=== PATIENT | female | born 1990 | race African-American/Black ===

== ENCOUNTER 2023-09-02 05:39 | Observation (INO) | payer OTHER, SELFPAY ==
--- NOTE | ~2023-09-02 | US_ITS ---
EXAMINATION: US abdomen limited DATE: 09/02/2023 07:52 INDICATION: Right upper quadrant pain TECHNIQUE: Multiple grayscale and Doppler ultrasound images of the abdomen were obtained. COMPARISON: None available FINDINGS: Bowel gas obscures visualization of the pancreas. The visualized portions of the pancreas a re unremarkable. The liver is normal with normal echogenicity and echotexture. No surface nodularity. Normal hepatopetal flow in the main portal vein. The gallbladder is normal with no abnormal wall thi ckening, pericholecystic fluid or stones. The normal common bile duct measures 3 mm. There was no son ographic Baker sign. IMPRESSION: 1. Normal sonographic study of the gallbladder. Reviewed, dictated and finalized at location A.
[2023-09-02 06:00] VITALS: BP 120/79; PULSE 89
[2023-09-02 06:15] VITALS: BMI 32.9
[2023-09-02 06:16] VITALS: BP 103/59; PULSE 81
--- NOTE | 2023-09-02 06:17 | LDADM ---
This patient, Tisha Casey, was admitted to [facility] on 09/02/23 at 05:39. Plans for labor, pain management and were discussed with patient. Patient/family oriented to hospital policies and general routines including ID bracelet, bed and alarms, visiting hours, pain management, procedures, bathroom and other care routines, personal items, smoking policy, room service/diet and guest tray routines, infant security routines, and visiting hours. Patient/Family are encouraged to report perceived risks to care and to ask questions if they do not understand what they are told or what they should do. See OBIX for further documentation.
[2023-09-02] MEDS: fentaNYL CITRATE INJ (*CRX) 100 MCG/2 ML VIAL IV PUSH (06:30)
[2023-09-02 06:31] VITALS: BP 97/68; PULSE 79
[2023-09-02 06:47] LABS: Basophils Percent Auto 0.3 % (0.2-1.2); Eosinophils Absolute Auto 0.2 K/mm3 (0-0.3); Eosinophils Percent Auto 1.9 % (0-4.4); Hematocrit 28.7 % (37.0-47.0); Hemoglobin 9.2 g/dL (12.0-15.0); Immature Granulocyte Absolute 0.06 K/mm3 (0.00-0.031); Immature Granulocyte Percent A 0.7 % (0-0.5); Lymphocytes Absolute Auto 2.19 K/mm3 (0.9-3.2); Lymphocytes Percent Auto 24.4 % (18.3-44.2); Mean Corpuscular HGB Conc 32.1 g/dl (32-36); Mean Corpuscular Hemoglobin 27.5 pg (26-34); Mean Corpuscular Volume 85.7 fl (80-100); Mean Platelet Volume 9.7 fl (7.4-10.4); Monocytes Absolute Auto 0.6 K/mm3 (0.1-0.6); Monocytes Percent Auto 6.9 % (2.6-8.5); Neutrophils Absolute Auto 5.9 K/mm3 (1.3-6.7); Neutrophils Percent Auto 65.8 % (45.5-73.1); Platelet Count Result 217 k/mm3 (150-375); Red Blood Count 3.35 M/mm3 (4.2-5.4)
[2023-09-02 06:56] LABS: Alanine Aminotransferase 10 U/L (6-35); Albumin Level 2.9 g/dL (3.5-5.1); Alkaline Phosphatase 101 U/L (38-126); Anion Gap 2 mmol/L (4-12); Aspartate Amino Transferase 18 U/L (14-36); Bilirubin,Total 0.3 mg/dL (0.2-1.3); Blood Urea Nitrogen 4 mg/dL (7-17); Carbon Dioxide 20 mmol/L (22-30); Chloride 112 mmol/L (98-107); Estimated CRCL calculation 177 ml/min; Estimated Glomerular Filt Rate > 60; Glucose 90 mg/dL (65-110); Potassium 3.6 mmol/L (3.4-5.0); Sodium 134 mmol/L (137-145); Uric Acid 3.7 mg/dL (2.5-7.5)
[2023-09-02 06:57] LABS: Creatinine Urine 71.2 mg/dL; Total Protein Urine Random 10 mg/dL; Ur Ttl Prot Creatinine Ratio 0.14 mg/mg (0-0.20)
[2023-09-02 06:58] LABS: Appearance Urine Turbid (Clear); Bacteria Urine 2+ /hpf; Bilirubin Urine Negative (Negative); Blood Urine Negative (Negative); Color Urine Yellow (Yellow); Glucose Urine UA Negative (Negative); Ketones Urine Negative (Negative); Leukocyte Esterase Ur 3+ LEU/UL (Negative); Nitrate Urine Negative (Negative); Protein Urine Negative (Negative); RBC Urine 0-2 /hpf (0-2); Specific Grav Ur 1.014 (1.001-1.035); Squamous Epithelial Cell Urine Many /hpf (Few); WBC Urine 51-100 /hpf (0-3)
[2023-09-02 07:00] VITALS: BP 107/54; PULSE 74
[2023-09-02 07:02] LABS: Add Urine Microscopic? YES
[2023-09-02 07:19] VITALS: TEMP 36.1
--- NOTE | 2023-09-02 07:53 | PC.NURSE ---
Upon trying to do patient's admission questions, RN noticed patient writhing in bed and moaning with complaints of 10/10 bilateral upper abdominal pain. Patient's abdomen palpates soft. Patient has orders for PO Tylenol but has a gallbladder ultrasound scheduled which she needs to be NPO for. Called Dr. Dunaway and asked for orders to place an IV and give IV pain meds. Verbal orders received for 100 mcg IV Fentanyl.
--- NOTE | 2023-09-02 08:05 | PC.NURSE ---
Dr. Dunaway in OB department. Reviewed category I tracing. Discussed no uterine activity. Discussed lab results and ultrasound results. Notified MD that patient now rates her pain 0/10. Verbal orders reveived for discharge.
--- NOTE | 2023-09-22 13:40 | PM.OBTRLD ---
OB - Triage/Final Diagnosis Visit Information Comments/Additional reasons for admission: I have assessed the risk for this patient, Tisha Casey, and determined that she would benefit from observation care. Evaluation Laboratory results: Laboratory Tests 09/02/23 06:12 WBC 9.0 RBC 3.35 L Hgb 9.2 L Hct 28.7 L MCV 85.7 MCH 27.5 MCHC 32.1 RDW 13.0 Plt Count 217 MPV 9.7 Immature Gran % (Auto) 0.7 H Neut % (Auto) 65.8 Lymph % (Auto) 24.4 [place] % (Auto) 6.9 Eos % (Auto) 1.9 Baso % (Auto) 0.3 Lymph # (Auto) 2.19 [place] # (Auto) 0.6 Eos # (Auto) 0.2 Baso # (Auto) 0.0 Abs Immat Gran (auto) 0.06 H Absolute Neuts (auto) 5.9 Absolute Nucleated RBC 0.000 Nucleated RBC % 0.0 Sodium 134 L Potassium 3.6 Chloride 112 H Carbon Dioxide 20 L Anion Gap 2 L BUN 4 L Creatinine 0.40 L Estim Creat Clear Calc 177 Estimated GFR > 60 Glucose 90 Uric Acid 3.7 Calcium 8.0 L Total Bilirubin 0.3 AST 18 ALT 10 Alkaline Phosphatase 101 Total Protein 6.0 L Albumin 2.9 L Urine Color Yellow Urine Appearance Turbid H Urine pH 7.0 Ur Specific [place] 1.014 Urine Protein Negative Urine Glucose (UA) Negative Urine Ketones Negative Ur Blood (Man) Negative Urine Nitrate Negative Urine Bilirubin Negative Urine Urobilinogen 1.0 Leukocyte Esterase Rfl 3+ H Urine RBC 0-2 Urine WBC 51-100 H Ur Squamous Epith Cells Many H Urine Bacteria 2+ H Urine Casts 3-5 U Random Total Protein 10 Urine Creatinine 71.2 Protein/Creat Ratio 2 0.14 Final Diagnosis (1) Abdominal pain of right upper quadrant during , antepartum: Code(s): O26.899 - Other specified related conditions, unspecified trimester; R10.11 - Right upper quadrant pain Status: Acute
== END 2023-09-02 08:41 | disposition home or self-care (01) ==
PROVIDERS: Admitting Provider Obstetrics & Gynecology; Visit Provider Obstetrics & Gynecology
DX: O26.893 Other specified pregnancy related conditions, third trimester (principal); R10.11 Right upper quadrant pain; Z3A.32 32 weeks gestation of pregnancy
CPT/HCPCS: 36415; 76705; 80053; 81001; 82570; 84156; 84550; 85025; 87086; 87088; 96374; G0378; G0379; J3010

== ENCOUNTER 2023-09-29 19:07 | Emergency (ER) | payer OTHER, SELFPAY ==
[2023-09-29 19:13] VITALS: BP 127/73; PULSE 96; RESP 20; TEMP 37.2; O2SAT 99
--- NOTE | 2023-09-29 20:02 | PC.NURSE ---
Pt approached front end driver asking how much longer the wait is. Pt was told that there is no time frame. Pt stated You can take me off of the list. I will go to another hospital.
== END 2023-09-29 21:04 | disposition left against medical advice (07) ==
DX: K08.89 Other specified disorders of teeth and supporting structures (principal)
CPT/HCPCS: 99199

== ENCOUNTER 2024-02-29 19:08 | Emergency (ER) | payer OTHER, SELFPAY ==
[2024-02-29 19:55] VITALS: BP 115/72; PULSE 83; RESP 18; TEMP 36.3; O2SAT 100
--- NOTE | 2024-02-29 20:03 | ED.URI ---
HPI - URI/Sore Throat General Chief Complaint: Upper Respiratory Infection Stated Complaint: ken, fever, chills, sore throat Time Seen by Provider: 02/29/24 19:27 History of Present Illness HPI Narrative: Patient presents with 1 day of slight headache and body aches, chills, runny nose and congestion, slight sore throat. No nausea vomiting or cough or shortness of breath, her children have been having similar symptoms with last few days. Related Data Home Medications Medication Instructions Recorded Confirmed aspirin 81 mg capsule 81 mg PO DAILY 09/02/23 09/02/23 vit#24-iron amino acid 1 tablet PO DAILY 09/02/23 09/02/23 chelat-folic acid 30 mg-975 mcg tablet Allergies Allergy/AdvReac Type Severity Reaction Status Date / Time Penicillins Allergy Swelling Verified 02/29/24 19:57 Review of Systems Review of Systems: All systems reviewed & are unremarkable except as noted in HPI and below Exam Narrative: EXAMINATION OF ORGAN SYSTEMS/BODY AREAS: Constitutional: Vital signs per nursing GENERAL:[No acute distress, non-toxic appearing.] HEAD: Normal with no signs of head trauma. EYES: EOMI, conjunctiva normal ENT: Hearing grossly intact. No tonsillar exudates or erythema or swelling LUNGS: Nonlabored breathing. clear to auscultation bilaterally HEART: [Regular rate and rhythm] ABD: [Soft], [nontender to palpation] EXT: Normal range of motion SKIN: [No rashes or lesions.] NEURO: [Alert and oriented x 3. No gross focal sensory or strength deficits.] PSYCH: Normal affect Course Vital Signs Vital signs: Vital Signs Temperature 97.4 F L 02/29/24 19:55 Pulse Rate 83 02/29/24 19:55 Respiratory Rate 18 02/29/24 19:55 Blood Pressure 115/72 02/29/24 19:55 Pulse Oximetry 100 02/29/24 19:55 Oxygen Delivery Room Air 02/29/24 19:55 Temperature 97.4 F L 02/29/24 19:55 Pulse Rate 83 02/29/24 19:55 Respiratory Rate 18 02/29/24 19:55 Blood Pressure 115/72 02/29/24 19:55 Pulse Oximetry 100 02/29/24 19:55 Oxygen Delivery Room Air 02/29/24 19:57 MDM - URI/Sore Throat MDM Narrative Medical decision making narrative: ED COURSE AND MEDICAL DECISION MAKING: This 33 year old patient presents with symptoms most suggestive of viral upper respiratory tract infection. Lungs are clear bilaterally without any respiratory distress or accessory muscle use. declined swab here, she is very well-appearing, discharged home in stable condition with expectant management. Return precautions were provided. Discharge Plan Discharge Clinical Impression: Upper respiratory infection Patient Disposition: Home, Self-Care Condition: Stable Instructions: Antibiotic Form, Cold Symptoms (ED) Additional Instructions: Please follow up with your doctor; you can always return for any further issues. Prescriptions: New fluticasone propionate [Allergy Relief (fluticasone)] 50 mcg/actuation spray,suspension 1 spray intranasal DAILY Qty: 16 0RF Rx Instructions: administer into each nostril acetaminophen [Tylenol Extra Strength] 500 mg tablet 1,000 mg PO Q6H PRN (Reason: pain) Qty: 50 0RF ibuprofen 600 mg tablet 600 mg PO TID PRN (Reason: fever or pain) Qty: 30 0RF No Action PNV no.[id number] acid 30-975 mg-mcg Tablet 1 tablet PO DAILY aspirin 81 mg Capsule 81 mg PO DAILY Follow-up/Referrals: Oli Wallace, [Physician] - 2 Days PHYSICIAN,GEOCHEMIST [Non-Staff] -
[2024-02-29 20:59] VITALS: BP 120/76; PULSE 76; RESP 16; TEMP 36.6; O2SAT 98
== END 2024-02-29 20:59 | disposition home or self-care (01) ==
LOC: ANHED 20:11
PROVIDERS: Emergency Provider Emergency Medicine
DX: J06.9 Acute upper respiratory infection, unspecified (principal); Z79.82 Long term (current) use of aspirin
CPT/HCPCS: 99283

== ENCOUNTER 2024-07-13 11:40 | Emergency (ER) | payer OTHER, SELFPAY ==
[2024-07-13 11:54] VITALS: BP 100/85; PULSE 100; RESP 14; TEMP 36.5; O2SAT 99
--- OUTSIDE RECORDS SUMMARY | 2024-07-13 12:05 | XMS_ITS | Referral Summary ---
Author Organization [facility] Address [address] 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 This disclosure is being madepursuant to the Care Everywhere program and may not contain all information available regarding this patient. Last updated 18.[facility] [employer] Allergies Active Allergy Reactions Criticality Noted Date Comments Penicillins Swelling 11/04/2014 Medications * Be aware that medications may not be up to date on this document. Alwaysverify current medications with the patient. Medication Sig Dispensed Refills Start Date End Date Status Aspirin Low Dose 81 MG tablet 04/26/2023 Active Vit-DSS-Fe Fum-FA (Se- 19) 29-1 MG TABS 04/26/2023 Active ferrous sulfate 325 (65 FE) MG tablet Take 1 (one) tablet by mouth once daily Active acetaminophen (Tylenol) 500 MG capsule Take 2 (two) capsules by mouth every 6 hours as needed for Fever or Pain 60 capsule 10/26/2023 Active ibuprofen (Motrin) 600 MG tablet Take 1 (one) tablet by mouth every 6 hours as needed for Pain 30 tablet 10/26/2023 Active docusate sodium (Colace) 100 MG capsule Take 1 (one) capsule by mouth once daily 30 capsule 10/26/2023 Active polyethylene glycol 3350 (Miralax) 17 GM/SCOOP powder Take 17 (seventeen) g by mouth once daily 238 g 10/26/2023 Active Vit-Fe Fumarate-FA ( vitamin) 28-0.8 MG tablet Take 1 (one) tablet by mouth once daily 60 tablet 1 10/26/2023 Active lidocaine (Lidoderm) 5 % patch Apply 1 (one) patch to skin once daily Apply patch to most painful area and remove after 12 hours. May reapply a new patch 12 hours later. 10 patch 10/26/2023 Active vitamin D3 (D-Vi-Jenny) 10 MCG (400 UNITS)/ML solution Take 2.5 mL by mouth once daily 50 mL 1 11/02/2023 Active Active Problems Patient Care Coordination No te Formatting of this note migh t be different from the original. [employer] form completed. Diapers given. 08/15/2023, 10/06/2023 Now [place] [id number] [employer] form completed. Diapers given. 08/07/2020, Problem Noted Date Diagnosed Date Uterine contractions 10/24/2023 Cervical cerclage suture present, antepartum Hx of cerclage in G5 05/04/2023 Anemia 05/04/2023 Supervision of high-risk 05/04/2023 Hx of PreE w/ SF 08/07/2020 Hx of delivery at 36 weeks Resolved Problems Problem Noted Date Diagnosed Date Resolved Date Threatened labor 08/31/2020 08/31/2020 Cervical cerclage suture present 08/07/2020 05/04/2023 Blurry vision 07/16/2020 05/04/2023 Short cervix affecting 05/19/2020 05/04/2023 Tension headache 07/01/2018 05/19/2020 headache in third trimester 06/26/2018 05/04/2023 IUGR (intrauterine growth re striction) affecting care of mother 06/22/2018 05/19/2020 Short cervix 05/03/2018 02/25/2020 History of IUGR (intrauterin e growth retardation) and stillbirth, currently 03/07/2018 05/04/2023 Overview (03/06/2022): IMO 2021 Update IUGR (intrauterine growth restriction) 11/05/2014 06/22/2018 Supervision of high-risk 11/05/2014 05/18/2018 Overview (11/07/2014): Dating: L/8w A+/I/-/-, HIV NR Betamethasone 11/04/14 1322 11/04/14 Hgb 10.2, Hct 31.0, WBC 9.6, Plt 138, AST 74, ALT 40, Cr 0.5, PrCr ratio random urine 0.15 24h urine begun 1204 11/04/14 GCT 89 GBS neg 11/04 Threatened premature labor in third trimester 11/06/19 15 06/22/2018 Encounter to establish gesta tional age using ultrasound 05/19/2020 Immunizations Name Administration Dates Next Due MMR 10/25/2023(Deferred: - pt is immune),09/01/2020(Deferred: - rubella immune) TDAP (7yrs+) 10/25/2023(Deferred: Patient Ref used) Social History Tobacco Use Types Packs/Day Years Used Date Smoking Tobacco: Former Cigarettes Q uit: 03/19/2020 Smokeless Tobacco: Never Tobacco Cessation:Counseling Given: Yes Alcohol Use Standard Drinks/Week Comments No 0 (1 standard drink = 0.6 oz pur e alcohol) AUDIT-C Answer Date Recorded Q1: How often do you have a drink containing alcohol? Never 10/24/2023 Q2: How many drinks containi ng alcohol do you have on a typical day when you are drinking? Patient does not drink 4 Q3: How often do you have si x or more drinks on one occasion? Never 10/24/2023 Overall Financial Resource Strain (CARDIA) Answe r Date Recorded How hard is it for you to pa y for the very basics like food, housing, medical care, and heating? Not hard at all 10/24/2023 [facility] [place] [facility] - Occupational Stress Questionnaire Answer Date Recorded Do you feel stress - tense, restless, nervous, or anxious, or unable to sleep at night because your mind is troubled all the time - these days? Not at all 10/24/2023 Hunger Vital Sign Answer Date Recorded Within the past 12 months, y ou worried that your food would run out before you got the money to buy more. Never true 10/24/19 24 Within the past 12 months, t he food you bought just didn't last and you didn't have money to get more. Never true 10/24/2023 PRAPARE - Transportation Answer Date Re corded In the past 12 months, has l ack of transportation kept you from medical appointments or from getting medications? No 10/05 In the past 12 months, has l ack of transportation kept you from meetings, work, or from getting things needed for daily living? No 10/24/2023 Housing Stability Vital Sign Answer Andrey e Recorded In the last 12 months, was t here a time when you were not able to pay the mortgage or rent on time? No 10/24/2023 In the last 12 months, how many places have you lived? 1 10/24/2023 In the last 12 months, was t here a time when you did not have a steady place to sleep or slept in a alf (including now)? No 10/24/2023 Normal Depression Scale Answer Date Recorded Normal Depression Scale Total 0 10/26/2023 The thought of harming myself has occurred to me . Never 10/26/2023 Sex and Gender Information Value Date Recorded Sex Assigned at Not on file Gender Identity Not on file Sexual Orientation Not on file Last Filed Vital Signs Vital Sign Reading Time Taken Comments Blood Pressure 125/57 10/26/2023 10:00 AM CDT Pulse 83 10/26/2023 10:00 AM CDT Temperature 36.6 C (97.9 F) 10/26/2023 10:00 AM CDT Respiratory Rate 16 10/26/2023 10:00 AM CDT Oxygen Saturation 100% 10/26/2023 10:00 AM CDT Inhaled Oxygen Concentration - - Weight 91.2 kg (201 lb) 10/24/2023 7:27 AM CDT Height 162.6 cm (5' 4 ) 10/24/2023 7:27 AM CDT Body Mass Index 34.5 10/24/2023 7:27 AM CDT Functional Status Functional Status Response Date of Assess ment Is person deaf or have serious hearing difficult y? No 10/24/2023 Is person blind or have serious difficulty seein g? No 10/24/2023 Does person have serious dif ficulty walking/climbing stairs? No 10/24/2023 Does person have difficulty dressing/bathing? No 10/24/2023 Does person have difficulty doing errands alone? No 10/24/2023 Cognitive Status Response Date of Assessm ent Does person have difficulty concentrating/remembering/making decisions? No 10/24/2023 Plan of Treatment Not on file Procedures Procedure Name Priority Date/Time Associated Diagnosis Comments HIV-1 HIV-2 ANTIBODY + HIV P24 AG PANEL Routine 08/29/2023 11:08 AM CDT Supervision of high-risk PAP IG LB+HPV APTIMA Routine 05/04/2023 3:44 PM TRANSIT OPERATOR Cervical cerclage suture present, antepartum (HCC) HEPATITIS C ANTIBODY Routine 05/04/2023 3:43 PM TRANSIT OPERATOR Short cervix affecting (HCC) from Last 3 Months or Most Recently Relevant to Health Maintenance Results * HIV-1 HIV-2 ANTIBODY + HIV P24 AG PANEL (08/29/2023 11:08 AM CDT) HIV1/2 Ab + P24 Ag Non Reactive Non Reactive 08/29/2023 12:17 PM CDT [facility] Blood BLOOD SPECIMEN / Unknown Venipuncture / Unknown 08/29/2023 11:08 AM CDT 08/29/2023 11:28 AM CDT Narrative [facility] - 08/29/2023 12:17 PM CDT No Laboratory evidence of HIV infection. Aicha Johnson MD LAB - C HEMISTRY ORDERABLES [facility] [address] [place] [address] * PAP IG LB+HPV APTIMA (05/04/2023 3:44 PM TRANSIT OPERATOR) Diagnosis Comment 05/09/2023 3:08 PM TRANSIT OPERATOR [facility] ([facility]) Comment:NEGATIVE FOR INTRAEP ITHELIAL LESION OR MALIGNANCY. Specimen Adequacy Comment 3:08 PM TRANSIT OPERATOR [facility] ([facility]) Comment: Satisfactory for evaluation. Endocervical and/or squamous metaplastic cells (endocervical component) are present. Performed by Comment 05/09/2023 3:08 PM TRANSIT OPERATOR [facility] ([facility]) Comment:Nadir Sadler totechnologist Comment . 05/09/2023 3:08 PM TRANSIT OPERATOR [facility] ([facility]) Note Comment 05/09/2023 3:08 PM TRANSIT OPERATOR [facility] ([facility]) Comment: The Pap smear is a screening test designed to aid in the detection of premalignant and malignant conditions of the uterine cervix. It is not a diagnostic procedure and should not be used as the sole means of detecting cervical cancer. Both false-positive and false-negative reports do occur. IGLBP CPT Code Automation Comment 05/09/2023 3:08 PM TRANSIT OPERATOR [facility] ([facility]) Comment: This liquid based ThinPrep(R) pap test was screened with the use of an image guided system. Human papillomavirus Aptima Negative Negative 05/09/2023 3:08 PM TRANSIT OPERATOR [facility] ([facility]) Comment: This nucleic acid amplification test detects fourteen high-risk HPV types (16,18,31,33,35,39,45,51,52,56,58,59,66,68) without differentiation. Pathology/Cytolo gy PART OF UTERINE CERVIX / Unknown Collection / Unknown 05/04/2023 3:44 PM TRANSIT OPERATOR 05/04/2023 4:16 PM TRANSIT OPERATOR Narrative [facility] ([facility]) - 05/09/2023 3:08 PM TRANSIT OPERATOR Performed at: 01 - [facility] [id number] Desolderer: Kristyn Kramer MD, Phone: [phone] Performed at: 02 - [facility] [id number] Desolderer: Kristyn Kramer MD, Phone: [phone] Specimen Comment: No. of containers..01 ThinPrep Vial Evelin Joaquin MD LAB - PATHOLOGY/CYTO LOGY ORDERABLES [facility] ([facility]) [address] [place] [address] * HEPATITIS C ANTIBODY (05/04/2023 3:43 PM TRANSIT OPERATOR) HCV Antibody Screen Non Reactive Non Reactive 05/04/2023 5:03 PM TRANSIT OPERATOR [facility] Blood BLOOD SPECIMEN / Unknown Venipuncture / Unknown 05/04/2023 3:43 PM TRANSIT OPERATOR 05/04/2023 4:13 PM TRANSIT OPERATOR Narrative [facility] - 05/04/2023 5:03 PM TRANSIT OPERATOR Non Reactive - Antibodies to Hepatitis C virus (HCV) were not detected, result does not exclude early acute HCV infection. Evelin Joaquin MD LAB - CHEMISTRY ELEN MADERA [facility] [address] [place] [address] from Last 3 Months or Most Recently Relevant to Health Maintenance Advance Directives * Full Code (Latest Code Status on File) Date Activated Date Inactivated Comments 10/24/2023 9:13 AM 10/26/2023 2:20 PM * Full Code Date Activated Date Inactivated Comments 10/10/2023 1:28 AM 10/10/2023 3:24 PM * Full Code Date Activated Date Inactivated Comments 08/31/2020 12:48 PM 09/02/2020 12:31 PM * Full Code Date Activated Date Inactivated Comments 08/27/2020 4:54 AM 08/27/2020 7:23 AM * Full Code Date Activated Date Inactivated Comments 08/14/2020 1:29 PM 08/14/2020 6:50 PM
--- OUTSIDE RECORDS SUMMARY | 2024-07-13 12:05 | XMS_ITS | Clinical Summary ---
Author Organization [facility] [employer] Address [address] [place] [address] Care Team Providers Care Voting Machine Mechanic Name Role Phone Unavailable Primary Care Provider Unavailabl e Source Comments [facility],non-owned Affiliates and Associated Physician Practices is amultiple site organization consisting of ambulatory clinics and hospital sitesin [place], [place], [place] and [place]. This disclosure is being madepursuant to the Care Everywhere program and may not contain all information available regarding this patient. Last updated 18.[facility] [employer] Allergies Active Allergy Reactions Criticality Noted Date [...] migh t be different from the original. [employer] form completed. Diapers given. 08/15/2023, 10/06/2023 Now [place] [id number] [employer] form completed. Diapers given. 08/07/2020, [...] immune) TDAP (7yrs+) 10/25/2023(Deferred: Patient Ref used) Family History Medical History Relation Name Comments Diabetes - Type 2 Father Hypertension Father Diabetes - Type 2 Mother Hypertension Mother Relation Name Status Comments Father Alive Mother Alive Social History Tobacco Use Types Packs/Day Years [...] you are drinking? Patient does not drink Q3: How often do you have si x or more drinks on one occasion? Never 10/24/2023 Overall Financial Resource Strain (CARDIA) Answe r Date Recorded How hard is it for you to pa y for the very basics like food, housing, medical care, and heating? Not hard at all 10/24/2023 [facility] Occupat ional Health - Occupational Stress [...] place to sleep or slept in a halfway (including now)? No 10/24/2023 Clinton Depression Scale Answer Date Recorded [place] Depression Scale Total 0 10/26/2023 The thought [...] Mass Index 34.5 10/24/2023 7:27 AM CDT Plan of Treatment Health Maintenance Due Date Last Done Comments DTAP/TDAP/TD VACCINES (1 - Tdap) 09/16/2010 HEPATITIS B VACCINE (1 of 3 - 19+ 3-dose series) 09/16/2010 PNEUMOCOCCAL VACCINE (1 of 2 - PCV) 09/16/2010 COVID-19 VACCINE (1 - 2023- season) 2024 INFLUENZA VACCINE (#1) 2024 04/06/2018 DEPRESSION SCREENING 06/06/2024 10/26/2023 PAP with HPV 05/04/2028 05/04/2023 ZOSTER VACCINE (1 of 2) 09/16/2041 HEPATITIS C SCREENING Completed 05/04/2023 HIV SCREENING Completed 08/29/2023, 04/07, 06/04/2020, Additional history exists HIB VACCINE Aged Out No longer eligi ble based on patient's age to complete this topic HPV VACCINE Aged Out No longer eligi ble based on patient's age to complete this topic MENINGOCOCCAL (Group B) VACCINE Aged Out No longer eligible based on patient's age to complete this topic MENINGOCOCCAL VACCINE Aged Out No krystyna dyllan eligible based on patient's age to complete this topic Procedures Procedure Name Priority Date/Time Associated Diagnosis Comments HIV-1 HIV-2 ANTIBODY + HIV P24 AG PANEL Routine 08/29/2023 11:08 AM CDT Supervision of high-risk PAP IG LB+HPV APTIMA Routine 05/04/2023 3:44 PM ASSISTANT ELEMENTARY TEACHER Cervical cerclage suture present, antepartum (HCC) HEPATITIS C ANTIBODY Routine 05/04/2023 3:43 PM ASSISTANT ELEMENTARY TEACHER Short cervix affecting (HCC) from Last 3 Months or Most Recently Relevant to Health Maintenance Results * HIV-1 HIV-2 ANTIBODY + HIV P24 AG PANEL (08/29/2023 11:08 AM CDT) HIV1/2 Ab + P24 Ag Non Reactive Non Reactive 08/29/2023 12:17 PM CDT [facility] Blood BLOOD SPECIMEN / Unknown Venipuncture / Unknown 08/29/2023 11:08 AM CDT 08/29/2023 11:28 AM CDT Narrative [facility] - 08/29/2023 12:17 PM CDT No Laboratory evidence of HIV infection. Aicha Johnson MD LAB - C HEMISTRY ORDERABLES [facility] [address] [place] [address] * PAP IG LB+HPV APTIMA (05/04/2023 3:44 PM ASSISTANT ELEMENTARY TEACHER) Diagnosis Comment 05/09/2023 3:08 PM ASSISTANT ELEMENTARY TEACHER [facility] ([facility]) Comment:NEGATIVE FOR INTRAEP ITHELIAL LESION OR MALIGNANCY. Specimen Adequacy Comment 023 3:08 PM ASSISTANT ELEMENTARY TEACHER [facility] ([facility]) Comment: Satisfactory for evaluation. Endocervical and/or squamous metaplastic cells (endocervical component) are present. Performed by Comment 05/09/2023 3:08 PM ASSISTANT ELEMENTARY TEACHER [facility] ([facility]) Comment:Nadir Sadler totechnologist Comment . 05/09/2023 3:08 PM ASSISTANT ELEMENTARY TEACHER [facility] ([facility]) Note Comment 05/09/2023 3:08 PM ASSISTANT ELEMENTARY TEACHER [facility] ([facility]) Comment: The Pap smear is a screening test designed to aid in the detection of premalignant and malignant conditions of the uterine cervix. It is not a diagnostic procedure and should not be used as the sole means of detecting cervical cancer. Both false-positive and false-negative reports do occur. IGLBP CPT Code Automation Comment 05/09/2023 3:08 PM ASSISTANT ELEMENTARY TEACHER [facility] ([facility]) Comment: This liquid based ThinPrep(R) pap test was screened with the use of an image guided system. Human papillomavirus Aptima Negative Negative 05/09/2023 3:08 PM ASSISTANT ELEMENTARY TEACHER [facility] ([facility]) Comment: This nucleic acid amplification test detects fourteen high-risk HPV types (16,18,31,33,35,39,45,51,52,56,58,59,66,68) without differentiation. Pathology/Cytolo gy PART OF UTERINE CERVIX / Unknown Collection / Unknown 05/04/2023 3:44 PM ASSISTANT ELEMENTARY TEACHER 05/04/2023 4:16 PM ASSISTANT ELEMENTARY TEACHER Narrative [facility] ([facility]) - 05/09/2023 3:08 PM ASSISTANT ELEMENTARY TEACHER Performed at: 01 - [facility] [address] [place], [place] [id number] New Car Make Ready Mechanic: Kristyn Kramer MD, Phone: [phone] Performed at: 02 - [facility] [address] [facility] [place] [id number] New Car Make Ready Mechanic: Kristyn Kramer MD, Phone: [phone] Specimen Comment: No. of containers..01 ThinPrep Vial Evelin Joaquin MD LAB - PATHOLOGY/CYTO LOGY ORDERABLES [facility] ([facility]) [address] [place] [address] * HEPATITIS C ANTIBODY (05/04/2023 3:43 PM ASSISTANT ELEMENTARY TEACHER) HCV Antibody Screen Non Reactive Non Reactive 05/04/2023 5:03 PM ASSISTANT ELEMENTARY TEACHER [facility] Blood BLOOD SPECIMEN / Unknown Venipuncture / Unknown 05/04/2023 3:43 PM ASSISTANT ELEMENTARY TEACHER 05/04/2023 4:13 PM ASSISTANT ELEMENTARY TEACHER Narrative [facility] - 05/04/2023 5:03 PM ASSISTANT ELEMENTARY TEACHER Non Reactive - Antibodies to Hepatitis C virus (HCV) were not detected, result does not exclude early acute HCV infection. Evelin Joaquin MD LAB - CHEMISTRY ORDE CASSY [facility] [address] [place] [address] from Last 3 Months or Most Recently [...]
--- OUTSIDE RECORDS SUMMARY | 2024-07-13 12:05 | XMS_ITS | Encounter Summary ---
Author Organization [facility] Address [address] [place] [address] [place] [address] Care Team Providers Care Information Director Name Role Phone Unavailable Primary Care Provider Unavailabl e Reason for Visit * Reason Onset Date Comments Patient Requested Call 08/10/2018 Encounter Details Date Type Department Care Team (Late st Contact Info) Description 08/10/2018 Telephone [facility]/ EVALUATION UNIT [facility] [facility] [place] [address] Jodee Flores, RN Patient Requested Call Social History Tobacco Use Types Packs/Day Years Used Date Smoking Tobacco: Former Cigarettes Smokeless Tobacco: Never Alcohol Use Standard Drinks/Week Comments No 0 (1 standard drink = 0.6 oz pur e alcohol) Comments Yes Sex and Gender Information Value Date Recorded Sex Assigned at Not on file Gender Identity Not on file Sexual Orientation Not on file documented as of this encounter Functional Status Functional Status Response Date of Assess ment Is person deaf or have serious hearing difficult y? No 07/01/2018 Is person blind or have serious difficulty seein g? No 07/01/2018 Does person have serious dif ficulty walking/climbing stairs? No 07/01/2018 Does person have difficulty dressing/bathing? No 07/01/2018 Does person have difficulty doing errands alone? No 07/01/2018 Cognitive Status Response Date of Assessm ent Does person have difficulty concentrating/remembering/making decisions? No 07/01/2018 documented as of this encounter Miscellaneous Notes * Telephone Encounter - Jodee Delgado RN - 08/10/2018 8:23 AM CST Pt called with concerns that she was placed on bedrest 06/13 by her previous doctor (Dr. Graeme John) until she had been seen in [facility] clinic per pt 07/03. New OB in [facility] clinic was established 06/22. Pt stated she called Dr. John's office asking for the bedrest letter from 06/13-07/03 and the office stated there was no letter. Pt recalls receiving a letter she gave to her employer and is now in need of another copy for her housing situation. Called Dr. John's office and spoke with the nurse, Ashley, who confirmed Dr. John did not place the pt on bedrest on 06/13 when she was seen in his office. No documentation of a letter was found in the chart per JLUIS Ramirez. Communicated above with pt, stating our clini c doesn't have the documentation of bedrest after appointment on 06/22. Pt encouraged to reach out to employer for copy of letter Dr. John wrote (per pt) to give to whomever in regards to housing. Pt verbalized understanding. RY SCREEN PRINTING MACHINE OPERATOR documented in this encounter Plan of Treatment Not on file documented as of this encounter Visit Diagnoses Not on filedocumented in this encounter Additional Health Concerns Infection Onset Date Last Indicated Resolved Time COVID-19 Under Investigation 05/16/2020 05/16/2020 05/17/2020 2:44 AM ROTARY SCREEN PRINTING MACHINE OPERATOR documented as of this encounter
--- OUTSIDE RECORDS SUMMARY | 2024-07-13 12:05 | XMS_ITS | Patient Health Summary ---
Author Organization [facility] [employer] Address [address] [place] [address] Care Team Providers Care Protein Specialist Name Role Phone Unavailable Primary Care Provider Unavailabl e Note from [facility],non-owned Affiliates and Associated Physician Practices is amultiple site organization consisting of ambulatory clinics and hospital sitesin [place], [place], [place] and [place]. This disclosure is being madepursuant to the Care Everywhere program and may not contain all information available regarding this patient. Last updated 18.[facility] Allergies * Penicillins(Swelling) * Tetanus Toxoid,Inactive Medications * Be aware that medications may not be up to date on this document. Alwaysverify current medications with the patient. * Aspirin Low Dose 81 MG tablet(Started 04/26/2023) * Vit-DSS-Fe Fum-FA (Se- 19) 29-1 MG TABS(Started 04/26/2023) * ferrous sulfate 325 (65 FE) MG tablet Take 1 (one) tablet by mouth once daily * acetaminophen (Tylenol) 500 MG capsule(Started 10/26/2023) Take 2 (two) capsules by mouth every 6 hours as needed for Fever or Pain * ibuprofen (Motrin) 600 MG tablet(Started 10/26/2023) Take 1 (one) tablet by mouth every 6 hours as needed for Pain * docusate sodium (Colace) 100 MG capsule(Started 10/26/2023) Take 1 (one) capsule by mouth once daily * polyethylene glycol 3350 (Miralax) 17 GM/SCOOP powder(Started 10/26/2023) Take 17 (seventeen) g by mouth once daily * Vit-Fe Fumarate-FA ( vitamin) 28-0.8 MG tablet(Started 10/26/2023) Take 1 (one) tablet by mouth once daily 1 refill by 10/25/2024 * lidocaine (Lidoderm) 5 % patch(Started 10/26/2023) Apply 1 (one) patch to skin once daily Apply patch to most painful area and remove after 12 hours. May reapply a new patch 12 hours later. * vitamin D3 (D-Vi-Jenny) 10 MCG (400 UNITS)/ML solution(Started 11/02/2023) Take 2.5 mL by mouth once daily 1 refill by 11/01/2024 Active Problems Problem Noted Date Diagnosed Date Uterine contractions [...] growth retardation) and stillbirth, currently 03/07/2018 05/04/2023 IUGR (intrauterine growth restriction) 11/05/2014 06/22/2018 Supervision of high-risk 11/05/2014 05/18/2018 Threatened premature labor in third trimester 11/06/19 15 06/22/2018 Encounter to establish gesta tional age using ultrasound 05/19/2020 Social History Tobacco Use Types Packs/Day Years [...] and heating? Not hard at all 10/24/2023 [facility] - Occupational Stress [...] place to sleep or slept in a long term (including now)? No 10/24/2023 Killbuck Depression Scale Answer Date Recorded Kill[place] Depression Scale Total 0 10/26/2023 The thought [...] Mass Index 34.5 10/24/2023 7:27 AM CDT Procedures * CBC W AUTO DIFFERENTIAL(Performed 10/25/2023) * BLOOD GASES CORD GHADA (ISTAT)(Performed 10/24/2023) * BLOOD GASES CORD ART (ISTAT)(Performed 10/24/2023) * NEURAXIAL BLOCK(Performed 10/24/2023) * TYPE + SCREEN PANEL(Performed 10/24/2023) Performed for Uterine contractions (HCC), Elevated blood pressure reading without diagnosis of hypertension * SYPHILIS ANTIBODY CASCADING REFLEX(Performed 10/24/2023) Performed for Uterine contractions (HCC), Elevated blood pressure reading without diagnosis of hypertension * PROTEIN CREATININE RATIO URINE RANDOM PNL(Performed 10/24/2023) Performed for Elevated blood pressure reading without diagnosis of hypertension * COMPREHENSIVE METABOLIC PANEL(Performed 10/24/2023) Performed for Elevated blood pressure reading without diagnosis of hypertension * CBC W AUTO DIFFERENTIAL(Performed 10/24/2023) Performed for Elevated blood pressure reading without diagnosis of hypertension * URINALYSIS - POCT (IP) BEAKER INTERFACE(Performed 10/13/2023) * IMAGING/RADIOLOGY/XRAY RESULTS ORDER(Performed 10/11/2023) * TYPE + SCREEN PANEL(Performed 10/10/2023) * CBC W AUTO DIFFERENTIAL(Performed 10/10/2023) * NONSTRESS TEST(Performed 10/06/2023) * CERCLAGE REMOVAL(Performed 10/06/2023) * CULTURE STREP B(Performed 10/06/2023) Performed for Supervision of high-risk * URINALYSIS - POCT (IP) BEAKER INTERFACE(Performed 10/06/2023) * SONOGRAM - COMPLETE(Performed 09/29/2023) Performed for Encounter for ultrasound to assess growth (HCC) * IRON + TRANSFERRIN PANEL(Performed 08/29/2023) Performed for Supervision of high-risk * FERRITIN(Performed 08/29/2023) Performed for Supervision of high-risk * HIV-1 HIV-2 ANTIBODY + HIV P24 AG PANEL(Performed 08/29/2023) Performed for Supervision of high-risk * SYPHILIS ANTIBODY CASCADING REFLEX(Performed 08/29/2023) Performed for Supervision of high-risk * COMPREHENSIVE METABOLIC PANEL(Performed 08/29/2023) Performed for Supervision of high-risk * CBC W AUTO DIFFERENTIAL(Performed 08/29/2023) Performed for Supervision of high-risk * GLUCOSE CHALLENGE(Performed 08/29/2023) Performed for Supervision of high-risk * SONOGRAM - COMPLETE(Performed 08/29/2023) Performed for Encounter for ultrasound to assess growth (HCC), Encounter for follow-up ultrasound of anatomy (HCC) * URINALYSIS - POCT (IP) BEAKER INTERFACE(Performed 08/15/2023) * SONOGRAM - COMPLETE(Performed 07/25/2023) Performed for Encounter for anatomic survey ([facility]) * CARDIAC RHYTHM STRIP ORDER(Performed 05/23/2023) * SONOGRAM - TRANSVAGINAL(Performed 05/23/2023) Performed for Hx of delivery at 36 weeks, Hx of cerclage in G5, Supervision of high-risk * NEURAXIAL BLOCK(Performed 05/19/2023) * TYPE + SCREEN PANEL(Performed 05/19/2023) Performed for Pre-operative clearance * NM REVISION CERVIX W PREG,VAG APPRCH(Performed 05/19/2023) Performed for Diagnosis unknown * PAP IG LB+HPV APTIMA(Performed 05/04/2023) Performed for Cervical cerclage suture present, antepartum (HCC) * TYPE + SCREEN PANEL(Performed 05/04/2023) Performed for Short cervix affecting (HCC) * HEMOGLOBINOPATHY FRACTIONATION CASCADE(Performed 05/04/2023) Performed for Short cervix affecting (HCC) * HEPATITIS C ANTIBODY(Performed 05/04/2023) Performed for Short cervix affecting ([facility]) * RUBELLA ANTIBODY IGG(Performed 05/04/2023) Performed for Short cervix affecting ([facility]) * HEPATITIS B SURFACE ANTIGEN W RFLX CONFIRMATION(Performed 05/04/2023) Performed for Short cervix affecting ([facility]) * TREPONEMA PALLIDUM AB(Performed 05/04/2023) Performed for Short cervix affecting ([facility]) * HIV-1 HIV-2 ANTIBODY + HIV P24 AG PANEL(Performed 05/04/2023) Performed for Short cervix affecting ([facility]) * PROTEIN CREATININE RATIO URINE RANDOM PNL(Performed 05/04/2023) Performed for History of delivery, currently in second trimester ([facility]) * IRON + TRANSFERRIN PANEL(Performed 05/04/2023) Performed for History of delivery, currently in second trimester ([facility]) * FERRITIN(Performed 05/04/2023) Performed for History of delivery, currently in second trimester ([facility]) * CBC W/O DIFFERENTIAL(Performed 05/04/2023) Performed for History of delivery, currently in second trimester ([facility]) * CHLAMYDIA + GC AMPLIFIED PROBE(Performed 05/04/2023) Performed for headache in third trimester ([facility]) * TRICHOMONAS VAGINALIS AMPLIFIED PROBE(Performed 05/04/2023) Performed for headache in third trimester ([facility]) * CULTURE URINE(Performed 05/04/2023) Performed for History of delivery, currently in second trimester ([facility]) * ANEUPLOIDY SCREENING(Performed 05/04/2023) * SONOGRAM - COMPLETE(Performed 05/03/2023) Performed for Hx of preeclampsia, prior , currently ([facility]), History of delivery, currently in second trimester ([facility]), History of IUGR (intrauterine growth retardation) and stillbirth, currently , Encounter for routine ultrasound ([facility]) * IMAGING/RADIOLOGY/XRAY RESULTS ORDER(Performed 09/02/2020) * CBC W AUTO DIFFERENTIAL(Performed 09/01/2020) Performed for state ([facility]) * TYPE + SCREEN PANEL(Performed 08/31/2020) * NEURAXIAL BLOCK(Performed 08/31/2020) * URINE MICROSCOPIC ONLY REFLEX TO CULTURE(Performed 08/31/2020) Performed for Elevated blood pressure reading without diagnosis of hypertension * PROTEIN CREATININE RATIO URINE RANDOM PNL(Performed 08/31/2020) Performed for Elevated blood pressure reading without diagnosis of hypertension * URINALYSIS REFLEX MICROSCOPIC REFLEX CULTURE(Performed 08/31/2020) Performed for Elevated blood pressure reading without diagnosis of hypertension * CULTURE URINE(Performed 08/31/2020) Performed for Elevated blood pressure reading without diagnosis of hypertension * CBC W AUTO DIFFERENTIAL(Performed 08/31/2020) Performed for Elevated blood pressure reading without diagnosis of hypertension * COMPREHENSIVE METABOLIC PANEL(Performed 08/31/2020) Performed for Elevated blood pressure reading without diagnosis of hypertension * NONSTRESS TEST(Performed 08/31/2020) * NONSTRESS TEST(Performed 08/27/2020) * CULTURE STREP B(Performed 08/14/2020) Performed for Supervision of high-risk of young multigravida ([facility]) * URINALYSIS - POCT (IP) BEAKER INTERFACE(Performed 08/14/2020) * SONOGRAM - COMPLETE(Performed 08/07/2020) Performed for History of prior with IUGR * GLUCOSE PROTEIN KETONE URINE - POINT OF CAR(Performed 08/07/2020) Performed for , unspecified gestational age ([facility]) * NONSTRESS TEST(Performed 07/17/2020) Performed for Blurry vision * COMPREHENSIVE METABOLIC PANEL(Performed 07/17/2020) Performed for Blurry vision * CBC W/O DIFFERENTIAL(Performed 07/17/2020) Performed for Blurry vision * PROTEIN CREATININE RATIO URINE RANDOM PNL(Performed 07/17/2020) Performed for Blurry vision * GLUCOSE CHALLENGE(Performed 06/04/2020) Performed for Current with history of pre-term labor in second trimester ([facility]) * CBC W AUTO DIFFERENTIAL(Performed 06/04/2020) Performed for Current with history of pre-term labor in second trimester ([facility]) * SYPHILIS ANTIBODY CASCADING REFLEX(Performed 06/04/2020) Performed for Current with history of pre-term labor in second trimester ([facility]) * HIV-1 HIV-2 ANTIBODY + HIV P24 AG PANEL(Performed 06/04/2020) Performed for Current with history of pre-term labor in second trimester ([facility]) * SONOGRAM - COMPLETE(Performed 06/04/2020) * CARDIAC RHYTHM STRIP ORDER(Performed 05/21/2020) * ENDOTRACHEAL TUBE NOTE(Performed 05/19/2020) * CERCLAGE CERVIX(Performed 05/19/2020) Performed for Diagnosis unknown * SARS-COV-2 (COVID-19) IN HOUSE(Performed 05/16/2020) Performed for , unspecified gestational age ([facility]) * SARS-COV2 (COVID-19) PANEL (STL)(Performed 05/16/2020) Performed for , unspecified gestational age ([facility]) * SONOGRAM - TRANSVAGINAL(Performed 05/12/2020) Performed for History of delivery, currently in second trimester ([facility]) * GLUCOSE PROTEIN KETONE URINE - POINT OF CAR(Performed 05/12/2020) Performed for , unspecified gestational age ([facility]) * SONOGRAM - TRANSVAGINAL(Performed 04/07/2020) * GLUCOSE PROTEIN KETONE URINE - POINT OF CAR(Performed 04/07/2020) Performed for , unspecified gestational age ([facility]) * ANEUPLOIDY SCREENING(Performed 04/07/2020) * TRICHOMONAS RAPID TEST(Performed 02/25/2020) Performed for , unspecified gestational age ([facility]) * CHLAMYDIA + GC AMPLIFIED PROBE(Performed 02/25/2020) Performed for , unspecified gestational age ([facility]) * GLUCOSE PROTEIN KETONE URINE - POINT OF CAR(Performed 02/25/2020) Performed for , unspecified gestational age ([facility]) * SONOGRAM - COMPLETE(Performed 02/25/2020) Performed for Encounter to establish gestational age using ultrasound ([facility]) * HCG URINE QUALITATIVE - POINT OF CARE(Performed 08/02/2018) Performed for History of pre-eclampsia in prior , currently ([facility]) * IMAGING/RADIOLOGY/XRAY RESULTS ORDER(Performed 07/06/2018) * NON-STRESS TEST(Performed 06/26/2018) * COMPREHENSIVE METABOLIC PANEL(Performed 06/26/2018) Performed for History of pre-eclampsia in prior , currently ([facility]) * CBC W AUTO DIFFERENTIAL(Performed 06/26/2018) Performed for History of pre-eclampsia in prior , currently ([facility]) * PROTEIN CREATININE RATIO URINE RANDOM PNL(Performed 06/26/2018) Performed for History of pre-eclampsia in prior , currently ([facility]) * BIOPHYSICAL PROFILE W NST(Performed 06/26/2018) Performed for History of pre-eclampsia in prior , currently ([facility]), Threatened premature labor in third trimester ([facility]), Short cervix * CYTOMEGALOVIRUS ANTIBODY IGG/IGM BLOOD(Performed 06/22/2018) Performed for Poor growth affecting management of mother in third trimester, fetus 1 of multiple gestation ([facility]) * TOXOPLASMA ANTIBODY IGG/IGM PANEL(Performed 06/22/2018) Performed for Poor growth affecting management of mother in third trimester, fetus 1 of multiple gestation ([facility]) * HEPATITIS B SURFACE ANTIGEN W RFLX CONFIRMATION(Performed 06/22/2018) Performed for , unspecified gestational age ([facility]) * RPR(Performed 06/22/2018) Performed for , unspecified gestational age ([facility]) * HIV-1 HIV-2 ANTIBODY + HIV P24 AG PANEL(Performed 06/22/2018) Performed for , unspecified gestational age ([facility]) * CULTURE STREP B(Performed 06/22/2018) Performed for , unspecified gestational age ([facility]) * GLUCOSE PROTEIN KETONE URINE - POINT OF CAR(Performed 06/22/2018) Performed for , unspecified gestational age ([facility]) * BIOPHYSICAL PROFILE W NST(Performed 06/19/2018) Performed for History of pre-eclampsia in prior , currently ([facility]), Threatened premature labor in third trimester ([facility]), Short cervix * BIOPHYSICAL PROFILE W NST(Performed 06/12/2018) Performed for History of pre-eclampsia in prior , currently ([facility]), Threatened premature labor in third trimester ([facility]), Short cervix * BIOPHYSICAL PROFILE W NST(Performed 05/25/2018) Performed for History of pre-eclampsia in prior , currently ([facility]), Threatened premature labor in third trimester ([facility]), Short cervix * NONSTRESS TEST(Performed 05/19/2018) Performed for Threatened premature labor in third trimester ([facility]) * NONSTRESS TEST(Performed 05/18/2018) * BIOPHYSICAL PROFILE W NST(Performed 05/18/2018) Performed for History of pre-eclampsia in prior , currently ([facility]), Supervision ofhigh risk , antepartum ([facility]), Threatened premature labor in third trimester ([facility]), Short cervix * GLUCOSE - POINT OF CARE(Performed 05/04/2018) * GLUCOSE - POINT OF CARE(Performed 05/04/2018) * GLUCOSE - POINT OF CARE(Performed 05/04/2018) * GLUCOSE - POINT OF CARE(Performed 05/03/2018) * GLUCOSE - POINT OF CARE(Performed 05/03/2018) * TYPE + SCREEN PANEL(Performed 05/03/2018) Performed for Short cervix * CBC W AUTO DIFFERENTIAL(Performed 05/03/2018) Performed for Short cervix * URINALYSIS REFLEX MICROSCOPIC REFLEX CULTURE(Performed 05/03/2018) Performed for Short cervix * TRICHOMONAS RAPID TEST(Performed 05/03/2018) Performed for Short cervix * CULTURE STREP B(Performed 05/03/2018) Performed for Short cervix * CHLAMYDIA + GC AMPLIFIED PROBE(Performed 05/03/2018) Performed for Short cervix * SONOGRAM - COMPLETE(Performed 05/03/2018) Performed for Supervision of high risk , antepartum ([facility]) * SONOGRAM - COMPLETE(Performed 03/30/2018) Performed for History of pre-eclampsia in prior , currently ([facility]), Supervision ofhigh risk , antepartum ([facility]), Threatened premature labor, antepartum ([facility]) * SONOGRAM - TRANSVAGINAL(Performed 03/16/2018) Performed for Supervision of high-risk of young multigravida ([facility]), Supervision of high risk , antepartum ([facility]) * SONOGRAM - COMPLETE(Performed 03/07/2018) Performed for Supervision of high risk , antepartum ([facility]) * COMPREHENSIVE METABOLIC PANEL(Performed 11/10/2014) * CBC W AUTO DIFFERENTIAL(Performed 11/10/2014) * COMPREHENSIVE METABOLIC PANEL(Performed 11/09/2014) * PT PTT PANEL(Performed 11/09/2014) * CBC W AUTO DIFFERENTIAL(Performed 11/09/2014) * PT PTT PANEL(Performed 11/09/2014) * CBC W AUTO DIFFERENTIAL(Performed 11/09/2014) * CBC W AUTO DIFFERENTIAL(Performed 11/08/2014) * PT PTT PANEL(Performed 11/08/2014) * FIBRINOGEN ACTIVITY(Performed 11/08/2014) * CBC W AUTO DIFFERENTIAL(Performed 11/08/2014) * BLOOD GASES CORD GHADA (ISTAT)(Performed 11/08/2014) * BLOOD GASES CORD ART (ISTAT)(Performed 11/08/2014) * PATHOLOGY TISSUE EXAM (STL)(Performed 11/08/2014) * PT PTT PANEL(Performed 11/08/2014) * FIBRINOGEN ACTIVITY(Performed 11/08/2014) * COMPREHENSIVE METABOLIC PANEL(Performed 11/08/2014) * CBC W AUTO DIFFERENTIAL(Performed 11/08/2014) * NEURAXIAL BLOCK(Performed 11/08/2014) * COMPREHENSIVE METABOLIC PANEL(Performed 11/08/2014) * CBC W AUTO DIFFERENTIAL(Performed 11/08/2014) * COMPREHENSIVE METABOLIC PANEL(Performed 11/07/2014) * CBC W AUTO DIFFERENTIAL(Performed 11/07/2014) * TYPE + SCREEN PANEL(Performed 11/07/2014) * URINE DRUG SCREEN IMMUNOASSAY(Performed 11/07/2014) Performed for Elevated blood pressure * LDH BLOOD(Performed 11/07/2014) Performed for Elevated blood pressure * URIC ACID BLOOD(Performed 11/07/2014) Performed for Elevated blood pressure * COMPREHENSIVE METABOLIC PANEL(Performed 11/07/2014) Performed for Elevated blood pressure * CBC W AUTO DIFFERENTIAL(Performed 11/07/2014) Performed for Elevated blood pressure * PROTEIN CREATININE RATIO URINE RANDOM PNL(Performed 11/07/2014) Performed for Elevated blood pressure * BIOPHYSICAL PROFILE W NST(Performed 11/07/2014) * IMAGING/RADIOLOGY/XRAY RESULTS ORDER(Performed 11/06/2014) * LIPASE BLOOD(Performed 11/05/2014) * AMYLASE BLOOD(Performed 11/05/2014) * COMPREHENSIVE METABOLIC PANEL(Performed 11/05/2014) * SONOGRAM - COMPLETE(Performed 11/05/2014) * PROTEIN URINE TIMED QUANTITATIVE(Performed 11/05/2014) * CREATININE CLEARANCE URINE TIMED + BLOOD(Performed 11/05/2014) * BLOOD TYPE VERIFICATION(Performed 11/05/2014) * TYPE + SCREEN PANEL(Performed 11/05/2014) * CHLAMYDIA + GC AMPLIFIED PROBE(Performed 11/05/2014) * CULTURE STREP B(Performed 11/05/2014) * TOXOPLASMA ANTIBODY IGG/IGM PANEL(Performed 11/05/2014) * CYTOMEGALOVIRUS ANTIBODY IGG/IGM BLOOD(Performed 11/05/2014) * RPR(Performed 11/05/2014) * COMPREHENSIVE METABOLIC PANEL(Performed 11/05/2014) * CBC W AUTO DIFFERENTIAL(Performed 11/05/2014) Results * (ABNORMAL) CBC W AUTO DIFFERENTIAL (10/25/2023 3:16 AM CDT) Only the most recent of19 resultswithin the time period is included. WBC 12.6(H) 4.0 - 10.7 x10E9/L 10/25/2023 4:06 AM [facility] RBC Count 3.30(L) 3.90 - 5.20 x10E12/L 10/25/2023 4:06 AM [facility] Hemoglobin 8.6(L) 11.9 - 15.8 g/dL 10/25/2023 4:06 AM [facility] Hematocrit 27.7(L) 34.8 - 46.1 % 10/25/2023 4:06 AM [facility] MCV 83.9 80.0 - 98.0 fL 10/25/2023 4:06 AM [facility] MCH 26.1(L) 26.7 - 33.6 pg 10/25/2023 4:06 AM [facility] MCHC 31.0(L) 31.7 - 36.3 g/dL 10/25/2023 4:06 AM [facility] RDW-CV 14.8 11.3 - 14.8 % 10/25/2023 4:06 AM [facility] Platelet Count 230 150 - 420 x10E9/L 10/25/2023 4:06 AM [facility] MPV 10.4 7.8 - 11.4 fL 10/25/2023 4:06 AM [facility] Neutrophil % 64.1 41.0 - 74.0 % 10/25/2023 4:06 AM [facility] Lymphocyte % 24.5 17.0 - 47.0 % 10/25/2023 4:06 AM [facility] Monocyte % 8.1 3.0 - 11.0 % 10/25/2023 4:06 AM [facility] Eosinophil % 2.3 0.0 - 7.0 % 10/25/2023 4:06 AM [facility] Basophil % 0.2 0.0 - 1.6 % 10/25/2023 4:06 AM [facility] Immature Granulocytes % 0.8 0.0 - 1.0 % 10/25/2023 4:06 AM [facility] Neutrophil Absolute 8.10(H) 1.60 - 7.50 x10E9/L 10/25/2023 4:06 AM [facility] Lymphocyte Absolute 3.10 1.00 - 4.40 x10E9/L 10/25/2023 4:06 AM [facility] Monocyte Absolute 1.02(H) 0.15 - 1.00 x10E9/L 10/25/2023 4:06 AM CDT [facility] Eosinophil Absolute 0.29 0.00 - 0.60 x10E9/L 10/25/2023 4:06 AM CDT [facility] Basophil Absolute 0.03 0.00 - 0.13 x10E9/L 10/25/2023 4:06 AM CDT [facility] Blood BLOOD SPECIMEN / Unknown Lab Venipuncture / Unknown 10/25/2023 3:16 AM CDT 10/25/2023 4:00 AM CDT Stephany Otero MD LAB - HEMATOLOGY OR DERABLES [facility] [address], [place] [id number] * (ABNORMAL) BLOOD GASES CORD GHADA (ISTAT) (10/24/2023 5:42 PM CDT) Only the most recent of2 resultswithin the time period is included. pH Cord Venous POCT 7.28 7.28 - 7.40 pH 10/24/2023 5:51 PM CDT [facility] pCO2 Cord Venous POCT 40.0 35 - 45 mm hg 10/24/2023 5:51 PM CDT [facility] pO2 Cord Venous POCT 30 22 - 33 mm hg 10/24/2023 5:51 PM CDT [facility] HCO3 Cord Arterial POCT 18.8(L) 22 - 24 mmol/L 10/24/2023 5:51 PM CDT [facility] BE Cord Venous POCT Calc -7(L) -6.4 - 1.6 mmol/L 10/24/2023 5:51 PM CDT [facility] TCO2 Cord Venous POCT 20(L) 22 - 30 mmol/L 10/24/2023 5:51 PM CDT [facility] O2 Saturation % Cord Venous Calc POCT 49 % 10/24/2023 5:51 PM CDT [facility] Site CORD GHADA 10/24/2023 5:51 PM CDT [facility] Sample iSTAT CORD GHADA 10/24/2023 5:51 PM CDT [facility] Blood CORD BLOOD SPECIMEN / Unknown 10/24/2023 5:42 PM CDT 10/24/2023 5:51 PM CDT Stephany Otero MD LAB - POINT OF CARE ORDERABLES [facility] [address] [place] [address] * (ABNORMAL) BLOOD GASES CORD ART (ISTAT) (10/24/2023 5:38 PM CDT) Only the most recent of2 resultswithin the time period is included. pH Cord Arterial POCT 7.16(L) 7.20 - 7.34 pH 10/24/2023 5:51 PM CDT [facility] pCO2 Cord Arterial POCT 64.4(H) 45 - 55 mm hg 10/24/2023 5:51 PM CDT [facility] pO2 Cord Arterial POCT <15 12 - 25 mm hg 10/24/2023 5:51 PM CDT [facility] HCO3 Cord Arterial POCT 22.8 22 - 24 mmol/L 10/24/2023 5:51 PM CDT [facility] BE Cord Arterial POCT -8(L) -2.9 - 8.3 mmol/L 10/24/2023 5:51 PM CDT [facility] TCO2 Cord Arterial POCT 25 mmol/L 10/24/2023 5:51 PM CDT [facility] O2 Saturation Cord Art % Calc POCT 5 % 10/24/2023 5:51 PM CDT [facility] Site CORD ART 10/24/2023 5:51 PM CDT [facility] Sample iSTAT CORD ART 10/24/2023 5:51 PM CDT [facility] Blood CORD BLOOD SPECIMEN / Unknown 10/24/2023 5:38 PM CDT 10/24/2023 5:51 PM CDT Stephany Otero MD LAB - POINT OF CARE ORDERABLES [facility] [address] [place] [address] * EPIDURAL BLOCK PERF (10/24/2023 1:23 PM CDT) Narrative JoséRashmi ochoa APRN-CRNA - 10/24/2023 1:23 PM CDT Rashmi Kumar APRN-CRNA 10/24/2023 1:24 PM Neuraxial Block Note Pre-Procedure: Procedure Name: Neuraxial Block Patient Location: OB Indications: labor analgesia Pre-Anesthetic Checklist: Patient identified, IV Checked, Risks and benefits discussed, Surgical consent verified, Monitors and equipment, Site examined, Pre-op evaluation done, Time-out performed, Informed consent obtained, Questions answered/anesthesia questions answered and Allergies reviewed Anticoagulation/ Anti-thrombosis status confirmed? Yes Supplemental O2: room air Monitors: BP, continuous pluse ox and EKG Patient Condition: awake Patient Sedated? No Procedure: Block Type: Epidural Prep: Betadine Sterile Field: mask, cap/hat, sterile established and sterile gloves Approach: midline Skin was localized? Yes Skin localized with: lidocaine (XYLOCAINE) 1 % injection - Infiltration 3 mL - 10/24/2023 1:08:00 PM Epidural Block: Is this procedure for postop pain? No Needle Type: Tuohy Needle gauge: 18 G Needle length: 90 mm Placement Site: L3-L4 Number of Attempts: 1 Loss of Resistance: 7 air Catheter length at skin (cm): 12 CSF Aspirated from catheter: No Blood Aspirated: No Test Dose: lidocaine 1.5% with 1-200,000 epinephrine 3 mL Test Dose Response: No Degree of difficulty: none Procedure Tolerance: tolerated well Sensory Level: T10 Motor Blockade: No Position post procedure: left uterine displacement Vital Signs: heart tones monitored and stable throughout., Vital signs moniitored and stable throughout. See nursing vitals flowsheet for details. Staff: Anesthesia Provider: Rashmi Kumar APRN-CRNA - performed the procedure Jeanette Boswell MD GENERAL ANESTHESIA O RDERABLES * SYPHILIS ANTIBODY CASCADING REFLEX (10/24/2023 9:16 AM CDT) Only the most recent of3 resultswithin the time period is included. Treponema pallidum Antibody Non Reactive Non Reactive 10/24/2023 10:10 AM CDT [facility] Comment: No Laboratory evidence of syphilis infection. Note: Circulating antibodies may be low or undetectable in early infection. If recent exposure is suspected, re-draw sample in 2-4 weeks and repeat testing. Blood BLOOD SPECIMEN / Unknown Venipuncture / Unknown 10/24/2023 9:16 AM CDT 10/24/2023 9:19 AM CDT Stephany Otero MD LAB - SEROLOGY ORDE RABLES Performing Organization Address [facility] Co de Phone Number [facility] [address] [place] [address] * TYPE + SCREEN PANEL (10/24/2023 9:16 AM CDT) Only the most recent of8 resultswithin the time period is included. ABO Rh A POS 10/24/2023 9:57 AM CDT [facility] Comment:History checked. Antibody Screen NEG 9:57 AM CDT [facility] Blood Bank BLOOD SPECIMEN / Unknown Venipuncture / Unknown 10/24/2023 9:16 AM CDT 10/24/2023 9:19 AM CDT Stephany Otero MD LAB - BLOOD BANK OR DERABLES Performing Organization Address [facility] Co de Phone Number [facility] [address] [place] [address] * (ABNORMAL) COMPREHENSIVE METABOLIC PANEL (10/24/2023 8:29 AM CDT) Only the most recent of13 resultswithin the time period is included. Glucose 138(H) 70 - 105 mg/dL 10/24/2023 9:10 AM CDT [facility] Sodium 137 136 - 145 mmol/L 10/24/2023 9:10 AM CDT [facility] Potassium 3.8 3.5 - 5.1 mmol/L 10/24/2023 9:10 AM CDT [facility] Chloride 111(H) 98 - 107 mmol/L 10/24/2023 9:10 AM CDT [facility] CO2 18(L) 22 - 29 mmol/L 10/24/2023 9:10 AM CDT [facility] Calcium 8.9 8.4 - 10.4 mg/dL 10/24/2023 9:10 AM T [facility] Anion Gap 8 6 - 16 mmol/L 10/24/2023 9:10 AM CDT [facility] BUN 6 5.3 - 18.7 mg/dL 10/24/2023 9:10 AM CDT [facility] Creatinine 0.72 0.57 - 1.11 mg/dL 10/24/2023 9:10 AM [facility] Alkaline Phosphatase 169(H) 40 - 150 U/L 10/24/2023 9:10 AM CDT [facility] ALT 9 0 - 55 U/L 10/24/2023 9:10 AM CDT [facility] AST 14 5 - 34 U/L 10/24/2023 9:10 AM T [facility] Protein Total 6.6 6.4 - 8.3 gm/dL 10/24/2023 9:10 AM [facility] Albumin 2.5(L) 3.4 - 5.0 gm/dL 10/24/2023 9:10 AM [facility] Bilirubin Total 0.2 0.2 - 1.2 mg/dL 10/24/2023 9:10 AM [facility] eGFR by CKD-EPI >90 >=90 mL/min/1.7 3 m2 10/24/2023 9:10 AM [facility] Blood BLOOD SPECIMEN / Unknown Venipuncture / Unknown 10/24/2023 8:29 AM CDT 10/24/2023 8:38 AM CDT Stephany Otero MD LAB - CHEMISTRY ORD ERABLES [facility] [address] [place] [address] * PROTEIN CREATININE RATIO URINE RANDOM PNL (10/24/2023 8:29 AM CDT) Only the most recent of6 resultswithin the time period is included. Protein Urine 9.5 <11.9 mg/dL 10/24/2023 9:12 AM CDT [facility] Creatinine Urine 144.77 mg/dL 10/24/2023 9:12 AM [facility] Protein/Creatin ine Ratio Urine 0.07 10/24/2023 9:12 AM CDT [facility] Urine URINE SPECIMEN OBTAINED BY CLEAN CATCH PROCEDURE / Unknown Collection / Unknown 10/24/2023 8:29 AM CDT 10/24/2023 8:38 AM CDT Stephany Otero MD LAB - URINE SMOKING TOBACCO CUTTER OPERATOR RY ORDERABLES [facility] [address] [place] [address] * (ABNORMAL) URINALYSIS - POCT (IP) BEAKER INTERFACE (10/13/2023 11:06 AM CDT) Only the most recent of4 resultswithin the time period is included. Color UA POCT Yellow Straw, Yellow, Dark Yellow, Light Yellow 10/13/2023 11:08 AM CDT [facility] Clarity UA POCT Clear Clear 11:08 AM CDT [facility] Specific [place] UA POCT 1.020 1.005 - 1.030 10/13/2023 11:08 AM CDT [facility] pH UA POCT 6.5 5.0 - 8.0 pH 10/13/2023 11:08 AM T [facility] Protein UA POCT 1+(A) Negative 11:08 AM CDT [facility] Blood UA POCT Negative Negative 10/13/2023 11:08 AM CDT [facility] Leukocyte UA POCT 1+(A) Negative 10/13/2023 11:08 AM CDT [facility] Nitrite UA POCT Negative Negative 11:08 AM CDT [facility] Glucose UA POCT Negative Negative 11:08 AM T [facility] Ketone UA POCT Negative Negative 10/13/2023 11:08 AM T [facility] Bilirubin UA POCT Negative Negative 10/13/2023 11:08 AM CDT [facility] Urobilinogen UA POCT 1.0 0.1 - 1.0 EU/dL 10/13/2023 11:08 AM T [facility] Urine URINE / Unknown 10/13/2023 1 1:06 AM CDT 10/13/2023 11:08 AM CDT Aicha Johnson MD [facility] ORDER[facility] [address] [place] [address] * IMAGING RADIOLOGY XRAY RESULTS ORDER (10/11/2023 4:05 PM CDT) Only the most recent of4 resultswithin the time period is included. Anatomical Region Laterality Modality Other Narrative 10/11/2023 4:05 PM CDT Ordered by an unspecified provider. Scanned Document IMAGING * NONSTRESS TEST (10/06/2023 3:37 PM CDT) Narrative Audra Rice MD - 10/06/2023 3:37 PM CDT Elo Sousa MD 10/06/2023 3:52 PM Name: Tisha Patrick Date of : 1990 Today's Date: 10/06/2023 36w0d NST RESULTS (RAI) OBJECTIVE FINDINGS , , , BP: 119/64 NST Indication(s): Other (Comment) Uterine Irritability: Yes Contractions: Irregular Frequency: 2-3 Duration (sec) Range: 50-60 OBJECTIVE FINDINGS Monitoring Mode: External Baseline: 125 BPM Variability: Moderate Decelerations: None Accelerations: Yes OTHER INFORMATION Fiorella Ortega, JLUIS Non-Stress Test [facility] Patient Name: Tisha Patrick LMP: No LMP recorded (lmp unknown). Patient is . Gestational Age: 36w0d as of 10/06/2023 Estimated Date of Delivery: 11/03/23 Indications: cerclage removal NST date: 10/06/2023 NST duration: >20 mins Interpretation: Baseline: 120-140 beats/minute moderate variability Reactive Contractions: every 3-4 minutes Decelerations: none Impression and Plan: FWB reassuring, continue monitoring as scheduled. Elo Sousa MD 10/06/2023 3:52 PM Audra Rice MD OB GYNE ORDERABLES * CERCLAGE REMOVAL (10/06/2023 2:12 PM CDT) Narrative Audra Rice MD - 10/06/2023 2:12 PM CDT Audra Rice MD 10/06/2023 5:25 PM CERCLAGE REMOVAL PROCEDURE NOTE The patient was placed in stirrups and the cervix was visualized with a sterile speculum. The Mersilene cerclage knot was noted at 12 o'clock. The tail of the suture was grasped with forceps and retracted anteriorly. The V of the suture was not properly visualized as the suture was noted to be deeply embedded in the cervical parenchyma. An attempt to cut the suture was made but only the portion of the Mersilene tape with the knots was removed. A digital cervical exam was performed and no free ends of the cerclage were appreciated and the cervix was dilated to 3 cm (full exam 50/-3). There was hemostasis of the cervix. I discussed with the patient that there is a portion of the cerclage that is retained within the cervix. At this time, I cannot ascertain if it will obstruct labor or not. Given the cervical exam, I would favor a trial of labor (patient with hx of prior x3) with continuous reassessment of the cervix, especially if successful to see if cerclage is able to be removed. We discussed that if concern exists that the cerclage is still tied that there could be a risk of cervical laceration and/or need for delivery. Plan to monitor the patient for 1 hour and recheck cervix prior to discharge from [facility]. Adolfo Childs MD 10/06/2023 M Attending: Dr. Childs attempted to remove cerclage and not able to remove the entire cerclage. Her cervix was dilated to 3 cm and no bleeding or tension appreciated. I concur that she should be allowed to labor and proceed with CS only for excessive vaginal bleeding. Most likely the cerclage has dislodged and will not prove problematic. Will have OB team perform thorough cervical look post delivery. I was not present for the procedure. Audra Rcie MD, FACOG Professor, [facility] [employer] Division of Maternal- Medicine Department of Obstetrics, Gynecology, and Women's Health Adolfo Childs MD PROCEDURE/MINOR SURGICAL ORDERABLES * CULTURE STREP B (10/06/2023 12:16 PM CDT) Only the most recent of5 resultswithin the time period is included. Culture Strep B Negative for beta-hemolytic Streptococcus Group B ABEL 10/09/2023 12:15 PM CDT [facility] MICROBIOLOGY Microbiology MISCELLANEOUS SAMPLES / Unknown Collection / Unknown 10/06/2023 12:16 PM CDT 10/06/2023 12:24 PM CDT Siddharth Monahan MD LAB - MICROBIOLOGY O RDERABLES [facility] MICROBIOLOGY [address] [place] [address], [facility] [phone] * SONOGRAM - COMPLETE (09/29/2023 12:10 PM CDT) Only the most recent of11 resultswithin the time period is included. Anatomical Region Laterality Modality Other 09/29/2023 12:1 0 PM CDT Narrative 09/29/2023 1:34 PM CDT [facility] PHONE: FAX: Pat. Name: TISHA PATRICK Dandre Pat. No: [id number] Study Date: 09/29/2023 12:10pm , Age: 04 1990, 33 Pregnancies: 7, Para 1233 Height: 64 in Weight: 183 lb LMP: Unknown GA by Base: 35w0d LI: 11/03/2023 GA by US: 33w4d LI: 11/13/2023 GA Selected: 35w0d (From [facility]) LI: 11/03/2023 Referring MD: MD Amanda, [facility] Kitchen And Counter Worker: Kelly West RDMS CPT4: 07160 BMI: 31.41 Hist/Ind: Obesity class I, Asthma Prior preeclampsia x 3, Prior PTB x2 Low-risk cf-DNA Cerclage placed @ 16 weeks SGA with AC <10th% @ 30 weeks MEASUREMENTS & AGE GROWTH EVALUATION Measurement GA Range Srce %for GA Ratios ----- ---- ------- BPD 8.2 cm 32w6d (97d9u-95c2s) Hadl BPD 5% FL/BPD 0.83 (0.71 - 0.87) HC 30.1 cm 33w2d (30m8i-67z2w) Hadl HC 1% FL/AC 0.23 (0.20 - 0.24) AC 30.0 cm 34w0d (55d7l-49u0n) Hadl AC 27% HC/AC 1.00 (0.94 - 1.13) FL 6.8 cm 34w5d (03p3u-59q1f) Hadl FL 35% CI 0.77 (0.70 - 0.86) HL 5.7 cm 33w2d (96z6q-80n5c) Juan M HL 23% GA for sonogram 33w4d (98o1k-19u7i) Weight Estimate: based on (BPD,HC,AC,FL) Hadlock Weight: 2350 gm (2006-3gm) Had : 5lbs, 2oz Normal: 2580 gm (1935-3225gm) Had Wt% 25% for 35w0d Heart Rate: 147 bpm Amniotic Fluid Index: 11.3cm (07.9-24.9) Q1: 2.3cm Q2: 1.3cm Q3: 4.0cm Q4: 3.6cm PROCEDURE, TECHNIQUE Technique: transabdominal EVAL, PLACENTA Presentation: cephalic Placenta: anterior Heart Rate: 147 bpm Amniotic Fluid Volume: normal CLINICAL SUMMARY IMPRESSION: Single, live, intrauterine at 35w0d in cephalic presentation growth & amniotic fluid volume are within normal limits No malformations were seen within the limitations of ultrasound breathing noted RECOMMEND: Ultrasound in 3 weeks for growth & amniotic fluid volume Thank you for allowing us the opportunity to care for your patient Anmol Taylor MD <Electronic Signature> 09/29/2023 01:34pm Siddharth Monahan MD [facility] ORDERABLES * HIV-1 HIV-2 ANTIBODY + HIV P24 AG PANEL (08/29/2023 11:08 AM CDT) Only the most recent of4 resultswithin the time period is included. HIV1/2 Ab + P24 Ag Non Reactive Non Reactive 08/29/2023 12:17 PM [facility] Blood BLOOD SPECIMEN / Unknown Venipuncture / Unknown 08/29/2023 11:08 AM CDT 08/29/2023 11:28 AM CDT Narrative [facility] - 08/29/2023 12:17 PM CDT No Laboratory evidence of HIV infection. Aicha Johnson MD LAB - C HEMISTRY ORDERABLES Performing Organization Address City/[facility] Co de Phone Number [facility] [address] [place] [phone] * GLUCOSE CHALLENGE (08/29/2023 11:08 AM CDT) Only the most recent of2 resultswithin the time period is included. Glucose Challenge 117 64 - 140 mg/dL 08/29/2023 11:59 AM CDT [facility] Glucose Challenge Time 08/29/2023 11:59 AM CDT [facility] Blood BLOOD SPECIMEN / Unknown Venipuncture / Unknown 08/29/2023 11:08 AM CDT 08/29/2023 11:28 AM CDT Aicha Johnson MD LAB - C HEMISTRY ORDERABLES Performing Organization Address [facility] Co de Phone Number [facility] [address] [place] [address] * (ABNORMAL) IRON + TRANSFERRIN PANEL (08/29/2023 11:08 AM CDT) Only the most recent of2 resultswithin the time period is included. Iron 36(L) 40 - 150 ug/dL 08/29/2023 11:53 AM CDT [facility] Transferrin 375 174 - 382 mg/dL 08/29/2023 11:53 AM CDT [facility] TIBC Calculated 469(H) 240 - 450 ug/dL 08/29/2023 11:53 AM CDT [facility] Iron Saturation % 8(L) 20 - 50 % 08/29/2023 11:53 AM CDT [facility] Blood BLOOD SPECIMEN / Unknown Venipuncture / Unknown 08/29/2023 11:08 AM CDT 08/29/2023 11:28 AM CDT Aicha Johnson MD LAB - C HEMISTRY ORDERABLES Performing Organization Address City/[facility] Co de Phone Number [facility] [address] [place] [phone] * FERRITIN (08/29/2023 11:08 AM CDT) Only the most recent of2 resultswithin the time period is included. Ferritin 8 5 - 204 ng/mL 08/29/2023 12:12 PM CDT [facility] Blood BLOOD SPECIMEN / Unknown Venipuncture / Unknown 08/29/2023 11:08 AM CDT 08/29/2023 11:28 AM CDT Aicha Johnson MD LAB - C HEMISTRY ORDERABLES Performing Organization Address [facility] de Phone Number [facility] [address] [place] [phone] * CARDIAC RHYTHM STRIP ORDER (05/23/2023 4:39 PM HEEL SEAT TRIMMER) Only the most recent of2 resultswithin the time period is included. Narrative 05/23/2023 4:39 PM HEEL SEAT TRIMMER Ordered by an unspecified provider. Scanned Document CARDIAC SERVICES ORD ERABLES * SONOGRAM - TRANSVAGINAL (05/23/2023 11:08 AM HEEL SEAT TRIMMER) Only the most recent of4 resultswithin the time period is included. Anatomical Region Laterality Modality Other 05/23/2023 11:0 8 AM HEEL SEAT TRIMMER Narrative 05/23/2023 12:04 PM HEEL SEAT TRIMMER [facility] PHONE: FAX: Pat. Name: TISHA PATRICK. No: [id number] Study Date: 05/23/2023 11:08am , Age: 04 1990, 32 Pregnancies: 6, Para 3223 Height: 64 in Weight: 150 lb LMP: Unknown GA by Base: 16w4d LI: 11/03/2023 GA Selected: 16w4d (From [facility]) LI: 11/03/2023 Referring MD: MD Amanda, [facility] Kitchen And Counter Worker: Roxanna Lockwood [facility] CPT4: 65622,24960 BMI: 25.74 Hist/Ind: Cerclage placed 05/19/23 Unknown LMP Asthma Hx Pre E x 3 Hx PTD- 33wks and 36wks Hx TAB Hx cerclage x 1 Hx HELLP MEASUREMENTS & AGE GROWTH EVALUATION Measurement GA Range Srce %for GA Ratios ----- ---- ------- Cere 1.6 cm 16w5d (95q3d-90b2b) Nicola Dobson63% Cervix: Length: 3.5 cm Approach: transvaginal Heart Rate: 134 bpm PROCEDURE, TECHNIQUE Procedure: Cervical length Technique: transabdominal, transvaginal EVAL, PLACENTA Presentation: breech Placenta: anterior Previa: no previa seen Heart Rate: 134 bpm Anatomy!Normal!Abnormal!Suboptimal!Prev. Seen!Comments Calvarium- ! x ! ! ! ! Cerebellum- ! x ! ! ! ! Midline Falx-! x ! ! ! ! Choroid Plexu! x ! ! ! ! Lateral Ventr! x ! ! ! ! Nasal Bone- ! x ! ! ! ! Spine ! x ! ! ! ! 4 CH- ! ! ! x ! ! Stomach- ! x ! ! ! ! Kidneys- ! x ! ! ! ! Bladder- ! x ! ! ! ! Placenta Cord! x ! ! ! ! CLINICAL SUMMARY A single fetus is seen in breech presentation. The amniotic fluid volume is within normal limits. On TVUS, the cervical length is 3.5 cm, without funneling. The cerclage is seen, midway within the cervix. IMPRESSION: Single , live, intrauterine at 16w4d Amniotic fluid: within normal limits Unremarkable early second trimester anatomy appearance (see table) Reassuring transvaginal cervical length, with cerclage appropriately positioned RECOMMEND: Ultrasound in 4 weeks for the full anatomy survey and cervical length assessment. Thanks for allowing us the opportunity to care for your patient. Aicha Johnson MD <Electronic Signature> 05/23/2023 12:03pm Siddharth [facility]INAL ORDERABLES * Neuraxial Block (05/19/2023 1:49 PM HEEL SEAT TRIMMER) Narrative Dannielle Solitario APRN-CONTINUOUS IMPROVEMENT LEAD - 05/19/2023 1:49 PM Dannielle Doherty APRN-CRNA 05/19/2023 1:50 PM Neuraxial Block Note Pre-Procedure: Procedure Name: Neuraxial Block Patient Location: OR Indications: surgical anesthesia Pre-Anesthetic Checklist: Patient identified, IV Checked, Risks and benefits discussed, Surgical consent verified, Monitors and equipment, Site examined, Pre-op evaluation done, Time-out performed, Informed consent obtained, Questions answered/anesthesia questions answered and Allergies reviewed Anticoagulation/ Anti-thrombosis status confirmed? Yes Monitors: BP and continuous pluse ox Patient Condition: awake Patient Sedated? Yes Sedation Type: mild Procedure: Block Type: Spinal Prep: Betadine Sterile Field: mask, cap/hat, sterile established and sterile gloves Approach: midline Skin was localized? Yes Skin localized with: lidocaine (XYLOCAINE MPF) 1 % injection - Infiltration 3 mL - 05/19/2023 1:39:00 PM Spinal Block: Needle Type: spinal needle Needle Gauge: 24 Needle Length: 127 mm Placement Site: L3-4 Number of Attempts: 1 CSF: free flow, aspiration before injection, aspiration during injection, aspiration after injection Degree of difficulty: none Procedure Tolerance: tolerated well Sensory Level: T10 Motor Blockade: Yes Vital Signs: Vital signs monitored and stable throughout. See anesthesia record for details. Start Time: 05/19/2023 1:39 PM End Time: 05/19/2023 1:41 PM Total Time: 2 Staff: Anesthesia Provider: Dannielle Solitario APRN-CRNA - performed the procedure Ken Goldberg MD GENERAL ANESTHESIA O RDERABLES * PAP IG LB+HPV APTIMA (05/04/2023 3:44 PM HEEL SEAT TRIMMER) Diagnosis Comment 05/09/2023 3:08 PM HEEL SEAT TRIMMER [facility] ([facility]) Comment:NEGATIVE FOR INTRAEP ITHELIAL LESION OR MALIGNANCY. Specimen Adequacy Comment 023 3:08 PM HEEL SEAT TRIMMER [facility] ([facility]) Comment: Satisfactory for evaluation. Endocervical and/or squamous metaplastic cells (endocervical component) are present. Performed by Comment 05/09/2023 3:08 PM HEEL SEAT TRIMMER [facility] ([facility]) Comment:Nadir Sadler totechnologist Comment . 05/09/2023 3:08 PM HEEL SEAT TRIMMER [facility] ([facility]) Note Comment 05/09/2023 3:08 PM HEEL SEAT TRIMMER [facility] ([facility]) Comment: The Pap smear is a screening test designed to aid in the detection of premalignant and malignant conditions of the uterine cervix. It is not a diagnostic procedure and should not be used as the sole means of detecting cervical cancer. Both false-positive and false-negative reports do occur. IGLBP CPT Code Automation Comment 05/09/2023 3:08 PM HEEL SEAT TRIMMER [facility] ([facility]) Comment: This liquid based ThinPrep(R) pap test was screened with the use of an image guided system. Human papillomavirus Aptima Negative Negative 05/09/2023 3:08 PM HEEL SEAT TRIMMER [facility] ([facility]) Comment: This nucleic acid amplification test detects fourteen high-risk HPV types (16,18,31,33,35,39,45,51,52,56,58,59,66,68) without differentiation. Pathology/Cytolo gy PART OF UTERINE CERVIX / Unknown Collection / Unknown 05/04/2023 3:44 PM HEEL SEAT TRIMMER 05/04/2023 4:16 PM HEEL SEAT TRIMMER Narrative [facility] ([facility]) - 05/09/2023 3:08 PM HEEL SEAT TRIMMER Performed at: 01 - [address] [id number] Food Quality Technician: Kristyn Kramer MD, Phone: [phone] Performed at: 02 - [address] [id number] Food Quality Technician: Kristyn Kramer MD, Phone: [phone] Specimen Comment: No. of containers..01 ThinPrep Vial Evelin Joaquin MD LAB - PATHOLOGY/CYTO LOGY ORDERABLES [facility] ([facility]) [address] [place] [address] * HEMOGLOBINOPATHY FRACTIONATION CASCADE (05/04/2023 3:43 PM HEEL SEAT TRIMMER) Hemoglobin F 0.0 0.0 - 2.0 % 05/06/2023 4:11 PM HEEL SEAT TRIMMER [facility] ([facility]) Hemoglobin A 97.4 96.4 - 98.8 % 05/06/2023 4:11 PM HEEL SEAT TRIMMER [facility] ([facility]) Hemoglobin A2 2.6 1.8 - 3.2 % 05/06/2023 4:11 PM HEEL SEAT TRIMMER [facility] ([facility]) Hemoglobin S 0.0 0.0 % 05/06/2023 4:11 PM HEEL SEAT TRIMMER [facility] ([facility]) Interpretation Comment 05/06/2023 4:11 PM HEEL SEAT TRIMMER [facility] ([facility]) Comment: Normal hemoglobin present; no hemoglobin variant or beta thalassemia identified. Note: Alpha thalassemia may not be detected by the Hgb Fractionation Navarro panel. If alpha thalassemia is suspected, [facility] offers Alpha-Thalassemia DNA Analysis (#[id number]). Blood BLOOD SPECIMEN / Unknown Venipuncture / Unknown 05/04/2023 3:43 PM HEEL SEAT TRIMMER 05/04/2023 4:13 PM HEEL SEAT TRIMMER Narrative [facility] ([facility]) - 05/06/2023 4:11 PM HEEL SEAT TRIMMER Performed at: [address] [id number] Food Quality Technician: Terrell Henderson PhD, Phone: [phone] Evelin Joaquin MD LAB - CHEMISTRY ORDDandre [facility] Performing Organization Address City/[facility]/ZIP Co de Phone Number [facility] ([facility]) [address] [place] [address] * TREPONEMA PALLIDUM AB (05/04/2023 3:43 PM HEEL SEAT TRIMMER) Treponema pallidum Antibody (TP-PA) Non Reactive Non Reactive 05/06/2023 4:11 PM HEEL SEAT TRIMMER [facility] ([facility]) Blood BLOOD SPECIMEN / Unknown Venipuncture / Unknown 05/04/2023 3:43 PM HEEL SEAT TRIMMER 05/04/2023 4:15 PM HEEL SEAT TRIMMER Narrative [facility] ([facility]) - 05/06/2023 4:11 PM HEEL SEAT TRIMMER Performed at: [address] [place] [id number] Food Quality Technician: Terrell Henderson PhD, Phone: [phone] Evelin Joaquin MD LAB - SEROLOGY ORDER ANNA Performing Organization Address City/[facility]/ZIP Co de Phone Number [facility] ([facility]) [address] [place] [address] * RUBELLA ANTIBODY IGG (05/04/2023 3:43 PM HEEL SEAT TRIMMER) [facility] Rubella Antibody 4.70 Immune >0.99 index 05/06/2023 6:11 AM HEEL SEAT TRIMMER [facility] ([facility]) Comment: Non-immune <0.90 Equivocal 0.90 - 0.99 Immune >0.99 Blood BLOOD SPECIMEN / Unknown Venipuncture / Unknown 05/04/2023 3:43 PM HEEL SEAT TRIMMER 05/04/2023 4:13 PM HEEL SEAT TRIMMER Narrative [facility] ([facility]) - 05/06/2023 6:11 AM HEEL SEAT TRIMMER Performed at: [address] [place] [address] [id number] Food Quality Technician: Terrell Henderson PhD, Phone: [phone] Evelin Joaquin MD LAB - SEROLOGY ORDER ANNA Performing Organization Address City/[facility]/ZIP Co de Phone Number [facility] ([facility]) [address] [place] [address] * HEPATITIS B SURFACE ANTIGEN W RFLX CONFIRMATION (05/04/2023 3:43 PM HEEL SEAT TRIMMER) Only the most recent of2 resultswithin the time period is included. [facility] HBsAg Non Reactive Non Reactive 05/04/2023 5:02 PM HEEL SEAT TRIMMER [facility] Blood BLOOD SPECIMEN / Unknown Venipuncture / Unknown 05/04/2023 3:43 PM HEEL SEAT TRIMMER 05/04/2023 4:13 PM HEEL SEAT TRIMMER Evelin Joaquin MD LAB - CHEMISTRY ORDE CASSY [facility] [address] [place] [address] * HEPATITIS C ANTIBODY (05/04/2023 3:43 PM HEEL SEAT TRIMMER) [facility] HCV Antibody Screen Non Reactive Non Reactive 05/04/2023 5:03 PM HEEL SEAT TRIMMER [facility] Blood BLOOD SPECIMEN / Unknown Venipuncture / Unknown 05/04/2023 3:43 PM HEEL SEAT TRIMMER 05/04/2023 4:13 PM HEEL SEAT TRIMMER Narrative [facility] - 05/04/2023 5:03 PM HEEL SEAT TRIMMER Non Reactive - Antibodies to Hepatitis C virus (HCV) were not detected, result does not exclude early acute HCV infection. Evelin Joaquin MD LAB - CHEMISTRY SUELLENDandre MADERA [facility] [address] [place] [address] * TRICHOMONAS VAGINALIS AMPLIFIED PROBE (05/04/2023 3:34 PM HEEL SEAT TRIMMER) Trichomonas vaginalis Amplified Probe Negative Negative 05/04/2023 11:44 PM HEEL SEAT TRIMMER [facility] Microbiology ENTIRE ENDOCERVIX / Unknown Collection / Unknown 05/04/2023 3:34 PM HEEL SEAT TRIMMER 05/04/2023 4:16 PM HEEL SEAT TRIMMER Narrative [facility] - 05/04/2023 11:44 PM HEEL SEAT TRIMMER Results based on detection/no detection of ribosomal RNA by amplified method. Evelin Joaquin MD LAB - MICROBIOLOGY O ABBI Performing Organization Address City/[facility]/ZIP Co de Phone Number [facility] [address] [place] [address], [facility] [phone] * CHLAMYDIA + GC AMPLIFIED PROBE (05/04/2023 3:34 PM HEEL SEAT TRIMMER) Only the most recent of2 resultswithin the time period is included. Chlamydia Amplified Probe Negative Negative 05/05/2023 12:42 AM HEEL SEAT TRIMMER [facility] GC Amplified Probe Negative Negative 05/05/2023 12:42 AM HEEL SEAT TRIMMER [facility] Microbiology ENTIRE ENDOCERVIX / Unknown Collection / Unknown 05/04/2023 3:34 PM HEEL SEAT TRIMMER 05/04/2023 4:16 PM HEEL SEAT TRIMMER Narrative [facility] - 05/05/2023 12:42 AM HEEL SEAT TRIMMER Results based on detection/no detection of ribosomal RNA by amplified method. Evelin Joaquin MD LAB - MICROBIOLOGY O ABBI [facility] [address] [place] [address], [facility] [phone] * CULTURE URINE (05/04/2023 3:34 PM HEEL SEAT TRIMMER) Only the most recent of2 resultswithin the time period is included. Pathologist [facility] Culture Urine 10,000-50,000 CFU/mL urogenital kenney ABEL 05/05/2023 9:12 PM HEEL SEAT TRIMMER [facility] Urine URINE SPECIMEN OBTAINED BY CLEAN CATCH PROCEDURE / Unknown Collection / Unknown 05/04/2023 3:34 PM HEEL SEAT TRIMMER 05/04/2023 4:16 PM HEEL SEAT TRIMMER Evelin Joaquin MD LAB - MICROBIOLOGY O RDERABLES [facility] [address] [place] [address], [facility] [phone] * (ABNORMAL) CBC W/O DIFFERENTIAL (05/04/2023 3:34 PM HEEL SEAT TRIMMER) Only the most recent of2 resultswithin the time period is included. WBC 7.2 4.4 - 10.7 x10E9/L 05/04/2023 4:25 PM HEEL SEAT TRIMMER [facility] RBC 4.10 3.80 - 5.20 x10E12/L 05/04/2023 4:25 PM HEEL SEAT TRIMMER [facility] Hemoglobin 11.6(L) 12.0 - 15.6 gm/dL 05/04/2023 4:25 PM HEEL SEAT TRIMMER [facility] Hematocrit 35.8(L) 35.9 - 45.5 % 05/04/2023 4:25 PM HEEL SEAT TRIMMER [facility] MCV 87.3 80.7 - 98.3 fl 05/04/2023 4:25 PM HEEL SEAT TRIMMER [facility] MCH 28.3 26.7 - 34.0 pg 05/04/2023 4:25 PM HEEL SEAT TRIMMER [facility] MCHC 32.4 30.8 - 35.9 gm/dL 05/04/2023 4:25 PM HEEL SEAT TRIMMER [facility] Platelet Count 259 153 - 416 x10E9/L 05/04/2023 4:25 PM HEEL SEAT TRIMMER [facility] RDW-CV 12.6 12.1 - 14.9 % 05/04/2023 4:25 PM HEEL SEAT TRIMMER [facility] MPV 9.8 9.4 - 12.9 fl 05/04/2023 4:25 PM HEEL SEAT TRIMMER [facility] Blood BLOOD SPECIMEN / Unknown Venipuncture / Unknown 05/04/2023 3:34 PM HEEL SEAT TRIMMER 05/04/2023 4:14 PM HEEL SEAT TRIMMER Evelin Joaquin MD LAB - HEMATOLOGY ORD ERABLES [facility] [address] [place] [address] * ANEUPLOIDY SCREENING (05/04/2023) Only the most recent of2 resultswithin the time period is included. Trisomy 21 Low Risk Trisomy 18 Low Risk Trisomy 13 Low Risk Monosomy X Low Risk Triploidy/Sonia shing Twin NIPT Low Risk Blood BLOOD SPECIMEN / Unknown 05/04/2023 Narrative Jeanette Arevalo RN - 05/09/2023 LOW RISK Predicted Sex: female Fraction: 9.4% Panorama - Jordan Screen Hard copy results available in Media. Moiz Leonard MD LAB - CHEMISTR Y ORDERABLES * EPIDURAL BLOCK PERF (08/31/2020 1:28 PM CDT) Narrative Dannielle Solitario APRN-CONTINUOUS IMPROVEMENT LEAD - 08/31/2020 1:28 PM CDT Dannielle Solitario APRN-CRNA 08/31/2020 1:37 PM Neuraxial Block Note Pre-Procedure: Procedure Name: Neuraxial Block Patient Location: OB Indications: labor analgesia Pre-Anesthetic Checklist: Patient identified, IV Checked, Risks and benefits discussed, Surgical consent verified, Monitors and equipment, Site examined, Pre-op evaluation done, Time-out performed, Informed consent obtained, Questions answered/anesthesia questions answered and Allergies reviewed Anticoagulation/ Anti-thrombosis status confirmed? Yes Monitors: BP and continuous pluse ox Patient Condition: awake Procedure: Block Type: Epidural Prep: Betadine Sterile Field: mask, cap/hat, sterile established and sterile gloves Approach: midline Skin was localized? Yes Skin localized with: lidocaine (XYLOCAINE MPF) 1 % injection, 3 mL Epidural Block: Is this procedure for postop pain? No Needle Type: Tuohy Needle gauge: 18 G Needle length: 90 mm Placement Site: L3-L4 Number of Attempts: 1 Loss of Resistance: 8 air Catheter length at skin (cm): 12 CSF Aspirated from catheter: No Blood Aspirated: No Test Dose: lidocaine 1.5% with 1-200,000 epinephrine 5 mL at 08/31/2020 1:31 PM Test Dose Response: No Epidural Infusion Medications: Ropivacaine: 0.2% with Fentanyl 2mcg/mL in NS , at 12 mL/hr Degree of difficulty: none Procedure Tolerance: tolerated well Sensory Level: T7 Motor Blockade: Yes Position post procedure: left uterine displacement Vital Signs: Vital signs moniitored and stable throughout. See nursing vitals flowsheet for details. Start Time: 08/31/2020 1:28 PM End Time: 08/31/2020 1:31 PM Total Time: 3 Staff: Anesthesia Provider: Dannielle Solitario APRN-MARTIN - performed the procedure Antonio Ram DO GENERAL ANESTHESIA O RDERABLES * (ABNORMAL) URINE MICROSCOPIC ONLY REFLEX TO CULTURE (08/31/2020 8:18 AM CDT) Reflex Status Culture to follow 08/31/2020 8:40 AM CDT [facility] RBC UA 3-5 None Seen, 0-2, 3-5 # /hpf 08/31/2020 8:40 AM CDT [facility] WBC UA 0-5 None Seen, 0-5 # /hpf 08/31/2020 8:40 AM CDT [facility] Bacteria UA 3+(A) None Seen 08/31/2020 8:40 AM CDT [facility] Squamous Epithelial Cells 3-5 None Seen, 0-2, 3-5 /hpf 08/31/2020 8:40 AM CDT [facility] Mucus UA 1+ /LPF 08/31/2020 8:40 AM CDT [facility] Urine URINE SPECIMEN OBTAINED BY CLEAN CATCH PROCEDURE / Unknown Collection / Unknown 08/31/2020 8:18 AM CDT 08/31/2020 8:28 AM CDT Narrative [facility] - 08/31/2020 8:40 AM CDT Siddharth Monahan MD LAB - URINALYSIS ORD ERABLES [facility] [address] [place] [address] * (ABNORMAL) URINALYSIS REFLEX MICROSCOPIC REFLEX CULTURE (08/31/2020 8:18 AM CDT) Only the most recent of2 resultswithin the time period is included. Color UA Yellow Straw, Yellow 08/31/2020 8:38 AM CDT [facility] Clarity UA Slt Cloudy(A) Clear 08/31/2020 8:38 AM CDT [facility] Glucose UA Negative Negative 08/31/2020 8:38 AM CDT [facility] Bilirubin UA Negative Negative 08/31/2020 8:38 AM CDT [facility] Ketone UA Negative Negative 08/31/2020 8:38 AM CDT [facility] Specific [place] UA 1.024 1.005 - 1.030 08/31/2020 8:38 AM CDT [facility] Blood UA 1+(A) Negative 08/31/2020 8:38 AM CDT [facility] pH UA 6.0 5.0 - 8.0 pH 08/31/2020 8:38 AM CDT [facility] Protein UA 1+(A) Negative 08/31/2020 8:38 AM CDT [facility] Urobilinogen UA 4.0(A) Negative mg/dL 08/31/2020 8:38 AM CDT [facility] Nitrite UA Negative Negative 08/31/2020 8:38 AM CDT [facility] Leukocyte UA 1+(A) Negative 08/31/2020 8:38 AM CDT [facility] Urine Microscopy Urine microscopy to follow 08/31/2020 8:38 AM CDT [facility] Reflex Status Culture to follow 08/31/2020 8:38 AM T [facility] Urine URINE SPECIMEN OBTAINED BY CLEAN CATCH PROCEDURE / Unknown Collection / Unknown 08/31/2020 8:18 AM CDT 08/31/2020 8:28 AM CDT Narrative [facility] - 08/31/2020 8:38 AM CDT Siddharth Monahan MD LAB - URINALYSIS ORD ERABLES [facility] [address] [place], [place] [id number] * NONSTRESS TEST (08/31/2020 7:35 AM CDT) Narrative Siddharth Monahan MD - 08/31/2020 7:35 AM CDT Laila Cruz MD 08/31/2020 11:43 AM Name: Helendandre Amos Evonne Date of : 1990 Today's Date: 08/31/2020 38w3d NST RESULTS (RAI) OBJECTIVE FINDINGS , , , BP: 132/71 NST Indication(s): Other (Comment)(R/O Pre-E/ Labor) Uterine Irritability: No Contractions: Irregular Frequency: 2.5-7 Duration (sec) Range: 50-110 Perceived Intensity: Mild OBJECTIVE FINDINGS Movement: Present Monitoring Mode: External Baseline: 135 BPM Variability: Moderate Decelerations: None Accelerations: Yes OTHER INFORMATION Germaine Burrows RN Non-Stress Test [facility] Patient Name: Tisha Patrick LMP: Patient's last menstrual period was 11/26/2019. Indications: Patient Active Problem List: History of IUGR (intrauterine growth retardation) and stillbirth, currently headache in third trimester History of delivery, currently in second trimester Short cervix affecting Blurry vision Hx of preeclampsia, prior , currently Cervical cerclage suture present Rule out labor NST date: 08/31/2020 NST duration: >20 mins Interpretation: Baseline: 130 beats/minute moderate variability Reactive Contractions: irregular Decelerations: none Impression and Plan: FWB reassuring. F/u as scheduled. Laila Cruz MD 08/31/2020 11:42 AM Siddharth Monahan MD OB GYNE ORDERABLES * NONSTRESS TEST (08/27/2020 6:13 AM CDT) Narrative Najma Helm MD - 08/27/2020 6:13 AM CDT Mary Armando RN 08/27/2020 6:14 AM Name: Tisha Patrick Date of : 1990 Today's Date: 08/27/2020 37w6d NST RESULTS (RAI) OBJECTIVE FINDINGS Temp: 97.7 F (36.5 C), , Resp: 18, BP: 115/60 NST Indication(s): Other (Comment)(r/o labor) Uterine Irritability: Yes Contractions: Irregular Frequency: 3-5 Duration (sec) Range: 50-110 Perceived Intensity: Mild OBJECTIVE FINDINGS Movement: Present Monitoring Mode: External Baseline: 135 BPM Variability: Moderate Decelerations: None Accelerations: Yes OTHER INFORMATION Mary Armando RN Siddharth Monahan MD OB GYNE ORDERABLES * GLUCOSE PROTEIN KETONE URINE - POINT OF CARE (08/07/2020 10:47 AM HEEL SEAT TRIMMER) Only the most recent of5 resultswithin the time period is included. Glucose UA neg Negative [facility] Protein UA trace Negative [facility] Ketone UA neg Negative [facility] QC Verified Yes Yes [facility] POC T TESTING Urine URINE / Unknown 08/07/2020 1 0:47 AM HEEL SEAT TRIMMER Aicha Mccauley MD LAB - POINT OF NM RE ORDERABLES [facility] [address] [phone] * NONSTRESS TEST (07/17/2020 2:19 AM HEEL SEAT TRIMMER) Narrative Stephany Otero MD - 07/17/2020 2:19 AM HEEL SEAT TRIMMER Heavenly Ordoñez MD 07/17/2020 7:05 AM Name: Tisha Patrick Date of : 1990 Today's Date: 07/17/2020 32w0d NST RESULTS (RAI) OBJECTIVE FINDINGS , , , BP: 127/61 NST Indication(s): Pre-eclampsia Uterine Irritability: No Contractions: Not present OBJECTIVE FINDINGS Movement: Present Monitoring Mode: External Baseline: 135 BPM Variability: Moderate Accelerations: Yes OTHER INFORMATION Mary Armando RN PGY-1 Addendum Indication: Headache with visual changes Start time: 2353 Stop time: 216 EFM: baseline 140 bpm, moderate variability, reactive, 1 variable deceleration to 50s, overall reassuring [place]: no contractions A/P: well-being reassuring Heavenly Ordoñez MD 07/17/2020 7:04 AM Stephany Otero MD OB GYNE ORDERABLES * ETT LINE PERFORMABLE (05/19/2020 11:48 AM HEEL SEAT TRIMMER) Narrative Tennille Ivey APRN-CRNA - 05/19/2020 11:48 AM HEEL SEAT TRIMMER Tennille Ivey APRN-CRNA 05/19/2020 11:48 AM Endotracheal Tube Placement: Patient Location: OR. Intubation Event Date/Time: 05/19/2020 11:33 AM Procedure: intubation ([id number]). Procedure Section: Sedation: under general anesthesia. Indications for Airway Management: anesthesia Induction: standard IV Patient Position: sniffing Mask Ventilation: easy. Blade Type: Rico Blade Size: 2 Laryngoscopy View: grade 1 (full cords) Intubation Adjuncts: stylet Tube: endotracheal tube Placement: oral Tube type: cuff - inflated Tube Size (MM): 7 Depth of Insertion (CM): 20 Measured From: lips Cuff volume (mL): 7 Cuff Inflated With: air Number of Attempts: 1. Ventilation between attempts: No. Placement Verified By: direct visualization, bilateral breath sounds, chest auscultation and CO2 monitor Tube secured with: adhesive tape. Difficult Airway? No. Procedure Start Time: 05/19/2020 11:33 AM. Staff Section Anesthesia Provider: Tennille Ivey APRN-CRNA, Performed the procedure Rodrigo Gómez DO GENERAL ANESTHESIA O RDERABLES * SARS-COV-2 (COVID-19) IN HOUSE (05/16/2020 3:00 PM HEEL SEAT TRIMMER) COVID-19 PCR Not detected Not detected 05/17/2020 2:44 AM [facility] Microbiology SPECIMEN FROM NASOPHARYNGEAL STRUCTURE / Unknown Collection / Unknown 05/16/2020 3:00 PM HEEL SEAT TRIMMER 05/16/2020 3:07 PM HEEL SEAT TRIMMER Narrative [facility] - 05/17/2020 2:44 AM HEEL SEAT TRIMMER This nucleic acid amplification assay performance was validated by [facility]. This test has been authorized by the Food and Drug administration (FDA)under an Emergency Use Authorization (EUA). This test has been validated in accordance with the FDA's guidance document Policy for Diagnostic Testing in Laboratories Certified to perform High Complexity Testing under CLIA prior to Emergency Use Authorization for Coronavirus Disease-2019 during the Public Health Emergency issued on August 04, 2019. FDA independent review of this validation is pending. This test is only authorized for the duration of time the declaration that circumstances exist justifying the authorization of emergency use of in vitro diagnostic tests for detection of SARS-CoV-2 virus and/or diagnosis of COVID-19 infection under section 564(b)(1) of the Act, 21 U.S.C 360bbb-3 (b)(1), unless the authorization is terminated or revoked sooner. Fact Sheets for this EUA assay are available upon request. Terra Parker MD LAB - MICROBIOLOGY O ABBI [facility] [address] [place], [place] [address] [place] [address] * TRICHOMONAS RAPID TEST (02/25/2020 11:11 AM CDT) Only the most recent of2 resultswithin the time period is included. Trichomonas Rapid Test Negative Negative 02/25/2020 1:24 PM CDT [facility] Microbiology VAGINAL SWAB / Unknown Collection / Unknown 02/25/2020 11:11 AM CDT 02/25/2020 11:25 AM CDT Laila Cruz MD LAB - MICROBIOLOGY O ABBI [facility] [address] [place] [address] * HCG URINE QUALITATIVE - POINT OF CARE (08/02/2018 2:24 PM HEEL SEAT TRIMMER) Pathologist [facility] HCG Qual Urine Negative Negative [facility] POCT TESTING QC Verified Yes Yes [facility] POC T TESTING Urine URINE / Unknown 08/02/2018 2 :24 PM HEEL SEAT TRIMMER Joel Cabrera MD LAB - POINT OF CARE ORDERABLES [facility] [address] [place] [address], [facility] [phone] * BIOPHYSICAL PROFILE W NST (06/26/2018 10:25 AM HEEL SEAT TRIMMER) Only the most recent of6 resultswithin the time period is included. Anatomical Region Laterality Modality Other 06/26/2018 10:2 5 AM HEEL SEAT TRIMMER Narrative 06/26/2018 12:19 PM HEEL SEAT TRIMMER Cassie OLIVAREZ [facility] PHONE: FAX: Pat. Name: TISHA PATRICK Mi. No: [id number] Study Date: 06/26/2018 10:25am , Age: 04 1990, 27 Pregnancies: 4, Para 1, Ab 2 Height: 64 in Weight: 156 lb LMP: Unknown GA by Base: 36w2d LI: 07/22/2018 GA Selected: 36w2d (From [facility]) LI: 07/22/2018 Referring MD: Graeme John MD Kitchen And Counter Worker: Kaela Duncan RDMS CPT4: [id number] BMI: 26.77 Hist/Ind: History of preeclampsia, FGR, & 33w1d PTD Short cervix, recent contractions urinary tract dilation on 03/30 Anatomy Complete Heart Rate: 134 bpm Amniotic Fluid Index: 13.3cm (07.6-24.8) Q1: 3.8cm Q2: 4.0cm Q3: 2.9cm Q4: 2.6cm Biophysical Profile: 01/13 Breathin Tone: 2 NST: 0 Movement: 2 AFV: 2 EVAL, PLACENTA Presentation: cephalic Umbilical Cord: 3 Vessels Placenta: posterior Heart Rate: 134 bpm Amniotic Fluid Volume: normal DOPPLER Umbilical - Mid Cord S/D 2.39(1.63 - 3.49) PI 0.85 (0.57 - 1.15) Middle Cerebral Artery PSV 50.2cm/s PI 1.68 (1.36 - 2.48) Med PSV 54.3cm/s MoM 0.93(<1.5) CLINICAL SUMMARY Study Number: 9 A rai fetus is identified in cephalic presentation. The placenta is posterior. The amniotic fluid volume is WNL. IMPRESSION: Single, live IUP at 36w2d Normal AFV Reassuring BPP Reassuring Doppler studies RECOMMEND: Continue twice weekly testing and weekly Dopplers Follow growth at 2-3 week intervals Thank you for allowing us the opportunity to care for your patient Siddharth Monahan MD <Electronic Signature> 06/26/2018 12:19pm Rama Conrad MD [facility] ORDERABLES * RPR (06/22/2018 11:26 AM HEEL SEAT TRIMMER) Only the most recent of2 resultswithin the time period is included. Pathologist [facility] RPR Non Reactive Non Reactive 06/23/2018 7:28 AM HEEL SEAT TRIMMER [facility] Blood BLOOD SPECIMEN / Unknown Venipuncture / Unknown 06/22/2018 11:26 AM HEEL SEAT TRIMMER 06/22/2018 11:45 AM HEEL SEAT TRIMMER Ela Hurt MD LAB - CHEMISTRY ORD ERABLES [facility] [address] [place] [address] * (ABNORMAL) CYTOMEGALOVIRUS ANTIBODY IGG/IGM BLOOD PANEL (06/22/2018 11:26 AM HEEL SEAT TRIMMER) Only the most recent of2 resultswithin the time period is included. [facility] Cytomegalovirus Antibody IgG 4.40(H) 0.00 - 0.59 U/mL 06/23/2018 6:19 AM [facility] ([facility]) Comment: Negative <0.60 Equivocal 0.60 - 0.69 Positive >0.69 Cytomegalovirus Antibody IgM <30.0 0.0 - 29.9 AU/mL 06/23/2018 6:19 AM [facility] ([facility]) Comment: Negative <30.0 Equivocal 30.0 - 34.9 Positive >34.9 A positive result is generally indicative of acute infection, reactivation or persistent IgM production. Blood BLOOD SPECIMEN / Unknown Venipuncture / Unknown 06/22/2018 11:26 AM HEEL SEAT TRIMMER 06/22/2018 11:45 AM HEEL SEAT TRIMMER Narrative [facility] ([facility]) - 06/23/2018 6:19 AM HEEL SEAT TRIMMER Performed at: [facility] [address] [place], [place] [id number] Food Quality Technician: Terrell Henderson PhD, Phone: [phone] Ela Hurt MD LAB - CHEMISTRY ORD ERABLES Performing Organization Address City/[facility]/ZIP Co de Phone Number [facility] ([facility]) [address] [place] [address] * TOXOPLASMA ANTIBODY IGG/IGM PANEL (06/22/2018 11:26 AM HEEL SEAT TRIMMER) Only the most recent of2 resultswithin the time period is included. Pathologist [facility] Toxoplasma gondii Antibody IgG Quantitative <3.0 0.0 - 7.1 IU/mL 06/23/2018 6:19 AM [facility] ([facility]) Comment: Negative <7.2 Equivocal 7.2 - 8.7 Positive >8.7 Toxoplasma Antibody IgM <3.0 0.0 - 7.9 AU/mL 06/23/2018 6:19 AM [facility] ([facility]) Comment: Negative <8.0 Equivocal 8.0 - 9.9 Positive >9.9 Comments Comment 06/23/2018 6:19 AM [facility] ([facility]) Comment: No serological evidence of infection with Toxoplasma. If symptoms persist, submit a new specimen after three weeks. Blood BLOOD SPECIMEN / Unknown Venipuncture / Unknown 06/22/2018 11:26 AM HEEL SEAT TRIMMER 06/22/2018 11:45 AM HEEL SEAT TRIMMER Narrative [facility] ([facility]) - 06/23/2018 6:19 AM HEEL SEAT TRIMMER Performed at: [address] [place] [id number] Food Quality Technician: Terrell Henderson PhD, Phone: [phone] Ela Hurt MD LAB - CHEMISTRY ORD ERABLES Performing Organization Address City/[facility]/ZIP Co de Phone Number [facility] ([facility]) [address] [place] [address] * (ABNORMAL) GLUCOSE - POINT OF CARE (05/04/2018 3:22 PM HEEL SEAT TRIMMER) Only the most recent of5 resultswithin the time period is included. Pathologist [facility] Glucose WB/POC 137(H) 70 - 106 mg/dL 05/04/2018 4:02 PM [facility] Blood BLOOD SPECIMEN / Unknown 05/04/2018 3:22 PM HEEL SEAT TRIMMER 05/04/2018 4:01 PM HEEL SEAT TRIMMER Miranda Gar MD LAB - POINT OF CARE ORDERABLES [facility] [address] [place] [address] * CHLAMYDIA + GC AMPLIFIED PROBE (05/03/2018 12:23 PM HEEL SEAT TRIMMER) Only the most recent of2 resultswithin the time period is included. Chlamydia Amplified Probe Negative Negative 05/04/2018 10:35 AM HEEL SEAT TRIMMER [facility] GC Amplified Probe Negative Negative 05/04/2018 10:35 AM [facility] Microbiology URINE / Unknown Collection / Unknown 05/03/2018 12:23 PM HEEL SEAT TRIMMER 05/03/2018 12:32 PM HEEL SEAT TRIMMER Narrative [facility] - 05/04/2018 10:35 AM HEEL SEAT TRIMMER Results based on detection/no detection of ribosomal RNA by amplified method. Aicha Wood MD LAB - MICROBIOLOGY ORDERABLES Performing Organization Address [facility] de Phone Number [facility] [address] [phone] * (ABNORMAL) PT PTT PANEL (11/09/2014 9:00 AM CDT) Only the most recent of4 resultswithin the time period is included. Pathologist [facility] PT <9.5(L) 9.5 - 11.6 sec 11/09/2014 9:38 AM CDT [facility] INR 0.9 0.9 - 1.1 11/09/2014 9:38 AM CDT [facility] PTT 27.2 21.0 - 32.0 sec 11/09/2014 9:38 AM CDT [facility] Blood BLOOD SPECIMEN / Unknown Venipuncture / Unknown 11/09/2014 9:00 AM CDT 11/09/2014 9:11 AM CDT Narrative [facility] - 11/09/2014 9:38 AM CDT Conventional Warfarin Anticoagulant Therapy INR Reference Range: 2.0-3.0 Intensive Warfarin Anticoagulant Therapy INR Reference Range: 2.5-3.5 Heparin Therapeutic Range for PTT: 44.4 - 78.3 seconds. Karin Lee MD LAB - COAGULATION OR DERABLES [facility] [address] [place] [address] * (ABNORMAL) FIBRINOGEN ACTIVITY (11/08/2014 3:12 PM CDT) Only the most recent of2 resultswithin the time period is included. Fibrinogen 455(H) 200 - 400 mg/dL 11/08/2014 4:11 PM CDT [facility] [facility] Blood BLOOD SPECIMEN / Unknown Venipuncture / Unknown 11/08/2014 3:12 PM CDT 11/08/2014 3:19 PM CDT Karin Lee MD LAB - COAGULATION OR DERABLES [facility] [address] [place] [address] * GROSS + MICRO EXAM (STL) (11/08/2014 12:57 PM CDT) Case Report Surgical Pathology Report Case: [id number] Authorizing Provider: Edouard Gonzalez MD Collected: 11/08/2014 12:57 PM Ordering Location: [facility] Received: 11/09/2014 05:42 AM Pathologist: Venus Farr MD Specimen: Placenta 3rd Trimester 11/11/2014 4:10 PM CDT [facility] Final Diagnosis 1. Placenta, delivery: -- Third trimester placenta -- Three vessel umbilical cord -- Unremarkable membranes -- Scattered calcifications /scs 11/11/2014 4:10 PM CDT [facility] Gross Description Received in formalin in 1 container labeled with the patient's name and placenta, is a rai placenta with a marginally attached umbilical cord that measures 7.2 cm in length and 0.8 to 1 cm in diameter. The placental membranes are attached marginally to the placental disc which measures 12.5 x 12.5 x 2.5 cm and weighs 240 grams. Serial sectioning of the placental disc reveal beefy red, unremarkable cut surface. Aba Therapist sections are submitted as follows: A1 - pharmaceutical specialty representative section of the umbilical cord and placental membranes; A2 and A3 - pharmaceutical specialty representative sections of the placental disc. /arm 11/11/2014 4:10 PM CDT [facility] Microscopic Description Sections of the umbilical cord show three vessels with no evidence of vasculitis or funisitis. Sections of the membranes show unremarkable histology and are free of inflammation. Meconium is not seen. Sections of the placental disc show maturing chorionic villi with no evidence of hemorrhage or infarction. MC/scs 11/11/2014 4:10 PM CDT [facility] Pathology/Cytolo gy ENTIRE PLACENTA / Unknown 11/08/2014 12:57 PM CDT 11/09/2014 5:42 AM CDT Edouard Gonzalez MD LAB - PATHOLOGY/CYTO LOGY ORDERABLES Performing Organization Address City/State/[facility] Co de Phone Number [facility] [address] [place] [address] * NEURAXIAL BLOCK (11/08/2014 7:58 AM CDT) Narrative Mariajose Carias APRN-CRNA - 11/08/2014 7:58 AM CDT CATHI Medina 11/08/2014 7:58 AM NEURAXIAL BLOCK Patient Location: OB Pre Procedure Indication: labor analgesia Anticoagulation /Antithrombosis Status Confirmed: Yes Preanesthetic Checklist: patient identified, IV checked, site marked, risks and benefits discussed, surgical consent verified, monitors and equipment checked, pre-op evaluation done, timeout performed, informed consent obtained and questions answered / anesthesia plan accepted Monitors: BP and Pulse Ox Patient Condition: awake Patient Position: sitting Procedure Block Performed: epidural Prep: Betadine Sterile Field: mask, cap/hat, sterile field established and sterile gloves Approach: midline Skin Numbed with: lidocaine 1% Epidural Needle Type: Tuohy Needle Gauge: 18 Needle Length: 3.5 in Placement Site: L3-L4 Number of Attempts: 1 Loss of ResistanceTechnique: air Loss of Resistance: 5 cm Catheter Threaded to: 5 cm Catheter Length at Skin: 10 cm CSF Aspirated from Catheter: negative Blood Aspirated from Catheter: negative Test Dose: lidocaine 1.5% with 1 200 k epinephrine 3 ml at 11/08/2014 7:44 AM Test Dose Response: negative Local Anesthetic: ropivacaine 0.2% 7 ml Epidural additive: fentanyl Events CSF return negative injection not painful no paresthesia Degree of Difficulty: none Position Post Procedure: left uterine displacement Vital signs monitored and stable throughout. See Anesthesia Intraop record for details. Block Performed by: Ольга Carias CRNA Tali Benson MD GENERAL ANESTHES [place] ORDERABLES * URIC ACID BLOOD (11/07/2014 4:04 PM CDT) Uric Acid 3.4 2.5 - 6.2 mg/dL 11/07/2014 4:39 PM CDT [facility] Blood BLOOD SPECIMEN / Unknown Venipuncture / Unknown 11/07/2014 4:04 PM CDT 11/07/2014 4:15 PM CDT Rene Burger MD LAB - CHEMISTRY ORDERABLES Performing Organization Address City/State/[facility] Co de Phone Number [facility] [address] [place] [address] * DRUG SCREEN TOX URINE PANEL (11/07/2014 4:04 PM CDT) Pathologist [facility] Amphetamines Screen Urine Not Detected Not Detected 11/07/2014 4:29 PM CDT [facility] Barbiturates Screen Urine Not Detected Not Detected 11/07/2014 4:29 PM CDT [facility] Benzodiazepines Screen Urine Not Detected Not Detected 11/07/2014 4:29 PM CDT [facility] Cannabinoids Screen Urine Not Detected Not Detected 11/07/2014 4:29 PM CDT [facility] Cocaine Screen Urine Not Detected Not Detected 11/07/2014 4:29 PM CDT [facility] Methadone Screen Urine Not Detected Not Detected 11/07/2014 4:29 PM CDT [facility] Opiate Screen Urine Not Detected Not Detected 11/07/2014 4:29 PM CDT [facility] Phencyclidine Screen Urine Not Detected Not Detected 11/07/2014 4:29 PM CDT [facility] Urine URINE / Unknown Collection / Unknown 11/07/2014 4:04 PM CDT 11/07/2014 4:15 PM CDT Narrative [facility] - 11/07/2014 4:29 PM CDT This drug screen is designed for MEDICAL purposes only. It is not to be used for legal purposes, including but not limited to worker's comp, police investigations, occupational issues, child custody, etc. Any positive result is only presumptive and must be confirmed with a separate confirmatory test ordered by the physician. Drug Screening Test Cutoff Values: AMPHETAMINES 1000 ng/ml BARBITURATES 200 ng/ml BENZODIAZEPINES 200 ng/ml CANNABINOIDS(THC) 50 ng/ml COCAINE 300 ng/ml METHADONE 300 ng/ml OPIATES 300 ng/ml PHENCYCLIDINE(PCP)25 ng/ml Rene Burger MD LAB - URINE CHEM ISTRY ORDERABLES Performing Organization Address [facility] Co de Phone Number [facility] [address] [place] [phone] * (ABNORMAL) LDH BLOOD (11/07/2014 4:04 PM CDT) LDH 225(H) 100 - 200 U/L 11/07/2014 4:39 PM CDT [facility] Blood BLOOD SPECIMEN / Unknown Venipuncture / Unknown 11/07/2014 4:04 PM CDT 11/07/2014 4:15 PM CDT Rene Burger MD LAB - CHEMISTRY ORDERABLES Performing Organization Address [facility] de Phone Number [facility] [address] [place], [place] [phone] * LIPASE BLOOD (11/05/2014 4:52 PM CDT) Lipase 78 73 - 393 U/L 11/05/2014 5:39 PM CDT [facility] Blood BLOOD SPECIMEN / Unknown Venipuncture / Unknown 11/05/2014 4:52 PM CDT 11/05/2014 5:00 PM CDT Brit Glover MD LAB - CHEMISTRY ELEN MADERA Performing Organization Address [facility] Co de Phone Number [facility] [address] [place] [phone] * AMYLASE BLOOD (11/05/2014 4:52 PM CDT) Amylase 45 15 - 115 U/L 11/05/2014 5:39 PM CDT [facility] Blood BLOOD SPECIMEN / Unknown Venipuncture / Unknown 11/05/2014 4:52 PM CDT 11/05/2014 5:00 PM CDT Brit Glover MD LAB - CHEMISTRY ORDE RABLES Performing Organization Address [facility] Co de Phone Number [facility] [address] [place], [place] [phone] * (ABNORMAL) PROTEIN URINE TIMED QUANTITATIVE (11/05/2014 12:46 PM CDT) Volume 24 Hour Urine 2,700 mL 11/05/2014 1:20 PM CDT [facility] Collection Time Hours 24 hrs 11/05/2014 1:20 PM CDT [facility] Protein 24 Hour Urine 246(H) 42 - 225 mg/24hr 11/05/2014 1:20 PM CDT [facility] Protein Urine 9.1 mg/dL 11/05/2014 1:20 PM CDT [facility] Urine TIMED URINE SPECIMEN / Unknown Collection / Unknown 11/05/2014 12:46 PM CDT 11/05/2014 1:02 PM CDT Brit Glover MD LAB - URINE CHEMISTR Y ORDERABLES Performing Organization Address [facility]/ZIP Co de Phone Number [facility] [address] [place] [address] * (ABNORMAL) CREATININE CLEARANCE URINE TIMED (11/05/2014 12:46 PM CDT) Volume 24 Hour Urine 2,700 mL 11/05/2014 1:20 PM CDT [facility] Collection Time Hours 24 hrs 11/05/2014 1:20 PM CDT [facility] Height Inches 64 inches 11/05/2014 1:20 PM CDT [facility] Weight in Pounds 161 pounds 11/05/2014 1:20 PM CDT [facility] Surface Area 1.79 11/05/2014 1:20 PM CDT [facility] Creatinine 0.59 0.50 - 1.30 mg/dL 11/05/2014 1:20 PM CDT [facility] Creatinine Urine 23 mg/dL 11/05/2014 1:20 PM CDT [facility] Creatinine 24 Hour Urine 621(L) 800 - 1,800 mg/24hr 11/05/2014 1:20 PM CDT [facility] Creatinine Clearance 71(L) 87 - 107 mL/min/1.73 m2 11/05/2014 1:20 PM CDT [facility] Urine TIMED URINE SPECIMEN / Unknown Collection / Unknown 11/05/2014 12:46 PM CDT 11/05/2014 1:02 PM CDT Brit Glover MD LAB - URINE CHEMISTR Y ORDERABLES Performing Organization Address [facility] Co de Phone Number [facility] [address] [place] [address] * BLOOD TYPE VERIFICATION (11/05/2014 3:37 AM CDT) ABO A 11/05/2014 4:24 AM CDT [facility] Rh Type Positive 11/05/2014 4:24 AM CDT [facility] Miscellaneous samples (specimen) BLOOD SPECIMEN / Unknown Venipuncture / Unknown 11/05/2014 3:37 AM CDT 11/05/2014 3:53 AM CDT Tali Benson MD LAB - BLOOD BANK ORDERABLES Performing Organization Address [facility] Co de Phone Number [facility] [address]
--- OUTSIDE RECORDS SUMMARY | 2024-07-13 12:05 | XMS_ITS | Encounter Summary ---
Author Organization [facility] Address [address] [place] [address] [place] [address] Care Team Providers Care Search Engineer Name Role Phone Unavailable Primary Care Provider Unavailabl e Reason for Visit * Reason Onset Date Comments Smoking Cessation 05/20/2020 Encounter Details Date Type Department Care Team (Late st Contact Info) Description 05/20/[address] [facility]/ EVALUATION UNIT [address] [place] [address] Maribel Yap, Shop Tech Smoking Cessation Social History Tobacco Use Types Packs/Day Years Used Date Smoking Tobacco: Former Cigarettes Q uit: 03/19/2020 Smokeless Tobacco: Never Alcohol Use Standard Drinks/Week Comments No 0 (1 standard drink = 0.6 oz pur e alcohol) Comments Yes Sex and Gender Information Value Date Recorded Sex Assigned at Not on file Gender Identity Not on file Sexual Orientation Not on file COVID-19 Exposure Response Date Recorded In the last month, have you been in contact with someone who was confirmed or suspected to have Coronavirus / COVID-19? No / Unsure 05/16/2020 2:43 PM PARKING RAMP ATTENDANT documented as of this encounter Functional Status [...] encounter Miscellaneous Notes * Telephone Encounter - Maribel Yap - 05/22/2020 11:25 AM CST Tisha Casey 1990 05/22/2020 Time 11:25 am Attempted to contact patient for smoking cessation. Was unable to reach patient, as person who answered the phone said we had the wrong number. F/U HROB as scheduled. Follow up with pharmacy at next visit. Maribel Yap, PharmD Candidate ING RAMP ATTENDANT documented in this encounter Plan of Treatment Not on file documented as of this encounter Visit Diagnoses Not on filedocumented in this encounter
--- NOTE | 2024-07-13 12:45 | PC.NURSE ---
pt approached intake desk and states her and her children are going to a different hospital. pt and children ambulated/carried out of ED without difficulty.
[2024-07-13 12:46] LABS: Influenza A QL RT-PCR Negative (Negative); Influenza B QL RT-PCR Negative (Negative); RSV RNA, RT-PCR Positive (Negative); SARS-CoV-2 RNA PCR Negative (Negative)
--- OUTSIDE RECORDS SUMMARY | 2024-07-13 12:57 | XMS_ITS | Referral Summary ---
Author Organization [facility] Address [address] [place] [address] Care Team Providers Care Licensed Physical Therapy Assistant Name Role Phone Unavailable Primary Care Provider Unavailabl e Source Comments [facility],non-owned Affiliates and Associated Physician Practices is amultiple site organization consisting of ambulatory clinics and hospital sitesin [place], [place], [place] and [place]. This disclosure is being madepursuant to the Care Everywhere program and may not contain all information available regarding this patient. Last updated 18.[facility] Allergies Active Allergy Reactions Criticality Noted Date [...] migh t be different from the original. [employer] form completed. Diapers given. 08/15/2023, 10/06/2023 Now [place] [id number] [employer] form completed. Diapers given. 08/07/2020, [...] and heating? Not hard at all 10/24/2023 [facility] [place] of Occupat ional Health - Occupational Stress [...] place to sleep or slept in a penitentiary (including now)? No 10/24/2023 [place] Depression Scale Answer Date Recorded [place] Depression Scale Total 0 10/26/2023 The thought [...] IG LB+HPV APTIMA Routine 05/04/2023 3:44 PM KITCHEN CLERK Cervical cerclage suture present, antepartum (HCC) HEPATITIS C ANTIBODY Routine 05/04/2023 3:43 PM KITCHEN CLERK Short cervix affecting (HCC) from Last 3 Months or Most Recently Relevant to Health Maintenance Results * HIV-1 HIV-2 ANTIBODY + HIV P24 AG PANEL (08/29/2023 11:08 AM CDT) HIV1/2 Ab + P24 Ag Non Reactive Non Reactive 08/29/2023 12:17 PM CDT [facility] Blood BLOOD SPECIMEN / Unknown Venipuncture / Unknown 08/29/2023 11:08 AM CDT 08/29/2023 11:28 AM CDT Narrative [facility] - 08/29/2023 12:17 PM CDT No Laboratory evidence of HIV infection. Aicha Johnson MD LAB - C HEMISTRY ORDERABLES [facility] [address] [place] [address] * PAP IG LB+HPV APTIMA (05/04/2023 3:44 PM KITCHEN CLERK) Diagnosis Comment 05/09/2023 3:08 PM KITCHEN CLERK [facility] ([facility]) Comment:NEGATIVE FOR INTRAEP ITHELIAL LESION OR MALIGNANCY. Specimen Adequacy Comment 3:08 PM KITCHEN CLERK [facility] Comment: Satisfactory for evaluation. Endocervical and/or squamous metaplastic cells (endocervical component) are present. Performed by Comment 05/09/2023 3:08 PM KITCHEN CLERK [facility] Comment:Nadir Sadler totechnologist Comment . 05/09/2023 3:08 PM KITCHEN CLERK [facility] Note Comment 05/09/2023 3:08 PM KITCHEN CLERK [facility] Comment: The Pap smear is a screening test designed to aid in the detection of premalignant and malignant conditions of the uterine cervix. It is not a diagnostic procedure and should not be used as the sole means of detecting cervical cancer. Both false-positive and false-negative reports do occur. IGLBP CPT Code Automation Comment 05/09/2023 3:08 PM KITCHEN CLERK [facility] Comment: This liquid based ThinPrep(R) pap test was screened with the use of an image guided system. Human papillomavirus Aptima Negative Negative 05/09/2023 3:08 PM KITCHEN CLERK [facility] Comment: This nucleic acid amplification test detects fourteen high-risk HPV types (16,18,31,33,35,39,45,51,52,56,58,59,66,68) without differentiation. Pathology/Cytolo gy PART OF UTERINE CERVIX / Unknown Collection / Unknown 05/04/2023 3:44 PM KITCHEN CLERK 05/04/2023 4:16 PM KITCHEN CLERK Narrative [facility] ([facility]) - 05/09/2023 3:08 PM KITCHEN CLERK Performed at: 01 - [address] [id number] Inserting Operator: Kristyn Kramer MD, Phone: [phone] Performed at: 02 - [facility] [id number] Inserting Operator: Kristyn Kramer MD, Phone: [phone] Specimen Comment: No. of containers..01 ThinPrep Vial Evelin Joaquin MD LAB - PATHOLOGY/CYTO LOGY ORDERABLES [facility] ([facility]) [address] [place] [address] * HEPATITIS C ANTIBODY (05/04/2023 3:43 PM KITCHEN CLERK) HCV Antibody Screen Non Reactive Non Reactive 05/04/2023 5:03 PM KITCHEN CLERK [facility] Blood BLOOD SPECIMEN / Unknown Venipuncture / Unknown 05/04/2023 3:43 PM KITCHEN CLERK 05/04/2023 4:13 PM KITCHEN CLERK Narrative [facility] - 05/04/2023 5:03 PM KITCHEN CLERK Non Reactive - Antibodies to Hepatitis C virus (HCV) were not detected, result does not exclude early acute HCV infection. Evelin Joaquin MD LAB - CHEMISTRY ELEN MADERA [facility] [address] [place] [address] from Last 3 Months or Most Recently [...]
--- OUTSIDE RECORDS SUMMARY | 2024-07-13 12:57 | XMS_ITS | Data Portability ---
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 Plan of Treatment Reminders Order Date Submit Date Provider Last Modified By Organization Details Last Modified Time Details Appointments NEW PATIENT 30 2024 10:00A M Gerson Baker MD Not available Not available Not available Lab pregnanc y test, urine 2019 020 [email or web address] In-Office Order, Internal Use Only DO Not Attach Compendium DO Not Attach Compendium, Do Not Delete/merge, [id number] 02/08/2020 17:05:31 RPR (rapid plasma reagin), serum 2019 020 [facility] (Lab), [address] [place], [address], 02/09/2020 10:10:48 culture, urine 2019 020 [facility] (Lab), [address], [place], [address], 02/10/2020 07:08:19 cf (cystic fibrosis ) profile 2019 020 [facility] (Lab), [address], [place], [address], 02/18/2020 14:11:00 varicell a-zoster igg Ab screen, serum 2019 020 [facility] (Lab), [address] [place], [address], 02/09/2020 21:07:43 hemoglob in (Hb) electrop horesis, blood 2019 020 [facility] (Lab), [address], [place], [address], 02/12/2020 15:09:12 hepatiti s panel (A+B+C), acute, serum 2019 020 [facility] (Lab), [address], [place], [address], 02/09/2020 21:07:45 HIV (1+2) Ab screen, serum 2019 020 [facility] (Lab), [address], [place], [address], 02/09/2020 09:11:57 rubella igg Ab screen, serum 2019 020 [facility] (Lab), [address], [place], [address], 02/09/2020 21:07:41 CBC w/ auto diff 2019 020 [facility] (Lab), [address], [place], [address], 02/08/2020 19:46:36 drug screen, urine 2019 020 [facility] (Lab), [address], [place], [address], 02/08/2020 19:45:24 type + screen, serum 2019 020 [facility] (Lab), [address], [place], [address], 02/08/2020 21:32:24 urinalys is, dipstick , reflex micro 2019 020 [facility] (Lab), [address], [place], [address], 02/08/2020 20:01:56 uric acid, serum or plasma 2019 020 [facility] (Lab), [address], [place], [address], 02/08/2020 19:44:53 CMP, serum or plasma 2019 020 [facility] (Lab), [address], [place], [address], 02/08/2020 19:44:48 protein: creatini ne ratio, urine 2019 020 [facility] (Lab), [address], [place], [address], 02/08/2020 20:35:58 CMP, serum or plasma 2022 023 [facility], [address] [place] [address], [address] [address], [place], [address], 04/27/2023 06:17:09 uric acid, serum or plasma 2022 023 [facility], [address] [place] [address], [address] [address], [place], [address], 04/27/2023 06:17:10 protein: creatini ne ratio, urine 2022 023 [facility], [address] [place] [address], [facility] [address], [place], [address], 05/05/2023 13:10:32 CBC w/ auto diff 2022 023 [facility] A[facility]ULK[facility], [address] [place] [address], [facility] [address], [place], [address], 04/27/2023 06:17:10 hemoglob in (Hb) electrop horesis, blood 2022 023 [facility], [address], [address], [place], [address], 05/05/2023 13:10:31 abo group + rh type, blood 2022 023 [facility], [address], [address], [place], [address], 05/05/2023 13:10:36 antibody screen, serum or plasma 2022 023 [facility], [address], [address], [place], [address], 05/05/2023 13:10:35 rubella IgG Ab, quant immunoas say, serum or plasma 2022 023 [facility], [address], [place], [address], 05/05/2023 13:10:37 varicell a zoster virus IgG Ab, QN, IA, serum 2022 023 [facility], [address], [place], [address], 05/05/2023 13:10:40 drug screen, urine 2022 023 [facility], [address], [place], [address], 05/05/2023 13:10:34 HbA1c (hemoglo bin A1c), blood 2022 023 [facility], [address], [address], [place], [address], 05/05/2023 13:10:34 cf (cystic fibrosis ) profile 2022 023 [facility], [address], [place], [address], 05/05/2023 13:10:33 Hepatiti s C IgG Ab, qual, serum 2022 023 [facility], [address], [address], [place], [address], 05/05/2023 13:10:31 HBsAg (hepatit is B surface Ag), EIA, serum 2022 023 [facility], [address], [place], [address], 05/05/2023 13:10:37 HIV 1 + 2, meaningf ul use set 2022 023 [facility], [address], [place], [address], 05/05/2023 13:10:40 RPR (rapid plasma reagin), serum 2022 023 [facility], [address], [place], [address], 05/05/2023 13:10:39 culture, urine 2022 023 [facility], [address] [place], [place] [address], [place], [address], 05/05/2023 13:10:38 pregnanc y test, urine 2022 023 [email or web address] In-Office Order, Internal Use Only DO Not Attach Compendium DO Not Attach Compendium, Do Not Delete/merge, [id number] 04/26/2023 13:04:01 urinalys is, dipstick 2022 023 [email or web address] In-Office Order, Internal Use Only DO Not Attach Compendium DO Not Attach Compendium, Do Not Delete/merge, [id number] 04/26/2023 13:04:03 cytology report, thin prep, smear or scraping , cervical or vaginal 2022 023 [facility], [address], [address], [place], [address], 05/02/2023 11:09:21 bacteria l vaginosi s panel, vaginal 2023 024 [facility], [address] [facility] [address], [place], [address], 01/04/2024 17:09:58 pregnanc y test, urine 2023 024 [email or web address] In-Office Order, Internal Use Only DO Not Attach Compendium DO Not Attach Compendium, Do Not Delete/merge, [id number] 01/06/2024 15:22:46 Referral maternal & medicine referral 2022 023 marce [facility], [address], [place] [address], [place], [address], 06/09/2023 13:20:16 Procedures None recorded . Surgeries None recorded . Imaging None recorded . Medication Orders Plus 29 mg iron-1 mg tablet 2019 020 [facility] #[id number], [address], [place], [place], [id number], 04/26/2023 14:32:16 Reglan 10 mg tablet 2019 020 [id number], [address], [place], [id number], 04/26/2023 14:31:55 19 29 mg iron-1 mg tablet 2022 023 [id number], [address], [place], [place], [id number], 04/26/2023 13:04:01 aspirin 81 mg tablet,d elayed release 2022 024 [id number], [address], [place], [place], [id number], 01/03/2024 15:10:41 medroxyp rogester one 150 mg/mL intramus cular syringe 2023 024 [facility]04[facility], [address], [place], [place], [id number], 01/03/2024 15:56:35 medroxyp rogester one 150 mg/mL intramus cular syringe 2023 024 [email or web address] Not available 01/06/2024 16:50:21 medroxyp rogester one 150 mg/mL intramus cular syringe 2023 024 [id number], [address], [place], [place], [id number], 01/06/2024 15:22:53 Patient TargetsNo targets recorded. Patient Instructions Encounter Date Encounter Id Patient Instructions Last Modified By Organization Details Last Modified Time 12/05/2019 [id number] PATIENT recently seen at [facility] for HSV testing she states she found out prior boyfriend had hx genital herpes she denies having any outbreak in past no prior testing . ER visit - HSV1+2 IgM drawn. both HSV1 and HSV1 IgM Negative DISCUSSION discuss transmission of HSV definitition of oral herpes or gential based on location of lesions, no on subtype discuss no indications for viral culture without present lesions discuss limitations of antibody testing - cannot determine time or person of exposure discuss IgM vs IgG antibody testing for current or past symptoms discuss additional serum screening vs vaginal swab without lesions patient decliens additional testing at this time review of available lab records shows no prior testing ROGELIO [email or web address] Not available 12/05/2019 16:13:37 04/26/2023 [id number] A healthy lifestyle: care instructions [email or web address] Not available 04/26/2023 15:32:57 Reason for Referral Maternal & Medicine Re ferral for High risk Referring Physician: José Miguel Marks, Family Medicine, Encounter Date: 04/26/2023 Results Created Date Observation Date Name Description Value Unit Range Abnormal Flag Note LastModifiedBy Organization Detail LastModifiedTime 02/08/20 20 02/08/2020 pregn caleb test, urine HCG positi ve Not Available In-Office Order Internal Use Only DO Not Attach Compendium DO Not Attach Compendium, Do Not Delete/merge, [id number] 02/08/2020 16:50:00 02/08/20 20 02/08/2020 CMP, serum or plasm a glucose, serum 103 mg/dL 65-99 high Not Available [facility] ([facility]) [address] [place], [address], 02/08/2020 19:44:48 02/08/20 20 02/08/2020 CMP, serum or plasm a BUN 6 mg/dL 8-26 low Not Available [facility] (Lab) [address] [place], [address], 02/08/2020 19:44:48 02/08/2002/08/2020 CMP, serum or plasm a creatinine, serum 0.62 mg/dL 0.50-1 .40 Not Available [facility] ([facility] [address] [place], [address], 02/08/2020 19:44:48 02/08/20 20 02/08/2020 CMP, serum or plasm a BUN/creatnin e ratio 9.2 Not Available [facility] [address] [place], [address], 02/08/2020 19:44:48 02/08/2002/08/2020 CMP, serum or plasm a sodium, serum 135.0 mEq/L 136.0- 144.0 low Not Available [facility] ([facility]) [address] [place], [address], 02/08/2020 19:44:48 02/08/2002/08/2020 CMP, serum or plasm a potassium, serum 3.9 mmol/ L 3.5-5. 3 Not Available [facility] (Lab) [address] [place], [address], 02/08/2020 19:44:48 02/08/2002/08/2020 CMP, serum or plasm a chloride, serum 103 mmol/ l 101-11 1 Not Available [facility] (Lab) [address] [place], [address], 02/08/2020 19:44:48 02/08/2002/08/2020 CMP, serum or plasm a carbon dioxide total 21.5 mmol/ L 21.0-3 2.0 Not Available [facility] (Lab) [address], [place], [address], 02/08/2020 19:44:48 02/08/2002/08/2020 CMP, serum or plasm a aniongp 14.0 mmol/ L Not Available [facility] (Lab) [address], [place], [address], 02/08/2020 19:44:48 02/08/2002/08/2020 CMP, serum or plasm a calcium, serum 9.3 mg/dL 8.2-10 .0 Not Available [facility] (Lab) [address], [place], [address], 02/08/2020 19:44:48 02/08/2002/08/2020 CMP, serum or plasm a total protein 6.7 g/dL 6.7-8. 2 Not Available [facility] (Lab) [address] [place], [address], 02/08/2020 19:44:48 02/08/2002/08/2020 CMP, serum or plasm a albumin, serum 4.0 g/dL 3.5-5. 5 Not Available [facility] (Lab) [address] [place], [address], 02/08/2020 19:44:48 02/08/20 20 02/08/2020 CMP, serum or plasm a agratio 1.4 Not Available [facility] (Lab) [address] [place], [address], 02/08/2020 19:44:48 02/08/2002/08/2020 CMP, serum or plasm a bilt 0.3 mg/dL 0.0-1. 2 Not Available [facility] (Lab) [address] [place], [address], 02/08/2020 19:44:48 02/08/20 20 02/08/2020 CMP, serum or plasm a AST 12.8 U/L 10.0-4 2.0 Not Available [facility] (Lab) [address], [place], [address], 02/08/2020 19:44:48 02/08/2002/08/2020 CMP, serum or plasm a ALT 10.5 U/L 10.0-6 0.0 Not Available [facility] (Lab) [address], [place], [address], 02/08/2020 19:44:48 02/08/2002/08/2020 CMP, serum or plasm a alk phos 45.5 IU/L 42.0-1 21.0 Not Available [facility] (Lab) [address], [place], [address], 02/08/2020 19:44:48 02/08/2002/08/2020 CMP, serum or plasm a osmol 268.0 mOsm/ L 275.0- 301.0 low Not Available [facility] ([facility]) [address] [place], [address], 02/08/2020 19:44:48 02/08/2002/08/2020 CMP, serum or plasm a eGFR, AM 148 m/lmi n/1.7 3_m >=60 Not Available [facility] (Lab) [address] [place], [address], 02/08/2020 19:44:48 02/08/20 20 02/08/2020 uric acid, serum or plasm a uricacd 3.5 mg/dL 2.6-7. 2 Not Available [facility] (Lab) [address], [place], [address], 02/08/2020 19:44:53 02/08/20 20 02/08/2020 drug scree n, urine urine phencylclind in NEGATI VE negati ve Not Available [facility] (Lab) [address], [place], [address], 02/08/2020 19:45:24 02/08/20 20 02/08/2020 drug scree n, urine urine cannabinoids NEGATI VE negati ve Not Available [facility] (Lab) [address], [place], [address], 02/08/2020 19:45:24 02/08/2002/08/2020 drug scree n, urine urine amphetamines NEGATI VE negati ve Not Available [facility] (Lab) [address], [place], [address], 02/08/2020 19:45:24 02/08/2002/08/2020 drug scree n, urine urine cocaine NEGATI VE negati ve Not Available [facility] (Lab) [address], [place], [address], 02/08/2020 19:45:24 02/08/2002/08/2020 drug scree n, urine urine opiates NEGATI VE negati ve Not Available [facility] (Lab) [address], [place], [address], 02/08/2020 19:45:24 02/08/2002/08/2020 drug scree n, urine urine barbiturates NEGATI VE negati ve Not Available [facility] (Lab) [address] [place], [address], 02/08/2020 19:45:24 02/08/2002/08/2020 drug scree n, urine urine benzo diazepin NEGATI VE negati ve Not Available [facility] (Lab) [address] [place], [address], 02/08/2020 19:45:24 02/08/20 20 02/08/2020 drug scree n, urine udrscom This test provi mary only a scree alem kraig tical test resul t. A more speci fic alter dionicio chemi kasey metho d must be order ed to obtai n a confi rmed kraig tical resul t. Not Available [facility] (Lab) [address], [place], [address], 02/08/2020 19:45:24 02/08/2002/08/2020 CBC w/ auto diff WBC 5.3 K/uL 3.4-10 .8 Not Available [facility] (Lab) [address], [place], [address], 02/08/2020 19:46:36 02/08/20 20 02/08/2020 CBC w/ auto diff red blood count 3.9 M/uL 4.2-5. 4 low Not Available [facility] (Lab) [address], [place], [address], 02/08/2020 19:46:36 02/08/20 20 02/08/2020 CBC w/ auto diff hemoglobin 11.1 g/dL 11.5-1 5.5 low Not Available [facility] (Lab) [address] [place], [address], 02/08/2020 19:46:36 02/08/2002/08/2020 CBC w/ auto diff hematocrit 33.2 % 36.0-4 8.0 low Not Available [facility] (Lab) [address], [place], [address], 02/08/2020 19:46:36 02/08/20 20 02/08/2020 CBC w/ auto diff MCV 85 fL 80-95 Not Available [facility] (Lab) [address] [place], [address], 02/08/2020 19:46:36 02/08/20 20 02/08/2020 CBC w/ auto diff MCH 29 pg 27-32 Not Available [facility] (Lab) [address] [place], [address], 02/08/2020 19:46:36 02/08/20 20 02/08/2020 CBC w/ auto diff MCHC 33 g/dL 32-36 Not Available [facility] (Lab) [address], [place], [address], 02/08/2020 19:46:36 02/08/20 20 02/08/2020 CBC w/ auto diff platelets 265 K/uL 155-37 9 Not Available [facility] (Lab) [address], [place], [address], 02/08/2020 19:46:36 02/08/20 20 02/08/2020 CBC w/ auto diff RDW 13.3 % 11.5-1 4.5 Not Available [facility] (Lab) [address], [place], [address], 02/08/2020 19:46:36 02/08/2002/08/2020 CBC w/ auto diff MPV 10.1 fL 8.9-12 .7 Not Available [facility] (Lab) [address] [place], [address], 02/08/2020 19:46:36 02/08/20 20 02/08/2020 CBC w/ auto diff neutrophils absolute 2.5 K/uL 1.4-7. 0 Not Available [facility] (Lab) [address] [place], [address], 02/08/2020 19:46:36 02/08/2002/08/2020 CBC w/ auto diff lymphs (absolute) 2.1 K/uL 0.7-3. 1 Not Available [facility] (Lab) [address] [place], [address], 02/08/2020 19:46:36 02/08/2002/08/2020 CBC w/ auto diff monocytes (absolute) 0.4 K/uL 0.1-0. 9 Not Available [facility] (Lab) [address] [place], [address], 02/08/2020 19:46:36 02/08/20 20 02/08/2020 CBC w/ auto diff eos (absolute) 0.2 K/uL 0.0-0. 4 Not Available [facility] (Lab) [address], [place], [address], 02/08/2020 19:46:36 02/08/2002/08/2020 CBC w/ auto diff baso (absolute) 0.0 K/uL 0.0-0. 3 Not Available [facility] (Lab) [address], [place], [address], 02/08/2020 19:46:36 02/08/2002/08/2020 CBC w/ auto diff neut % 48.1 % 40.0-7 4.0 Not Available [facility] (Lab) [address], [place], [address], 02/08/2020 19:46:36 02/08/2002/08/2020 CBC w/ auto diff lymphs % 39.3 % 14.0-4 6.0 Not Available [facility] (Lab) [address] [place], [address], 02/08/2020 19:46:36 02/08/2002/08/2020 CBC w/ auto diff mono % 7.8 % 4.0-12 .0 Not Available [facility] (Lab) [address] [place], [address], 02/08/2020 19:46:36 02/08/2002/08/2020 CBC w/ auto diff eos % 4 % 0-5 Not Available [facility] (Lab) [address] [place], [address], 02/08/2020 19:46:36 02/08/20 20 02/08/2020 CBC w/ auto diff baso % 0.2 % 0.0-1. 0 Not Available [facility] (Lab) [address] [place], [address], 02/08/2020 19:46:36 02/08/20 20 02/08/2020 urina lysis , dipst ick, refle x micro urhead1 URINAL YSIS, COMPLE TE Ur inalys is Gross Exam Not Available [facility] (Lab) [address], [place], [address], 02/08/2020 20:01:56 02/08/20 20 02/08/2020 urina lysis , dipst ick, refle x micro urine-color YELLOW yellow Not Available [facility] (Lab) [address], [place], [address], 02/08/2020 20:01:56 02/08/20 20 02/08/2020 urina lysis , dipst ick, refle x micro appearance SLIGHT LY CLOUDY clear abnormal Not Available [facility] (Lab) [address], [place], [address], 02/08/2020 20:01:56 02/08/20 20 02/08/2020 urina lysis , dipst ick, refle x micro glucose NEGATI VE mg/dL negati ve Not Available [facility] (Lab) [address] [place], [address], 02/08/2020 20:01:56 02/08/20 20 02/08/2020 urina lysis , dipst ick, refle x micro bilirubin NEGATI VE negati ve Not Available [facility] (Lab) [address] [place], [address], 02/08/2020 20:01:56 02/08/20 20 02/08/2020 urina lysis , dipst ick, refle x micro ketones NEGATI VE mg/dL negati ve Not Available [facility] (Lab) [address], [place], [address], 02/08/2020 20:01:56 02/08/20 20 02/08/2020 urina lysis , dipst ick, refle x micro specific gravity 1.025 1.001- 1.035 Not Available [facility] (Lab) [address] [place], [address], 02/08/2020 20:01:56 02/08/20 20 02/08/2020 urina lysis , dipst ick, refle x micro occult blood NEGATI VE nancy/u L negati ve Not Available [facility] (Lab) [address], [place], [address], 02/08/2020 20:01:56 02/08/20 20 02/08/2020 urina lysis , dipst ick, refle x micro pH 6.5 5.0-7. 0 Not Available [facility] (Lab) [address], [place], [address], 02/08/2020 20:01:56 02/08/20 20 02/08/2020 urina lysis , dipst ick, refle x micro protein NEGATI VE mg/dL negati ve Not Available [facility] (Lab) [address], [place], [address], 02/08/2020 20:01:56 02/08/20 20 02/08/2020 urina lysis , dipst ick, refle x micro urobilinogen 0.2 eu/dL <=1.0 Not Available [facility] (Lab) [address] [place], [address], 02/08/2020 20:01:56 02/08/20 20 02/08/2020 urina lysis , dipst ick, refle x micro nitrite, urine NEGATI VE negati ve Not Available [facility] (Lab) [address] [place], [address], 02/08/2020 20:01:56 02/08/20 20 02/08/2020 urina lysis , dipst ick, refle x micro WBC esterase NEGATI VE uL negati ve Not Available [facility] (Lab) [address] [place], [address], 02/08/2020 20:01:56 02/08/20 20 02/08/2020 prote in:cr eatin ine ratio , urine urine creatnine 383.2 mg/dL 16.0-3 27.0 high Not Available [facility] (Lab) [address] [place], [address], 02/08/2020 20:35:58 02/08/20 20 02/08/2020 prote in:cr eatin ine ratio , urine urine protein 26.3 mg/dL 1.0-14 .0 high Not Available [facility] (Lab) [address] [place], [address], 02/08/2020 20:35:58 02/08/20 20 02/08/2020 prote in:cr eatin ine ratio , urine urine protein/crea t 68.6 mg/g_ creat 0.0-20 0.0 Not Available [facility] (Lab) [address], [place], [address], 02/08/2020 20:35:58 02/08/20 20 02/08/2020 type + scree n, serum ABO/Rh typing A Rh Positi ve Not Available [facility] (Lab) [address] [place], [address], 02/08/2020 21:32:24 02/08/20 20 02/08/2020 type + scree n, serum id-mts antbdy screen NEGATI VE Not Available [facility] (Lab) [address] [place], [address], 02/08/2020 21:32:24 02/08/20 20 02/09/2020 HIV (1+2) Ab scree n, serum HIV 4TH generation Non Reacti ve non reacti ve Not Available [facility] (Lab) [address] [place], [address], 02/09/2020 09:11:57 02/08/2002/09/2020 RPR (rapi d plasm a reagi n), serum RPR Non Reacti ve non reacti ve Not Available [facility] (Lab) [address] [place], [address], 02/09/2020 10:10:48 02/08/2002/09/2020 rubel la igg Ab scree n, serum rubella antibodies, IgG 5.28 index immune >0.99 Non-i mmune <0.90 Equiv ocal 0.90 - 0.99 Immun e >0.99 Not Available [facility] (Lab) [address], [place], [address], 02/09/2020 21:07:40 02/08/2002/09/2020 varic faith- zoste r igg Ab scree n, serum varicella zoster IgG 705 index immune >165 Negat anthony <135 Equiv ocal 135 - 165 Posit anthony >165 A posit anthony resul t gener ally indic ates expos ure to the patho gen or admin istra tion of speci fic immun oglob ulins , but it is not indic ation of activ e infec tion or stage of disea se. Not Available [facility] (Lab) [address] [place], [address], 02/09/2020 21:07:42 02/08/20 20 02/09/2020 hepat itis panel (A+B+ C), acute , serum hep A Ab, IgM Negati ve negati ve Not Available [facility] (Lab) [address] [place], [address], 02/09/2020 21:07:45 02/08/2002/09/2020 hepat itis panel (A+B+ C), acute , serum HBsAg screen Negati ve negati ve Not Available [facility] (Lab) [address] [place], [address], 02/09/2020 21:07:45 02/08/20 20 02/09/2020 hepat itis panel (A+B+ C), acute , serum hep B core Ab, IgM Negati ve negati ve Not Available [facility] (Lab) [address] [place], [address], 02/09/2020 21:07:45 02/08/20 20 02/09/2020 hepat itis panel (A+B+ C), acute , serum hep C virus Ab <0.1 s/co_ ratio 0.0-0. 9 Negat anthony: < 0.8 Indet ermin ate: 0.8 - 0.9 Posit anthony: > 0.9 . The CDC recom mends that a posit anthony HCV antib noe resul t be follo wed up with a HCV Nucle ic Acid Ampli ficat ion test (5507 13). Not Available [facility] (Lab) [address], [place], [address], 02/09/2020 21:07:45 02/08/20 20 02/10/2020 cultu re, urine urine culture, routine Final report Not Available [facility] (Lab) [address], [place], [address], 02/10/2020 07:08:19 02/08/20 20 02/10/2020 cultu re, urine result 1 MUG Mixed uroge nital kenney 10,00 0-25, 000 colon y formi ng units per mL Not Available [facility] (Lab) [address], [place], [address], 02/10/2020 07:08:19 02/08/2002/12/2020 hemog lobin (Hb) elect ropho resis , blood hemoglobin F 0.0 % 0.0-2. 0 Not Available [facility] (Lab) [address], [place], [address], 02/12/2020 15:09:12 02/08/20 20 02/12/2020 hemog lobin (Hb) elect ropho resis , blood hemoglobin A 97.8 % 96.4-9 8.8 Not Available [facility] (Lab) [address], [place], [address], 02/12/2020 15:09:12 02/08/20 20 02/12/2020 hemog lobin (Hb) elect ropho resis , blood hemoglobin S 0.0 % 0.0 Not Available [facility] (Lab) [address], [place], [address], 02/12/2020 15:09:12 02/08/20 20 02/12/2020 hemog lobin (Hb) elect ropho resis , blood hemoglobin C 0.0 % 0.0 Not Available [facility] (Lab) [address], [place], [address], 02/12/2020 15:09:12 02/08/20 20 02/12/2020 hemog lobin (Hb) elect ropho resis , blood hemoglobin A2 2.2 % 1.8-3. 2 Not Available [facility] (Lab) [address], [place], [address], 02/12/2020 15:09:12 02/08/20 20 02/12/2020 hemog lobin (Hb) elect ropho resis , blood hemoglobin variant Not Available [facility] (Lab) [address], [place], [address], 02/12/2020 15:09:12 02/08/20 20 02/12/2020 hemog lobin (Hb) elect ropho resis , blood hemoglobin fractionatio n interpretati on [facility] Berenice l adult hemog lobin prese nt. Not Available [facility] (Lab) [address] [place], [address], 02/12/2020 15:09:12 02/08/20 20 02/18/2020 cf (cyst ic fibro sis) profi le CF, screen Commen t: RESUL TS: Negat anthony for 32 mutat ions kraig zed INTER PRETA TION: This indiv idual is negat anthony for the mutat ions kraig zed. This negat anthony resul t may need furth er inter preta tion depen ding on the clini kasey indic ation . This resul t reduc es but does not elimi dionicio the risk to be a CF tayla er. COMME NTS: The detec tion rate varie s with ethni city and is liste d below . The prese nce of an undet ected mutat ion in the CF gene canno t be ruled out. In the absen ce of famil y histo ry, the remai alem risk that a perso n with a negat anthony resul t could have at least one CF mutat ion is liste d in the table . If there is a famil y histo ry of CF, these risk figur es do not apply . As detai led infor freedom rai regjamey wallace this indiv idual 's famil y histo ry would permi t a more accur ate asses sment of this indiv idual 's risk to be a tayla er of cysti c fibro sis, pleas e conta ct [facility] at for a ted ed repor t. Mutat ion Detec tion Detec tion rates are based on mutat ion Rates among Ethni c frequ encie s in patie nts affec harris with Group s cysti c fibro sis. Among indiv idual s with an atypi kasey or mild prese ntati on (e.g. conge nital absen ce of the vas defer ens, pancr eatit is) detec tion rates may vary from those provi ded here: Tayla er risk reduc tion when no famil y histo ry Detec tion Ethni city Rate Ashke nazi 07/01 to 97% Jewis h Cauca kashmir 06/30 to 90% (non- Hispa justin) Afric an-Am evelyn n to 69% Hispa justin to 73% to 55% This inter preta tion is based on the clini kasey and famil y relat ionsh ip infor freedom rai provi ded and the curre nt under stand ing of the molec ular raven ics of this condi tion. MUTAT IONS KRAIG ZED: G85E V520F W1282 X 2183A A to G R117H G542X N1303 K 2184d Cholo R334W S549N 394de lTT 2789+ 5G to A R347H S549R 621+1 G to T 3120+ 1G to A R347P G551D 711+1 G to T 3659d elC A455E R553X 1078d elT 3849+ 10kbC to T Delta I507 R560T 1717- 1G to A 3876d Cholo Delta F508 R1162 X 1898+ 1G to A 3905i nsT METHO DS/LI MITAT IONS: DNA is isola harris from the sampl e and teste d for the 32 CF mutat ions on the Unive rsal Array Platf orm (Alka nex). Regio ns of the CFTR gene are ampli fied enzym atica lly and subje cted to a solut ion-p hase multi plex allel e-spe cific prime r exten de with subse quent hybri dizat ion to a bead array and fluor escen ce detec tion. Polym orphi sms F508C , I506V and I507V are inclu ded in this panel to rule out false posit anthony delta F508 homoz ygote s. Refle x testi ng of 5T is inclu ded in the panel for R117H inter preta tion. False posit anthony or negat anthony resul ts may occur for reaso ns that inclu de raven ic varia nts, blood trans fusio ns, bone marro w trans plant ation , cristina eous repre senta tion of famil y relat ionsh ips or conta minat ion of a sampl e with mater nal cells . REFER ENCES : 1. Updat es on Tayla er Scree alem for Cysti c Fibro sis. (2011 ) Am J Ob Gynec ol 117(4 ):102 8-103 1 2. Gabino rai et al. (2004 ) [facility] 6:387 -91 3. Ayesha marcelino, et al. (2002 ) [facility] 4:379 -391 4. Preco ncept ion and prena latasha tayla er scree alem for cysti c fibro sis: (2001 )ACOG .ACMG publi catio n Resul ts Relea sed By: Jonnie mckinnon, Ph.D. , [facility] Repor t Relea sed By: Jonnie cmkinnon, Ph.D. , [facility] Not Available [facility] (Lab) [address] [place], [address], 02/18/2020 14:10:59 02/08/20 20 02/18/2020 cf (cyst ic fibro sis) profi le pdf . Not Available [facility] (Lab) [address] [place], [address], 02/18/2020 14:10:59 02/08/20 20 02/18/2020 cf (cyst ic fibro sis) profi le comment: [facility] The assay provi mary infor matio n inten ded to be used for tayla er scree alem in adult s of repro ducti ve age, as an aid in new rn scree alem, and as a confi rmato ry test for anoth er medic ally estab lishe d diagn osis in new rns and child snehal. The test is not indic ated for use in diagn ostic testi ng, pre-i mplan tatio n scree alem, or for any stand -gil e diagn ostic purpo ses witho ut confi rmati on by ano er medic ally estab lishe d diagn ostic produ ct or proce dure. Not Available [facility] (Lab) [address], [place], [address], 02/18/2020 14:10:59 04/26/20 23 04/26/2023 COMP. METAB OLIC PANEL (14) glucose 74 mg/dL 70-99 Not Available [facility] [address] [place], [address], 04/27/2023 06:17:09 04/26/20 23 04/26/2023 COMP. METAB OLIC PANEL (14) BUN 6 mg/dL 6-20 Not Available [facility] [address] [place], [address], 04/27/2023 06:17:09 04/26/20 23 04/26/2023 COMP. METAB OLIC PANEL (14) creatinine 0.53 mg/dL 0.76-1 .27 below low normal Not Available [facility] Department [address] [place] [address], [address], 04/27/2023 06:17:09 04/26/20 23 04/26/2023 COMP. METAB OLIC PANEL (14) eGFR 127 >=60 Units for eGFR value s are mL/mi n/1.7 3 The eGFR Calcu latio n has not been valid ated for patie nts under the age of 18. If test resul ts are displ ayed for a patie nt under the age of 18, disre hakeem that value . Not Available [facility] Department [address] [place] [address], [address], 04/27/2023 06:17:09 04/26/20 23 04/26/2023 COMP. METAB OLIC PANEL (14) BUN/creatini ne ratio 11 9-23 Not Available [facility] Department [address] [place] [address], [address], 04/27/2023 06:17:09 04/26/20 23 04/26/2023 COMP. METAB OLIC PANEL (14) sodium 138 mmol/ L 134-14 4 Not Available [facility] Department [address] [place] [address], [address], 04/27/2023 06:17:09 04/26/20 23 04/26/2023 COMP. METAB OLIC PANEL (14) potassium 4.0 mmol/ L 3.5-5. 2 Not Available [facility] Department [address] [place] [address], [address], 04/27/2023 06:17:09 04/26/20 23 04/26/2023 COMP. METAB OLIC PANEL (14) chloride 103 mmol/ L 96-106 Not Available [facility] [address] [place], [address], 04/27/2023 06:17:09 04/26/20 23 04/26/2023 COMP. METAB OLIC PANEL (14) carbon dioxide, total 22 mmol/ L 20- Not Available [facility] Department [address] [place], [address], 04/27/2023 06:17:09 04/26/20 23 04/26/2023 COMP. METAB OLIC PANEL (14) calcium 9.2 mg/dL 8.7-10 .2 Not Available [facility] [address] [place], [address], 04/27/2023 06:17:09 04/26/20 23 04/26/2023 COMP. METAB OLIC PANEL (14) protein, total 6.5 g/dL 6.0-8. 5 Not Available [facility] [address] [place], [address], 04/27/2023 06:17:09 04/26/20 23 04/26/2023 COMP. METAB OLIC PANEL (14) albumin 3.7 g/dL 3.9-4. 9 below low normal Not Available [facility] Department [address] [place], [address], 04/27/2023 06:17:09 04/26/20 23 04/26/2023 COMP. METAB OLIC PANEL (14) globulin, total 2.8 g/dL 1.5-4. 5 Not Available [facility] Department [address] [place], [address], 04/27/2023 06:17:09 04/26/20 23 04/26/2023 COMP. METAB OLIC PANEL (14) A/G ratio 1.3 1.2-2. 2 Not Available [facility] Department [address] [place], [address], 04/27/2023 06:17:09 04/26/20 23 04/26/2023 COMP. METAB OLIC PANEL (14) bilirubin, total <=0.2 mg/dL 0.0-1. 2 Not Available [facility] Department [address] [place], [address], 04/27/2023 06:17:09 04/26/20 23 04/26/2023 COMP. METAB OLIC PANEL (14) alkaline phosphatase 51 IU/L 44-121 Not Available [facility] Department [address] [place], [address], 04/27/2023 06:17:09 04/26/20 23 04/26/2023 COMP. METAB OLIC PANEL (14) AST (SGOT) 16 IU/L 0-40 Not Available [facility] Department [address] [place] [address], [address], 04/27/2023 06:17:09 04/26/20 23 04/26/2023 COMP. METAB OLIC PANEL (14) ALT (SGPT) 13 IU/L 0-32 Not Available [facility] Department [address] [place], [address], 04/27/2023 06:17:09 04/26/20 23 04/26/2023 URIC ACID uric acid 3.4 mg/dL 2.5-7. 1 Not Available [facility] Department [address] [place] [address], [address], 04/27/2023 06:17:10 04/26/20 23 04/26/2023 CBC WITH DIFFE RENTI AL/PL ATELE T WBC 6.3 x10e3 /uL 3.4-10 .8 Not Available [facility] Department [address] [place], [address], 04/27/2023 06:17:10 04/26/20 23 04/26/2023 CBC WITH DIFFE RENTI AL/PL ATELE T RBC 3.97 x10e6 /uL 3.77-5 .28 Not Available [facility] Department [address] [place], [address], 04/27/2023 06:17:10 04/26/20 23 04/26/2023 CBC WITH DIFFE RENTI AL/PL ATELE T hemoglobin 10.8 g/dL 11.1-1 5.9 below low normal Not Available [facility] Department [address] [place], [address], 04/27/2023 06:17:10 04/26/20 23 04/26/2023 CBC WITH DIFFE RENTI AL/PL ATELE T hematocrit 34.2 % 34.0-4 6.6 Not Available [facility] Department [address] [place], [address], 04/27/2023 06:17:10 04/26/20 23 04/26/2023 CBC WITH DIFFE RENTI AL/PL ATELE T MCV 86 fL 79-97 Not Available [facility] [address] [place], [address], 04/27/2023 06:17:10 04/26/20 23 04/26/2023 CBC WITH DIFFE RENTI AL/PL ATELE T MCH 27.2 pg 26.6-3 3.0 Not Available [facility] [address] [place], [address], 04/27/2023 06:17:10 04/26/20 23 04/26/2023 CBC WITH DIFFE RENTI AL/PL ATELE T MCHC 31.6 g/dL 31.5-3 5.7 Not Available [facility] [address] [place], [address], 04/27/2023 06:17:10 04/26/20 23 04/26/2023 CBC WITH DIFFE RENTI AL/PL ATELE T RDW 12.5 % 11.5-1 4.5 Not Available [facility] [address] [place], [address], 04/27/2023 06:17:10 04/26/20 23 04/26/2023 CBC WITH DIFFE RENTI AL/PL ATELE T platelets 273 x10e3 /uL 150-45 0 Not Available [facility] Department [address] [place], [address], 04/27/2023 06:17:10 04/26/20 23 04/26/2023 CBC WITH DIFFE RENTI AL/PL ATELE T neutrophils 59 % notest b. Not Available [facility] Department [address] [place], [address], 04/27/2023 06:17:10 04/26/20 23 04/26/2023 CBC WITH DIFFE RENTI AL/PL ATELE T lymphs 31 % notest b. Not Available [facility] Department [address] [place], [address], 04/27/2023 06:17:10 04/26/20 23 04/26/2023 CBC WITH DIFFE RENTI AL/PL ATELE T monocytes 7 % notest b. Not Available [facility] Department [address] [place], [address], 04/27/2023 06:17:10 04/26/20 23 04/26/2023 CBC WITH DIFFE RENTI AL/PL ATELE T eos 3 % notest b. Not Available [facility] Department [address] [place], [address], 04/27/2023 06:17:10 04/26/20 23 04/26/2023 CBC WITH DIFFE RENTI AL/PL ATELE T basos 0 % notest b. Not Available [facility] Department [address] [place], [address], 04/27/2023 06:17:10 04/26/20 23 04/26/2023 CBC WITH DIFFE RENTI AL/PL ATELE T neutrophils (absolute) 3.7 x10e3 /uL 1.4-7. 0 Not Available [facility] [address] [place], [address], 04/27/2023 06:17:10 04/26/20 23 04/26/2023 CBC WITH DIFFE RENTI AL/PL ATELE T lymphs (absolute) 1.9 x10e3 /uL 0.7-3. 1 Not Available [facility] Department [address] [place], [address], 04/27/2023 06:17:10 04/26/20 23 04/26/2023 CBC WITH DIFFE RENTI AL/PL ATELE T monocytes(ab solute) 0.4 x10e3 /uL 0.1-0. 9 Not Available [facility] Department [address] [place], [address], 04/27/2023 06:17:10 04/26/20 23 04/26/2023 CBC WITH DIFFE RENTI AL/PL ATELE T eos (absolute) 0.2 x10e3 /uL 0.0-0. 4 Not Available [facility] Department [address] [place], [address], 04/27/2023 06:17:10 04/26/20 23 04/26/2023 CBC WITH DIFFE RENTI AL/PL ATELE T baso (absolute) 0.0 x10e3 /uL 0.0-0. 2 Not Available [facility] [address] [place], [address], 04/27/2023 06:17:10 04/26/20 23 04/26/2023 CBC WITH DIFFE RENTI AL/PL ATELE T immature granulocytes 0.2 % notest b. Not Available [facility] Department [address] [place], [address], 04/27/2023 06:17:10 04/26/20 23 04/26/2023 CBC WITH DIFFE RENTI AL/PL ATELE T immature grans (abs) 0.0 x10e3 /uL 0.0-0. 1 Not Available [facility] [address] [place], [address], 04/27/2023 06:17:10 04/26/20 23 04/26/2023 CBC WITH DIFFE MOISES AL/PL ATELE T NRBC 0 % 0-0 Not Available [facility] [address] [place], [address], 04/27/2023 06:17:10 04/26/20 23 04/27/2023 IGP,C TNGTV ,APT HPV,R FX16/ 18,45 HPV aptima Negati ve negati ve This nucle ic acid ampli ficat ion test detec ts fourt een high- risk HPV types (16,1 8,31, 33,35 ,39,4 5,51, 52,56 ,58,5 9,66, 68) witho ut diffe snehalti ation . Not Available [facility] ([facility]) [address] [place], [address], 05/02/2023 11:09:21 04/26/20 23 04/27/2023 IGP,C TNGTV ,APT HPV,R FX16/ 18,45 chlamydia, nuc. acid amp Negati ve negati ve Not Available [facility] ([facility]) [address] [place], [address], 05/02/2023 11:09:21 04/26/20 23 04/27/2023 IGP,C TNGTV ,APT HPV,R FX16/ 18,45 gonococcus, nuc. acid amp Negati ve negati ve Not Available [facility] ([facility]) [address] [place], [address], 05/02/2023 11:09:21 04/26/20 23 04/27/2023 IGP,C TNGTV ,APT HPV,R FX16/ 18,45 trich vag by EVELYN Negati ve negati ve Not Available [facility] ([facility]) [address] [facility], [place], [address], 05/02/2023 11:09:21 04/26/2005/02/2023 IGP,C TNGTV ,APT HPV,R FX16/ 18,45 diagnosis: Harvey ziegler NEGAT ANTHONY FOR INTRA EPITH ELIAL LESIO N OR MALIG ELOISA . THIS SPECI MEN WAS RESCR EENED PART OF OUR QUALI TY CONTR OL PROGR AM. Not Available [facility] ([facility]) [address] [facility] [facility], [place], [address], 05/02/2023 11:09:21 04/26/2005/02/2023 IGP,C TNGTV ,APT HPV,R FX16/ 18,45 specimen adequacy: Harvey ziegler Satis facto ry for evalu ation . Endoc ervic al and/o r squam ous metap lasti c cells (endo cervi kasey compo nent) are prese nt. Not Available [facility] ([facility]) [address] [facility] [address] [facility], [place], [address], 05/02/2023 11:09:21 04/26/20 23 05/02/2023 IGP,C TNGTV ,APT HPV,R FX16/ 18,45 clinician provided ICD10: Harvey zigeler O09.9 0 Z87.5 9 Z12.4 Not Available [facility] ([facility]) [address] [place], [address], 05/02/2023 11:09:21 04/26/20 23 05/02/2023 IGP,C TNGTV ,APT HPV,R FX16/ 18,45 performed by: Harvey guerrier, Cytot raul ziegler (ASCP ) Not Available [facility] ([facility]) [address] [place], [address], 05/02/2023 11:09:21 04/26/20 23 05/02/2023 IGP,C TNGTV ,APT HPV,R FX16/ 18,45 QC reviewed by: Harvey maradiaga, Cytot raul ziegler (ASCP ) Not Available [facility] ([facility]) [address] [place], [address], 05/02/2023 11:09:21 04/26/20 23 05/02/2023 IGP,C TNGTV ,APT HPV,R FX16/ 18,45 . . Not Available [facility] ([facility]) [address] [facility], [place], [address], 05/02/2023 11:09:21 04/26/20 23 05/02/2023 IGP,C TNGTV ,APT HPV,R FX16/ 18,45 note: Harvey ziegler The Pap smear is a scree alem test desig yfn to aid in the detec tion of chris ligna nt and malig nant condi tions of the uteri ne cervi x. It is not a diagn ostic proce dure and shoul d not be used as the sole means of detec ting cervi kasey cance r. Both false -posi tive and false -nega tive repor ts do occur . Not Available [facility] ([facility]) [address] [facility], [place], [address], 05/02/2023 11:09:21 04/26/20 23 05/02/2023 IGP,C TNGTV ,APT HPV,R FX16/ 18,45 test methodology: Harvey ziegler This liqui d based ThinP rep(R ) pap test was scree yfn with the use of an image guide reinaldo medellin Not Available [facility] ([facility]) [address] [place], [address], 05/02/2023 11:09:21 04/26/20 23 05/02/2023 IGP,C TNGTV ,APT HPV,R FX16/ 18,45 HPV genotype reflex Harvey ziegler Crite wendy not met, HPV Genot ype not perfo rmed. Not Available [facility] ([facility]) [address] [facility], [place], [address], 05/02/2023 11:09:21 04/26/20 23 04/27/2023 HGB FRACT IONAT ION CASCA DE HGB F 0.0 % 0.0-2. 0 Not Available [facility] ([facility]) [address] [facility], [place], [address], 05/05/2023 13:10:31 04/26/20 23 04/27/2023 HGB FRACT IONAT ION CASCA DE HGB A 97.4 % 96.4-9 8.8 Not Available [facility] ([facility]) [address] [facility], [place], [address], 05/05/2023 13:10:31 04/26/20 23 04/27/2023 HGB FRACT IONAT ION CASCA DE HGB A2 2.6 % 1.8-3. 2 Not Available [facility] ([facility]) [address] [facility], [place], [address], 05/05/2023 13:10:31 04/26/20 23 04/27/2023 HGB FRACT IONAT ION CASCA DE HGB S 0.0 % 0.0 Not Available [facility] ([facility]) [address] [facility], [place], [address], 05/05/2023 13:10:31 04/26/20 23 04/27/2023 HGB FRACT IONAT ION CASCA DE interpretati on: Commen t Berenice l hemog lobin prese nt; no hemog lobin varia nt or beta thala ssemi a ident ified . Note: Alpha thala ssemi a may not be detec harris by the Hgb Fract ionat ion [place] de panel . If alpha thala ssemi a is suspe cted, [facility] offer s Alpha -Thal assem ia DNA Kraig sis (#[id number]). Not Available [facility] ([facility]) [address] [facility], [place], [address], 05/05/2023 13:10:31 04/26/20 23 04/27/2023 HCV ANTIB NOE hep C virus Ab Non Reacti ve nonrea ctive HCV antib noe alone does not diffe renti ate betwe en previ ously resol dee dee infec tion and activ e infec tion. Equiv ocal and React anthony HCV antib noe resul ts shoul d be follo wed up with an HCV RNA test to suppo rt the diagn osis of activ e HCV infec tion. Not Available [facility] ([facility]) [address] [facility], [place], [address], 05/05/2023 13:10:31 04/26/20 23 04/27/2023 PROTE IN/CR EATIN INE URINE ACOG creatinine, urine 212.8 mg/dL notest ab. Not Available [facility] ([facility]) [address] [facility], [place], [address], 05/05/2023 13:10:32 04/26/20 23 04/27/2023 PROTE IN/CR EATIN INE URINE ACOG protein,tota l,urine 19.3 mg/dL notest ab. Not Available [facility] ([facility]) [address] [facility], [place], [address], 05/05/2023 13:10:32 04/26/20 23 04/27/2023 PROTE IN/CR EATIN INE URINE ACOG protein/crea tinine 0.09 mg/mg _crea t 0.00-0 .20 Ref: Hyper tensi on in Pregn caleb, ACOG, 2013 Not Available [facility] ([facility]) [address] [facility], [place], [address], 05/05/2023 13:10:32 04/26/20 23 04/26/2023 CYSTI C FIBRO SIS PROFI LE comment: Commen t The assay provi mary infor matio n inten ded to be used for tayla er scree alem in adult s of repro ducti ve age, as an aid in [facility] a[facility], and as a confi rmato ry test for anoth er medic ally estab lishe d diagn osis in newbo rns and child snehal. The test is not indic ated for use in diagn ostic testi ng, pre-i mplan tatio n scree alem, or for any stand -gil e diagn ostic purpo ses witho ut confi rmati on by anoth er medic ally estab lishe d diagn ostic produ ct or proce dure. Eff ectiv e Junua ry 2023 84778 3 Cysti c Fibro sis Profi le will be made non-o rdera ble. This inclu mary any custo m profi les which conta in this test. [facility] offer s alter nativ e cysti c fibro sis testi ng. Avail able alter nativ es are: 09791 2 CF Full- gene Tayla er Scree n for tayla er seque nce kraig sis by NGS; 14679 5 Cysti c Fibro sis, 97 Varia nts for tayla er or diagn ostic targe harris kraig sis; and 57683 9 GeneS eq PLUS, CFTR for diagn ostic seque nce kraig sis by NGS. Pleas e conta ct your local [facility] repre senta tive to discu ss testi ng optio ns. Not Available [facility] ([facility]) [address] [facility], [place], [address], 05/05/2023 13:10:33 04/26/20 23 05/05/2023 CYSTI C FIBRO SIS PROFI LE CF, screen Commen t: RESUL TS: Negat anthony for 32 mutat ions kraig zed INTER PRETA TION: This indiv idual is negat anthony for the mutat ions kraig zed. This negat anthony resul t may need furth er inter preta tion depen ding on the clini kasey indic ation . This resul t reduc es but does not elimi dionicio the risk to be a CF tayla er. COMME NTS: The detec tion rate varie s with [place] city and is liste d below . The prese nce of an undet ected mutat ion in the CF gene canno t be ruled out. In the absen ce of famil y histo ry, the remai alem risk that a perso n with a negat anthony resul t could have at least one CF mutat ion is liste d in the table . If there is a famil y histo ry of CF, these risk figur es do not apply . As detai led infor freedom wallace this indiv idual 's famil y histo ry would permi t a more accur ate asses sment of this indiv idual 's risk to be a tayla er of cysti c fibro sis, pleas e conta ct [facility] at for a ted ed repor t. Mutat ion Detec tion Detec tion rates are based on mutat ion Rates among Ethni c frequ encie s in patie nts affec harris with Group s cysti c fibro sis. Among indiv idual s with an atypi kasey or mild prese ntati on (e.g. conge nital absen ce of the vas defer ens, pancr eatit is) detec tion rates may vary from those provi ded here: Tayla er risk reduc tion when no famil y histo ry Detec tion Ethni city Rate Rajinder perryzi 07/01 to 97% Jewis h Cauca k[place] 06/30 to 90% (non- Hispa justin) Afric an-Am evelyn n to 69% Hispa justin to 73% to 55% This inter preta tion is based on the clini kasey and famil y relat ionsh ip infor freedom n provi ded and the curre nt under stand ing of the molec ular raven ics of this condi tion. MUTAT IONS KRAIG ZED: G85E V520F W1282 X 2183A A to G R117H G542X N1303 K 2184d Cholo R334W S549N 394de lTT 2789+ 5G to A R347H S549R 621+1 G to T 3120+ 1G to A R347P G551D 711+1 G to T 3659d elC A455E R553X 1078d elT 3849+ 10kbC to T Delta I507 R560T 1717- 1G to A 3876d Cholo Delta F508 R1162 X 1898+ 1G to A 3905i nsT METHO DS/LI MITAT IONS: DNA is isola harris from the sampl e and teste d for the 32 CF mutat ions on the [employer] ([employer]). Regio ns of the CFTR gene are ampli fied enzym atica lly and subje cted to a solut ion-p hase multi plex allel e-spe cific prime r exten de with subse quent hybri dizat ion to a bead array and fluor escen ce detec tion. Polym orphi sms F508C , I506V and I507V are inclu ded in this panel to rule out false posit anthony delta F508 homoz ygote s. Refle x testi ng of 5T is inclu ded in the panel for R117H inter preta tion. False posit anthony or negat anthony resul ts may occur for reaso ns that inclu de raven ic varia nts, blood trans fusio ns, bone marro w trans plant ation , cristina eous repre senta tion of famil y relat ionsh ips or conta minat ion of a sampl e with mater nal cells . REFER ENCES : 1. Updat es on [facility] for Cysti c Fibro sis. (2011 ) Am J Ob Gynec ol 117(4 ):102 8-103 1 2. Gabino rai, et al. (2004 ) [facility] 6:387 -91 3. Ayesha marcelino, et al. (2002 ) [facility] 4:379 -391 4. Preco ncept ion and prena latasha tayla er scree alem for cysti c fibro sis: (2000 )ACOG .ACMG publi catio n Resul ts Relea sed By: Malathi Lang , Ph.D, [facility] [address] , [place] [address] Repor t Relea sed By: Dr. Malathi Lang Not Available [facility] ([facility]) [address] [facility], [place], [address], 05/05/2023 13:10:33 04/26/20 23 05/05/2023 CYSTI C FIBRO SIS PROFI LE pdf . Not Available [facility] ([facility]) [address] [facility], [place], [address], 05/05/2023 13:10:33 04/26/20 23 04/27/2023 [id number] 9 10 DRUG- BUND amphetamines , urine Negati ve NG/mL cutoff =1000 Amphe tamin e test inclu mary Amphe tamin e and Metha mphet amine . Not Available [facility] ([facility]) [address] [facility], [place], [address], 05/05/2023 13:10:34 04/26/20 23 04/27/2023 [id number] 9 10 DRUG- BUND barbiturates Negati ve NG/mL cutoff =200 Not Available [facility] ([facility]) [address] [facility], [place], [address], 05/05/2023 13:10:34 04/26/20 23 04/27/2023 [id number] 9 10 DRUG- BUND benzodiazepi emerson Negati ve NG/mL cutoff =200 Not Available [facility] ([facility]) [address] [place], [address], 05/05/2023 13:10:34 04/26/20 23 04/27/2023 [id number] 9 10 DRUG- BUND cannabinoid Negati ve NG/mL cutoff =50 Not Available [facility] ([facility]) [address] [place], [address], 05/05/2023 13:10:34 04/26/20 23 04/27/2023 [id number] 9 10 DRUG- BUND cocaine (metab.) Negati ve NG/mL cutoff =300 Not Available [facility] ([facility]) [address] [place], [address], 05/05/2023 13:10:34 04/26/20 23 04/27/2023 [id number] 9 10 DRUG- BUND methaqualone Negati ve NG/mL cutoff =300 Not Available [facility] ([facility]) [address] [place], [address], 05/05/2023 13:10:34 04/26/20 23 04/27/2023 [id number] 9 10 DRUG- BUND opiates Negati ve NG/mL cutoff =2000 Opiat e test inclu mary Codei ne and Morph ine only. Not Available [facility] ([facility]) [address] [place], [address], 05/05/2023 13:10:34 04/26/20 23 04/27/2023 [id number] 9 10 DRUG- BUND phencyclidin e Negati ve NG/mL cutoff =25 Not Available [facility] ([facility]) [address] [place], [address], 05/05/2023 13:10:34 04/26/20 23 04/27/2023 [id number] 9 10 DRUG- BUND methadone screen, urine Negati ve NG/mL cutoff =300 Not Available [facility] ([facility]) [address] [place], [address], 05/05/2023 13:10:34 04/26/20 23 04/27/2023 [id number] 9 10 DRUG- BUND propoxyphene , urine Negati ve NG/mL cutoff =300 Not Available [facility] ([facility]) [address] [place], [address], 05/05/2023 13:10:34 04/26/20 23 04/27/2023 HEMOG LOBIN A1C hemoglobin A1C 5.3 % 4.8-5. 6 Predi abete s: 5.7 - 6.4 Diabe fabian: >6.4 Glyce hernandez contr ol for adult s with diabe fabian: <7.0 Not Available [facility] ([facility]) [address] [facility], [place], [address], 05/05/2023 13:10:34 04/26/2004/27/2023 ANTIB NOE SCREE N antibody screen Negati ve negati ve Not Available [facility] ([facility]) [address] [facility], [place], [address], 05/05/2023 13:10:35 04/26/20 23 04/27/2023 ABO GROUP ING AND RHO(D ) TYPIN G ABO grouping A Not Available [facility] ([facility]) [address] [facility], [place], [address], 05/05/2023 13:10:36 04/26/20 23 04/27/2023 ABO GROUP ING AND RHO(D ) TYPIN G Rh factor Positi ve Pleas e note: Prior recor ds for this patie nt's ABO / Rh type are not avail able for addit ional verif icati on. Not Available [facility] ([facility]) [address] [facility], [place], [address], 05/05/2023 13:10:36 04/26/20 23 04/27/2023 RUBEL LA ANTIB ODIES , IGG rubella antibodies, IgG 4.77 index immune >0.99 Non-i mmune <0.90 Equiv ocal 0.90 - 0.99 Immun e >0.99 Not Available [facility] ([facility]) [address] [facility] [facility], [place], [address], 05/05/2023 13:10:37 04/26/20 23 04/27/2023 HBSAG SCREE N HBsAg screen Negati ve negati ve Not Available [facility] ([facility]) [address] [facility], [place], [address], 05/05/2023 13:10:37 04/26/20 23 04/28/2023 URINE CULTU RE, ROUTI NE urine culture, routine Final report Not Available [facility] ([facility]) [address] [facility], [place], [address], 05/05/2023 13:10:38 04/26/2004/28/2023 URINE CULTU RE, ROUTI NE result 1 Commen t Mixed uroge nital kenney 10,00 0-25, 000 colon y formi ng units per mL Not Available [facility] ([facility]) [address] [facility], [place], [address], 05/05/2023 13:10:38 04/26/20 23 04/27/2023 RPR, RFX QN RPR/C ONFIR M TP RPR Non Reacti ve nonrea ctive Not Available [facility] ([facility]) [address] [facility], [place], [address], 05/05/2023 13:10:39 04/26/2004/27/2023 HIV AB/P2 4 AG WITH REFLE X HIV Ab/P24 Ag screen Non Reacti ve nonrea ctive HIV Negat anthony HIV-1 /HIV- 2 antib odies and HIV-1 p24 antig en were NOT detec harris. There is no labor atory evide nce of HIV infec tion. Not Available [facility] ([facility]) [address] [facility], [place], [address], 05/05/2023 13:10:40 04/26/2004/27/2023 VARIC FAITH- ZOSTE R V AB, IGG varicella zoster IgG 634 index immune >165 Negat anthony <135 Equiv ocal 135 - 165 Posit anthony >165 A posit anthony resul t gener ally indic ates expos ure to the patho gen or admin istra tion of speci fic immun oglob ulins , but it is not indic ation of activ e infec tion or stage of disea se. Not Available [facility] ([facility]) [address] [facility], [place], [address], 05/05/2023 13:10:40 04/26/20 23 04/26/2023 urina lysis , dipst ick Leukocytes Negati ve Not Available In-Office Order Internal Use Only DO Not Attach Compendium DO Not Attach Compendium, Do Not Delete/merge, [id number] 04/26/2023 12:23:09 04/26/20 23 04/26/2023 urina lysis , dipst ick Nitrite negati ve Not Available In-Office Order Internal Use Only DO Not Attach Compendium DO Not Attach Compendium, Do Not Delete/merge, [id number] 04/26/2023 12:23:09 04/26/20 23 04/26/2023 urina lysis , dipst ick Urobilinogen 2 Not Available In-Of fice Order Internal Use Only DO Not Attach Compendium DO Not Attach Compendium, Do Not Delete/merge, [id number] 04/26/2023 12:23:09 04/26/20 23 04/26/2023 urina lysis , dipst ick Protein Trace Not Available In-Office Order Internal Use Only DO Not Attach Compendium DO Not Attach Compendium, Do Not Delete/merge, [id number] 04/26/2023 12:23:09 04/26/20 23 04/26/2023 urina lysis , dipst ick pH 7.0 Not Available In-Office Order Internal Use Only DO Not Attach Compendium DO Not Attach Compendium, Do Not Delete/merge, [id number] 04/26/2023 12:23:09 04/26/20 23 04/26/2023 urina lysis , dipst ick Blood Negati ve Not Available In-Office Order Internal Use Only DO Not Attach Compendium DO Not Attach Compendium, Do Not Delete/merge, [id number] 04/26/2023 12:23:09 04/26/20 23 04/26/2023 urina lysis , dipst ick Specific Coram 1.020 Not Available In-Off ice Order Internal Use Only DO Not Attach Compendium DO Not Attach Compendium, Do Not Delete/merge, [id number] 04/26/2023 12:23:09 04/26/20 23 04/26/2023 urina lysis , dipst ick Ketone Negati ve Not Available In-Office Order Internal Use Only DO Not Attach Compendium DO Not Attach Compendium, Do Not Delete/merge, [id number] 04/26/2023 12:23:09 04/26/20 23 04/26/2023 urina lysis , dipst ick Bilirubin Negati ve Not Available In-Office Order Internal Use Only DO Not Attach Compendium DO Not Attach Compendium, Do Not Delete/merge, [id number] 04/26/2023 12:23:09 04/26/20 23 04/26/2023 urina lysis , dipst ick Glucose Negati ve Not Available In-Office Order Internal Use Only DO Not Attach Compendium DO Not Attach Compendium, Do Not Delete/merge, [id number] 04/26/2023 12:23:09 04/26/20 23 04/26/2023 urina lysis , dipst ick Appearance Slight ly Cloudy Not Available In-Office Order Internal Use Only DO Not Attach Compendium DO Not Attach Compendium, Do Not Delete/merge, [id number] 04/26/2023 12:23:09 04/26/20 23 04/26/2023 urina lysis , dipst ick Color Dark Yellow Not Available In-Office Order Internal Use Only DO Not Attach Compendium DO Not Attach Compendium, Do Not Delete/merge, [id number] 04/26/2023 12:23:09 04/26/20 23 04/26/2023 pregn caleb test, urine HCG positi ve Not Available In-Office Order Internal Use Only DO Not Attach Compendium DO Not Attach Compendium, Do Not Delete/merge, [id number] 04/26/2023 12:22:23 01/03/20 24 01/04/2024 NUSWA B BV AND KATE DA, EVELYN atopobium vaginae LOW - 0 score Not Available [facility] ([facility]) [address] [place], [address], 01/04/2024 17:09:58 01/03/20 24 01/04/2024 NUSWA B BV AND KATE DA, EVELYN bvab 2 LOW - 0 score Not Available [facility] ([facility]) [address] [facility] [facility], [place], [address], 01/04/2024 17:09:58 01/03/20 24 01/04/2024 NUSWA B BV AND KATE DA, EVELYN megasphaera 1 LOW - 0 score Calcu late total score by digna agarwal the 3 indiv idual bacte rial vagin osis (BV) marke r score s toget her. Total score is inter prete d as follo ws: Total score 0-1: Indic ates the absen ce of BV. Total score 2: Indet ermin ate for BV. Addit ional clini kasey data shoul d be evalu ated to estab nelda a diagn osis. Total score 3-6: Indic ates the prese nce of BV. Not Available [facility] ([facility]) [address] [place], [address], 01/04/2024 17:09:58 01/03/20 24 01/04/2024 NUSWA B BV AND KATE DA, EVELYN noe albicans, EVELYN NEGATI VE negati ve Not Available [facility] ([facility]) [address] [place], [address], 01/04/2024 17:09:58 01/03/20 24 01/04/2024 NUSWA B BV AND KATE DA, EVELYN noe glabrata, EVELYN NEGATI VE negati ve Not Available [facility] ([facility]) [address] [place], [address], 01/04/2024 17:09:58 01/06/20 24 01/06/2024 pregn caleb test, urine HCG negati ve Not Available In-Office Order Internal Use Only DO Not Attach Compendium DO Not Attach Compendium, Do Not Delete/merge, [id number] 01/06/2024 14:50:11 Result Notes None recorded. Problems Name Problem SNOMED Code Status Onset Date Resolution Date Notes Provider Name and Address Organization Details Recorded Time Pregnanc y 82780669 Completed 201712/14/2017 JAX PULIDO Attn: Ana agarwal,[address] [facility], [place], [address], [place] - [facility] 3 12:30:23 Maternal tobacco abuse 458061293 Completed TOBACCO Graeme John DO Attn: Nathalierajeev agarwal,[address] [facility], [place], [address], [place] [facility] 8 12:14:49 Family history of Sickle cell trait 266315430 Completed FATHER OR PREGNANC Y SICKLE TRAIT Graeme John DO Attn: Nathalierajeev agarwal,[address] [facility], [place], [address], [place] [facility] 8 12:14:49 Normal pregnanc y 87760095 Completed Graeme John DO Attn: Ana any,[address] [facility], [place], [address] [facility] 8 12:14:49 High risk pregnanc y care Completed HX SEVERE PRE ECLAMPSI A, HELLP SYNDROME , IUGR AT 33 WEEKS - 2014 Graeme John DO Attn: Ana any,[address] [facility], [place], [address], [place] [facility] 8 12:14:49 Insuffic ient care 77606520295 09 Completed MULTIPLE NO SHOW VISITS Graeme John DO Attn: Nathalierajeev agarwal,[address] [facility], [place], [address], [place] [facility] 8 12:14:49 Pregnanc y 41828581 Completed 201702/13/2019 JAX PULIDO Attn: Ana any,[address] [facility], [place], [address], [place] [facility] 3 12:30:23 Past pregnanc y history of pre-ecla mpsia 26191432276 9100 Completed SEVERE PRE ECLAMPSI A - IUGR - 33 WEEKS, 2014 Graeme John DO Attn: Ana agarwal,[address] [facility], [place], [address], [place] [facility] 9 12:57:50 Maternal tobacco use 275513176 Completed TOBACCO Graeme John DO Attn: Ana agarwal,[address] [place], [place], [address] [place] [address], [place] - [facility] 9 12:57:50 High risk pregnanc y due to history of labor 524791703 Completed HX DELIVERY AT 33 WEEKS Graeme John DO Attn: Ana agarwal,[address] [place], [place], [address] [place] [address], [place] [facility] 9 12:57:50 Short cervical length in pregnanc y 919059247 Completed 20 WKS - cervix 2.7 CM, no funnel 28 WKS - cervix 1.0 cm, funnelrajeev agarwal+ Graeme John DO Attn: Ana agarwal,[address] [place], [place], [address] [place] [address], [place] [facility] 9 12:57:50 Administ ration of influenz a vaccine Completed FLU VACCINE GIVEN 04-06-18 Graeme John DO Attn: Ana agarwal,[address] [place], [place], [address] [place] [address], [place] [facility] 9 12:57:50 growth restrict ion 29307633 Completed 28 WKS - EFW 8%, AC1% - SSM ADMIT 31 WKS - EFW <3%ILE Graeme John DO Attn: Ana agarwal,[address] [place], [place], [address] [place] [address], [place] [facility] 9 12:57:50 Spontane ous onset of labor 76397129 Active Keke Nielsen [place], [place] [facility] 0 16:11:31 Term pregnanc y 57212181 Active Keke Nielsen [place], [place] [facility] 0 16:11:31 Group B Streptoc occus carrier 21737525463 03 Active Keke Nielsen [place], [place] [facility] 0 16:11:31 Pregnanc y 16244640 Completed 201909/11/2020 JAX PULIDO Attn: Ana agarwal,[address] [place], [address], [place] [facility] 3 12:30:23 Past pregnanc y history of pre-ecla mpsia 11048204193 9100 Completed 2014 - 33 WEEKS, inductio n - severe pre eclampsi a + IUGR at [facility]. Graeme John DO Attn: Ana agarwal,[address] [place], [address], [place] [facility] 1 21:41:58 Maternal tobacco use 477623804 Completed tobacco Graeme John DO Attn: Ana agarwal,[address] [place], [address], [place] [facility] 1 21:41:58 High risk pregnanc y due to history of labor 310250088 Completed 2018 36 WEEKS , short cervix - vaginal progeste helio, IUGR Graeme John DO Attn: Ana agarwal,[address] [place], [address], [place] [facility] 1 21:41:58 Past pregnanc y history of prematur e delivery 588282318 Completed Karen Pearce MD Attn: Ana agarwal,[address] [place], [address], [place] [facility] 5 13:47:03 History of growth retardat ion 32359328147 108 Completed Karen Pearce MD Attn: Ana agarwal,[address] [place], [address], [place] [facility] 5 13:47:03 Past pregnanc y 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 466325372 Completed Karen Pearce MD Attn: Ana agarwal,[address] [place], [address], [place] [facility] 5 13:47:03 Obesity 798259816 Completed BMI 30.5 Karen Pearce MD Attn: Nathalierajeev agarwal,[address] [place], [address], [place] [facility] 5 13:47:03 Cervical incompet ence 52423567 Completed -Cerclag e with G5 Karen Pearce MD Attn: Ana agarwal,[address] [place], [address], [facility] - [facility] 5 13:47:03 Past pregnanc y history of pre-ecla mpsia 46657992131 9100 Completed Karen Pearce MD Attn: Ana agarwal,[address] [facility], [place], [address], [facility] - [facility] 5 13:47:03 Pregnanc y 50047515 Completed 202205/17/2023 JAX PULIDO Attn: Ana agarwal,[address] [place], [address], [facility] - [facility] 3 12:30:23 Maternal tobacco abuse 991361133 Completed TOBACCO Graeme John DO Attn: Ana agarwal,[address] [place], [address], [facility] - [facility] 5 18:02:33 Routine antenata l care Completed FREQUENT NO SHOW Graeme John DO Attn: Ana agarwal,[address] [facility], [place], [address], [facility] - [facility] 5 18:02:33 Problem Notes None recorded. Procedures Surgical History Date Name Laterality Status Provider Name and Address Organization Details Recorded Time 5 Depo Injection completed Sara Michaels MA [facility] - [facility] 12/23/2014 15:57:18 5 Date of Last Pap Smear completed Sy Welsh MA [facility] - [facility] 12/24/2016 11:25:28 termination of completed Raquel Bustamante MA [facility] 04/26/2023 12:26:00 termination of completed Raquel Bustamante MA [facility] 04/26/2023 12:26:01 cerclage of uterine cervix completed Raquel Bustamante MA [facility] 04/26/2023 12:26:54 cerclage of uterine cervix completed Raquel Bustamante MA [facility] - [facility] 04/26/2023 12:26:57 Dilation and Curettage completed Sara Michaels MA [facility] 12/23/2014 14:51:08 Imaging Results None recorded. Procedure Notes None recorded. Medical Equipment None Reported. Allergies Allergen ID Allergen Name Allergen Category Reaction Reaction Severity Criticality Documentation Date Start Date Code Code System Note Provider Name and Address Organization Details Recorded Time 323603 Penicilli n Not available Not available Not available Not available 06/28/2019 83122 RxNorm Other react ions and sever ities : 'Adve rse react ion to subst ance' . Not Available Not Available Not Available 7699 Product containin g penicilli n and antibioti c (product) medicatio n itching moderate Not available 05/15/2014 99879 05 SNOMED Not Available Not Available Not Available Medications Name Sig Start Date Stop Date Status Note LastModified by Organization Details LastModified Time amoxicillin 500 mg capsule 11/30 completed Not Available Not Available Not Available methocarbam ol 500 mg tablet 03/02 completed Not Available Not Available Not Available acetaminoph en 325 mg tablet active Not Available Not Available Not Available nicotine 14 mg/24 hr daily transdermal patch UNWRAP AND APPLY 1 PATCH TO SKIN ONCE DAILY 04/26 completed Not Available Not Available Not Available clindamycin HCl 300 mg capsule 04/26 completed Not Available Not Available Not Available azithromyci n 250 mg tablet 01/02 completed Not Available Not Available Not Available ibuprofen 800 mg tablet TAKE 1 TABLET BY MOUTH EVERY 12 HOURS FOR 10 DAYS 04/26 completed Not Available Not Available Not Available hydrocodone 5 mg-acetamin ophen 325 mg tablet 12/24 completed Not Available Not Available Not Available sulfamethox azole 800 mg-trimetho prim 160 mg tablet active Not Available Not Available Not Available aspirin 81 mg tablet,gustavo yed release Take 2 tablets every day by oral route. 01/02 completed Not Available Not Available Not Available acetaminoph en 500 mg tablet TAKE 2 TABLETS BY MOUTH EVERY 6 HOURS NEEDED FOR FEVER OR PAIN 01/02 completed Not Available Not Available Not Available meloxicam 7.5 mg tablet 03/02 completed Not Available Not Available Not Available oxycodone-a cetaminophe n 5 mg-325 mg tablet active Not Available Not Available No t Available baclofen 10 mg tablet Take 1 tablet twice a day by oral route as directed for 90 days. 03/02 completed Not Available Not Available Not Available ferrous sulfate 325 mg (65 mg iron) tablet 06/28 completed Not Available Not Available Not Available lidocaine 5 % topical patch 01/02 completed Not Available Not Available Not Available indomethaci n 25 mg capsule TAKE 1 CAPSULE BY MOUTH EVERY 6 HOURS 01/02 completed Not Available Not Available Not Available progesteron e micronized 200 mg capsule TAKE 1 CAPSULE BY MOUTH AT BEDTIME 04/26 completed Not Available Not Available Not Available docusate sodium 100 mg capsule TAKE 1 CAPSULE BY MOUTH ONCE DAILY 01/02 completed Not Available Not Available Not Available Banophen 25 mg capsule 03/02 completed Not Available Not Available Not Available ibuprofen 600 mg tablet TAKE 1 TABLET BY MOUTH EVERY 6 HOURS NEEDED FOR PAIN 01/02 completed Not Available Not Available Not Available polyethylen e glycol 3350 17 gram/dose oral powder MIX 17 GRAMS IN LIQUID AND DRINK ONCE DAILY 01/02 completed Not Available Not Available Not Available ondansetron 4 mg disintegrat ing tablet 03/02 completed Not Available Not Available Not Available cefdinir 300 mg capsule 03/02 completed Not Available Not Available Not Available medroxyprog esterone 150 mg/mL intramuscul ar suspension active Not Available Not Available N ot Available loratadine 10 mg tablet 03/02 completed Not Available Not Available Not Available naproxen 500 mg tablet Take 1 tablet twice a day by oral route with meals for 90 days. 03/02 completed Not Available Not Available Not Available metoclopram kimmie 10 mg tablet one tab po q6 hrs prn nausea 04/26 completed Not Available Not Available Not Available Poly-Iron 150 mg iron capsule TAKE 1 CAPSULE BY MOUTH EVERY DAY 04/26 completed Not Available Not Available Not Available medroxyprog esterone 150 mg/mL intramuscul ar syringe ADMINISTE R 1 ML IN THE MUSCLE EVERY 3 MONTHS active Not Available Not Available No t Available nitrofurant oin monohydrate /macrocryst als 100 mg capsule TK 1 C PO Q 12 H FOR 10 DAYS 04/26 completed Not Available Not Available Not Available 28 mg iron-800 mcg tablet active Not Available Not Available N ot Available Banophen 50 mg capsule active Not Available Not Available N ot Available Plus 29 mg iron-1 mg tablet Take 1 tablet every day by oral route. 04/26 completed Not Available Not Available Not Available Vitamins Plus Low Iron 27 mg iron-1 mg tablet TK 1 T PO D 04/26 completed Not Available Not Available Not Available Xulane 150 mcg-35 mcg/24 hr transdermal patch Apply 1 patch every week by transderm al route. 03/02 completed Not Available Not Available Not Available Vol-Plus 27 mg iron-1 mg tablet active Not Available Not Available No t Available 19 29 mg iron-1 mg tablet Take 1 tablet every day by oral route. 2022 active Not Available Not Available Not Avai [facility] Vitals Date Recorded Body height Body mass index (BMI) Body weight Systolic blood pressure Diastolic blood pressure Provider Name and Address Organization Details Last Updated DateTime 12/05/2019 162.56 cm 27.5 kg/m2 49525.92 g 118 mm[Hg] 80 mm[Hg] Halie Lawrence MA [facility] 0 15:26:57 Date Recorded Body height Body mass index (BMI) Systolic blood pressure Diastolic blood pressure Provider Name and Address Organization Details Last Updated DateTime 02/08/2020 162.56 cm 27.5 kg/m2 110 mm[Hg] 72 mm[Hg] Halie Lawrence MA [facility] 02/08/2020 16:41:16 Date Recorded Body weight Provider Name an d Address Organization Details Last Updated DateTime 02/08/2020 [id number] any John DO Attn: Accounting,[address] [facility], [place], [address], [facility] 02/08/2020 17:40:24 Date Recorded Body height Body mass index (BMI) Heart rate Systolic blood pressure Diastolic blood pressure Provider Name and Address Organization Details Last Updated DateTime 04/26/2023 162.56 cm 30.1 kg/m2 89 /min 111 mm[Hg] 69 mm[Hg] Raquel Bustamante MA [facility] 3 12:22:38 Date Recorded Body weight Provider Name an d Address Organization Details Last Updated DateTime 04/26/2023 38612.244197 g JAX PULIDO Attn: Accounting,[address] [facility], [place], [address], [facility] 04/26/2023 15:31:06 Date Recorded Body height Body mass index (BMI) Body weight Heart rate Systolic blood pressure Diastolic blood pressure Provider Name and Address Organization Details Last Updated DateTime 4 162.56 cm 31.1 kg/m2 39818.5 7 g 86 /min 138 mm[Hg] 71 mm[Hg] Raquel Bustamante MA [facility] 4 15:07:18 Date Recorded Body height Body mass index (BMI) Body weight Heart rate Systolic blood pressure Diastolic blood pressure Provider Name and Address Organization Details Last Updated DateTime 4 162.56 cm 30.9 kg/m2 31863.6 3 g 96 /min 117 mm[Hg] 78 mm[Hg] Raquel Bustamante MA [facility] 4 15:04:37 Social History Question Answer Notes LastModified by Organizat ion Details LastModified Time Tobacco Smoking Status Current Every Day Smoker Raquel Bustamante MA null, [facility] 04/26/2023 12:23:51 What Is Your Level Of Alcohol Consumption? None Information not available 04/26/2023 Is Anesthesia Consult Planned? Yes [email or web address] Information not available 09/27/2014 Are You Blind Or Do You Have Difficulty Seeing? No Information not available 04/26/2023 Is Blood Transfusion Acceptable In An Emergency? Yes Information not available 02/18/2016 What Is Your Level Of Caffeine Consumption? Occasional Information not available 12/24/2016 Live With Cats/exposure To Cat Litter No [email or web address] Information not available 10/16/2014 How Much Tobacco Do You Chew? None [email or web address] Information not available 09/27/2014 Are You Currently Employed? Yes Self-empl oyed Information not available 04/26/2023 Are You Deaf Or Do You Have Serious Difficulty Hearing? No Information not available 04/26/2023 What Type Of Diet Are You Following? REGULAR Information not available 10/16/2014 Which Illicit Or Recreational Drugs Have You Used? None Information not available 06/19/2014 Do You Or Have You Ever Used E-cigarettes Or Vape? Current User Of Electronic Cigarettes Information not available 04/26/2023 Education 12 [email or web address] Information no t available 10/16/2014 What Is Your Occupation? Unemployed [email or web address] Information not available 11/01/2014 Have There Been Any Changes To Your Family Or Social Situation? No Information not available 11/01/2014 Frequent Air Travel No [email or web address] Information not available 09/27/2014 Marital Status Single [email or web address] Informatio n not available 09/27/2014 What Was The Date Of Your Most Recent Tobacco Screening? 01/03/2024 Information not available 01/03/2024 Performs Monthly Self-breast Exam? No Information not available 02/18/2016 Do You Use Protection During Sex? Always Information not available 02/18/2016 What Is Your Relationship Status? Information not available 04/26/2023 Do You Use Your Seat Belt Or Car Seat Routinely? Yes Information not available 04/26/2023 Seat Belts Used Routinely Yes [email or web address] Information not available 09/27/2014 Are You Sexually Active? Yes Information not available 02/18/2016 Do You Have Smoke And Carbon Monoxide Detectors In Your Home? Yes Information not available 04/26/2023 Are You Passively Exposed To Smoke? Yes Information not available 04/26/2023 Do You Or Have You Ever Used Smokeless Tobacco? Never Used Smokeless Tobacco Information not available 04/26/2023 How Much Tobacco Do You Smoke? No [email or web address] Information not available 12/23/2014 Smoking Pre- .5 PPD Information not available 06/19/2014 General Stress Level Low [email or web address] Information not available 09/27/2014 Do You Use Any Illicit Or Recreational Drugs? No Information not available 04/26/2023 Do You Use Sunscreen Routinely? No [email or web address] Information not available 11/01/2014 Has Tobacco Cessation Counseling Been Provided? Yes Information not available 04/26/2023 On What Date Was Tobacco Cessation Counseling Provided? 01/03/2024 Information not available 01/03/2024 Do You Or Have You Ever Used Any Other Forms Of Tobacco Or Nicotine? Yes Information not available 04/26/2023 Sex: Female Functional Status Question Answer Note LastModified by Organization D etails LastModified Time Are you able to care for yourself? Yes Information n ot available 04/26/2023 What is your exercise level? None [email or web address] Information not available 09/27/2014 Mental Status None recorded. Family History Relationship Description Onset Age of this Age Resolved Age Notes LastModified by Organization Details LastModified Time Father Diabetes mellitus [email or web address] Not available 2014 14:51:08 Father Hypertensive disorder [email or web address] Not available 04/26 12:25:46 Medical History Condition Response Heart Problems N Other N Breast Cancer N Thyroid Problems N Kidney or Bladder Problems N Lung Disease N Depression N GI Problems N Acne N Breast Problem N Eating Disorder N Anemia N Anesthesia Complications N Headaches/Migraines N Ovarian Cancer N Diabetes N Anxiety Disorder N Blood Transfusions N Arthritis N Polyps N Infertility N Acid Reflux (GERD) N Cancer N Stroke N Abuse/Domestic Violence N Asthma N Endometriosis N High Cholesterol N Hepatitis N Heart Disease N Fibromyalgia N Pre-Eclampsia N Hypertension N Osteoporosis N Kidney Disease N Gynecological History Statement/Question Response Abnormal Pap N Flow Moderate Date of LMP 12/08/2023 On BCP's at Conception? 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 Y Menses Monthly N Date of Last Pap Smear 07/08/2014 Sexual Problems? N LMP Definite Desired Control Method None Obstetrics History GPAL:G 6 P 2 2 2 4 Type Value Multiple Births 0 Full Term 2 Induced 2 Spontaneous 0 Premature 2 Living 4 Ectopics 0 Total 6 Immunizations Vaccine Type Date Status Note Provider Nam e and Address Organization Details Recorded Time Influenza, split virus, quadrivalent, preservative 8 completed Not Available [facility] 06/23/2019 02:36:29 Tdap 5 completed Not Available [facility] 06/23/2019 02:42:05 Past Encounters Encounter ID Performer Location Encounter Start Date Encounter Closed Date Diagnosis/Indication Diagnosis SNOMED-CT Code Diagnosis ICD10 Code Diagnosis Note [id number] Steff Cavazos RN [facility] (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) [address] [place] [address] 05/15/2014 15:20:39 05/16/2014 03:51:01 Normal [id number] [email or web address] (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) [address] [place] [address] 06/05/2014 14:33:11 06/07/2014 17:00:42 [id number] [facility]ia Velasco [facility] (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) [address] [place] [address] 8 06/19/2014 15:30:49 06/25/2014 15:45:01 Normal [id number] Joseph Velasco [facility] (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) [address] [place] [address] 8 07/08/2014 14:57:51 07/09/2014 22:16:20 Normal [id number] SULEMA Phelan [facility] (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) [address] [place] [address] 8 09/27/2014 14:24:21 09/30/2014 11:13:42 Normal [id number] Natasha Funk [facility] (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) [address] [place] [address] 8[address]96[address] 8 10/16/2014 15:20:49 10/18/2014 17:55:44 Normal [id number] Natasha Velasco [facility] (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) [address] [place] [address] 8 11/01/2014 15:35:40 11/07/2014 12:46:49 Normal [id number] Natasha Velasco [facility] (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) [address] [place] [address] 8 11/28/2014 15:49:34 11/29/2014 00:26:06 care [id number] Ayesha Gómez RN [facility] (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) [address] [place] [address] 8 12/23/2014 13:54:08 12/24/2014 09:48:50 care [id number] 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 [address] [place] [address] 8 02/18/2016 14:55:52 02/20/2016 13:00:57 Contraception care [id number] Z30.40 [id number] [facility]co [facility] (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) [address] [place] [address]27[address] 8 03/16/2016 16:34:45 03/19/2016 14:26:43 Contraception care 446902610 Z30.40 [id number] DO Krista Pisano [facility] (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) [address] [place] [address] 8 12/24/2016 11:16:12 12/28/2016 15:28:46 Gynecologic examination 49818683 Z01.607 [id number] Feliciano Mo MD [address] [address] 3 12/28/2016 17:56:26 01/03/2017 10:39:58 Shoulder pain 84596558 M25.512 MRI and follow up results [id number] Feliciano Mo MD [address] [address] 01/11/2017 17:54:54 01/13/2017 10:33:47 Shoulder pain 89820527 M25.512 MRI and follow up results... negative MRI 01-05-2017 .. return to work at full capacity tomorrow [id number] DO Krista Pisano [facility] (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) [address] [place] [address] 8 07/15/2017 12:08:42 08/03/2017 09:26:49 Normal [id number] Z34.80 [id number] Didier Sanchez MD [address] [address] 10/17/2017 18:05:21 10/18/2017 15:59:49 Heel pain 9971073 M79.174 [id number] Graeme John DO [facility] (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) [address] [place], [place] [address] 12/14/2017 11:50:07 12/27/2017 15:20:00 Normal [id number] Z34.80 [id number] Graeme John [facility] (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) [address] [place], [place] [address] 8 01/25/2018 16:49:43 01/31/2018 15:30:29 Normal [id number] Z34.80 Gestation period, 14 weeks 78971782 Z3A.14 [id number] Graeme John [facility] (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) [address] [place] [address] 8 03/02/2018 14:06:47 03/03/2018 08:37:46 Normal [id number] Z34.80 Gestation period, 19 weeks 83527442 Z3A.19 [id number] Graeme John [facility] (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) [address] [place] [address] 8 04/06/2018 14:00:37 05/01/2018 16:18:04 Normal [id number] Z34.80 Gestation period, 24 weeks 903412677 Z3A.24 Administra tion of influenza vaccine 02814312 Z23 [id number] Graeme John [facility] (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) [address] [place], [place] [address] 8 04/24/2018 15:42:21 05/02/2018 09:43:50 Short cervical length in 114051081 O26.879 Dysuria 19924788 R30.0 Gestation period, 27 weeks 96389914 Z3A.27 [id number] Graeme John [facility] (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) [address] [place] [address]90-[address] 8 06/13/2018 17:31:14 06/14/2018 08:47:24 High risk 96613864 O09.872 [id number] Graeme John [facility] (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) [address] [place] [address]69[address] 8 02/13/2019 12:32:50 02/14/2019 08:56:03 Venereal disease screening 311046150 Z11.3 [id number] Graeme John [facility] (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) [address] [place] [address]00-673 8 06/28/2019 15:34:56 06/29/2019 08:48:43 Venereal disease screening 865844436 Z11.3 Z72.9 [id number] KAILYN CAMARGO-Zoya simonia [address] [place] [address] 11/02/2019 12:10:03 11/05/2019 15:39:58 Suspected COVID-19 428890316 Z03.391 [id number] Graeme John DO [facility] (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) [address] [place] [address] 8 12/05/2019 15:03:24 12/06/2019 10:42:50 Venereal disease screening 221517904 Z11.3 Z72.9 [id number] Graeme John [facility] (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) [address] [place] [id number] 8 02/08/2020 16:31:58 02/12/2020 11:44:25 Normal [id number] Z34.80 [id number] Raquel Bustamante MA [facility] (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) [address] [place] [address] 04/26/2023 12:01:16 05/04/2023 19:11:07 High risk 38747966 O09.90 -LMP unknown. Was on DMPA, uncertain of last injection. -C/b Hx PTD @33w1d, severe pre-eclamp francesco w/ HELLP, cervical insufficie ncy requiring cerclage, IUGR-Denie s vb, ctx, d/c, LOF.-Decli emerson influenza vaccinatio n. Declines COVID vaccinatio n.-NOB labs ordered.-B edside US with estimated GA 13w1d +/-7d. Will start 162 mg ASA qd-Pt has PNV, is taking gummies. Discussed no iron. If anemic, will send iron supplement .-Referral placed for transfer or care to [facility] given hx. Screening for malignant neoplasm of cervix 497572412 Z12.4 -Last pap 07/08/24--NI LM-Updated today Past pregn caleb history of pre-eclampsia 4712848072 21503 Z87.59 -Hx pre-eclamp francesco with severe features and HELLP-Labs obtained.- Start ASA 162 mg qd given US >12w.-[place] [facility] Cervical incompetence 17 965628 O34.32 -Had cerclage with G5. Past pregn caleb history of premature delivery 039954744 Z87.51 -G2 delivered via at 33w1d. Obesity 734551342 E66.9 BMI 30.1. Headache 34837417 R51.9 -Tylenol prn for pain. Rest in cool, dark room. Ensure proper fluid intake and regular meals/snac ks.-If develops vision changes, RUQ/epigas tric pain, LE edema, intractabl e BLOOM, weakness, syncope, etc, pt instructed to go to ER. [id number] [facility] (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) [address] [place] [address] 01/03/2024 14:39:32 01/06/2024 08:06:42 care 120757986 Z39.2 - 10/24/23. Labor augmented due to mild increase in SBP-Pregna ncy c/b prophylact ic cerclage placement at 16w-LMP 12/08/23. Sexually active with since delivery-F ollow up with PCP to monitor BP. Mild elevation today at 138/71 Contracept ion care management 093863616 Z30.9 -Desires to restart DMPA-Revie wed SEs and RFs including changes in bleeding pattern, weight gain, and increased risk of osteoporos is.-LMP 12/08/23-Rx sent. RTC 01/06/24 for injection. Vaginal discharge 906477 006 N89.8 -Scant discharge on exam-Nuswa b sent, will treat as indicated. [id number] [facility] (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) [address] [place] [address] 01/06/2024 14:45:51 01/09/2024 15:26:15 Contraception care management 002651947 Z30.9 -Desires to restart DMPA-UPT (-)-Advise d Depo contracept ion can increase risk of osteoporos is thus take Ca w/ Vit D supplement ation and consider alternativ e contracept anthony after 2 years use. Advised does not protect from STD & to use condoms.-R TC 3 months for next injection Health Concerns Section Related Observation LastModified by Organization Detai ls LastModified Time None Recorded Concern Status LastModified by Organization Details LastModified Time None Recorded Advance Directives Directive None Recorded Payers Encounter Date Sequence Insurance Name Policy Number Policy Bahena Covered Member ID Bahena Member ID Guarantor Name 12/05/2019 1 [facility] (MEDICAID HMO) [id number] Tisha Casey [id number] Tisha Casey 02/08/2020 1 [facility] (MEDICAID HMO) [id number] Tisha Casey [id number] Tisha Casey 04/26/2023 1 [facility] [place] ([place]ICA[place] [id number] Tisha Casey [id number] Tisha Casey 01/03/2024 1 [facility] (MEDICAID HMO) [id number] Tisha Casey [id number] Tisha Casey 01/06/2024 1 [employer] [facility] [place] [id number] Tisha Casey [id number] Tisha Casey Notes Date Note Type Note Provider Name and Address Organization Details Recorded Time 04/26/2023 text/html 32 yo presents for IPN. Unknown LMP due to DMPA use but unsure of last injection, estimates possibly 1 year ago. Denies PMHx DM, HTN, thyroid disease. Denies any medications. Is taking PNV gummies. Denies vb, ctx, d/c, LOF. Reports feeling flutters. C/o headaches. States not responsive to tylenol. Denies vision changes, RUQ or epigastric pain, LE edema. Complicated history. Hx PTD at 33w1d, pre-eclampsia with HELLP, cervical insufficiency requiring cerclage, and IUGR. x 3. Denies hx GDM. Denies complications with deliveries. Raquel Bustamante MA null, [place] - [facility] 04/26/2023 17:40:53 01/03/2024 text/html 33 yo presents for care. 10/24/[address] [facility]. C/b prophylactic cerclage. Labor augmented due to mild increase in SBP. Feeling well. LMP 12/08/23. Unprotected intercourse with since delivery, denies complaints. Bottle feeding. Mood is stable, feeling well. Has good support at home. Denies urinary complaints, constipation, fecal incontinence, or hematochezia. C/o thick white vaginal discharge with itching x 3 days. Denies odor, pelvic pain, abnormal bleeding. Desires to restart DMPA for contraception. JAX PULIDO Attn: Accounting[address] [place], [address], [facility] 01/03/2024 17:51:40 01/06/2024 text/html 33 yo presents for DMPA. First injection today. LMP 12/08/23. No complaints. JAX PULIDO Attn: Accounting[address] [place], [address], [facility] 01/06/2024 16:01:14 OBGyn Episode Ob Episode Information Episode Created Date Number of Fetuses Patient Bloodtype Patient rh Status Prepregnancy Weight lbs Domestic Partner Domestic Partner Phone Father Name Merchandise Team Manager Status 04/26/20 23 1 CLOSED Fetus Data First Name Last Name Admitted to NICU Weight (g) Sex Living Outcome Pediatric Complications Fetus ID Race Codes Race Delivery Type , Induced [id number] Chaim Calculation Initial Chaim Date Initial Exam Date Initial Exam Provider Initial Ultrasound Date Last Menstrual Period Date Ultra Sound Weeks Gestation 0 Eighteen To Twenty Week Chaim Update Ultra Sound Date Fundal Height At Umbil Quickening Date Ultra Sound Latest Weeks Gestation Final Chaim Confirmed By Final Chaim Confirmed Date Final Chaim Date Ultra Sound Latest Days Gestation 0 0 Menstrual History Last Menstrual Date Menses Monthly On Bcp Conception Prior Menses Frequency Hcg Plus Date Menarche Onset Age Delivery Information Delivery Date Delivery Type Labor Anesthesia Weeks Gestation Incision Type Labor Labor Length Hrs Delivered By Post Complications Tubal Sterilization Discharge Date Comments 2 unsure dates, reports terminati on ~ 1 year ago on 04/26/23 Discharge Information Feeding Method Contraceptive Method Maternal HG B and HCT Levels Ob Episode Information Episode Created Date Number of Fetuses Patient Bloodtype Patient rh Status Prepregnancy Weight lbs Domestic Partner Domestic Partner Phone Father Name Merchandise Team Manager Status 04/26/20 1 A Positive 142 CLOSED Fetus Data First Name Last Name Admitted to NICU Weight (g) Sex Living Outcome Pediatric Complications Fetus ID Race Codes Race Delivery Type Paola [place] s 2718.73 81648 M true Full Term 32347 4-5 Black or Afric an Ameri can Vaginal Problems Problem Notes Problem Name Start Date End Date Resolution Snomed Code Not e Past history of premature delivery 602910377 History of growth retardation 46981317489514 Past history of hemolysis-elevated liver enzymes-low platelet count syndrome 085337494 Obesity 402550550 BMI 30.5 Cervical incompetence 90651263 -Cerclage with G5 Past history of pre-eclampsia 573683274488306 Chaim Calculation Initial Chaim Date Initial Exam Date Initial Exam Provider Initial Ultrasound Date Last Menstrual Period Date Ultra Sound Weeks Gestation 10/31/2023 04/26/2023 [email or web address] 04/26/2023 01/23/2023 13 Eighteen To Twenty Week Chaim Update Ultra Sound Date Fundal Height At Umbil Quickening Date Ultra Sound Latest Weeks Gestation Final Chaim Confirmed By Final Chaim Confirmed Date Final Chaim Date Ultra Sound Latest Days Gestation 0 10/31/19 24 0 Pre- Flowsheet Flowsheet Date 04/26/2023 Ochoa Score Blood Edema Fundus Height Fundus Units Glucose Ketones Leukocytes Nitrite Labor Signs Protein Cervic Dilation Cervic Effacement Cervic Station neg none none negative none neg Type Weight in lbs Pre/Post Dialysis Refused Weight 175.392251849403 BP Diastolic BP Location Tested BP Systolic BP Type 69 111 sitting Fetus Heart Rate Present A 1519 Present Fetus Movement A Yes Comments 32 yo IPN. Unknown L MP, unable to estimate. C/b hx PTD @33w1d, IUGFR, pre-eclampsia, HELLP, cervical insufficiency requiring cerclage, and obesity. Previous deliveries at [facility]. Denies vb, ctx, d/c, LOF. (+) fluttering. US with estimated GA 13w1d +/-7d. NOB labs ordered with CMP, uric acid, P/C ration given hx pre-E. ASA 162 mg qd started. Declines flu or COVID vaccinations. Referral placed to [facility] for full transfer of care. Menstrual History Last Menstrual Date Menses Monthly On Bcp Conception Prior Menses Frequency Hcg Plus Date Menarche Onset Age 0801/23/2023 false Genetic Screening And Infection History Question Response Note Patient's Age Will Be 35 Yea rs Or Older At Estimated Date of Delivery false Thalassemia (Portuguese, Palauan, Mediterranean, Or Background): MCV < 80 false Neural Tube Defect (Meningom yelocele, Spina Bifida, Or Anencephaly) false Congenital Heart Defect false Down Syndrome false Jb-Sachs (eg, Jainism, Cajun , Sierra Leonean-Swedish) false Gavin Disease false Sickle Cell Disease Or Trait () false Hemophilia Or Other Blood Disorders false Muscular Dystrophy false Cystic Fibrosis false Vancleve's Chorea false Mental Retardation/Autism false If Yes, Was Person Tested For Fragile X? false Other Inherited Genetic Or C hromosomal Disorder false Maternal Metabolic Disorder (eg, Type 1 Diabetes, PKU) false Patient Or Baby's Father Had A Child With Defects Not Listed Above false Recurrent Loss, Or A Stillbirth false Medications (including Suppl ements, Vitamins, Herbs, OTC Drugs), Illicit/Recreational Drugs, Alcohol false PNV If Yes, Agent(s) And Strength/Dosage false Any Other Genetic History false Live With Someone With TB Or Exposed To TB false Patient Or Partner Has Histo ry Of Genital Herpes true pts partner with remote ?out break Rash Or Viral Illness Since Last Menstrual Period false History Of STD, Gonorrhea, C hlamydia, HPV, Syphilis false Other Infection History false History of HIV false History of Hepatitis false Prior GBS-infected child false Plans and Education First Trimester Discussed Date Discussion Item Discussion Note Discuss ed By 04/26/2023 Anticipated course of care [id number] 04/26/2023 Alcohol [id number] 04/26/2023 Intimate partner violence sc 04/26/2023 Environmental/work hazards s [id number] 04/26/2023 Screening for aneuploidy sco [email or web address] 04/26/2023 Nutrition counseling ; special diet; dietary precautions (mercury, listeriosis) [id number] 04/26/2023 Childbirth classes/hospital facilities [id number] 04/26/2023 HIV and other routine tests [id number] 04/26/2023 Risk factors identif ied by history [email or web address] 04/26/2023 Weight gain counseling scoop [email or web address] 04/26/2023 Exercise 04/26/2023 Teratogens 04/26/2023 Use of any medicatio ns (including supplements, vitamins, herbs, or OTC drugs) [id number] 04/26/2023 [email or web address] 04/26/2023 Sexual activity [id number] 04/26/2023 Tobacco/smoking cess ation counseling (ask, advise, assess, assist, and arrange) [id number] 04/26/2023 Illicit/recreational drugs s 04/26/2023 Dental care [id number] 04/26/2023 Travel [id number] 04/26/2023 Seat belt use [id number] 04/26/2023 Indications for ultrasonography [id number] 04/26/2023 Avoidance of saunas or hot tubs elzrplg696 04/26/2023 Toxoplasmosis precautions (cats/raw meat) [id number] Second Trimester Discussed Date Discussion Item Discussion Note Discuss ed By Third Trimester Discussed Date Discussion Item Discussion Note Discuss ed By Delivery Information Delivery Date Delivery Type Labor Anesthesia Weeks Gestation Incision Type Labor Labor Length Hrs Delivered By Post Complications Tubal Sterilization Discharge Date Comments 4 Augmen [facility]-Ep idural 38.4 false [place] None false 10/26/2023 pro phylac tic cerclage placed at 16wAugmen harris due to latent labor and SBP readings in 140s x 2 Discharge Information Feeding Method Contraceptive Method Maternal HG B and HCT Levels Bottle DMPA Ob Episode Information Episode Created Date Number of Fetuses Patient Bloodtype Patient rh Status Prepregnancy Weight lbs Domestic Partner Domestic Partner Phone Father Name Merchandise Team Manager Status 02/08/20 20 1 A Positive CLOSED Fetus Data First Name Last Name Admitted to NICU Weight (g) Sex Living Outcome Pediatric Complications Fetus ID Race Codes Race Delivery Type 2579.80 46 F Full Term 11398 2058-6 Afric an Ameri can Vaginal Problems Problem Notes 29 YO [id number] - elect [id number] - 33 wks - - severe pre eclampsia, [id number] - elect [id number] - 36 wks - - labor, short cervix - vag progesterone, IUGR Problem Name Start Date End Date Resolution Snomed Code Not e Past history of pre-eclampsia 260435141337666 2015 - 33 WEEKS, induction - severe pre eclampsia + IUGR at [facility]. Maternal tobacco use 145483243 tobacco High risk due to history of labor 446073826 2019 - 36 WEEKS , short cervix - vaginal progesterone, IUGR Chaim Calculation Initial Chaim Date Initial Exam Date Initial Exam Provider Initial Ultrasound Date Last Menstrual Period Date Ultra Sound Weeks Gestation 09/01/2020 02/08/2020 [email or web address] 11/26/2019 0 Eighteen To Twenty Week Chaim Update Ultra Sound Date Fundal Height At Umbil Quickening Date Ultra Sound Latest Weeks Gestation Final Chaim Confirmed By Final Chaim Confirmed Date Final Chaim Date Ultra Sound Latest Days Gestation 0 09/02/19 21 0 Pre-emily Flowsheet Flowsheet Date 02/08/2020 Ochoa Score Blood Edema Fundus Height Fundus Units Glucose Ketones Leukocytes Nitrite Labor Signs Protein Cervic Dilation Cervic Effacement Cervic Station Type Weight in lbs Pre/Post Dialysis Refused With clothes 160.919192135183 BP Diastolic BP Location Tested BP Systolic BP Type 72 110 sitting Fetus Heart Rate Present Fetus Movement Comments INITIAL OB VISIT - unsure LM P in November 2019. no bleeding or cramping. report urinary frequency and breast tenderness. no pelvic pain. complicated history. 2015 SEVERE PRE ECLAMPSIA IUGR at 33 weeks. 2019 at 36 weeks, IUGR, short cervix. will transfer care to [facility] for care and monitoring. recommend start daily aspirin 162mg daily. rx vitamins today. rx reglan for nausea. initial OB labs and OB HTN labs drawn today. first trimester precautions. JOHN Menstrual History Last Menstrual Date Menses Monthly On Bcp Conception Prior Menses Frequency Hcg Plus Date Menarche Onset Age 0611/26/2019 Genetic Screening And Infection History Question Response Note Patient's Age Will Be 35 Years Or Older At Estim ated Date of Delivery false Thalassemia (Portuguese, Palauan, Mediterranean, Or Background): MCV < 80 false Neural Tube Defect (Meningomyelocele, Spina Bifi da, Or Anencephaly) false Congenital Heart Defect false Down Syndrome false Jb-Sachs (eg, Jainism, Cajun, Sierra Leonean-Swedish) f alse Gavin Disease false Sickle Cell Disease Or Trait () false Hemophilia Or Other Blood Disorders false Muscular Dystrophy false Cystic Fibrosis false Tami's Chorea false Mental Retardation/Autism false If Yes, Was Person Tested For Fragile X? false Other Inherited Genetic Or Chromosomal Disorder false Maternal Metabolic Disorder (eg, Type 1 Diabetes , PKU) false Patient Or Baby's Father Had A Child With Defects Not Listed Above false Recurrent Loss, Or A Stillbirth false Medications (including Suppl ements, Vitamins, Herbs, OTC Drugs), Illicit/Recreational Drugs, Alcohol false If Yes, Agent(s) And Strength/Dosage false Any Other Genetic History false Live With Someone With TB Or Exposed To TB false Patient Or Partner Has History Of Genital Herpes false Rash Or Viral Illness Since Last Menstrual Perio d false History Of STD, Gonorrhea, Chlamydia, HPV, Syphi lis false Other Infection History false History of HIV false History of Hepatitis false Prior GBS-infected child false Delivery Information Delivery Date Delivery Type Labor Anesthesia Weeks Gestation Incision Type Labor Labor Length Hrs Delivered By Post Complications Tubal Sterilization Discharge Date Comments 1 [facility] 38 false CERCLAGE , ANEMIA, 9.07/03 Discharge Information Feeding Method Contraceptive Method Maternal HG B and HCT Levels Ob Episode Information Episode Created Date Number of Fetuses Patient Bloodtype Patient rh Status Prepregnancy Weight lbs Domestic Partner Domestic Partner Phone Father Name Merchandise Team Manager Status 06/19/19 15 1 A Positive CLOSED Fetus Data First Name Last Name Admitted to NICU Weight (g) Sex Living Outcome Pediatric Complications Fetus ID Race Codes Race Delivery Type Daryl Reid true 1020.58 2 F true Prematur e [id number] 8-6 Afric an Ameri can Vaginal Problems Problem Notes TOBACCO Problem Name Start Date End Date Resolution Snomed Code Not e Maternal tobacco abuse 0602324 [id number] TOBACCO Routine care [id number] FREQUENT NO SHOW Chaim Calculation Initial Chaim Date Initial Exam Date Initial Exam Provider Initial Ultrasound Date Last Menstrual Period Date Ultra Sound Weeks Gestation 12/26/2014 06/19/2014 05/22/2014 8 Eighteen To Twenty Week Chaim Update Ultra Sound Date Fundal Height At Umbil Quickening Date Ultra Sound Latest Weeks Gestation Final Chaim Confirmed By Final Chaim Confirmed Date Final Chaim Date Ultra Sound Latest Days Gestation [email or web address] 06/19/2014 12/27/19 15 0 Pre- Flowsheet Flowsheet Date 06/19/2014 Ochoa Score Blood Edema Fundus Height Fundus Units Glucose Ketones Leukocytes Nitrite Labor Signs Protein Cervic Dilation Cervic Effacement Cervic Station 12 none Type Weight in lbs Pre/Post Dialysis Refused 138.527613578155 BP Diastolic BP Location Tested BP Systolic BP Type 80 L arm 110 sitting Fetus Heart Rate Present A 160 Fetus Movement A No Comments Flowsheet Date 07/08/2014 Ochoa Score Blood Edema Fundus Height Fundus Units Glucose Ketones Leukocytes Nitrite Labor Signs Protein Cervic Dilation Cervic Effacement Cervic Station 15 none 0cm 0% -4 Type Weight in lbs Pre/Post Dialysis Refused 138.907094934395 BP Diastolic BP Location Tested BP Systolic BP Type 60 L arm 100 sitting Fetus Heart Rate Present A 160 Fetus Movement Comments Flowsheet Date 09/27/2014 Ochoa Score Blood Edema Fundus Height Fundus Units Glucose Ketones Leukocytes Nitrite Labor Signs Protein Cervic Dilation Cervic Effacement Cervic Station none 27 none Type Weight in lbs Pre/Post Dialysis Refused 154.957495333360 BP Diastolic BP Location Tested BP Systolic BP Type 70 R arm 110 sitting Fetus Heart Rate Present A 150 Fetus Movement A Yes Comments Flowsheet Date 10/16/2014 Ochoa Score Blood Edema Fundus Height Fundus Units Glucose Ketones Leukocytes Nitrite Labor Signs Protein Cervic Dilation Cervic Effacement Cervic Station none 28 none Type Weight in lbs Pre/Post Dialysis Refused 153.698816133101 BP Diastolic BP Location Tested BP Systolic BP Type 70 110 sitting Fetus Heart Rate Present A 150 Fetus Movement A Yes Comments NO COMPLAINTS Flowsheet Date 11/01/2014 Ochoa Score Blood Edema Fundus Height Fundus Units Glucose Ketones Leukocytes Nitrite Labor Signs Protein Cervic Dilation Cervic Effacement Cervic Station none 30 none Type Weight in lbs Pre/Post Dialysis Refused 161.625950071109 BP Diastolic BP Location Tested BP Systolic BP Type 90 110 sitting Fetus Heart Rate Present A 150 Fetus Movement A Yes Comments no complaints Flowsheet Date 11/28/2014 Ochoa Score Blood Edema Fundus Height Fundus Units Glucose Ketones Leukocytes Nitrite Labor Signs Protein Cervic Dilation Cervic Effacement Cervic Station Type Weight in lbs Pre/Post Dialysis Refused 148.349024880846 BP Diastolic BP Location Tested BP Systolic BP Type 72 R arm 110 sitting Fetus Heart Rate Present Fetus Movement Comments Flowsheet Date 12/23/2014 Ochoa Score Blood Edema Fundus Height Fundus Units Glucose Ketones Leukocytes Nitrite Labor Signs Protein Cervic Dilation Cervic Effacement Cervic Station Type Weight in lbs Pre/Post Dialysis Refused 148.986732432562 BP Diastolic BP Location Tested BP Systolic BP Type 70 R arm 106 sitting Fetus Heart Rate Present Fetus Movement Comments Menstrual History Last Menstrual Date Menses Monthly On Bcp Conception Prior Menses Frequency Hcg Plus Date Menarche Onset Age Genetic Screening And Infection History Question Response Note Patient's Age Will Be 35 Years Or Older At Estim ated Date of Delivery false Thalassemia (Portuguese, Palauan, Mediterranean, Or Background): MCV < 80 false Neural Tube Defect (Meningomyelocele, Spina Bifi da, Or Anencephaly) false Congenital Heart Defect false Down Syndrome false Jb-Sachs (eg, Jainism, Cajun, Sierra Leonean-Swedish) f alse Gavin Disease false Sickle Cell Disease Or Trait () false Hemophilia Or Other Blood Disorders false Muscular Dystrophy false Cystic Fibrosis false Tami's Chorea false Mental Retardation/Autism false If Yes, Was Person Tested For Fragile X? false Other Inherited Genetic Or Chromosomal Disorder false Maternal Metabolic Disorder (eg, Type 1 Diabetes , PKU) false Patient Or Baby's Father Had A Child With Defects Not Listed Above false Recurrent Loss, Or A Stillbirth false Medications (including Suppl ements, Vitamins, Herbs, OTC Drugs), Illicit/Recreational Drugs, Alcohol false If Yes, Agent(s) And Strength/Dosage false Any Other Genetic History false Live With Someone With TB Or Exposed To TB false Patient Or Partner Has History Of Genital Herpes false Rash Or Viral Illness Since Last Menstrual Perio d false History Of STD, Gonorrhea, Chlamydia, HPV, Syphi lis false Other Infection History false Delivery Information Delivery Date Delivery Type Labor Anesthesia Weeks Gestation Incision Type Labor Labor Length Hrs Delivered By Post Complications Tubal Sterilization Discharge Date Comments 5 [facility] 33.1 true 12 None false 11/10/2014 Discharge Information Feeding Method Contraceptive Method Maternal HG B and HCT Levels Bottle Depo Inj Ob Episode Information Episode Created Date Number of Fetuses Patient Bloodtype Patient rh Status Prepregnancy Weight lbs Domestic Partner Domestic Partner Phone Father Name Merchandise Team Manager Status 06/19/19 15 1 CLOSED Fetus Data First Name Last Name Admitted to NICU Weight (g) Sex Living Outcome Pediatric Complications Fetus ID Race Codes Race Delivery Type , Induced [id number] Chaim Calculation Initial Chaim Date Initial Exam Date Initial Exam Provider Initial Ultrasound Date Last Menstrual Period Date Ultra Sound Weeks Gestation 0 Eighteen To Twenty Week Chaim Update Ultra Sound Date Fundal Height At Umbil Quickening Date Ultra Sound Latest Weeks Gestation Final Chaim Confirmed By Final Chaim Confirmed Date Final Chaim Date Ultra Sound Latest Days Gestation 0 0 Menstrual History Last Menstrual Date Menses Monthly On Bcp Conception Prior Menses Frequency Hcg Plus Date Menarche Onset Age Delivery Information Delivery Date Delivery Type Labor Anesthesia Weeks Gestation Incision Type Labor Labor Length Hrs Delivered By Post Complications Tubal Sterilization Discharge Date Comments 2 elect terminati on Discharge Information Feeding Method Contraceptive Method Maternal HG B and HCT Levels Ob Episode Information Episode Created Date Number of Fetuses Patient Bloodtype Patient rh Status Prepregnancy Weight lbs Domestic Partner Domestic Partner Phone Father Name Merchandise Team Manager Status 07/15/19 18 1 A Positive CLOSED Fetus Data First Name Last Name Admitted to NICU Weight (g) Sex Living Outcome Pediatric Complications Fetus ID Race Codes Race Delivery Type [id number] Problems Problem Notes 26 YO [id number] Problem Name Start Date End Date Resolution Snomed Code Not e Maternal tobacco abuse 6003027 06 TOBACCO Family history of Sickle cell trait 947033975 FATHER OR SICKLE TRAIT Normal 96988281 High risk care [id number] HX SEVERE PRE ECLAMPSIA, HELLP SYNDROME, IUGR AT 33 WEEKS - 2015 Insufficient care [id number] MULTIPLE NO SH OW VISITS Chaim Calculation Initial Chaim Date Initial Exam Date Initial Exam Provider Initial Ultrasound Date Last Menstrual Period Date Ultra Sound Weeks Gestation 03/11/2018 07/15/201707/20/2017 06/04/2017 6 Eighteen To Twenty Week Chaim Update Ultra Sound Date Fundal Height At Umbil Quickening Date Ultra Sound Latest Weeks Gestation Final Chaim Confirmed By Final Chaim Confirmed Date Final Chaim Date Ultra Sound Latest Days Gestation 0 07/20/2017 03/11/20 18 0 Pre-emily Flowsheet Flowsheet Date 07/15/2017 Ochoa Score Blood Edema Fundus Height Fundus Units Glucose Ketones Leukocytes Nitrite Labor Signs Protein Cervic Dilation Cervic Effacement Cervic Station none Type Weight in lbs Pre/Post Dialysis Refused 156.831502626610 BP Diastolic BP Location Tested BP Systolic BP Type Fetus Heart Rate Present Fetus Movement Comments INITIAL OB VISIT - initial o b labs, htn labs, 24 hr urine protein. rx prenatals. rx aspirin 81mg daily. discuss hx pre eclampsia and recurrence. order dating ultrasound. MFM ultrasound and monitoring after confirmation. JOHN Flowsheet Date 10/17/2017 Ochoa Score Blood Edema Fundus Height Fundus Units Glucose Ketones Leukocytes Nitrite Labor Signs Protein Cervic Dilation Cervic Effacement Cervic Station Type Weight in lbs Pre/Post Dialysis Refused 159.763350945029 BP Diastolic BP Location Tested BP Systolic BP Type 60 110 sitting Fetus Heart Rate Present Fetus Movement Comments Flowsheet Date 07/29/2017 Ochoa Score Blood Edema Fundus Height Fundus Units Glucose Ketones Leukocytes Nitrite Labor Signs Protein Cervic Dilation Cervic Effacement Cervic Station Type Weight in lbs Pre/Post Dialysis Refused BP Diastolic BP Location Tested BP Systolic BP Type Fetus Heart Rate Present Fetus Movement Comments NO SHOW Flowsheet Date 08/02/2017 Ochoa Score Blood Edema Fundus Height Fundus Units Glucose Ketones Leukocytes Nitrite Labor Signs Protein Cervic Dilation Cervic Effacement Cervic Station Type Weight in lbs Pre/Post Dialysis Refused BP Diastolic BP Location Tested BP Systolic BP Type Fetus Heart Rate Present Fetus Movement Comments NO SHOW Flowsheet Date 09/09/2017 Ochoa Score Blood Edema Fundus Height Fundus Units Glucose Ketones Leukocytes Nitrite Labor Signs Protein Cervic Dilation Cervic Effacement Cervic Station Type Weight in lbs Pre/Post Dialysis Refused BP Diastolic BP Location Tested BP Systolic BP Type Fetus Heart Rate Present Fetus Movement Comments NO SHOW Flowsheet Date 09/16/2017 Ochoa Score Blood Edema Fundus Height Fundus Units Glucose Ketones Leukocytes Nitrite Labor Signs Protein Cervic Dilation Cervic Effacement Cervic Station Type Weight in lbs Pre/Post Dialysis Refused BP Diastolic BP Location Tested BP Systolic BP Type Fetus Heart Rate Present Fetus Movement Comments NO SHOW Flowsheet Date 09/21/2017 Ochoa Score Blood Edema Fundus Height Fundus Units Glucose Ketones Leukocytes Nitrite Labor Signs Protein Cervic Dilation Cervic Effacement Cervic Station Type Weight in lbs Pre/Post Dialysis Refused BP Diastolic BP Location Tested BP Systolic BP Type Fetus Heart Rate Present Fetus Movement Comments NO SHOW Flowsheet Date 12/14/2017 Ochoa Score Blood Edema Fundus Height Fundus Units Glucose Ketones Leukocytes Nitrite Labor Signs Protein Cervic Dilation Cervic Effacement Cervic Station Type Weight in lbs Pre/Post Dialysis Refused 156.700757521341 BP Diastolic BP Location Tested BP Systolic BP Type 60 110 sitting Fetus Heart Rate Present Fetus Movement Comments elect termination of pregnan cy in August 2017. new diagnosis . currently 9 week gestation.JOHN Flowsheet Date 12/01/2017 Ochoa Score Blood Edema Fundus Height Fundus Units Glucose Ketones Leukocytes Nitrite Labor Signs Protein Cervic Dilation Cervic Effacement Cervic Station Type Weight in lbs Pre/Post Dialysis Refused BP Diastolic BP Location Tested BP Systolic BP Type Fetus Heart Rate Present Fetus Movement Comments NO SHOW Menstrual History Last Menstrual Date Menses Monthly On Bcp Conception Prior Menses Frequency Hcg Plus Date Menarche Onset Age 1206/04/2017 Genetic Screening And Infection History Question Response Note Patient's Age Will Be 35 Yea rs Or Older At Estimated Date of Delivery false Thalassemia (Portuguese, Palauan, Mediterranean, Or Background): MCV < 80 false Neural Tube Defect (Meningom yelocele, Spina Bifida, Or Anencephaly) false Congenital Heart Defect false Down Syndrome false Jb-Sachs (eg, Jainism, Cajun, Sierra Leonean-Swedish) f alse Gavin Disease false Sickle Cell Disease Or Trait () true father carries sickle trait Hemophilia Or Other Blood Disorders false Muscular Dystrophy false Cystic Fibrosis false Tami's Chorea false Mental Retardation/Autism false If Yes, Was Person Tested For Fragile X? false Other Inherited Genetic Or Chromosomal Disorder false Maternal Metabolic Disorder (eg, Type 1 Diabetes, PKU) false Patient Or Baby's Father Had A Child With Defects Not Listed Above false Recurrent Loss, Or A Stillbirth false Medications (including Suppl ements, Vitamins, Herbs, OTC Drugs), Illicit/Recreational Drugs, Alcohol false If Yes, Agent(s) And Strength/Dosage false Any Other Genetic History false Live With Someone With TB Or Exposed To TB false Patient Or Partner Has History Of Genital Herpes false Rash Or Viral Illness Since Last Menstrual Period false History Of STD, Gonorrhea, C hlamydia, HPV, Syphilis false Other Infection History false Delivery Information Delivery Date Delivery Type Labor Anesthesia Weeks Gestation Incision Type Labor Labor Length Hrs Delivered By Post Complications Tubal Sterilization Discharge Date Comments 8 13 elective terminati on of . uncomplca harris d+c Discharge Information Feeding Method Contraceptive Method Maternal HG B and HCT Levels Ob Episode Information Episode Created Date Number of Fetuses Patient Bloodtype Patient rh Status Prepregnancy Weight lbs Domestic Partner Domestic Partner Phone Father Name Merchandise Team Manager Status 12/15/19 18 1 A Positive 156 CLOSED Fetus Data First Name Last Name Admitted to NICU Weight (g) Sex Living Outcome Pediatric Complications Fetus ID Race Codes Race Delivery Type Prematur e [id number] Afric an Ameri can Vaginal Problems Problem Notes 27 YO [id number] wk ultras ound - [facility] cervix - 2.7 cm - no funneling - start vaginal progesterone dailyLeft EIFmarginal cord insertionmild bilat renal pelvic dilationrecommend daily ASA 162mg DAILY28 WEEKS - admit to [facility] x2 days. received betamethasone steroids. cervix length1.0 cm dilation FT.continue vaginal progesterone, daily aspirin. Problem Name Start Date End Date Resolution Snomed Code Not e growth restriction 80013487 28 WKS - EFW 8% , AC1% - [facility] ADMIT31 WKS - EFW <3%ILE Administration of influenza vaccine 71411442 FLU VACCIN E GIVEN 04-06-18 Past history of pre-eclampsia [id number] SEVERE P RE ECLAMPSIA - IUGR - 33 WEEKS, 2014 Maternal tobacco use 749393593 TOBACCO High risk due to history of labor 732375678 HX DELIVERY AT 33 WEEKS Short cervical length in 658319249 20 WKS - cervix 2.7 CM, no WKS - cervix 1.0 cm, funneling+ Chaim Calculation Initial Chaim Date Initial Exam Date Initial Exam Provider Initial Ultrasound Date Last Menstrual Period Date Ultra Sound Weeks Gestation 07/22/2018 12/14/201712/14/2017 11/14/2017 8 Eighteen To Twenty Week Chaim Update Ultra Sound Date Fundal Height At Umbil Quickening Date Ultra Sound Latest Weeks Gestation Final Chaim Confirmed By Final Chaim Confirmed Date Final Chaim Date Ultra Sound Latest Days Gestation 0 01/25/2018 07/22/19 19 0 Pre- Flowsheet Flowsheet Date 12/14/2017 Ochoa Score Blood Edema Fundus Height Fundus Units Glucose Ketones Leukocytes Nitrite Labor Signs Protein Cervic Dilation Cervic Effacement Cervic Station none Type Weight in lbs Pre/Post Dialysis Refused Weight 156.178193204940 BP Diastolic BP Location Tested BP Systolic BP Type 60 110 Fetus Heart Rate Present Fetus Movement Comments INITIAL OB VISIT. new pregna ncy diagnosis today. pt states seen at [facility] ER. she reports labs and ultrasound done. states 9 week . currently denies bleeding, cramping, pain. normal bp today. - elective termination of by D+C in August 2017 (3 months ago)- hx delivery at 33 weeks due to IUGR and severe pre eclampsia- initial ob labs- additional htn labs- recommend tobacco cessation- rx vitamins- advise daily aspirin 81mg- return 2 weeks- request records from Debi JOHN DO Flowsheet Date 01/10/2018 Ochoa Score Blood Edema Fundus Height Fundus Units Glucose Ketones Leukocytes Nitrite Labor Signs Protein Cervic Dilation Cervic Effacement Cervic Station Type Weight in lbs Pre/Post Dialysis Refused BP Diastolic BP Location Tested BP Systolic BP Type Fetus Heart Rate Present Fetus Movement Comments NO SHOW Flowsheet Date 01/25/2018 Ochoa Score Blood Edema Fundus Height Fundus Units Glucose Ketones Leukocytes Nitrite Labor Signs Protein Cervic Dilation Cervic Effacement Cervic Station none 14 none Type Weight in lbs Pre/Post Dialysis Refused Weight 154.666778157667 BP Diastolic BP Location Tested BP Systolic BP Type 66 114 sitting Fetus Heart Rate Present A 160 Fetus Movement Comments no complaints. no bleeding o r cramping. declines pelvic and std swab today. advise vitamin or women's daily. advise aspirin 81mg daily - over the counter. [facility] ROGELIO Flowsheet Date 03/02/2018 Ochoa Score Blood Edema Fundus Height Fundus Units Glucose Ketones Leukocytes Nitrite Labor Signs Protein Cervic Dilation Cervic Effacement Cervic Station none 19 none Type Weight in lbs Pre/Post Dialysis Refused Weight 159.575789310909 BP Diastolic BP Location Tested BP Systolic BP Type 62 108 sitting Fetus Heart Rate Present A 150 Fetus Movement A Yes Comments no complaints. no bleeding o r cramping. normal bp today. has not started daily aspirin. declines flu vaccine. [facility] scheduled next week. ROGELIO Flowsheet Date 03/23/2018 Ochoa Score Blood Edema Fundus Height Fundus Units Glucose Ketones Leukocytes Nitrite Labor Signs Protein Cervic Dilation Cervic Effacement Cervic Station Type Weight in lbs Pre/Post Dialysis Refused BP Diastolic BP Location Tested BP Systolic BP Type Fetus Heart Rate Present Fetus Movement Comments patient presented in morning for afternoon appointment. unable to return for appointment in afternoon. left without being seen. JOHN Flowsheet Date 04/06/2018 Ochoa Score Blood Edema Fundus Height Fundus Units Glucose Ketones Leukocytes Nitrite Labor Signs Protein Cervic Dilation Cervic Effacement Cervic Station none 24 none Type Weight in lbs Pre/Post Dialysis Refused Weight 165.160382475618 BP Diastolic BP Location Tested BP Systolic BP Type 62 106 sitting Fetus Heart Rate Present A 150 Fetus Movement Comments no complaints. fetus is acti ve. no discharge, no bleeding, no cramping. bp normal today. recent [facility] ultrasound - cervix lenght 3.1 cm, efw 27%ile. continues daily aspirin 161mg. continues daily vaginal progesterone 200mg. denies tobacco use. FLU VACCINE given today. declines - pelvic exam. Follow up MFM ultrasound scheduled 04/20/18 JOHN Flowsheet Date 04/24/2018 Ochoa Score Blood Edema Fundus Height Fundus Units Glucose Ketones Leukocytes Nitrite Labor Signs Protein Cervic Dilation Cervic Effacement Cervic Station none 27 none Type Weight in lbs Pre/Post Dialysis Refused Weight 167.420171083576 BP Diastolic BP Location Tested BP Systolic BP Type 60 110 sitting Fetus Heart Rate Present A 150 Fetus Movement A Yes Comments no complaints. no cramping o r pressure or discharge. continues vag progesterone. missed [facility] US for cervix length last week. advise to reschedule. normal bp today. continue daily aspirin for hx pre eclampsia. discuss 28 week labs to be done at next visit. UA and culture sent. advise tobacco decrease. JOHN Flowsheet Date 05/08/2018 Ochoa Score Blood Edema Fundus Height Fundus Units Glucose Ketones Leukocytes Nitrite Labor Signs Protein Cervic Dilation Cervic Effacement Cervic Station Type Weight in lbs Pre/Post Dialysis Refused BP Diastolic BP Location Tested BP Systolic BP Type Fetus Heart Rate Present Fetus Movement Comments NO SHOW Flowsheet Date 06/13/2018 Ochoa Score Blood Edema Fundus Height Fundus Units Glucose Ketones Leukocytes Nitrite Labor Signs Protein Cervic Dilation Cervic Effacement Cervic Station Type Weight in lbs Pre/Post Dialysis Refused Weight 183.091370623914 BP Diastolic BP Location Tested BP Systolic BP Type 80 130 sitting Fetus Heart Rate Present Fetus Movement Comments Walk in visit today - wei ziegler requests note for employer stating she has been off work. Patient has not been seen in this office since 04-24-18. NO SHOW visits x2. Since the last visit - she states she has been admitted to [facility] x3 for threatened labor and growth restriction. She continues vaginal progesterone and oral aspirin. ultrasound at [facility] yesterday shows elevated MCA doppler flow, previous ultrasound shows estimated weight lagging at 3%ile. Recommend transfer of care to [facility] for remainder of due to fractured/incomplete care. Flowsheet Date 05/11/2018 Ochoa Score Blood Edema Fundus Height Fundus Units Glucose Ketones Leukocytes Nitrite Labor Signs Protein Cervic Dilation Cervic Effacement Cervic Station Type Weight in lbs Pre/Post Dialysis Refused BP Diastolic BP Location Tested BP Systolic BP Type Fetus Heart Rate Present Fetus Movement Comments NO SHOW Flowsheet Date 06/07/2018 Ochoa Score Blood Edema Fundus Height Fundus Units Glucose Ketones Leukocytes Nitrite Labor Signs Protein Cervic Dilation Cervic Effacement Cervic Station Type Weight in lbs Pre/Post Dialysis Refused BP Diastolic BP Location Tested BP Systolic BP Type Fetus Heart Rate Present Fetus Movement Comments NO SHOW/PT RESCHEDULED Flowsheet Date 02/13/2019 Ochoa Score Blood Edema Fundus Height Fundus Units Glucose Ketones Leukocytes Nitrite Labor Signs Protein Cervic Dilation Cervic Effacement Cervic Station Type Weight in lbs Pre/Post Dialysis Refused Weight [id number] BP Diastolic BP Location Tested BP Systolic BP Type 76 124 Fetus Heart Rate Present Fetus Movement Comments Menstrual History Last Menstrual Date Menses Monthly On Bcp Conception Prior Menses Frequency Hcg Plus Date Menarche Onset Age 0611/14/2017 Genetic Screening And Infection History Question Response Note Patient's Age Will Be 35 Years Or Older At Estim ated Date of Delivery false Thalassemia (Portuguese, Palauan, Mediterranean, Or Background): MCV < 80 false Neural Tube Defect (Meningomyelocele, Spina Bifi da, Or Anencephaly) false Congenital Heart Defect false Down Syndrome false Jb-Sachs (eg, Jainism, Cajun, Sierra Leonean-Swedish) f alse Gavin Disease false Sickle Cell Disease Or Trait () false Hemophilia Or Other Blood Disorders false Muscular Dystrophy false Cystic Fibrosis false Vancleve's Chorea false Mental Retardation/Autism false If Yes, Was Person Tested For Fragile X? false Other Inherited Genetic Or Chromosomal Disorder false Maternal Metabolic Disorder (eg, Type 1 Diabetes , PKU) false Patient Or Baby's Father Had A Child With Defects Not Listed Above false Recurrent Loss, Or A Stillbirth false Medications (including Suppl ements, Vitamins, Herbs, OTC Drugs), Illicit/Recreational Drugs, Alcohol false If Yes, Agent(s) And Strength/Dosage false Any Other Genetic History false Live With Someone With TB Or Exposed To TB false Patient Or Partner Has History Of Genital Herpes false Rash Or Viral Illness Since Last Menstrual Perio d false History Of STD, Gonorrhea, Chlamydia, HPV, Syphi lis false Other Infection History false Delivery Information Delivery Date Delivery Type Labor Anesthesia Weeks Gestation Incision Type Labor Labor Length Hrs Delivered By Post Complications Tubal Sterilization Discharge Date Comments 9 Sponta neous 36.3 true [place] Discharge Information Feeding Method Contraceptive Method Maternal HG B and HCT Levels
--- OUTSIDE RECORDS SUMMARY | 2024-07-13 12:57 | XMS_ITS | Patient Health Summary ---
Author Organization [facility] [employer] Address [address] [place] [address] Care Team Providers Care Engineering Mathematician Name Role Phone Unavailable Primary Care Provider Unavailabl e Note from [facility],non-owned Affiliates and Associated Physician Practices is amultiple site organization consisting of ambulatory clinics and hospital sitesin [place], [place] and [place]. This disclosure is being madepursuant to the Care Everywhere program and may not contain all information available regarding this patient. Last updated 18.[facility] Allergies * Penicillins(Swelling) * Tetanus Toxoid,Inactive Medications [...] heating? Not hard at all 10/24/2023 [facility] - Occupational Stress [...] place to sleep or slept in a correction (including now)? No 10/24/2023 [place] Depression Scale Answer Date Recorded [place] Depression Scale Total 0 10/26/2023 The thought [...] 07/25/2023) Performed for Encounter for anatomic survey ([facility]) * CARDIAC RHYTHM STRIP ORDER(Performed 05/23/2023) * SONOGRAM - TRANSVAGINAL(Performed 05/23/2023) Performed for Hx of delivery at 36 weeks, Hx of cerclage in G5, Supervision of high-risk * NEURAXIAL BLOCK(Performed 05/19/2023) * TYPE + SCREEN PANEL(Performed 05/19/2023) Performed for Pre-operative clearance * VT REVISION CERVIX W PREG,VAG APPRCH(Performed 05/19/2023) Performed for Diagnosis unknown * PAP IG LB+HPV APTIMA(Performed 05/04/2023) Performed for Cervical cerclage suture present, antepartum (HCC) * TYPE + SCREEN PANEL(Performed 05/04/2023) Performed for Short cervix affecting (HCC) * HEMOGLOBINOPATHY FRACTIONATION CASCADE(Performed 05/04/2023) Performed for Short cervix affecting (HCC) * HEPATITIS C ANTIBODY(Performed 05/04/2023) Performed for Short cervix affecting ([facility]) * RUBELLA ANTIBODY IGG(Performed 05/04/2023) Performed for Short cervix affecting ([facility]) * HEPATITIS B SURFACE ANTIGEN W RFLX CONFIRMATION(Performed 05/04/2023) Performed for Short cervix affecting ([facility]) * TREPONEMA PALLIDUM AB(Performed 05/04/2023) Performed for Short cervix affecting ([facility]) * HIV-1 HIV-2 ANTIBODY + HIV P24 AG PANEL(Performed 05/04/2023) Performed for Short cervix affecting ([facility]) * PROTEIN CREATININE RATIO URINE RANDOM PNL(Performed 05/04/2023) Performed for History of delivery, currently in second trimester ([facility]) * IRON + TRANSFERRIN PANEL(Performed 05/04/2023) Performed for History of delivery, currently in second trimester ([facility]) * FERRITIN(Performed 05/04/2023) Performed for History of delivery, currently in second trimester ([facility]) * CBC W/O DIFFERENTIAL(Performed 05/04/2023) Performed for History of delivery, currently in second trimester ([facility]) * CHLAMYDIA + GC AMPLIFIED PROBE(Performed 05/04/2023) Performed for headache in third trimester ([facility]) * TRICHOMONAS VAGINALIS AMPLIFIED PROBE(Performed 05/04/2023) Performed for headache in third trimester ([facility]) * CULTURE URINE(Performed 05/04/2023) Performed for History of delivery, currently in second trimester ([facility]) * ANEUPLOIDY SCREENING(Performed 05/04/2023) * SONOGRAM - COMPLETE(Performed 05/03/2023) Performed for Hx of preeclampsia, prior , currently ([facility]), History of delivery, currently in second trimester ([facility]), History of IUGR (intrauterine growth retardation) and stillbirth, currently , Encounter for routine ultrasound ([facility]) * IMAGING/RADIOLOGY/XRAY RESULTS ORDER(Performed 09/02/2020) * CBC W AUTO DIFFERENTIAL(Performed 09/01/2020) Performed for state ([facility]) * TYPE + SCREEN PANEL(Performed 08/31/2020) * [...] for Supervision of high-risk of young multigravida ([facility]) * URINALYSIS - POCT (IP) BEAKER INTERFACE(Performed 08/14/2020) * SONOGRAM - COMPLETE(Performed 08/07/2020) Performed for History of prior with IUGR * GLUCOSE PROTEIN KETONE URINE - POINT OF CAR(Performed 08/07/2020) Performed for , unspecified gestational age ([facility]) * NONSTRESS TEST(Performed 07/17/2020) Performed for Blurry vision * COMPREHENSIVE METABOLIC PANEL(Performed 07/17/2020) Performed for Blurry vision * CBC W/O DIFFERENTIAL(Performed 07/17/2020) Performed for Blurry vision * PROTEIN CREATININE RATIO URINE RANDOM PNL(Performed 07/17/2020) Performed for Blurry vision * GLUCOSE CHALLENGE(Performed 06/04/2020) Performed for Current with history of pre-term labor in second trimester ([facility]) * CBC W AUTO DIFFERENTIAL(Performed 06/04/2020) Performed for Current with history of pre-term labor in second trimester ([facility]) * SYPHILIS ANTIBODY CASCADING REFLEX(Performed 06/04/2020) Performed for Current with history of pre-term labor in second trimester ([facility]) * HIV-1 HIV-2 ANTIBODY + HIV P24 AG PANEL(Performed 06/04/2020) Performed for Current with history of pre-term labor in second trimester ([facility]) * SONOGRAM - COMPLETE(Performed 06/04/2020) * CARDIAC RHYTHM STRIP ORDER(Performed 05/21/2020) * ENDOTRACHEAL TUBE NOTE(Performed 05/19/2020) * CERCLAGE CERVIX(Performed 05/19/2020) Performed for Diagnosis unknown * SARS-COV-2 (COVID-19) IN HOUSE(Performed 05/16/2020) Performed for , unspecified gestational age ([facility]) * SARS-COV2 (COVID-19) PANEL (STL)(Performed 05/16/2020) Performed for , unspecified gestational age ([facility]) * SONOGRAM - TRANSVAGINAL(Performed 05/12/2020) Performed for History of delivery, currently in second trimester ([facility]) * GLUCOSE PROTEIN KETONE URINE - POINT OF CAR(Performed 05/12/2020) Performed for , unspecified gestational age ([facility]) * SONOGRAM - TRANSVAGINAL(Performed 04/07/2020) * GLUCOSE PROTEIN KETONE URINE - POINT OF CAR(Performed 04/07/2020) Performed for , unspecified gestational age ([facility]) * ANEUPLOIDY SCREENING(Performed 04/07/2020) * TRICHOMONAS RAPID TEST(Performed 02/25/2020) Performed for , unspecified gestational age ([facility]) * CHLAMYDIA + GC AMPLIFIED PROBE(Performed 02/25/2020) Performed for , unspecified gestational age ([facility]) * GLUCOSE PROTEIN KETONE URINE - POINT OF CAR(Performed 02/25/2020) Performed for , unspecified gestational age ([facility]) * SONOGRAM - COMPLETE(Performed 02/25/2020) Performed for Encounter to establish gestational age using ultrasound ([facility]) * HCG URINE QUALITATIVE - POINT OF CARE(Performed 08/02/2018) Performed for History of pre-eclampsia in prior , currently ([facility]) * IMAGING/RADIOLOGY/XRAY RESULTS ORDER(Performed 07/06/2018) * NON-STRESS TEST(Performed 06/26/2018) * COMPREHENSIVE METABOLIC PANEL(Performed 06/26/2018) Performed for History of pre-eclampsia in prior , currently ([facility]) * CBC W AUTO DIFFERENTIAL(Performed 06/26/2018) Performed for History of pre-eclampsia in prior , currently ([facility]) * PROTEIN CREATININE RATIO URINE RANDOM PNL(Performed 06/26/2018) Performed for History of pre-eclampsia in prior , currently ([facility]) * BIOPHYSICAL PROFILE W NST(Performed 06/26/2018) Performed for History of pre-eclampsia in prior , currently ([facility]), Threatened premature labor in third trimester ([facility]), Short cervix * CYTOMEGALOVIRUS ANTIBODY IGG/IGM BLOOD(Performed 06/22/2018) Performed for Poor growth affecting management of mother in third trimester, fetus 1 of multiple gestation ([facility]) * TOXOPLASMA ANTIBODY IGG/IGM PANEL(Performed 06/22/2018) Performed for Poor growth affecting management of mother in third trimester, fetus 1 of multiple gestation ([facility]) * HEPATITIS B SURFACE ANTIGEN W RFLX CONFIRMATION(Performed 06/22/2018) Performed for , unspecified gestational age ([facility]) * RPR(Performed 06/22/2018) Performed for , unspecified gestational age ([facility]) * HIV-1 HIV-2 ANTIBODY + HIV P24 AG PANEL(Performed 06/22/2018) Performed for , unspecified gestational age ([facility]) * CULTURE STREP B(Performed 06/22/2018) Performed for , unspecified gestational age ([facility]) * GLUCOSE PROTEIN KETONE URINE - POINT OF CAR(Performed 06/22/2018) Performed for , unspecified gestational age ([facility]) * BIOPHYSICAL PROFILE W NST(Performed 06/19/2018) Performed for History of pre-eclampsia in prior , currently ([facility]), Threatened premature labor in third trimester ([facility]), Short cervix * BIOPHYSICAL PROFILE W NST(Performed 06/12/2018) Performed for History of pre-eclampsia in prior , currently ([facility]), Threatened premature labor in third trimester ([facility]), Short cervix * BIOPHYSICAL PROFILE W NST(Performed 05/25/2018) Performed for History of pre-eclampsia in prior , currently ([facility]), Threatened premature labor in third trimester ([facility]), Short cervix * NONSTRESS TEST(Performed 05/19/2018) Performed for Threatened premature labor in third trimester ([facility]) * NONSTRESS TEST(Performed 05/18/2018) * BIOPHYSICAL PROFILE W NST(Performed 05/18/2018) Performed for History of pre-eclampsia in prior , currently ([facility]), Supervision ofhigh risk , antepartum ([facility]), Threatened premature labor in third trimester ([facility]), Short cervix * GLUCOSE - POINT OF [...] for Supervision of high risk , antepartum ([facility]) * SONOGRAM - COMPLETE(Performed 03/30/2018) Performed for History of pre-eclampsia in prior , currently ([facility]), Supervision ofhigh risk , antepartum ([facility]), Threatened premature labor, antepartum ([facility]) * SONOGRAM - TRANSVAGINAL(Performed 03/16/2018) Performed for Supervision of high-risk of young multigravida ([facility]), Supervision of high risk , antepartum ([facility]) * SONOGRAM - COMPLETE(Performed 03/07/2018) Performed for Supervision of high risk , antepartum ([facility]) * COMPREHENSIVE METABOLIC PANEL(Performed 11/10/2014) * CBC [...] 4.0 - 10.7 x10E9/L 10/25/2023 4:06 AM [facility] RBC Count 3.30(L) 3.90 - 5.20 x10E12/L 10/25/2023 4:06 AM [facility] Hemoglobin 8.6(L) 11.9 - 15.8 g/dL 10/25/2023 4:06 AM [facility] Hematocrit 27.7(L) 34.8 - 46.1 % 10/25/2023 4:06 AM [facility] MCV 83.9 80.0 - 98.0 fL 10/25/2023 4:06 AM [facility] MCH 26.1(L) 26.7 - 33.6 pg 10/25/2023 4:06 AM [facility] MCHC 31.0(L) 31.7 - 36.3 g/dL 10/25/2023 4:06 AM [facility] RDW-CV 14.8 11.3 - 14.8 % 10/25/2023 4:06 AM [facility] Platelet Count 230 150 - 420 x10E9/L 10/25/2023 4:06 AM [facility] MPV 10.4 7.8 - 11.4 fL 10/25/2023 4:06 AM [facility] Neutrophil % 64.1 41.0 - 74.0 % 10/25/2023 4:06 AM [facility] Lymphocyte % 24.5 17.0 - 47.0 % 10/25/2023 4:06 AM [facility] Monocyte % 8.1 3.0 - 11.0 % 10/25/2023 4:06 AM [facility] Eosinophil % 2.3 0.0 - 7.0 % 10/25/2023 4:06 AM [facility] Basophil % 0.2 0.0 - 1.6 % 10/25/2023 4:06 AM [facility] Immature Granulocytes % 0.8 0.0 - 1.0 % 10/25/2023 4:06 AM [facility] Neutrophil Absolute 8.10(H) 1.60 - 7.50 x10E9/L 10/25/2023 4:06 AM [facility] Lymphocyte Absolute 3.10 1.00 - 4.40 x10E9/L 10/25/2023 4:06 AM [facility] Monocyte Absolute 1.02(H) 0.15 - 1.00 x10E9/L 10/25/2023 4:06 AM CDT [facility] Eosinophil Absolute 0.29 0.00 - 0.60 x10E9/L 10/25/2023 4:06 AM CDT [facility] Basophil Absolute 0.03 0.00 - 0.13 x10E9/L 10/25/2023 4:06 AM CDT [facility] Blood BLOOD SPECIMEN / Unknown Lab Venipuncture / Unknown 10/25/2023 3:16 AM CDT 10/25/2023 4:00 AM CDT Stephany Otero MD LAB - HEMATOLOGY OR DERABLES [facility] [address], [place] [id number] * (ABNORMAL) BLOOD GASES CORD GHADA (ISTAT) (10/24/2023 5:42 PM CDT) Only the most recent of2 resultswithin the time period is included. pH Cord Venous POCT 7.28 7.28 - 7.40 pH 10/24/2023 5:51 PM CDT [facility] pCO2 Cord Venous POCT 40.0 35 - 45 mm hg 10/24/2023 5:51 PM CDT [facility] pO2 Cord Venous POCT 30 22 - 33 mm hg 10/24/2023 5:51 PM CDT [facility] HCO3 Cord Arterial POCT 18.8(L) 22 - 24 mmol/L 10/24/2023 5:51 PM CDT [facility] BE Cord Venous POCT Calc -7(L) -6.4 - 1.6 mmol/L 10/24/2023 5:51 PM CDT [facility] TCO2 Cord Venous POCT 20(L) 22 - 30 mmol/L 10/24/2023 5:51 PM CDT [facility] O2 Saturation % Cord Venous Calc POCT 49 % 10/24/2023 5:51 PM CDT [facility] Site CORD GHADA 10/24/2023 5:51 PM CDT [facility] Sample iSTAT CORD GHADA 10/24/2023 5:51 PM CDT [facility] Blood CORD BLOOD SPECIMEN / Unknown 10/24/2023 5:42 PM CDT 10/24/2023 5:51 PM CDT Stephany Otero MD LAB - POINT OF CARE ORDERABLES [facility] [address] [place] [address] * (ABNORMAL) BLOOD GASES CORD ART (ISTAT) (10/24/2023 5:38 PM CDT) Only the most recent of2 resultswithin the time period is included. pH Cord Arterial POCT 7.16(L) 7.20 - 7.34 pH 10/24/2023 5:51 PM CDT [facility] pCO2 Cord Arterial POCT 64.4(H) 45 - 55 mm hg 10/24/2023 5:51 PM CDT [facility] pO2 Cord Arterial POCT <15 12 - 25 mm hg 10/24/2023 5:51 PM CDT [facility] HCO3 Cord Arterial POCT 22.8 22 - 24 mmol/L 10/24/2023 5:51 PM CDT [facility] BE Cord Arterial POCT -8(L) -2.9 - 8.3 mmol/L 10/24/2023 5:51 PM CDT [facility] TCO2 Cord Arterial POCT 25 mmol/L 10/24/2023 5:51 PM CDT [facility] O2 Saturation Cord Art % Calc POCT 5 % 10/24/2023 5:51 PM CDT [facility] Site CORD ART 10/24/2023 5:51 PM CDT [facility] Sample iSTAT CORD ART 10/24/2023 5:51 PM CDT [facility] Blood CORD BLOOD SPECIMEN / Unknown 10/24/2023 5:38 PM CDT 10/24/2023 5:51 PM CDT Stephany Otero MD LAB - POINT OF CARE ORDERABLES [facility] [address] [place] [address] * EPIDURAL BLOCK PERF (10/24/2023 1:23 PM [...] Reactive Non Reactive 10/24/2023 10:10 AM CDT [facility] Comment: No Laboratory evidence of syphilis infection. Note: Circulating antibodies may be low or undetectable in early infection. If recent exposure is suspected, re-draw sample in 2-4 weeks and repeat testing. Blood BLOOD SPECIMEN / Unknown Venipuncture / Unknown 10/24/2023 9:16 AM CDT 10/24/2023 9:19 AM CDT Stephany Otero MD LAB - SEROLOGY ORDE RABLES Performing Organization Address [facility] Co de Phone Number [facility] [address] [place] [address] * TYPE + SCREEN PANEL (10/24/2023 9:16 AM CDT) Only the most recent of8 resultswithin the time period is included. ABO Rh A POS 10/24/2023 9:57 AM CDT [facility] Comment:History checked. Antibody Screen NEG 9:57 AM CDT [facility] Blood Bank BLOOD SPECIMEN / Unknown Venipuncture / Unknown 10/24/2023 9:16 AM CDT 10/24/2023 9:19 AM CDT Stephany Otero MD LAB - BLOOD BANK OR DERABLES Performing Organization Address [facility] Co de Phone Number [facility] [address] [place] [address] * (ABNORMAL) COMPREHENSIVE METABOLIC PANEL (10/24/2023 8:29 AM CDT) Only the most recent of13 resultswithin the time period is included. Glucose 138(H) 70 - 105 mg/dL 10/24/2023 9:10 AM CDT [facility] Sodium 137 136 - 145 mmol/L 10/24/2023 9:10 AM CDT [facility] Potassium 3.8 3.5 - 5.1 mmol/L 10/24/2023 9:10 AM CDT [facility] Chloride 111(H) 98 - 107 mmol/L 10/24/2023 9:10 AM CDT [facility] CO2 18(L) 22 - 29 mmol/L 10/24/2023 9:10 AM CDT [facility] Calcium 8.9 8.4 - 10.4 mg/dL 10/24/2023 9:10 AM T [facility] Anion Gap 8 6 - 16 mmol/L 10/24/2023 9:10 AM CDT [facility] BUN 6 5.3 - 18.7 mg/dL 10/24/2023 9:10 AM CDT [facility] Creatinine 0.72 0.57 - 1.11 mg/dL 10/24/2023 9:10 AM [facility] Alkaline Phosphatase 169(H) 40 - 150 U/L 10/24/2023 9:10 AM CDT [facility] ALT 9 0 - 55 U/L 10/24/2023 9:10 AM CDT [facility] AST 14 5 - 34 U/L 10/24/2023 9:10 AM T [facility] Protein Total 6.6 6.4 - 8.3 gm/dL 10/24/2023 9:10 AM [facility] Albumin 2.5(L) 3.4 - 5.0 gm/dL 10/24/2023 9:10 AM [facility] Bilirubin Total 0.2 0.2 - 1.2 mg/dL 10/24/2023 9:10 AM [facility] eGFR by CKD-EPI >90 >=90 mL/min/1.7 3 m2 10/24/2023 9:10 AM [facility] Blood BLOOD SPECIMEN / Unknown Venipuncture / Unknown 10/24/2023 8:29 AM CDT 10/24/2023 8:38 AM CDT Stephany Otero MD LAB - CHEMISTRY ORD ERABLES [facility] [address] [place] [address] * PROTEIN CREATININE RATIO URINE RANDOM PNL (10/24/2023 8:29 AM CDT) Only the most recent of6 resultswithin the time period is included. Protein Urine 9.5 <11.9 mg/dL 10/24/2023 9:12 AM CDT [facility] Creatinine Urine 144.77 mg/dL 10/24/2023 9:12 AM [facility] Protein/Creatin ine Ratio Urine 0.07 10/24/2023 9:12 AM CDT [facility] Urine URINE SPECIMEN OBTAINED BY CLEAN CATCH PROCEDURE / Unknown Collection / Unknown 10/24/2023 8:29 AM CDT 10/24/2023 8:38 AM CDT Stephany Otero MD LAB - URINE AUTO WHEEL ALIGNMENT SPECIALIST RY ORDERABLES [facility] [address] [place] [address] * (ABNORMAL) URINALYSIS - POCT (IP) BEAKER INTERFACE (10/13/2023 11:06 AM CDT) Only the most recent of4 resultswithin the time period is included. Color UA POCT Yellow Straw, Yellow, Dark Yellow, Light Yellow 10/13/2023 11:08 AM CDT [facility] Clarity UA POCT Clear Clear 11:08 AM CDT [facility] Specific [place] UA POCT 1.020 1.005 - 1.030 10/13/2023 11:08 AM CDT [facility] pH UA POCT 6.5 5.0 - 8.0 pH 10/13/2023 11:08 AM T [facility] Protein UA POCT 1+(A) Negative 11:08 AM CDT [facility] Blood UA POCT Negative Negative 10/13/2023 11:08 AM CDT [facility] Leukocyte UA POCT 1+(A) Negative 10/13/2023 11:08 AM CDT [facility] Nitrite UA POCT Negative Negative 11:08 AM CDT [facility] Glucose UA POCT Negative Negative 11:08 AM T [facility] Ketone UA POCT Negative Negative 10/13/2023 11:08 AM T [facility] Bilirubin UA POCT Negative Negative 10/13/2023 11:08 AM CDT [facility] Urobilinogen UA POCT 1.0 0.1 - 1.0 EU/dL 10/13/2023 11:08 AM T [facility] Urine URINE / Unknown 10/13/2023 1 1:06 AM CDT 10/13/2023 11:08 AM CDT Aicha Johnson MD LAB - P [facility] C[facility] ORDERABLES [facility] [address] [place] [address] * IMAGING RADIOLOGY XRAY RESULTS ORDER (10/11/2023 [...] OTHER INFORMATION Fiorella Ortega, JLUIS Non-Stress Test [facility] Patient Name: Tisha Patrick LMP: No LMP [...] was not present for the procedure. Audra Rice MD, FACOG Professor, [facility] [employer] Division of Maternal- Medicine Department of Obstetrics, Gynecology, and Women's Health Adolfo Childs MD PROCEDURE/MINOR SURGICAL ORDERABLES * CULTURE STREP B (10/06/2023 12:16 PM CDT) Only the most recent of5 resultswithin the time period is included. Culture Strep B Negative for beta-hemolytic Streptococcus Group B ABEL 10/09/2023 12:15 PM CDT [facility] Microbiology MISCELLANEOUS SAMPLES / Unknown Collection / Unknown 10/06/2023 12:16 PM CDT 10/06/2023 12:24 PM CDT Siddharth Monahan MD LAB - MICROBIOLOGY O RDERABLES [facility] [address] [place] [address], [facility] [phone] * SONOGRAM - COMPLETE (09/29/2023 12:10 PM CDT) Only the most recent of11 resultswithin the time period is included. Anatomical Region Laterality Modality Other 09/29/2023 12:1 0 PM CDT Narrative 09/29/2023 1:34 PM CDT [facility] [place] PHONE: FAX: Pat. Name: TISHA PATRICK Dandre Pat. No: [id number] Study Date: 09/29/2023 12:10pm , Age: 04 1990, 33 Pregnancies: 7, Para 1233 Height: 64 in Weight: 183 lb LMP: Unknown GA by Base: 35w0d LI: 11/03/2023 GA by US: 33w4d LI: 11/13/2023 GA Selected: 35w0d (From [facility]) LI: 11/03/2023 Referring MD: MD Amanda, [facility] Statistical Clerk: Kelly West RDMS CPT4: 13654 BMI: 31.41 Hist/Ind: Obesity class I, Asthma Prior preeclampsia x 3, Prior PTB x2 Low-risk cf-DNA Cerclage placed @ 16 weeks SGA with AC <10th% @ 30 weeks MEASUREMENTS & AGE GROWTH EVALUATION Measurement GA Range Srce %for GA Ratios ----- ---- ------- BPD 8.2 cm 32w6d (70f7m-84o1s) Hadl BPD 5% FL/BPD 0.83 (0.71 - 0.87) HC 30.1 cm 33w2d (61k7c-67l6o) Hadl HC 1% FL/AC 0.23 (0.20 - 0.24) AC 30.0 cm 34w0d (79j4n-59h4g) Hadl AC 27% HC/AC 1.00 (0.94 - 1.13) FL 6.8 cm 34w5d (27i2a-17r8h) Hadl FL 35% CI 0.77 (0.70 - 0.86) HL 5.7 cm 33w2d (45a5w-68a8y) Juan M HL 23% GA for sonogram 33w4d (94e4m-31w6u) Weight Estimate: based on (BPD,HC,AC,FL) [place] Weight: [...] <Electronic Signature> 09/29/2023 01:34pm Siddharth Monahan MD [facility] ORDERABLES * HIV-1 HIV-2 ANTIBODY + HIV P24 AG PANEL (08/29/2023 11:08 AM CDT) Only the most recent of4 resultswithin the time period is included. HIV1/2 Ab + P24 Ag Non Reactive Non Reactive 08/29/2023 12:17 PM [facility] Blood BLOOD SPECIMEN / Unknown Venipuncture / Unknown 08/29/2023 11:08 AM CDT 08/29/2023 11:28 AM CDT Narrative [facility] - 08/29/2023 12:17 PM CDT No Laboratory evidence of HIV infection. Aicha Johnson MD LAB - C HEMISTRY ORDERABLES Performing Organization Address City/[facility] Co de Phone Number [facility] [address] [place] [phone] * GLUCOSE CHALLENGE (08/29/2023 11:08 AM CDT) Only the most recent of2 resultswithin the time period is included. Glucose Challenge 117 64 - 140 mg/dL 08/29/2023 11:59 AM CDT [facility] Glucose Challenge Time 08/29/2023 11:59 AM CDT [facility] Blood BLOOD SPECIMEN / Unknown Venipuncture / Unknown 08/29/2023 11:08 AM CDT 08/29/2023 11:28 AM CDT Aicha Johnson MD LAB - C HEMISTRY ORDERABLES Performing Organization Address [facility] Healthcare/[facility] Co de Phone Number [facility] [address] [place] [phone] * (ABNORMAL) IRON + TRANSFERRIN PANEL (08/29/2023 11:08 AM CDT) Only the most recent of2 resultswithin the time period is included. Iron 36(L) 40 - 150 ug/dL 08/29/2023 11:53 AM CDT [facility] Transferrin 375 174 - 382 mg/dL 08/29/2023 11:53 AM CDT [facility] TIBC Calculated 469(H) 240 - 450 ug/dL 08/29/2023 11:53 AM CDT [facility] Iron Saturation % 8(L) 20 - 50 % 08/29/2023 11:53 AM CDT [facility] Blood BLOOD SPECIMEN / Unknown Venipuncture / Unknown 08/29/2023 11:08 AM CDT 08/29/2023 11:28 AM CDT Aicha Johnson MD LAB - C HEMISTRY ORDERABLES Performing Organization Address City/[facility] Co de Phone Number [facility] [address] [place] [phone] * FERRITIN (08/29/2023 11:08 AM CDT) Only the most recent of2 resultswithin the time period is included. Ferritin 8 5 - 204 ng/mL 08/29/2023 12:12 PM CDT [facility] Blood BLOOD SPECIMEN / Unknown Venipuncture / Unknown 08/29/2023 11:08 AM CDT 08/29/2023 11:28 AM CDT Aicha Johnson MD LAB - C HEMISTRY ORDERABLES Performing Organization Address [facility] de Phone Number [facility] [address] [place] [phone] * CARDIAC RHYTHM STRIP ORDER (05/23/2023 4:39 PM CLINICAL IMPLEMENTATION SPECIALIST) Only the most recent of2 resultswithin the time period is included. Narrative 05/23/2023 4:39 PM CLINICAL IMPLEMENTATION SPECIALIST Ordered by an unspecified provider. Scanned Document CARDIAC SERVICES ORD ERABLES * SONOGRAM - TRANSVAGINAL (05/23/2023 11:08 AM CLINICAL IMPLEMENTATION SPECIALIST) Only the most recent of4 resultswithin the time period is included. Anatomical Region Laterality Modality Other 05/23/2023 11:0 8 AM CLINICAL IMPLEMENTATION SPECIALIST Narrative 05/23/2023 12:04 PM CLINICAL IMPLEMENTATION SPECIALIST [facility] PHONE: FAX: Pat. Name: TISHA PATRICK. No: [id number] Study Date: 05/23/2023 11:08am , Age: 04 1990, 32 Pregnancies: 6, Para 3223 Height: 64 in Weight: 150 lb LMP: Unknown GA by Base: 16w4d LI: 11/03/2023 GA Selected: 16w4d (From [facility]) LI: 11/03/2023 Referring MD: MD Amanda, [facility] Statistical Clerk: Roxanna Lockwood [facility] CPT4: 29860,28807 BMI: 25.74 Hist/Ind: Cerclage placed 05/19/23 Unknown LMP Asthma Hx Pre E x 3 Hx PTD- 33wks and 36wks Hx TAB Hx cerclage x 1 Hx HELLP MEASUREMENTS & AGE GROWTH EVALUATION Measurement GA Range Srce %for GA Ratios ----- ---- ------- Cere 1.6 cm 16w5d ([id number]) Nicola Dobson63% Cervix: Length: 3.5 cm Approach: [...] ORDERABLES * Neuraxial Block (05/19/2023 1:49 PM CLINICAL IMPLEMENTATION SPECIALIST) Narrative Dannielle Solitario APRN-PATIENT PORTAL CONCIERGE - 05/19/2023 1:49 PM Dannielle Doherty APRN-CRNA [...] PAP IG LB+HPV APTIMA (05/04/2023 3:44 PM CLINICAL IMPLEMENTATION SPECIALIST) Diagnosis Comment 05/09/2023 3:08 PM CLINICAL IMPLEMENTATION SPECIALIST [facility] ([facility]) Comment:NEGATIVE FOR INTRAEP ITHELIAL LESION OR MALIGNANCY. Specimen Adequacy Comment 023 3:08 PM CLINICAL IMPLEMENTATION SPECIALIST [facility] ([facility]) Comment: Satisfactory for evaluation. Endocervical and/or squamous metaplastic cells (endocervical component) are present. Performed by Comment 05/09/2023 3:08 PM CLINICAL IMPLEMENTATION SPECIALIST [facility] ([facility]) Comment:Nadir Sadler totechnologist Comment . 05/09/2023 3:08 PM CLINICAL IMPLEMENTATION SPECIALIST [facility] ([facility]) Note Comment 05/09/2023 3:08 PM CLINICAL IMPLEMENTATION SPECIALIST [facility] ([facility]) Comment: The Pap smear is a screening test designed to aid in the detection of premalignant and malignant conditions of the uterine cervix. It is not a diagnostic procedure and should not be used as the sole means of detecting cervical cancer. Both false-positive and false-negative reports do occur. IGLBP CPT Code Automation Comment 05/09/2023 3:08 PM CLINICAL IMPLEMENTATION SPECIALIST [facility] ([facility]) Comment: This liquid based ThinPrep(R) pap test was screened with the use of an image guided system. Human papillomavirus Aptima Negative Negative 05/09/2023 3:08 PM CLINICAL IMPLEMENTATION SPECIALIST [facility] ([facility]) Comment: This nucleic acid amplification test detects fourteen high-risk HPV types (16,18,31,33,35,39,45,51,52,56,58,59,66,68) without differentiation. Pathology/Cytolo gy PART OF UTERINE CERVIX / Unknown Collection / Unknown 05/04/2023 3:44 PM CLINICAL IMPLEMENTATION SPECIALIST 05/04/2023 4:16 PM CLINICAL IMPLEMENTATION SPECIALIST Narrative [facility] ([facility]) - 05/09/2023 3:08 PM CLINICAL IMPLEMENTATION SPECIALIST Performed at: 01 - [address] [id number] Distribution Accounting Clerk: Kristyn Kramer MD, Phone: [phone] Performed at: 02 - [address] [id number] Distribution Accounting Clerk: Kristyn Kramer MD, Phone: [phone] Specimen Comment: No. of containers..01 ThinPrep Vial Evelin Joaquin MD LAB - PATHOLOGY/CYTO LOGY ORDERABLES [facility] ([facility]) [address] [place] [address] * HEMOGLOBINOPATHY FRACTIONATION CASCADE (05/04/2023 3:43 PM CLINICAL IMPLEMENTATION SPECIALIST) Hemoglobin F 0.0 0.0 - 2.0 % 05/06/2023 4:11 PM CLINICAL IMPLEMENTATION SPECIALIST [facility] ([facility]) Hemoglobin A 97.4 96.4 - 98.8 % 05/06/2023 4:11 PM CLINICAL IMPLEMENTATION SPECIALIST [facility] ([facility]) Hemoglobin A2 2.6 1.8 - 3.2 % 05/06/2023 4:11 PM CLINICAL IMPLEMENTATION SPECIALIST [facility] ([facility]) Hemoglobin S 0.0 0.0 % 05/06/2023 4:11 PM CLINICAL IMPLEMENTATION SPECIALIST [facility] ([facility]) Interpretation Comment 05/06/2023 4:11 PM CLINICAL IMPLEMENTATION SPECIALIST [facility] ([facility]) Comment: Normal hemoglobin present; no hemoglobin variant or beta thalassemia identified. Note: Alpha thalassemia may not be detected by the Hgb Fractionation [place] panel. If alpha thalassemia is suspected, [facility] offers Alpha-Thalassemia DNA Analysis (#[id number]). Blood BLOOD SPECIMEN / Unknown Venipuncture / Unknown 05/04/2023 3:43 PM CLINICAL IMPLEMENTATION SPECIALIST 05/04/2023 4:13 PM CLINICAL IMPLEMENTATION SPECIALIST Narrative [facility] ([facility]) - 05/06/2023 4:11 PM CLINICAL IMPLEMENTATION SPECIALIST Performed at: [address] [id number] Distribution Accounting Clerk: Terrell Henderson PhD, Phone: [phone] Evelin Joaquin MD LAB - CHEMISTRY ORDDandre [facility] Performing Organization Address City/[facility]/ZIP Co de Phone Number [facility] ([facility]) [address] [place] [address] * TREPONEMA PALLIDUM AB (05/04/2023 3:43 PM CLINICAL IMPLEMENTATION SPECIALIST) Treponema pallidum Antibody (TP-PA) Non Reactive Non Reactive 05/06/2023 4:11 PM CLINICAL IMPLEMENTATION SPECIALIST [facility] ([facility]) Blood BLOOD SPECIMEN / Unknown Venipuncture / Unknown 05/04/2023 3:43 PM CLINICAL IMPLEMENTATION SPECIALIST 05/04/2023 4:15 PM CLINICAL IMPLEMENTATION SPECIALIST Narrative [facility] ([facility]) - 05/06/2023 4:11 PM CLINICAL IMPLEMENTATION SPECIALIST Performed at: [address] [place] [id number] Distribution Accounting Clerk: Terrell Henderson PhD, Phone: [phone] Evelin Joaquin MD LAB - SEROLOGY ORDER ANNA Performing Organization Address City/[facility]/ZIP Co de Phone Number [facility] ([facility]) [address] [place] [address] * RUBELLA ANTIBODY IGG (05/04/2023 3:43 PM CLINICAL IMPLEMENTATION SPECIALIST) [facility] Rubella Antibody 4.70 Immune >0.99 index 05/06/2023 6:11 AM CLINICAL IMPLEMENTATION SPECIALIST [facility] ([facility]) Comment: Non-immune <0.90 Equivocal 0.90 - 0.99 Immune >0.99 Blood BLOOD SPECIMEN / Unknown Venipuncture / Unknown 05/04/2023 3:43 PM CLINICAL IMPLEMENTATION SPECIALIST 05/04/2023 4:13 PM CLINICAL IMPLEMENTATION SPECIALIST Narrative [facility] ([facility]) - 05/06/2023 6:11 AM CLINICAL IMPLEMENTATION SPECIALIST Performed at: [address] [place] [id number] Distribution Accounting Clerk: Terrell Henderson PhD, Phone: [phone] Evelin Joaquin MD LAB - SEROLOGY ORDER ANNA Performing Organization Address City/[facility]/ZIP Co de Phone Number [facility] ([facility]) [address] [place] [address] * HEPATITIS B SURFACE ANTIGEN W RFLX CONFIRMATION (05/04/2023 3:43 PM CLINICAL IMPLEMENTATION SPECIALIST) Only the most recent of2 resultswithin the time period is included. [facility] HBsAg Non Reactive Non Reactive 05/04/2023 5:02 PM CLINICAL IMPLEMENTATION SPECIALIST [facility] Blood BLOOD SPECIMEN / Unknown Venipuncture / Unknown 05/04/2023 3:43 PM CLINICAL IMPLEMENTATION SPECIALIST 05/04/2023 4:13 PM CLINICAL IMPLEMENTATION SPECIALIST Evelin Joaquin MD LAB - CHEMISTRY ORDE CASSY [facility] [address] [place] [address] * HEPATITIS C ANTIBODY (05/04/2023 3:43 PM CLINICAL IMPLEMENTATION SPECIALIST) [facility] HCV Antibody Screen Non Reactive Non Reactive 05/04/2023 5:03 PM CLINICAL IMPLEMENTATION SPECIALIST [facility] Blood BLOOD SPECIMEN / Unknown Venipuncture / Unknown 05/04/2023 3:43 PM CLINICAL IMPLEMENTATION SPECIALIST 05/04/2023 4:13 PM CLINICAL IMPLEMENTATION SPECIALIST Narrative [facility] - 05/04/2023 5:03 PM CLINICAL IMPLEMENTATION SPECIALIST Non Reactive - Antibodies to Hepatitis C virus (HCV) were not detected, result does not exclude early acute HCV infection. Evelin Joaquin MD LAB - CHEMISTRY SUELLENDandre MADERA [facility] [address] [place] [address] * TRICHOMONAS VAGINALIS AMPLIFIED PROBE (05/04/2023 3:34 PM CLINICAL IMPLEMENTATION SPECIALIST) Trichomonas vaginalis Amplified Probe Negative Negative 05/04/2023 11:44 PM CLINICAL IMPLEMENTATION SPECIALIST [facility] Microbiology ENTIRE ENDOCERVIX / Unknown Collection / Unknown 05/04/2023 3:34 PM CLINICAL IMPLEMENTATION SPECIALIST 05/04/2023 4:16 PM CLINICAL IMPLEMENTATION SPECIALIST Narrative [facility] - 05/04/2023 11:44 PM CLINICAL IMPLEMENTATION SPECIALIST Results based on detection/no detection of ribosomal RNA by amplified method. Evelin Joaquin MD LAB - MICROBIOLOGY O ABBI Performing Organization Address City/[facility]/ZIP Co de Phone Number [facility] [address] [place] [address], [facility] [phone] * CHLAMYDIA + GC AMPLIFIED PROBE (05/04/2023 3:34 PM CLINICAL IMPLEMENTATION SPECIALIST) Only the most recent of2 resultswithin the time period is included. Chlamydia Amplified Probe Negative Negative 05/05/2023 12:42 AM CLINICAL IMPLEMENTATION SPECIALIST [facility] GC Amplified Probe Negative Negative 05/05/2023 12:42 AM CLINICAL IMPLEMENTATION SPECIALIST [facility] Microbiology ENTIRE ENDOCERVIX / Unknown Collection / Unknown 05/04/2023 3:34 PM CLINICAL IMPLEMENTATION SPECIALIST 05/04/2023 4:16 PM CLINICAL IMPLEMENTATION SPECIALIST Narrative [facility] - 05/05/2023 12:42 AM CLINICAL IMPLEMENTATION SPECIALIST Results based on detection/no detection of ribosomal RNA by amplified method. Evelin Joaquin MD LAB - MICROBIOLOGY O ABBI [facility] [address] [place] [address], [facility] [phone] * CULTURE URINE (05/04/2023 3:34 PM CLINICAL IMPLEMENTATION SPECIALIST) Only the most recent of2 resultswithin the time period is included. Pathologist [facility] Culture Urine 10,000-50,000 CFU/mL urogenital kenney ABEL 05/05/2023 9:12 PM CLINICAL IMPLEMENTATION SPECIALIST [facility] Urine URINE SPECIMEN OBTAINED BY CLEAN CATCH PROCEDURE / Unknown Collection / Unknown 05/04/2023 3:34 PM CLINICAL IMPLEMENTATION SPECIALIST 05/04/2023 4:16 PM CLINICAL IMPLEMENTATION SPECIALIST Evelin Joaquin MD LAB - MICROBIOLOGY O RDERABLES [facility] [address] [place] [address], [facility] [phone] * (ABNORMAL) CBC W/O DIFFERENTIAL (05/04/2023 3:34 PM CLINICAL IMPLEMENTATION SPECIALIST) Only the most recent of2 resultswithin the time period is included. WBC 7.2 4.4 - 10.7 x10E9/L 05/04/2023 4:25 PM CLINICAL IMPLEMENTATION SPECIALIST [facility] RBC 4.10 3.80 - 5.20 x10E12/L 05/04/2023 4:25 PM CLINICAL IMPLEMENTATION SPECIALIST [facility] Hemoglobin 11.6(L) 12.0 - 15.6 gm/dL 05/04/2023 4:25 PM CLINICAL IMPLEMENTATION SPECIALIST [facility] Hematocrit 35.8(L) 35.9 - 45.5 % 05/04/2023 4:25 PM CLINICAL IMPLEMENTATION SPECIALIST [facility] MCV 87.3 80.7 - 98.3 fl 05/04/2023 4:25 PM CLINICAL IMPLEMENTATION SPECIALIST [facility] MCH 28.3 26.7 - 34.0 pg 05/04/2023 4:25 PM CLINICAL IMPLEMENTATION SPECIALIST [facility] MCHC 32.4 30.8 - 35.9 gm/dL 05/04/2023 4:25 PM CLINICAL IMPLEMENTATION SPECIALIST [facility] Platelet Count 259 153 - 416 x10E9/L 05/04/2023 4:25 PM CLINICAL IMPLEMENTATION SPECIALIST [facility] RDW-CV 12.6 12.1 - 14.9 % 05/04/2023 4:25 PM CLINICAL IMPLEMENTATION SPECIALIST [facility] MPV 9.8 9.4 - 12.9 fl 05/04/2023 4:25 PM CLINICAL IMPLEMENTATION SPECIALIST [facility] Blood BLOOD SPECIMEN / Unknown Venipuncture / Unknown 05/04/2023 3:34 PM CLINICAL IMPLEMENTATION SPECIALIST 05/04/2023 4:14 PM CLINICAL IMPLEMENTATION SPECIALIST Evelin Joaquin MD LAB - HEMATOLOGY ORD ERABLES [facility] [address] [place] [address] * ANEUPLOIDY SCREENING (05/04/2023) Only the most [...] (08/31/2020 1:28 PM CDT) Narrative Dannielle Solitario APRN-PATIENT PORTAL CONCIERGE - 08/31/2020 1:28 PM CDT Dannielle Solitario [...] Monahan MD LAB - URINALYSIS ORD ERABLES [facility] [address] [place] [address] * (ABNORMAL) URINALYSIS REFLEX MICROSCOPIC REFLEX CULTURE (08/31/2020 8:18 AM CDT) Only the most recent of2 resultswithin the time period is included. Color UA Yellow Straw, Yellow 08/31/2020 8:38 AM CDT [facility] Clarity UA Slt Cloudy(A) Clear 08/31/2020 8:38 AM CDT [facility] Glucose UA Negative Negative 08/31/2020 8:38 AM CDT [facility] Bilirubin UA Negative Negative 08/31/2020 8:38 AM CDT [facility] Ketone UA Negative Negative 08/31/2020 8:38 AM CDT [facility] Specific [place] UA 1.024 1.005 - 1.030 08/31/2020 8:38 AM CDT [facility] Blood UA 1+(A) Negative 08/31/2020 8:38 AM CDT [facility] pH UA 6.0 5.0 - 8.0 pH 08/31/2020 8:38 AM CDT [facility] Protein UA 1+(A) Negative 08/31/2020 8:38 AM CDT [facility] Urobilinogen UA 4.0(A) Negative mg/dL 08/31/2020 8:38 AM CDT [facility] Nitrite UA Negative Negative 08/31/2020 8:38 AM CDT [facility] Leukocyte UA 1+(A) Negative 08/31/2020 8:38 AM CDT [facility] Urine Microscopy Urine microscopy to follow 08/31/2020 8:38 AM CDT [facility] Reflex Status Culture to follow 08/31/2020 8:38 AM T [facility] Urine URINE SPECIMEN OBTAINED BY CLEAN CATCH PROCEDURE / Unknown Collection / Unknown 08/31/2020 8:18 AM CDT 08/31/2020 8:28 AM CDT Narrative [facility] - 08/31/2020 8:38 AM CDT Siddharth Monahan MD LAB - URINALYSIS ORD ERABLES [facility] [address] [place], [place] [phone] * NONSTRESS TEST (08/31/2020 7:35 AM CDT) [...] OTHER INFORMATION Germaine Burrows RN Non-Stress Test [facility] Patient Name: Tisha Patrick LMP: Patient's last [...] - POINT OF CARE (08/07/2020 10:47 AM CLINICAL IMPLEMENTATION SPECIALIST) Only the most recent of5 resultswithin the time period is included. Glucose UA neg Negative [facility] Protein UA trace Negative [facility] Ketone UA neg Negative [facility] QC Verified Yes Yes [facility] POC T TESTING Urine URINE / Unknown 08/07/2020 1 0:47 AM CLINICAL IMPLEMENTATION SPECIALIST Aicha Mccauley MD LAB - POINT OF [place] RE ORDERABLES [facility] [address] [phone] * NONSTRESS TEST (07/17/2020 2:19 AM CLINICAL IMPLEMENTATION SPECIALIST) Narrative Stephany Otero MD - 07/17/2020 2:19 AM CLINICAL IMPLEMENTATION SPECIALIST Heavenly Ordoñez MD 07/17/2020 7:05 AM Name: [...] 1 variable deceleration to 50s, overall reassuring [place]: no contractions A/P: well-being reassuring Heavenly Ordoñez MD 07/17/2020 7:04 AM Stephany Otero MD OB [facility] ORDERABLES * ETT LINE PERFORMABLE (05/19/2020 11:48 AM CLINICAL IMPLEMENTATION SPECIALIST) Narrative Tennille Ivey APRN-CRNA - 05/19/2020 11:48 AM CLINICAL IMPLEMENTATION SPECIALIST Tennille Ivey APRN-CRNA 05/19/2020 11:48 AM Endotracheal Tube Placement: Patient Location: OR. Intubation Event Date/Time: 05/19/2020 11:33 AM Procedure: intubation ([id number]). Procedure Section: Sedation: under general anesthesia. Indications [...] SARS-COV-2 (COVID-19) IN HOUSE (05/16/2020 3:00 PM CLINICAL IMPLEMENTATION SPECIALIST) COVID-19 PCR Not detected Not detected 05/17/2020 2:44 AM [facility] Microbiology SPECIMEN FROM NASOPHARYNGEAL STRUCTURE / Unknown Collection / Unknown 05/16/2020 3:00 PM CLINICAL IMPLEMENTATION SPECIALIST 05/16/2020 3:07 PM CLINICAL IMPLEMENTATION SPECIALIST Narrative [facility] - 05/17/2020 2:44 AM CLINICAL IMPLEMENTATION SPECIALIST This nucleic acid amplification assay performance was validated by [facility]. This test has been [...] Parker MD LAB - MICROBIOLOGY O ABBI [facility] [address] [place], [place] [address] [place] [address] * TRICHOMONAS RAPID TEST (02/25/2020 11:11 AM CDT) Only the most recent of2 resultswithin the time period is included. Trichomonas Rapid Test Negative Negative 02/25/2020 1:24 PM CDT [facility] Microbiology VAGINAL SWAB / Unknown Collection / Unknown 02/25/2020 11:11 AM CDT 02/25/2020 11:25 AM CDT Laila Cruz MD LAB - MICROBIOLOGY O ABBI [facility] [address] [place] [address] * HCG URINE QUALITATIVE - POINT OF CARE (08/02/2018 2:24 PM CLINICAL IMPLEMENTATION SPECIALIST) Pathologist [facility] HCG Qual Urine Negative Negative [facility] POCT TESTING QC Verified Yes Yes [facility] POC T TESTING Urine URINE / Unknown 08/02/2018 2 :24 PM CLINICAL IMPLEMENTATION SPECIALIST Joel Cabrera MD LAB - POINT OF CARE ORDERABLES [facility] POCT TESTING [address] [place] [address], [facility] [phone] * BIOPHYSICAL PROFILE W NST (06/26/2018 10:25 AM CLINICAL IMPLEMENTATION SPECIALIST) Only the most recent of6 resultswithin the time period is included. Anatomical Region Laterality Modality Other 06/26/2018 10:2 5 AM CLINICAL IMPLEMENTATION SPECIALIST Narrative 06/26/2018 12:19 PM CLINICAL IMPLEMENTATION SPECIALIST Cassie OLIVARE[facility] PHONE: FAX: Pat. Name: TISHA PATRICK Mi. No: [id number] Study Date: 06/26/2018 10:25am , Age: 04 1990, 27 Pregnancies: 4, Para 1, Ab 2 Height: 64 in Weight: 156 lb LMP: Unknown GA by Base: 36w2d LI: 07/22/2018 GA Selected: 36w2d (From [facility]) LI: 07/22/2018 Referring MD: Graeme John MD Statistical Clerk: Kaela Duncan RDMS CPT4: [id number] BMI: 26.77 Hist/Ind: History of preeclampsia, FGR, [...] <Electronic Signature> 06/26/2018 12:19pm Rama Conrad MD [facility] ORDERABLES * RPR (06/22/2018 11:26 AM CLINICAL IMPLEMENTATION SPECIALIST) Only the most recent of2 resultswithin the time period is included. Pathologist [facility] RPR Non Reactive Non Reactive 06/23/2018 7:28 AM CLINICAL IMPLEMENTATION SPECIALIST [facility] Blood BLOOD SPECIMEN / Unknown Venipuncture / Unknown 06/22/2018 11:26 AM CLINICAL IMPLEMENTATION SPECIALIST 06/22/2018 11:45 AM CLINICAL IMPLEMENTATION SPECIALIST Ela Hurt MD LAB - CHEMISTRY ORD ERABLES [facility] [address] [place] [address] * (ABNORMAL) CYTOMEGALOVIRUS ANTIBODY IGG/IGM BLOOD PANEL (06/22/2018 11:26 AM CLINICAL IMPLEMENTATION SPECIALIST) Only the most recent of2 resultswithin the time period is included. [facility] Cytomegalovirus Antibody IgG 4.40(H) 0.00 - 0.59 U/mL 06/23/2018 6:19 AM [facility] ([facility]) Comment: Negative <0.60 Equivocal 0.60 - 0.69 Positive >0.69 Cytomegalovirus Antibody IgM <30.0 0.0 - 29.9 AU/mL 06/23/2018 6:19 AM [facility] ([facility]) Comment: Negative <30.0 Equivocal 30.0 - 34.9 Positive >34.9 A positive result is generally indicative of acute infection, reactivation or persistent IgM production. Blood BLOOD SPECIMEN / Unknown Venipuncture / Unknown 06/22/2018 11:26 AM CLINICAL IMPLEMENTATION SPECIALIST 06/22/2018 11:45 AM CLINICAL IMPLEMENTATION SPECIALIST Narrative [facility] ([facility]) - 06/23/2018 6:19 AM CLINICAL IMPLEMENTATION SPECIALIST Performed at: [facility] [address] [place], [place] [id number] Distribution Accounting Clerk: Terrell Henderson PhD, Phone: [phone] Ela Hurt MD LAB - CHEMISTRY ORD ERABLES Performing Organization Address City/[facility]/ZIP Co de Phone Number [facility] ([facility]) [address] [place] [address] * TOXOPLASMA ANTIBODY IGG/IGM PANEL (06/22/2018 11:26 AM CLINICAL IMPLEMENTATION SPECIALIST) Only the most recent of2 resultswithin the time period is included. Pathologist [facility] Toxoplasma gondii Antibody IgG Quantitative <3.0 0.0 - 7.1 IU/mL 06/23/2018 6:19 AM [facility] ([facility]) Comment: Negative <7.2 Equivocal 7.2 - 8.7 Positive >8.7 Toxoplasma Antibody IgM <3.0 0.0 - 7.9 AU/mL 06/23/2018 6:19 AM [facility] ([facility]) Comment: Negative <8.0 Equivocal 8.0 - 9.9 Positive >9.9 Comments Comment 06/23/2018 6:19 AM [facility] ([facility]) Comment: No serological evidence of infection with Toxoplasma. If symptoms persist, submit a new specimen after three weeks. Blood BLOOD SPECIMEN / Unknown Venipuncture / Unknown 06/22/2018 11:26 AM CLINICAL IMPLEMENTATION SPECIALIST 06/22/2018 11:45 AM CLINICAL IMPLEMENTATION SPECIALIST Narrative [facility] ([facility]) - 06/23/2018 6:19 AM CLINICAL IMPLEMENTATION SPECIALIST Performed at: [address] [place] [id number] Distribution Accounting Clerk: Terrell Henderson PhD, Phone: [phone] Ela Hurt MD LAB - CHEMISTRY ORD ERABLES Performing Organization Address City/[facility]/ZIP Co de Phone Number [facility] ([facility]) [address] [place] [address] * (ABNORMAL) GLUCOSE - POINT OF CARE (05/04/2018 3:22 PM CLINICAL IMPLEMENTATION SPECIALIST) Only the most recent of5 resultswithin the time period is included. Pathologist [facility] Glucose WB/POC 137(H) 70 - 106 mg/dL 05/04/2018 4:02 PM [facility] Blood BLOOD SPECIMEN / Unknown 05/04/2018 3:22 PM CLINICAL IMPLEMENTATION SPECIALIST 05/04/2018 4:01 PM CLINICAL IMPLEMENTATION SPECIALIST Miranda Gar MD LAB - POINT OF CARE ORDERABLES [facility] [address] [place] [address] * CHLAMYDIA + GC AMPLIFIED PROBE (05/03/2018 12:23 PM CLINICAL IMPLEMENTATION SPECIALIST) Only the most recent of2 resultswithin the time period is included. Chlamydia Amplified Probe Negative Negative 05/04/2018 10:35 AM CLINICAL IMPLEMENTATION SPECIALIST [facility] GC Amplified Probe Negative Negative 05/04/2018 10:35 AM [facility] Microbiology URINE / Unknown Collection / Unknown 05/03/2018 12:23 PM CLINICAL IMPLEMENTATION SPECIALIST 05/03/2018 12:32 PM CLINICAL IMPLEMENTATION SPECIALIST Narrative [facility] - 05/04/2018 10:35 AM CLINICAL IMPLEMENTATION SPECIALIST Results based on detection/no detection of ribosomal RNA by amplified method. Aicha Wood MD LAB - MICROBIOLOGY ORDERABLES Performing Organization Address [facility] de Phone Number [facility] [address] [phone] * (ABNORMAL) PT PTT PANEL (11/09/2014 9:00 AM CDT) Only the most recent of4 resultswithin the time period is included. Pathologist [facility] PT <9.5(L) 9.5 - 11.6 sec 11/09/2014 9:38 AM CDT [facility] INR 0.9 0.9 - 1.1 11/09/2014 9:38 AM CDT [facility] PTT 27.2 21.0 - 32.0 sec 11/09/2014 9:38 AM CDT [facility] Blood BLOOD SPECIMEN / Unknown Venipuncture / Unknown 11/09/2014 9:00 AM CDT 11/09/2014 9:11 AM CDT Narrative [facility] - 11/09/2014 9:38 AM CDT Conventional Warfarin Anticoagulant Therapy INR Reference Range: 2.0-3.0 Intensive Warfarin Anticoagulant Therapy INR Reference Range: 2.5-3.5 Heparin Therapeutic Range for PTT: 44.4 - 78.3 seconds. Karin Lee MD LAB - COAGULATION OR DERABLES [facility] [address] [place] [address] * (ABNORMAL) FIBRINOGEN ACTIVITY (11/08/2014 3:12 PM CDT) Only the most recent of2 resultswithin the time period is included. Fibrinogen 455(H) 200 - 400 mg/dL 11/08/2014 4:11 PM CDT [facility] Blood BLOOD SPECIMEN / Unknown Venipuncture / Unknown 11/08/2014 3:12 PM CDT 11/08/2014 3:19 PM CDT Karin Lee MD LAB - COAGULATION OR DERABLES [facility] [address] [place] [address] * GROSS + MICRO EXAM (STL) (11/08/2014 12:57 PM CDT) Case Report Surgical Pathology Report Case: [id number] Authorizing Provider: Edouard Gonzalez MD Collected: 11/08/2014 12:57 PM Ordering Location: [facility] LDR Received: 11/09/2014 05:42 AM Pathologist: Venus Farr MD Specimen: Placenta 3rd Trimester 11/11/2014 4:10 PM CDT [facility] Final Diagnosis 1. Placenta, delivery: -- Third trimester placenta -- Three vessel umbilical cord -- Unremarkable membranes -- Scattered calcifications /scs 11/11/2014 4:10 PM CDT [facility] Gross Description Received in formalin in [...] disc reveal beefy red, unremarkable cut surface. Bobtailer sections are submitted as follows: A1 - customer success representative section of the umbilical cord and placental membranes; A2 and A3 - customer success representative sections of the placental disc. /arm 11/11/2014 4:10 PM CDT [facility] Microscopic Description Sections of the umbilical cord show three vessels with no evidence of vasculitis or funisitis. Sections of the membranes show unremarkable histology and are free of inflammation. Meconium is not seen. Sections of the placental disc show maturing chorionic villi with no evidence of hemorrhage or infarction. MC/scs 11/11/2014 4:10 PM CDT [facility] Pathology/Cytolo gy ENTIRE PLACENTA / Unknown 11/08/2014 12:57 PM CDT 11/09/2014 5:42 AM CDT Edouard Gonzalez MD LAB - PATHOLOGY/CYTO LOGY ORDERABLES Performing Organization Address City/State/[facility] Co de Phone Number [facility] [address] [place] [address] * NEURAXIAL BLOCK (11/08/2014 7:58 AM CDT) [...] Block Performed by: Ольга Carias CRNA Tali Besnon MD [facility] [place] ORDERABLES * URIC ACID BLOOD (11/07/2014 4:04 PM CDT) Uric Acid 3.4 2.5 - 6.2 mg/dL 11/07/2014 4:39 PM CDT [facility] Blood BLOOD SPECIMEN / Unknown Venipuncture / Unknown 11/07/2014 4:04 PM CDT 11/07/2014 4:15 PM CDT Rene Burger MD LAB - CHEMISTRY ORDERABLES Performing Organization Address City/State/[facility] Co de Phone Number [facility] [address] [place] [address] * DRUG SCREEN TOX URINE PANEL (11/07/2014 4:04 PM CDT) Pathologist [facility] Amphetamines Screen Urine Not Detected Not Detected 11/07/2014 4:29 PM CDT [facility] Barbiturates Screen Urine Not Detected Not Detected 11/07/2014 4:29 PM CDT [facility] Benzodiazepines Screen Urine Not Detected Not Detected 11/07/2014 4:29 PM CDT [facility] Cannabinoids Screen Urine Not Detected Not Detected 11/07/2014 4:29 PM CDT [facility] Cocaine Screen Urine Not Detected Not Detected 11/07/2014 4:29 PM CDT [facility] Methadone Screen Urine Not Detected Not Detected 11/07/2014 4:29 PM CDT [facility] Opiate Screen Urine Not Detected Not Detected 11/07/2014 4:29 PM CDT [facility] Phencyclidine Screen Urine Not Detected Not Detected 11/07/2014 4:29 PM CDT [facility] Urine URINE / Unknown Collection / Unknown 11/07/2014 4:04 PM CDT 11/07/2014 4:15 PM CDT Narrative [facility] - 11/07/2014 4:29 PM CDT This [...] URINE CHEM ISTRY ORDERABLES Performing Organization Address [facility] Co de Phone Number [facility] [address] [place] [phone] * (ABNORMAL) LDH BLOOD (11/07/2014 4:04 PM CDT) LDH 225(H) 100 - 200 U/L 11/07/2014 4:39 PM CDT [facility] Blood BLOOD SPECIMEN / Unknown Venipuncture / Unknown 11/07/2014 4:04 PM CDT 11/07/2014 4:15 PM CDT Rene Burger MD LAB - CHEMISTRY ORDERABLES Performing Organization Address [facility] de Phone Number [facility] [address] [place], [place] [phone] * LIPASE BLOOD (11/05/2014 4:52 PM CDT) Lipase 78 73 - 393 U/L 11/05/2014 5:39 PM CDT [facility] Blood BLOOD SPECIMEN / Unknown Venipuncture / Unknown 11/05/2014 4:52 PM CDT 11/05/2014 5:00 PM CDT Brit Glover MD LAB - CHEMISTRY ELEN MADERA Performing Organization Address [facility] Co de Phone Number [facility] [address] [place] [phone] * AMYLASE BLOOD (11/05/2014 4:52 PM CDT) Amylase 45 15 - 115 U/L 11/05/2014 5:39 PM CDT [facility] Blood BLOOD SPECIMEN / Unknown Venipuncture / Unknown 11/05/2014 4:52 PM CDT 11/05/2014 5:00 PM CDT Brit Glover MD LAB - CHEMISTRY ORDE RABLES Performing Organization Address [facility] Co de Phone Number [facility] [address] [place], [place] [phone] * (ABNORMAL) PROTEIN URINE TIMED QUANTITATIVE (11/05/2014 12:46 PM CDT) Volume 24 Hour Urine 2,700 mL 11/05/2014 1:20 PM CDT [facility] Collection Time Hours 24 hrs 11/05/2014 1:20 PM CDT [facility] Protein 24 Hour Urine 246(H) 42 - 225 mg/24hr 11/05/2014 1:20 PM CDT [facility] Protein Urine 9.1 mg/dL 11/05/2014 1:20 PM CDT [facility] Urine TIMED URINE SPECIMEN / Unknown Collection / Unknown 11/05/2014 12:46 PM CDT 11/05/2014 1:02 PM CDT Brit Glover MD LAB - URINE CHEMISTR Y ORDERABLES Performing Organization Address [facility]/ZIP Co de Phone Number [facility] [address] [place] [address] * (ABNORMAL) CREATININE CLEARANCE URINE TIMED (11/05/2014 12:46 PM CDT) Volume 24 Hour Urine 2,700 mL 11/05/2014 1:20 PM CDT [facility] Collection Time Hours 24 hrs 11/05/2014 1:20 PM CDT [facility] Height Inches 64 inches 11/05/2014 1:20 PM CDT [facility] Weight in Pounds 161 pounds 11/05/2014 1:20 PM CDT [facility] Surface Area 1.79 11/05/2014 1:20 PM CDT [facility] Creatinine 0.59 0.50 - 1.30 mg/dL 11/05/2014 1:20 PM CDT [facility] Creatinine Urine 23 mg/dL 11/05/2014 1:20 PM CDT [facility] Creatinine 24 Hour Urine 621(L) 800 - 1,800 mg/24hr 11/05/2014 1:20 PM CDT [facility] Creatinine Clearance 71(L) 87 - 107 mL/min/1.73 m2 11/05/2014 1:20 PM CDT [facility] Urine TIMED URINE SPECIMEN / Unknown Collection / Unknown 11/05/2014 12:46 PM CDT 11/05/2014 1:02 PM CDT Brit Glover MD LAB - URINE CHEMISTR Y ORDERABLES Performing Organization Address [facility] Co de Phone Number [facility] [address] [place] [address] * BLOOD TYPE VERIFICATION (11/05/2014 3:37 AM CDT) ABO A 11/05/2014 4:24 AM CDT [facility] Rh Type Positive 11/05/2014 4:24 AM CDT [facility] Miscellaneous samples (specimen) BLOOD SPECIMEN / Unknown Venipuncture / Unknown 11/05/2014 3:37 AM CDT 11/05/2014 3:53 AM CDT Tali Benson MD LAB - BLOOD BANK ORDERABLES Performing Organization Address [facility] Co de Phone Number [facility] [address]
--- OUTSIDE RECORDS SUMMARY | 2024-07-13 12:57 | XMS_ITS | Clinical Summary ---
Author Organization [facility] [employer] Address [address] [place] [address] Care Team Providers Care Automobile Service Station Attendant Name Role Phone Unavailable Primary Care Provider Unavailabl e Source Comments [facility],non-owned Affiliates and Associated Physician Practices is amultiple site organization consisting of ambulatory clinics and hospital sitesin [place], [place] and [place]. This disclosure is being madepursuant to the Care Everywhere program and may not contain all information available regarding this patient. Last updated 18.[facility] [employer] Allergies Active Allergy Reactions Criticality Noted Date [...] migh t be different from the original. [employer] form completed. Diapers given. 08/15/2023, 10/06/2023 Now [place] [id number] [employer] form completed. Diapers given. 08/07/2020, [...] and heating? Not hard at all 10/24/2023 [facility] of Occupat ional Health - Occupational Stress [...] place to sleep or slept in a fci (including now)? No 10/24/2023 [place] Depression Scale Answer Date Recorded [place] Depression Scale Total 0 10/26/2023 The thought [...] IG LB+HPV APTIMA Routine 05/04/2023 3:44 PM PARIMUTUEL TICKET CASHIER Cervical cerclage suture present, antepartum (HCC) HEPATITIS C ANTIBODY Routine 05/04/2023 3:43 PM PARIMUTUEL TICKET CASHIER Short cervix affecting (HCC) from Last 3 Months or Most Recently Relevant to Health Maintenance Results * HIV-1 HIV-2 ANTIBODY + HIV P24 AG PANEL (08/29/2023 11:08 AM CDT) HIV1/2 Ab + P24 Ag Non Reactive Non Reactive 08/29/2023 12:17 PM CDT [facility] Blood BLOOD SPECIMEN / Unknown Venipuncture / Unknown 08/29/2023 11:08 AM CDT 08/29/2023 11:28 AM CDT Narrative [facility] - 08/29/2023 12:17 PM CDT No Laboratory evidence of HIV infection. Aicha Johnson MD LAB - C HEMISTRY ORDERABLES [facility] [address] [place] [address] * PAP IG LB+HPV APTIMA (05/04/2023 3:44 PM PARIMUTUEL TICKET CASHIER) Diagnosis Comment 05/09/2023 3:08 PM PARIMUTUEL TICKET CASHIER [facility] ([facility]) Comment:NEGATIVE FOR INTRAEP ITHELIAL LESION OR MALIGNANCY. Specimen Adequacy Comment 023 3:08 PM PARIMUTUEL TICKET CASHIER [facility] ([facility]) Comment: Satisfactory for evaluation. Endocervical and/or squamous metaplastic cells (endocervical component) are present. Performed by Comment 05/09/2023 3:08 PM PARIMUTUEL TICKET CASHIER [facility] ([facility]) Comment:Nadir Sadler totechnologist Comment . 05/09/2023 3:08 PM PARIMUTUEL TICKET CASHIER [facility] ([facility]) Note Comment 05/09/2023 3:08 PM PARIMUTUEL TICKET CASHIER [facility] ([facility]) Comment: The Pap smear is a screening test designed to aid in the detection of premalignant and malignant conditions of the uterine cervix. It is not a diagnostic procedure and should not be used as the sole means of detecting cervical cancer. Both false-positive and false-negative reports do occur. IGLBP CPT Code Automation Comment 05/09/2023 3:08 PM PARIMUTUEL TICKET CASHIER [facility] ([facility]) Comment: This liquid based ThinPrep(R) pap test was screened with the use of an image guided system. Human papillomavirus Aptima Negative Negative 05/09/2023 3:08 PM PARIMUTUEL TICKET CASHIER [facility] ([facility]) Comment: This nucleic acid amplification test detects fourteen high-risk HPV types (16,18,31,33,35,39,45,51,52,56,58,59,66,68) without differentiation. Pathology/Cytolo gy PART OF UTERINE CERVIX / Unknown Collection / Unknown 05/04/2023 3:44 PM PARIMUTUEL TICKET CASHIER 05/04/2023 4:16 PM PARIMUTUEL TICKET CASHIER Narrative [facility] ([facility]) - 05/09/2023 3:08 PM PARIMUTUEL TICKET CASHIER Performed at: 01 - [facility] [address] [place], [place] [id number] Parking Meter Attendant: Kristyn Kramer MD, Phone: [phone] Performed at: 02 - [facility] [address] [facility] [place], [place] [id number] Parking Meter Attendant: Kristyn Kramer MD, Phone: [phone] Specimen Comment: No. of containers..01 ThinPrep Vial Evelin Joaquin MD LAB - PATHOLOGY/CYTO LOGY ORDERABLES [facility] ([facility]) [address] [place] [address] * HEPATITIS C ANTIBODY (05/04/2023 3:43 PM PARIMUTUEL TICKET CASHIER) HCV Antibody Screen Non Reactive Non Reactive 05/04/2023 5:03 PM PARIMUTUEL TICKET CASHIER [facility] Blood BLOOD SPECIMEN / Unknown Venipuncture / Unknown 05/04/2023 3:43 PM PARIMUTUEL TICKET CASHIER 05/04/2023 4:13 PM PARIMUTUEL TICKET CASHIER Narrative [facility] - 05/04/2023 5:03 PM PARIMUTUEL TICKET CASHIER Non Reactive - Antibodies to Hepatitis C virus (HCV) were not detected, result does not exclude early acute HCV infection. Evelin Joaquin MD LAB - CHEMISTRY ORDE CASSY [facility] [address] [place] [address] from Last 3 Months or Most Recently [...]
--- OUTSIDE RECORDS SUMMARY | 2024-07-13 12:57 | XMS_ITS | Encounter Summary ---
Author Organization [facility] Address [address] [place] [address] [place] [address] Care Team Providers Care Retail Pharmacy Technician Name Role Phone Unavailable Primary Care Provider Unavailabl e Reason for Visit * Reason Onset Date Comments Smoking Cessation 05/20/2020 Encounter Details Date Type Department Care Team (Late st Contact Info) Description 05/20/2020 Telephone [facility] MATERNAL/ EVALUATION UNIT [address] [place] [address] Maribel Yap, Or First Assist Registered Nurse Smoking Cessation Social History Tobacco Use Types [...] COVID-19? No / Unsure 05/16/2020 2:43 PM WIREWORKER documented as of this encounter Functional Status [...] at next visit. Maribel Yap, PharmD Candidate WORKER documented in this encounter Plan of Treatment Not on file documented as of this encounter Visit Diagnoses Not on filedocumented in this encounter
--- OUTSIDE RECORDS SUMMARY | 2024-07-13 12:57 | XMS_ITS | Encounter Summary ---
Author Organization [facility] Address [address] [place] [address] [place] [address] Care Team Providers Care Foundry Finisher Name Role Phone Unavailable Primary Care Provider Unavailabl e Reason for Visit * Reason Onset Date Comments Patient Requested Call 08/10/2018 Encounter Details Date Type Department Care Team (Late st Contact Info) Description 08/10/2018 Telephone [facility] MAT[facility]/ EVALUATION UNIT [facility] [facility] [address] [place] [address] Jodee Flores, RN Patient Requested Call Social [...] John) until she had been seen in [facility] clinic per pt 07/03. New OB in [facility] clinic was established 06/22. Pt stated she [...] in regards to housing. Pt verbalized understanding. GENIC TRANSPORT DRIVER documented in this encounter Plan of Treatment Not on file documented as of this encounter Visit Diagnoses Not on filedocumented in this encounter Additional Health Concerns Infection Onset Date Last Indicated Resolved Time COVID-19 Under Investigation 05/16/2020 05/16/2020 05/17/2020 2:44 AM CRYOGENIC TRANSPORT DRIVER documented as of this encounter
== END 2024-07-13 13:36 | disposition left against medical advice (07) ==
LOC: ANHED 12:49
PROVIDERS: Emergency Provider Emergency Medicine
DX: R05.9 Cough, unspecified (principal); Z20.822 Contact with and (suspected) exposure to COVID-19
CPT/HCPCS: 87637; 99199

== ENCOUNTER 2024-07-19 20:18 | Emergency (ER) | payer OTHER, SELFPAY ==
--- OUTSIDE RECORDS SUMMARY | 2024-07-19 20:20 | XMS_ITS | Clinical Summary ---
Author Organization [facility] [employer] Address [address] [place] [address] Care Team Providers Care Veterinary Surgeon Name Role Phone Unavailable Primary Care Provider Unavailabl e Source Comments [facility],non-owned Affiliates and Associated Physician Practices is amultiple site organization consisting of ambulatory clinics and hospital sitesin [place], [place], [place]. This disclosure is being madepursuant to the Care Everywhere program and may not contain all information available regarding this patient. Last updated 18.[facility] [employer] Allergies Active Allergy Reactions Criticality Noted Date Comments Penicillins Swelling 11/04/2014 Medications * Be aware that medications may not be up to date on this document. Alwaysverify current medications with the patient. Medication Sig Dispensed Refills Start Date End Date Status Aspirin Low Dose 81 MG tablet 04/26/2023 Active Vit-DSS-Fe Fum-FA (Se-Kofi 19) 29-1 MG TABS 04/26/2023 Active ferrous [...] migh t be different from the original. [employer] form completed. Diapers given. 08/15/2023, 10/06/2023 Now [place] [id number] [employer] form completed. Diapers given. 08/07/2020, [...] and heating? Not hard at all 10/24/2023 [facility] [place] of Occupat ional Health - Occupational Stress [...] place to sleep or slept in a half-way (including now)? No 10/24/2023 [place]ater Depression Scale Answer Date Recorded [place] Depression Scale Total 0 10/26/2023 The thought [...] IG LB+HPV APTIMA Routine 05/04/2023 3:44 PM DIRECTOR SURFACE TRANSPORTATION Cervical cerclage suture present, antepartum (HCC) HEPATITIS C ANTIBODY Routine 05/04/2023 3:43 PM DIRECTOR SURFACE TRANSPORTATION Short cervix affecting (HCC) from Last 3 Months or Most Recently Relevant to Health Maintenance Results * HIV-1 HIV-2 ANTIBODY + HIV P24 AG PANEL (08/29/2023 11:08 AM CDT) HIV1/2 Ab + P24 Ag Non Reactive Non Reactive 08/29/2023 12:17 PM CDT [facility] Blood BLOOD SPECIMEN / Unknown Venipuncture / Unknown 08/29/2023 11:08 AM CDT 08/29/2023 11:28 AM CDT Narrative [facility] - 08/29/2023 12:17 PM CDT No Laboratory evidence of HIV infection. Aicha Johnson MD LAB - C HEMISTRY ORDERABLES [facility] [address] [place] [address] * PAP IG LB+HPV APTIMA (05/04/2023 3:44 PM DIRECTOR SURFACE TRANSPORTATION) Diagnosis Comment 05/09/2023 3:08 PM DIRECTOR SURFACE TRANSPORTATION [facility] ([facility]) Comment:NEGATIVE FOR INTRAEP ITHELIAL LESION OR MALIGNANCY. Specimen Adequacy Comment 023 3:08 PM DIRECTOR SURFACE TRANSPORTATION [facility] ([facility]) Comment: Satisfactory for evaluation. Endocervical and/or squamous metaplastic cells (endocervical component) are present. Performed by Comment 05/09/2023 3:08 PM DIRECTOR SURFACE TRANSPORTATION [facility] ([facility]) Comment:Nadir Sadler totechnologist Comment . 05/09/2023 3:08 PM DIRECTOR SURFACE TRANSPORTATION [facility] ([facility]) Note Comment 05/09/2023 3:08 PM DIRECTOR SURFACE TRANSPORTATION [facility] ([facility]) Comment: The Pap smear is a screening test designed to aid in the detection of premalignant and malignant conditions of the uterine cervix. It is not a diagnostic procedure and should not be used as the sole means of detecting cervical cancer. Both false-positive and false-negative reports do occur. IGLBP CPT Code Automation Comment 05/09/2023 3:08 PM DIRECTOR SURFACE TRANSPORTATION [facility] ([facility]) Comment: This liquid based ThinPrep(R) pap test was screened with the use of an image guided system. Human papillomavirus Aptima Negative Negative 05/09/2023 3:08 PM DIRECTOR SURFACE TRANSPORTATION [facility] ([facility]) Comment: This nucleic acid amplification test detects fourteen high-risk HPV types (16,18,31,33,35,39,45,51,52,56,58,59,66,68) without differentiation. Pathology/Cytolo gy PART OF UTERINE CERVIX / Unknown Collection / Unknown 05/04/2023 3:44 PM DIRECTOR SURFACE TRANSPORTATION 05/04/2023 4:16 PM DIRECTOR SURFACE TRANSPORTATION Narrative [facility] ([facility]) - 05/09/2023 3:08 PM DIRECTOR SURFACE TRANSPORTATION Performed at: 01 - [facility] [address] [place], [place] [id number] Pediatric Sports Medicine Specialist: Kristyn Kramer MD, Phone: [phone] Performed at: 02 - [facility] [address] [facility] [place], [place] [id number] Pediatric Sports Medicine Specialist: Kristyn Kramer MD, Phone: [phone] Specimen Comment: No. of containers..01 ThinPrep Vial Evelin Joaquin MD LAB - PATHOLOGY/CYTO LOGY ORDERABLES [facility] ([facility]) [address] [place] [address] * HEPATITIS C ANTIBODY (05/04/2023 3:43 PM DIRECTOR SURFACE TRANSPORTATION) HCV Antibody Screen Non Reactive Non Reactive 05/04/2023 5:03 PM DIRECTOR SURFACE TRANSPORTATION [facility] Blood BLOOD SPECIMEN / Unknown Venipuncture / Unknown 05/04/2023 3:43 PM DIRECTOR SURFACE TRANSPORTATION 05/04/2023 4:13 PM DIRECTOR SURFACE TRANSPORTATION Narrative [facility] - 05/04/2023 5:03 PM DIRECTOR SURFACE TRANSPORTATION Non Reactive - Antibodies to Hepatitis C virus (HCV) were not detected, result does not exclude early acute HCV infection. Evelin Joaquin MD LAB - CHEMISTRY ORDE CASSY [facility] [address] [place] [address] from Last 3 Months or Most Recently [...]
--- OUTSIDE RECORDS SUMMARY | 2024-07-19 20:20 | XMS_ITS | Encounter Summary ---
Author Organization [facility] Address [address] [place] [address] [place] [address] Care Team Providers Care Ash Collector Name Role Phone Unavailable Primary Care Provider Unavailabl e Reason for Visit * Reason Onset Date Comments Smoking Cessation 05/20/2020 Encounter Details Date Type Department Care Team (Late st Contact Info) Description 05/20/2020 Telephone [facility]/ EVALUATION UNIT [address] [facility] [place] [address] Maribel Yap, Non Destructive Evaluation Manager Smoking Cessation Social History Tobacco Use Types [...] COVID-19? No / Unsure 05/16/2020 2:43 PM FURNITURE MOVER HELPER documented as of this encounter Functional Status [...] at next visit. Maribel Yap, PharmD Candidate ITURE MOVER HELPER documented in this encounter Plan of Treatment Not on file documented as of this encounter Visit Diagnoses Not on filedocumented in this encounter
--- OUTSIDE RECORDS SUMMARY | 2024-07-19 20:20 | XMS_ITS | Encounter Summary ---
Author Organization [facility] Address [address] [place] [address] [place] [address] Care Team Providers Care Packing Checker Name Role Phone Unavailable Primary Care Provider Unavailabl e Reason for Visit * Reason Onset Date Comments Patient Requested Call 08/10/2018 Encounter Details Date Type Department Care Team (Late st Contact Info) Description 08/10/2018 Telephone [facility]/ EVALUATION UNIT [facility] [facility] [place] [address] Jodee Flores, RN Patient Requested Call Social [...] until she had been seen in [facility] clinic per pt 07/03. New OB in [facility] clinic was established 06/22. Pt stated [...] in regards to housing. Pt verbalized understanding. MATION MANAGER documented in this encounter Plan of Treatment Not on file documented as of this encounter Visit Diagnoses Not on filedocumented in this encounter Additional Health Concerns Infection Onset Date Last Indicated Resolved Time COVID-19 Under Investigation 05/16/2020 05/16/2020 05/17/2020 2:44 AM AUTOMATION MANAGER documented as of this encounter
--- OUTSIDE RECORDS SUMMARY | 2024-07-19 20:20 | XMS_ITS | Data Portability ---
Author Organization [facility] [place] H Address [address] [place] [address] Care Team Providers Care Services Engineer Name Role Phone JOSÉ MIGUEL MARKS Waistline Joiner Assessment No assessment recorded. Plan of Treatment Reminders Order Date Submit Date Provider Last Modified By Organization Details Last Modified Time Details Appointments NEW PATIENT 30 2024 10:00A M Gerson Baker MD Not available Not available Not available Lab pregnanc y test, urine 2023 024 [id number] In-Office Order, Internal Use Only DO Not Attach Compendium DO Not Attach Compendium, Do Not Delete/merge, [id number] 01/06/2024 15:22:46 bacteria l vaginosi s panel, vaginal 2023 024 [facility], [address], [address], [place], [address], 01/04/2024 17:09:58 CMP, serum or plasma 2022 023 [facility], [address], [address], [place], [address], 04/27/2023 06:17:09 uric acid, serum or plasma 2022 023 [facility], [address], [address], [place], [address], 04/27/2023 06:17:10 protein: creatini ne ratio, urine 2022 023 [facility], [address], [address], [place], [address], 05/05/2023 13:10:32 CBC w/ auto diff 2022 023 [facility], [address], [address], [place], [address], 04/27/2023 06:17:10 hemoglob in (Hb) electrop horesis, blood 2022 023 [facility], [address], [address], [place], [address], 05/05/2023 13:10:31 abo group + rh type, blood 2022 023 [facility], [address] [place] [address] [address], [place], [address], 05/05/2023 13:10:36 antibody screen, serum or plasma 2022 023 [facility], [address], [address], [place], [address], 05/05/2023 13:10:35 rubella IgG Ab, quant immunoas say, serum or plasma 2022 023 [facility], [address], [address], [place], [address], 05/05/2023 13:10:37 varicell a zoster virus IgG Ab, QN, IA, serum 2022 023 [facility], [address], [address], [place], [address], 05/05/2023 13:10:40 drug screen, urine 2022 023 [facility], [address], [place], [address], 05/05/2023 13:10:34 HbA1c (hemoglo bin A1c), blood 2022 023 [facility], [address], [place], [address], 05/05/2023 13:10:34 cf (cystic fibrosis ) profile 2022 023 [facility], [address], [place], [address], 05/05/2023 13:10:33 Hepatiti s C IgG Ab, qual, serum 2022 023 [facility], [address], [address], [place], [address], 05/05/2023 13:10:31 HBsAg (hepatit is B surface Ag), EIA, serum 2022 023 [facility], [address], [place], [address], 05/05/2023 13:10:37 HIV 1 + 2, meaningf ul use set 2022 023 [facility], [address], [place], [address], 05/05/2023 13:10:40 RPR (rapid plasma reagin), serum 2022 023 [facility], [address], [place], [address], 05/05/2023 13:10:39 culture, urine 2022 023 [facility], [address], [address], [place], [address], 05/05/2023 13:10:38 pregnanc y test, urine 2022 023 [id number] In-Office Order, Internal Use Only DO Not Attach Compendium DO Not Attach Compendium, Do Not Delete/merge, [id number] 04/26/2023 13:04:01 urinalys is, dipstick 2022 023 [id number] In-Office Order, Internal Use Only DO Not Attach Compendium DO Not Attach Compendium, Do Not Delete/merge, [id number] 04/26/2023 13:04:03 cytology report, thin prep, smear or scraping , cervical or vaginal 2022 023 [facility], [address], [address], [place], [address], 05/02/2023 11:09:21 pregnanc y test, urine 2019 020 [email or web address] In-Office Order, Internal Use Only DO Not Attach Compendium DO Not Attach Compendium, Do Not Delete/merge, [id number] 02/08/2020 17:05:31 RPR (rapid plasma reagin), serum 2019 020 [place] [employer] [facility] (Lab), [address], [place], [address], 02/09/2020 10:10:48 culture, urine 2019 020 [facility] [employer] [facility] (Lab), [address], [place], [address], 02/10/2020 07:08:19 cf (cystic fibrosis ) profile 2019 020 [facility] [employer] [facility] (Lab), [address], [place], [address], 02/18/2020 14:11:00 varicell a-zoster igg Ab screen, serum 2019 020 [facility] (Lab), [address], [place], [address], 02/09/2020 21:07:43 hemoglob in (Hb) electrop horesis, blood 2019 [facility] (Lab), [address], [place], [address], 02/12/2020 15:09:12 hepatiti s panel (A+B+C), acute, serum 2019 [facility] (Lab), [address], [place], [address], 02/09/2020 21:07:45 HIV (1+2) Ab screen, serum 2019 [facility] (Lab), [address], [place], [address], 02/09/2020 09:11:57 rubella igg Ab screen, serum 2019 [facility] (Lab), [address], [place], [address], 02/09/2020 21:07:41 CBC w/ auto diff 2019 [facility] (Lab), [address], [place], [address], 02/08/2020 19:46:36 drug screen, urine 2019 020 [facility] (Lab), [address], [place], [address], 02/08/2020 19:45:24 type + screen, serum 2019 [facility] (Lab), [address], [place], [address], 02/08/2020 21:32:24 urinalys is, dipstick , reflex micro 2019 [facility] (Lab), [address], [place], [address], 02/08/2020 20:01:56 uric acid, serum or plasma 2019 020 [facility] (Lab), [address], [place], [address], 02/08/2020 19:44:53 CMP, serum or plasma 2019 020 [facility] (Lab), [address], [place], [address], 02/08/2020 19:44:48 protein: creatini ne ratio, urine 2019 020 [facility] (Lab), [address], [place], [address], 02/08/2020 20:35:58 Referral maternal & medicine referral 2022 023 marce [facility], [address], [place] [address], [place], [address], 06/09/2023 13:20:16 Procedures None recorded . Surgeries None recorded . Imaging None recorded . Medication Orders medroxyp rogester one 150 mg/mL intramus cular syringe 2023 024 [email or web address] Not available 01/06/2024 16:50:21 medroxyp rogester one 150 mg/mL intramus cular syringe 2023 024 [place] [id number], [address] [place] [address], [id number], 01/06/2024 15:22:53 medroxyp rogester one 150 mg/mL intramus cular syringe 2023 024 [place] [id number], [address] [place] [address], [id number], 01/03/2024 15:56:35 19 29 mg iron-1 mg tablet 2022 023 [facility][id number], [address], [place], [place], [id number], 04/26/2023 13:04:01 aspirin 81 mg tablet,d elayed release 2022 024 [facility] #[id number], [address], [place], [place], [id number], 01/03/2024 15:10:41 Plus 29 mg iron-1 mg tablet 2019 020 [facility] #65206, [address], [place], [place], [id number], 04/26/2023 14:32:16 Reglan 10 mg tablet 2019 020 [facility] #39659, [address], [place], [place], [id number], 04/26/2023 14:31:55 Patient TargetsNo targets recorded. Patient Instructions Encounter Date Encounter Id Patient Instructions Last Modified By Organization Details Last Modified Time 12/05/2019 [id number] PATIENT recently seen at [facility] ER for HSV testing she states she [...] ROGELIO [email or web address] Not available 12/05/2019 16:13:37 04/26/2023 [id number] A healthy lifestyle: care instructions [email or web address] Not available 04/26/2023 15:32:57 Reason for Referral [...] DO Not Attach Compendium, Do Not Delete/merge, [id number] 02/08/2020 16:50:00 02/08/20 20 02/08/2020 CMP, serum or plasm a glucose, serum 103 mg/dL 65-[address] [facility] ([facility]) [address] [place], [address], 02/08/2020 19:44:48 02/08/20 20 02/08/2020 CMP, serum or plasm a BUN 6 mg/dL 8-26 low Not Available [facility] (Lab) [address] [place], [address], 02/08/2020 19:44:48 02/08/2002/08/2020 CMP, serum or plasm a creatinine, serum 0.62 mg/dL 0.50-1 .40 Not Available [facility] [address] [place], [address], 02/08/2020 19:44:48 02/08/20 20 02/08/2020 CMP, serum or plasm a BUN/creatnin e ratio 9.2 Not Available [facility] [address] [place], [address], 02/08/2020 19:44:48 02/08/2002/08/2020 CMP, serum or plasm a sodium, serum 135.0 mEq/L 136.0- 144.0 low Not Available [facility] ([facility]) [address] [place], [address], 02/08/2020 19:44:48 02/08/2002/08/2020 CMP, serum or plasm a potassium, serum 3.9 mmol/ L 3.5-5. 3 Not Available [facility] (Lab) [address] [place], [address], 02/08/2020 19:44:48 02/08/2002/08/2020 CMP, serum or plasm a chloride, serum 103 mmol/ l 101-11 1 Not Available [facility] (Lab) [address] [place], [address], 02/08/2020 19:44:48 02/08/2002/08/2020 CMP, serum or plasm a carbon dioxide total 21.5 mmol/ L 21.0-3 2.0 Not Available [facility] (Lab) [address], [place], [address], 02/08/2020 19:44:48 02/08/2002/08/2020 CMP, serum or plasm a aniongp 14.0 mmol/ L Not Available [facility] (Lab) [address], [place], [address], 02/08/2020 19:44:48 02/08/2002/08/2020 CMP, serum or plasm a calcium, serum 9.3 mg/dL 8.2-10 .0 Not Available [facility] (Lab) [address], [place], [address], 02/08/2020 19:44:48 02/08/2002/08/2020 CMP, serum or plasm a total protein 6.7 g/dL 6.7-8. 2 Not Available [facility] (Lab) [address] [place], [address], 02/08/2020 19:44:48 02/08/2002/08/2020 CMP, serum or plasm a albumin, serum 4.0 g/dL 3.5-5. 5 Not Available [facility] (Lab) [address] [place], [address], 02/08/2020 19:44:48 02/08/20 20 02/08/2020 CMP, serum or plasm a agratio 1.4 Not Available [facility] (Lab) [address] [place], [address], 02/08/2020 19:44:48 02/08/2002/08/2020 CMP, serum or plasm a bilt 0.3 mg/dL 0.0-1. 2 Not Available [facility] (Lab) [address] [place], [address], 02/08/2020 19:44:48 02/08/20 20 02/08/2020 CMP, serum or plasm a AST 12.8 U/L 10.0-4 2.0 Not Available [facility] (Lab) [address], [place], [address], 02/08/2020 19:44:48 02/08/2002/08/2020 CMP, serum or plasm a ALT 10.5 U/L 10.0-6 0.0 Not Available [facility] (Lab) [address], [place], [address], 02/08/2020 19:44:48 02/08/2002/08/2020 CMP, serum or plasm a alk phos 45.5 IU/L 42.0-1 21.0 Not Available [facility] (Lab) [address], [place], [address], 02/08/2020 19:44:48 02/08/2002/08/2020 CMP, serum or plasm a osmol 268.0 mOsm/ L 275.0- 301.0 low Not Available [facility] ([facility]) [address] [place], [address], 02/08/2020 19:44:48 02/08/2002/08/2020 CMP, serum or plasm a eGFR, AM 148 m/lmi n/1.7 3_m >=60 Not Available [facility] (Lab) [address] [place], [address], 02/08/2020 19:44:48 02/08/20 20 02/08/2020 uric acid, serum or plasm a uricacd 3.5 mg/dL 2.6-7. 2 Not Available [facility] (Lab) [address], [place], [address], 02/08/2020 19:44:53 02/08/20 20 02/08/2020 drug scree n, urine urine phencylclind in NEGATI VE negati ve Not Available [facility] (Lab) [address], [place], [address], 02/08/2020 19:45:24 02/08/20 20 02/08/2020 drug scree n, urine urine cannabinoids NEGATI VE negati ve Not Available [facility] (Lab) [address], [place], [address], 02/08/2020 19:45:24 02/08/2002/08/2020 drug scree n, urine urine amphetamines NEGATI VE negati ve Not Available [facility] (Lab) [address], [place], [address], 02/08/2020 19:45:24 02/08/2002/08/2020 drug scree n, urine urine cocaine NEGATI VE negati ve Not Available [facility] (Lab) [address], [place], [address], 02/08/2020 19:45:24 02/08/2002/08/2020 drug scree n, urine urine opiates NEGATI VE negati ve Not Available [facility] (Lab) [address], [place], [address], 02/08/2020 19:45:24 02/08/2002/08/2020 drug scree n, urine urine barbiturates NEGATI VE negati ve Not Available [facility] (Lab) [address] [place], [address], 02/08/2020 19:45:24 02/08/2002/08/2020 drug scree n, urine urine benzo diazepin NEGATI VE negati ve Not Available [facility] (Lab) [address] [place], [address], 02/08/2020 19:45:24 02/08/20 20 02/08/2020 drug scree n, urine udrscom This test provi mary only a scree alem kraig tical test resul t. A more speci fic alter dionciio chemi kasey metho d must be order ed to obtai n a confi rmed kraig tical resul t. Not Available [facility] (Lab) [address], [place], [address], 02/08/2020 19:45:24 02/08/2002/08/2020 CBC w/ auto diff WBC 5.3 K/uL 3.4-10 .8 Not Available [facility] (Lab) [address], [place], [address], 02/08/2020 19:46:36 02/08/20 20 02/08/2020 CBC w/ auto diff red blood count 3.9 M/uL 4.2-5. 4 low Not Available [facility] (Lab) [address], [place], [address], 02/08/2020 19:46:36 02/08/20 20 02/08/2020 CBC w/ auto diff hemoglobin 11.1 g/dL 11.5-1 5.5 low Not Available [facility] (Lab) [address] [place], [address], 02/08/2020 19:46:36 02/08/2002/08/2020 CBC w/ auto diff hematocrit 33.2 % 36.0-4 8.0 low Not Available [facility] (Lab) [address], [place], [address], 02/08/2020 19:46:36 02/08/20 20 02/08/2020 CBC w/ auto diff MCV 85 fL 80-95 Not Available [facility] (Lab) [address] [place], [address], 02/08/2020 19:46:36 02/08/20 20 02/08/2020 CBC w/ auto diff MCH 29 pg 27-32 Not Available [facility] (Lab) [address] [place], [address], 02/08/2020 19:46:36 02/08/20 20 02/08/2020 CBC w/ auto diff MCHC 33 g/dL 32-36 Not Available [facility] (Lab) [address], [place], [address], 02/08/2020 19:46:36 02/08/20 20 02/08/2020 CBC w/ auto diff platelets 265 K/uL 155-37 9 Not Available [facility] (Lab) [address], [place], [address], 02/08/2020 19:46:36 02/08/20 20 02/08/2020 CBC w/ auto diff RDW 13.3 % 11.5-1 4.5 Not Available [facility] (Lab) [address], [place], [address], 02/08/2020 19:46:36 02/08/2002/08/2020 CBC w/ auto diff MPV 10.1 fL 8.9-12 .7 Not Available [facility] (Lab) [address] [place], [address], 02/08/2020 19:46:36 02/08/20 20 02/08/2020 CBC w/ auto diff neutrophils absolute 2.5 K/uL 1.4-7. 0 Not Available [facility] (Lab) [address] [place], [address], 02/08/2020 19:46:36 02/08/2002/08/2020 CBC w/ auto diff lymphs (absolute) 2.1 K/uL 0.7-3. 1 Not Available [facility] (Lab) [address] [place], [address], 02/08/2020 19:46:36 02/08/2002/08/2020 CBC w/ auto diff monocytes (absolute) 0.4 K/uL 0.1-0. 9 Not Available [facility] (Lab) [address] [place], [address], 02/08/2020 19:46:36 02/08/20 20 02/08/2020 CBC w/ auto diff eos (absolute) 0.2 K/uL 0.0-0. 4 Not Available [facility] (Lab) [address], [place], [address], 02/08/2020 19:46:36 02/08/2002/08/2020 CBC w/ auto diff baso (absolute) 0.0 K/uL 0.0-0. 3 Not Available [facility] (Lab) [address], [place], [address], 02/08/2020 19:46:36 02/08/2002/08/2020 CBC w/ auto diff neut % 48.1 % 40.0-7 4.0 Not Available [facility] (Lab) [address], [place], [address], 02/08/2020 19:46:36 02/08/2002/08/2020 CBC w/ auto diff lymphs % 39.3 % 14.0-4 6.0 Not Available [facility] (Lab) [address] [place], [address], 02/08/2020 19:46:36 02/08/2002/08/2020 CBC w/ auto diff mono % 7.8 % 4.0-12 .0 Not Available [facility] (Lab) [address] [place], [address], 02/08/2020 19:46:36 02/08/2002/08/2020 CBC w/ auto diff eos % 4 % 0-5 Not Available [facility] (Lab) [address] [place], [address], 02/08/2020 19:46:36 02/08/20 20 02/08/2020 CBC w/ auto diff baso % 0.2 % 0.0-1. 0 Not Available [facility] (Lab) [address] [place], [address], 02/08/2020 19:46:36 02/08/20 20 02/08/2020 urina lysis , dipst ick, refle x micro urhead1 URINAL YSIS, COMPLE TE Ur inalys is Gross Exam Not Available [facility] (Lab) [address], [place], [address], 02/08/2020 20:01:56 02/08/20 20 02/08/2020 urina lysis , dipst ick, refle x micro urine-color YELLOW yellow Not Available [facility] (Lab) [address], [place], [address], 02/08/2020 20:01:56 02/08/20 20 02/08/2020 urina lysis , dipst ick, refle x micro appearance SLIGHT LY CLOUDY clear abnormal Not Available [facility] (Lab) [address], [place], [address], 02/08/2020 20:01:56 02/08/20 20 02/08/2020 urina lysis , dipst ick, refle x micro glucose NEGATI VE mg/dL negati ve Not Available [facility] (Lab) [address] [place], [address], 02/08/2020 20:01:56 02/08/20 20 02/08/2020 urina lysis , dipst ick, refle x micro bilirubin NEGATI VE negati ve Not Available [facility] (Lab) [address] [place], [address], 02/08/2020 20:01:56 02/08/20 20 02/08/2020 urina lysis , dipst ick, refle x micro ketones NEGATI VE mg/dL negati ve Not Available [facility] (Lab) [address], [place], [address], 02/08/2020 20:01:56 02/08/20 20 02/08/2020 urina lysis , dipst ick, refle x micro specific gravity 1.025 1.001- 1.035 Not Available [facility] (Lab) [address] [place], [address], 02/08/2020 20:01:56 02/08/20 20 02/08/2020 urina lysis , dipst ick, refle x micro occult blood NEGATI VE nancy/u L negati ve Not Available [facility] (Lab) [address], [place], [address], 02/08/2020 20:01:56 02/08/20 20 02/08/2020 urina lysis , dipst ick, refle x micro pH 6.5 5.0-7. 0 Not Available [facility] (Lab) [address], [place], [address], 02/08/2020 20:01:56 02/08/20 20 02/08/2020 urina lysis , dipst ick, refle x micro protein NEGATI VE mg/dL negati ve Not Available [facility] (Lab) [address], [place], [address], 02/08/2020 20:01:56 02/08/20 20 02/08/2020 urina lysis , dipst ick, refle x micro urobilinogen 0.2 eu/dL <=1.0 Not Available [facility] (Lab) [address] [place], [address], 02/08/2020 20:01:56 02/08/20 20 02/08/2020 urina lysis , dipst ick, refle x micro nitrite, urine NEGATI VE negati ve Not Available [facility] (Lab) [address] [place], [address], 02/08/2020 20:01:56 02/08/20 20 02/08/2020 urina lysis , dipst ick, refle x micro WBC esterase NEGATI VE uL negati ve Not Available [facility] (Lab) [address] [place], [address], 02/08/2020 20:01:56 02/08/20 20 02/08/2020 prote in:cr eatin ine ratio , urine urine creatnine 383.2 mg/dL 16.0-3 27.0 high Not Available [facility] (Lab) [address] [place], [address], 02/08/2020 20:35:58 02/08/20 20 02/08/2020 prote in:cr eatin ine ratio , urine urine protein 26.3 mg/dL 1.0-14 .0 high Not Available [facility] (Lab) [address] [place], [address], 02/08/2020 20:35:58 02/08/20 20 02/08/2020 prote in:cr eatin ine ratio , urine urine protein/crea t 68.6 mg/g_ creat 0.0-20 0.0 Not Available [facility] (Lab) [address] [facility], [place], [address], 02/08/2020 20:35:58 02/08/20 20 02/08/2020 type + scree n, serum ABO/Rh typing A Rh Positi ve Not Available [facility] (Lab) [address] [place], [address], 02/08/2020 21:32:24 02/08/20 20 02/08/2020 type + scree n, serum id-mts antbdy screen NEGATI VE Not Available [facility] (Lab) [address] [place], [address], 02/08/2020 21:32:24 02/08/20 20 02/09/2020 HIV (1+2) Ab scree n, serum HIV 4TH generation Non Reacti ve non reacti ve Not Available [facility] (Lab) [address] [place], [address], 02/09/2020 09:11:57 02/08/2002/09/2020 RPR (rapi d plasm a reagi n), serum RPR Non Reacti ve non reacti ve Not Available [facility] (Lab) [address] [place], [address], 02/09/2020 10:10:48 02/08/2002/09/2020 rubel la igg Ab scree n, serum rubella antibodies, IgG 5.28 index immune >0.99 Non-i mmune <0.90 Equiv ocal 0.90 - 0.99 Immun e >0.99 Not Available [facility] (Lab) [address] [facility], [place], [address], 02/09/2020 21:07:40 02/08/2002/09/2020 varic faith- zoste r [...] or stage of disea se. Not Available [facility] (Lab) [address] [place], [address], 02/09/2020 21:07:42 02/08/20 20 02/09/2020 hepat itis panel (A+B+ C), acute , serum hep A Ab, IgM Negati ve negati ve Not Available [facility] (Lab) [address] [place], [address], 02/09/2020 21:07:45 02/08/2002/09/2020 hepat itis panel (A+B+ C), acute , serum HBsAg screen Negati ve negati ve Not Available [facility] (Lab) [address] [place], [address], 02/09/2020 21:07:45 02/08/20 20 02/09/2020 hepat itis panel (A+B+ C), acute , serum hep B core Ab, IgM Negati ve negati ve Not Available [facility] (Lab) [address] [place], [address], 02/09/2020 21:07:45 02/08/20 20 02/09/2020 hepat itis [...] ficat ion test (5507 [id number]). Not Available [facility] (Lab) [address] [facility], [place], [address], 02/09/2020 21:07:45 02/08/20 20 02/10/2020 cultu re, urine urine culture, routine Final report Not Available [facility] (Lab) [address] [facility] [facility], [place], [address], 02/10/2020 07:08:19 02/08/20 20 02/10/2020 cultu re, urine result 1 MUG Mixed uroge nital kenney 10,00 0-25, 000 colon y formi ng units per mL Not Available [facility] (Lab) [address] [facility], [place], [address], 02/10/2020 07:08:19 02/08/2002/12/2020 hemog lobin (Hb) elect ropho resis , blood hemoglobin F 0.0 % 0.0-2. 0 Not Available [facility] (Lab) [address] [facility] [facility], [place], [address], 02/12/2020 15:09:12 02/08/20 20 02/12/2020 hemog lobin (Hb) elect ropho resis , blood hemoglobin A 97.8 % 96.4-9 8.8 Not Available [facility] (Lab) [address] [facility], [place], [address], 02/12/2020 15:09:12 02/08/20 20 02/12/2020 hemog lobin (Hb) elect ropho resis , blood hemoglobin S 0.0 % 0.0 Not Available [facility] (Lab) [address] [facility] [facility], [place], [address], 02/12/2020 15:09:12 02/08/20 20 02/12/2020 hemog lobin (Hb) elect ropho resis , blood hemoglobin C 0.0 % 0.0 Not Available [facility] (Lab) [address] [facility], [place], [address], 02/12/2020 15:09:12 02/08/20 20 02/12/2020 hemog lobin (Hb) elect ropho resis , blood hemoglobin A2 2.2 % 1.8-3. 2 Not Available [facility] (Lab) [address] [facility], [place], [address], 02/12/2020 15:09:12 02/08/20 20 02/12/2020 hemog lobin (Hb) elect ropho resis , blood hemoglobin variant Not Available [facility] (Lab) [address] [facility], [place], [address], 02/12/2020 15:09:12 02/08/20 20 02/12/2020 hemog lobin (Hb) elect ropho resis , blood hemoglobin fractionatio n interpretati on [facility] Berenice l adult hemog lobin prese nt. Not Available [facility] (Lab) [address] [place], [address], 02/12/2020 15:09:12 02/08/20 20 02/18/2020 cf (cyst [...] Relea sed By: Jonnie mckinnon, Ph.D. , [facility] Repor t Relea sed By: Jonnie mckinnon, Ph.D. , [facility] Not Available [facility] (Lab) [address] [place], [address], 02/18/2020 14:10:59 02/08/20 20 02/18/2020 cf (cyst ic fibro sis) profi le pdf . Not Available [facility] (Lab) [address] [place], [address], 02/18/2020 14:10:59 02/08/20 20 02/18/2020 cf (cyst ic fibro sis) profi le comment: [facility] The assay provi mary infor matio n [...] produ ct or proce dure. Not Available [facility] (Lab) [address] [facility], [place], [address], 02/18/2020 14:10:59 04/26/20 23 04/26/2023 COMP. METAB OLIC PANEL (14) glucose 74 mg/dL 70-99 Not Available [facility] Department [address] [place], [address], 04/27/2023 06:17:09 04/26/20 23 04/26/2023 COMP. METAB OLIC PANEL (14) BUN 6 mg/dL 6-20 Not Available [facility] Department [address] [place], [address], 04/27/2023 06:17:09 04/26/20 23 04/26/2023 COMP. METAB OLIC PANEL (14) creatinine 0.53 mg/dL 0.76-1 .27 below low normal Not Available [facility] Department [address] [place] [address], [address], 04/27/2023 06:17:09 04/26/20 23 04/26/2023 COMP. METAB OLIC PANEL (14) eGFR 127 >=60 Units for eGFR value s are mL/mi n/1.7 3 The eGFR Calcu latio n has not been valid ated for patie nts under the age of 18. If test resul ts are displ ayed for a patie nt under the age of 18, disre hakeem that value . Not Available [facility] Department [address] [place] [address], [address], 04/27/2023 06:17:09 04/26/20 23 04/26/2023 COMP. METAB OLIC PANEL (14) BUN/creatini ne ratio 11 9-23 Not Available [facility] Department [address] [place] [address], [address], 04/27/2023 06:17:09 04/26/20 23 04/26/2023 COMP. METAB OLIC PANEL (14) sodium 138 mmol/ L 134-14 4 Not Available [facility] Department [address] [place] [address], [address], 04/27/2023 06:17:09 04/26/20 23 04/26/2023 COMP. METAB OLIC PANEL (14) potassium 4.0 mmol/ L 3.5-5. 2 Not Available [facility] Department [address] [place] [address], [address], 04/27/2023 06:17:09 04/26/20 23 04/26/2023 COMP. METAB OLIC PANEL (14) chloride 103 mmol/ L 96-106 Not Available [facility] Department [address] [place], [address], 04/27/2023 06:17:09 04/26/20 23 04/26/2023 COMP. METAB OLIC PANEL (14) carbon dioxide, total 22 mmol/ L 20- Not Available [facility] Department [address] [place], [address], 04/27/2023 06:17:09 04/26/20 23 04/26/2023 COMP. METAB OLIC PANEL (14) calcium 9.2 mg/dL 8.7-10 .2 Not Available [facility] Department [address] [place], [address], 04/27/2023 06:17:09 04/26/20 23 04/26/2023 COMP. METAB OLIC PANEL (14) protein, total 6.5 g/dL 6.0-8. 5 Not Available [facility] Department [address] [place], [address], 04/27/2023 06:17:09 04/26/20 23 04/26/2023 COMP. METAB OLIC PANEL (14) albumin 3.7 g/dL 3.9-4. 9 below low normal Not Available [facility] Department [address] [place], [address], 04/27/2023 06:17:09 04/26/20 23 04/26/2023 COMP. METAB OLIC PANEL (14) globulin, total 2.8 g/dL 1.5-4. 5 Not Available [facility] Department [address] [place], [address], 04/27/2023 06:17:09 04/26/20 23 04/26/2023 COMP. METAB OLIC PANEL (14) A/G ratio 1.3 1.2-2. 2 Not Available [facility] Department [address] [place], [address], 04/27/2023 06:17:09 04/26/20 23 04/26/2023 COMP. METAB OLIC PANEL (14) bilirubin, total <=0.2 mg/dL 0.0-1. 2 Not Available [facility] Department [address] [place], [address], 04/27/2023 06:17:09 04/26/20 23 04/26/2023 COMP. METAB OLIC PANEL (14) alkaline phosphatase 51 IU/L 44-121 Not Available [facility] Department [address] [place], [address], 04/27/2023 06:17:09 04/26/20 23 04/26/2023 COMP. METAB OLIC PANEL (14) AST (SGOT) 16 IU/L 0-40 Not Available [facility] Department [address] [place] [address], [address], 04/27/2023 06:17:09 04/26/20 23 04/26/2023 COMP. METAB OLIC PANEL (14) ALT (SGPT) 13 IU/L 0-32 Not Available [facility] Department [address] [place], [address], 04/27/2023 06:17:09 04/26/20 23 04/26/2023 URIC ACID uric acid 3.4 mg/dL 2.5-7. 1 Not Available [facility] Department [address] [place] [address], [address], 04/27/2023 06:17:10 04/26/20 23 04/26/2023 CBC WITH DIFFE RENTI AL/PL ATELE T WBC 6.3 x10e3 /uL 3.4-10 .8 Not Available [facility] Department [address] [place], [address], 04/27/2023 06:17:10 04/26/20 23 04/26/2023 CBC WITH DIFFE RENTI AL/PL ATELE T RBC 3.97 x10e6 /uL 3.77-5 .28 Not Available [facility] Department [address] [place], [address], 04/27/2023 06:17:10 04/26/20 23 04/26/2023 CBC WITH DIFFE RENTI AL/PL ATELE T hemoglobin 10.8 g/dL 11.1-1 5.9 below low normal Not Available [facility] Department [address] [place], [address], 04/27/2023 06:17:10 04/26/20 23 04/26/2023 CBC WITH DIFFE RENTI AL/PL ATELE T hematocrit 34.2 % 34.0-4 6.6 Not Available [facility] Department [address] [place], [address], 04/27/2023 06:17:10 04/26/20 23 04/26/2023 CBC WITH DIFFE RENTI AL/PL ATELE T MCV 86 fL 79-97 Not Available [facility] Department [address] [place], [address], 04/27/2023 06:17:10 04/26/20 23 04/26/2023 CBC WITH DIFFE RENTI AL/PL ATELE T MCH 27.2 pg 26.6-3 3.0 Not Available [facility] Department [address] [place], [address], 04/27/2023 06:17:10 04/26/20 23 04/26/2023 CBC WITH DIFFE RENTI AL/PL ATELE T MCHC 31.6 g/dL 31.5-3 5.7 Not Available [facility] Department [address] [place], [address], 04/27/2023 06:17:10 04/26/20 23 04/26/2023 CBC WITH DIFFE RENTI AL/PL ATELE T RDW 12.5 % 11.5-1 4.5 Not Available [facility] Department [address] [place], [address], 04/27/2023 06:17:10 04/26/20 23 04/26/2023 CBC WITH DIFFE RENTI AL/PL ATELE T platelets 273 x10e3 /uL 150-45 0 Not Available [facility] Department [address] [place], [address], 04/27/2023 06:17:10 04/26/20 23 04/26/2023 CBC WITH DIFFE RENTI AL/PL ATELE T neutrophils 59 % notest b. Not Available [facility] Department [address] [place], [address], 04/27/2023 06:17:10 04/26/20 23 04/26/2023 CBC WITH DIFFE RENTI AL/PL ATELE T lymphs 31 % notest b. Not Available [facility] Department [address] [place], [address], 04/27/2023 06:17:10 04/26/20 23 04/26/2023 CBC WITH DIFFE RENTI AL/PL ATELE T monocytes 7 % notest b. Not Available [facility] Department [address] [place], [address], 04/27/2023 06:17:10 04/26/20 23 04/26/2023 CBC WITH DIFFE RENTI AL/PL ATELE T eos 3 % notest b. Not Available [facility] Department [address] [place], [address], 04/27/2023 06:17:10 04/26/20 23 04/26/2023 CBC WITH DIFFE RENTI AL/PL ATELE T basos 0 % notest b. Not Available [facility] Department [address] [place], [address], 04/27/2023 06:17:10 04/26/20 23 04/26/2023 CBC WITH DIFFE RENTI AL/PL ATELE T neutrophils (absolute) 3.7 x10e3 /uL 1.4-7. 0 Not Available [facility] Department [address] [place], [address], 04/27/2023 06:17:10 04/26/20 23 04/26/2023 CBC WITH DIFFE RENTI AL/PL ATELE T lymphs (absolute) 1.9 x10e3 /uL 0.7-3. 1 Not Available [facility] Department [address] [place], [address], 04/27/2023 06:17:10 04/26/20 23 04/26/2023 CBC WITH DIFFE RENTI AL/PL ATELE T monocytes(ab solute) 0.4 x10e3 /uL 0.1-0. 9 Not Available [facility] Department [address] [place], [address], 04/27/2023 06:17:10 04/26/20 23 04/26/2023 CBC WITH DIFFE RENTI AL/PL ATELE T eos (absolute) 0.2 x10e3 /uL 0.0-0. 4 Not Available [facility] Department [address] [place], [address], 04/27/2023 06:17:10 04/26/20 23 04/26/2023 CBC WITH DIFFE RENTI AL/PL ATELE T baso (absolute) 0.0 x10e3 /uL 0.0-0. 2 Not Available [facility] Department [address] [place], [address], 04/27/2023 06:17:10 04/26/20 23 04/26/2023 CBC WITH DIFFE RENTI AL/PL ATELE T immature granulocytes 0.2 % notest b. Not Available [facility] Department [address] [place], [address], 04/27/2023 06:17:10 04/26/20 23 04/26/2023 CBC WITH DIFFE RENTI AL/PL ATELE T immature grans (abs) 0.0 x10e3 /uL 0.0-0. 1 Not Available [facility] Department [address] [place], [address], 04/27/2023 06:17:10 04/26/20 23 04/26/2023 CBC WITH DIFFE MOISES AL/PL ATELE T NRBC 0 % 0-0 Not Available [facility] Department [address] [place], [address], 04/27/2023 06:17:10 04/26/20 23 04/27/2023 IGP,C TNGTV ,APT HPV,R FX16/ 18,45 HPV aptima Negati ve negati ve This nucle ic acid ampli ficat ion test detec ts fourt een high- risk HPV types (16,1 8,31, 33,35 ,39,4 5,51, 52,56 ,58,5 9,66, 68) witho ut diffe snehalti ation . Not Available [facility] ([facility]) [address] [place], [address], 05/02/2023 11:09:21 04/26/20 23 04/27/2023 IGP,C TNGTV ,APT HPV,R FX16/ 18,45 chlamydia, nuc. acid amp Negati ve negati ve Not Available [facility] ([facility]) [address] [place], [address], 05/02/2023 11:09:21 04/26/20 23 04/27/2023 IGP,C TNGTV ,APT HPV,R FX16/ 18,45 gonococcus, nuc. acid amp Negati ve negati ve Not Available [facility] ([facility]) [address] [place], [address], 05/02/2023 11:09:21 04/26/20 23 04/27/2023 IGP,C TNGTV ,APT HPV,R FX16/ 18,45 trich vag by EVELYN Negati ve negati ve Not Available [facility] ([facility]) [address] [facility], [place], [address], 05/02/2023 11:09:21 04/26/2005/02/2023 IGP,C TNGTV ,APT HPV,R FX16/ 18,45 diagnosis: Harvey ziegler NEGAT ANTHONY FOR INTRA EPITH ELIAL LESIO N OR MALIG ELOISA . THIS SPECI MEN WAS RESCR EENED PART OF OUR QUALI TY CONTR OL PROGR AM. Not Available [facility] ([facility]) [address] [facility], [place], [address], 05/02/2023 11:09:21 04/26/2005/02/2023 IGP,C TNGTV ,APT HPV,R FX16/ 18,45 specimen adequacy: Harvey ziegler Satis facto ry for evalu ation . Endoc ervic al and/o r squam ous metap lasti c cells (endo cervi kasey compo nent) are prese nt. Not Available [facility] ([facility]) [address] [facility], [place], [address], 05/02/2023 11:09:21 04/26/20 23 05/02/2023 IGP,C TNGTV ,APT HPV,R FX16/ 18,45 clinician provided ICD10: Harvey ziegler O09.9 0 Z87.5 9 Z12.4 Not Available [facility] ([facility]) [address] [place], [address], 05/02/2023 11:09:21 04/26/20 23 05/02/2023 IGP,C TNGTV ,APT HPV,R FX16/ 18,45 performed by: Harvey guerrier, Cytot raul ziegler (ASCP ) Not Available [facility] ([facility]) [address] [place], [address], 05/02/2023 11:09:21 04/26/20 23 05/02/2023 IGP,C TNGTV ,APT HPV,R FX16/ 18,45 QC reviewed by: Harvey maradiaga, Cytot raul ziegler (ASCP ) Not Available [facility] ([facility]) [address] [place], [address], 05/02/2023 11:09:21 04/26/20 23 05/02/2023 IGP,C TNGTV ,APT HPV,R FX16/ 18,45 . . Not Available [facility] ([facility]) [address] [facility], [place], [address], 05/02/2023 11:09:21 04/26/20 23 05/02/2023 IGP,C TNGTV [...] ts do occur . Not Available [facility] ([facility]) [address] [facility], [place], [address], 05/02/2023 11:09:21 04/26/20 23 05/02/2023 IGP,C TNGTV ,APT HPV,R FX16/ 18,45 test methodology: Harvey ziegler This liqui d based ThinP rep(R ) pap test was scree yfn with the use of an image guide reinaldo medellin Not Available [facility] ([facility]) [address] [place], [address], 05/02/2023 11:09:21 04/26/20 23 05/02/2023 IGP,C TNGTV ,APT HPV,R FX16/ 18,45 HPV genotype reflex Harvey zigeler Crite wendy not met, HPV Genot ype not perfo rmed. Not Available [facility] ([facility]) [address] [facility], [place], [address], 05/02/2023 11:09:21 04/26/20 23 04/27/2023 HGB FRACT IONAT ION CASCA DE HGB F 0.0 % 0.0-2. 0 Not Available [facility] ([facility]) [address] [facility], [place], [address], 05/05/2023 13:10:31 04/26/20 23 04/27/2023 HGB FRACT IONAT ION CASCA DE HGB A 97.4 % 96.4-9 8.8 Not Available [facility] ([facility]) [address] [facility], [place], [address], 05/05/2023 13:10:31 04/26/20 23 04/27/2023 HGB FRACT IONAT ION CASCA DE HGB A2 2.6 % 1.8-3. 2 Not Available [facility] ([facility]) [address] [facility], [place], [address], 05/05/2023 13:10:31 04/26/20 23 04/27/2023 HGB FRACT IONAT ION CASCA DE HGB S 0.0 % 0.0 Not Available [facility] ([facility]) [address] [facility], [place], [address], 05/05/2023 13:10:31 04/26/20 23 04/27/2023 HGB FRACT [...] Alpha -Thal assem ia DNA Kraig sis (#[id number]). Not Available [facility] ([facility]) [address] [facility], [place], [address], 05/05/2023 13:10:31 04/26/20 23 04/27/2023 HCV ANTIB NOE hep C virus Ab Non Reacti ve nonrea ctive HCV antib noe alone does not diffe renti ate betwe en previ ously resol dee dee infec tion and activ e infec tion. Equiv ocal and React anthony HCV antib neo resul ts shoul d be follo wed up with an HCV RNA test to suppo rt the diagn osis of activ e HCV infec tion. Not Available [facility] ([facility]) [address] [facility], [place], [address], 05/05/2023 13:10:31 04/26/20 23 04/27/2023 PROTE IN/CR EATIN INE URINE ACOG creatinine, urine 212.8 mg/dL notest ab. Not Available [facility] ([facility]) [address] [facility], [place], [address], 05/05/2023 13:10:32 04/26/20 23 04/27/2023 PROTE IN/CR EATIN INE URINE ACOG protein,tota l,urine 19.3 mg/dL notest ab. Not Available [facility] ([facility]) [address] [facility], [place], [address], 05/05/2023 13:10:32 04/26/20 23 04/27/2023 PROTE IN/CR EATIN INE URINE ACOG protein/crea tinine 0.09 mg/mg _crea t 0.00-0 .20 Ref: Hyper tensi on in Pregn caleb, ACOG, 2013 Not Available [facility] ([facility]) [address] [facility], [place], [address], 05/05/2023 13:10:32 04/26/20 23 04/26/2023 CYSTI C FIBRO SIS PROFI LE comment: Commen t The assay provi mary infor matio n inten ded to be used for tayla er scree alem in adult s of repro ducti ve age, as an aid [facility], and as a confi [...] dure. Eff ectiv e Junua ry 2023 37528 3 Cysti c Fibro sis Profi le will be made non-o rdera ble. This inclu mary any custo m profi les which conta in this test. [facility] offer s alter nativ e cysti c fibro sis testi ng. Avail able alter nativ es are: 23631 2 CF Full- gene Tayla er Scree n for tayla er seque nce kraig sis by NGS; 35088 5 Cysti c Fibro sis, 97 Varia nts for tayla er or diagn ostic targe harris kraig sis; and [address]107 9 GeneS eq PLUS, CFTR for diagn ostic seque nce kraig sis by NGS. Pleas e conta ct your local [facility] repre senta tive to discu ss testi ng optio ns. Not Available [facility] ([facility]) [address] [facility], [place], [address], 05/05/2023 13:10:33 04/26/20 23 05/05/2023 CYSTI C [...] Relea sed By: Malathi Lang , Ph.D, [facility] [address] [facility] , [place] [address] Repor t Relea sed By: Dr. Malathi Lang Not Available [facility] ([facility]) [address] [facility], [place], [address], 05/05/2023 13:10:33 04/26/20 23 05/05/2023 CYSTI C FIBRO SIS PROFI LE pdf . Not Available [facility] ([facility]) [address] [facility], [place], [address], 05/05/2023 13:10:33 04/26/20 23 04/27/2023 [id number] 9 10 DRUG- BUND amphetamines , urine Negati ve NG/mL cutoff =1000 Amphe tamin e test inclu mary Amphe tamin e and Metha mphet amine . Not Available [facility] ([facility]) [address] [facility], [place], [address], 05/05/2023 13:10:34 04/26/20 23 04/27/2023 [id number] 9 10 DRUG- BUND barbiturates Negati ve NG/mL cutoff =200 Not Available [facility] ([facility]) [address] [facility], [place], [address], 05/05/2023 13:10:34 04/26/20 23 04/27/2023 [id number] 9 10 DRUG- BUND benzodiazepi emerson Negati ve NG/mL cutoff =200 Not Available [facility] ([facility]) [address] [place], [address], 05/05/2023 13:10:34 04/26/20 23 04/27/2023 [id number] 9 10 DRUG- BUND cannabinoid Negati ve NG/mL cutoff =50 Not Available [facility] ([facility]) [address] [place], [address], 05/05/2023 13:10:34 04/26/20 23 04/27/2023 [id number] 9 10 DRUG- BUND cocaine (metab.) Negati ve NG/mL cutoff =300 Not Available [facility] ([facility]) [address] [place], [address], 05/05/2023 13:10:34 04/26/20 23 04/27/2023 [id number] 9 10 DRUG- BUND methaqualone Negati ve NG/mL cutoff =300 Not Available [facility] ([facility]) [address] [place], [address], 05/05/2023 13:10:34 04/26/20 23 04/27/2023 [id number] 9 10 DRUG- BUND opiates Negati ve NG/mL cutoff =2000 Opiat e test inclu mary Codei ne and Morph ine only. Not Available [facility] ([facility]) [address] [place], [address], 05/05/2023 13:10:34 04/26/20 23 04/27/2023 [id number] 9 10 DRUG- BUND phencyclidin e Negati ve NG/mL cutoff =25 Not Available [facility] ([facility]) [address] [place], [address], 05/05/2023 13:10:34 04/26/20 23 04/27/2023 [id number] 9 10 DRUG- BUND methadone screen, urine Negati ve NG/mL cutoff =300 Not Available [facility] ([facility]) [address] [place], [address], 05/05/2023 13:10:34 04/26/20 23 04/27/2023 [id number] 9 10 DRUG- BUND propoxyphene , urine Negati ve NG/mL cutoff =300 Not Available [facility] ([facility]) [address] [place], [address], 05/05/2023 13:10:34 04/26/20 23 04/27/2023 HEMOG LOBIN A1C hemoglobin A1C 5.3 % 4.8-5. 6 Predi abete s: 5.7 - 6.4 Diabe fabian: >6.4 Glyce hernandez contr ol for adult s with diabe fabian: <7.0 Not Available [facility] ([facility]) [address] [facility], [place], [address], 05/05/2023 13:10:34 04/26/2004/27/2023 ANTIB NOE SCREE N antibody screen Negati ve negati ve Not Available [facility] ([facility]) [address] [facility], [place], [address], 05/05/2023 13:10:35 04/26/20 23 04/27/2023 ABO GROUP ING AND RHO(D ) TYPIN G ABO grouping A Not Available [facility] ([facility]) [address] [facility], [place], [address], 05/05/2023 13:10:36 04/26/20 23 04/27/2023 ABO GROUP ING AND RHO(D ) TYPIN G Rh factor Positi ve Pleas e note: Prior recor ds for this patie nt's ABO / Rh type are not avail able for addit ional verif icati on. Not Available [facility] ([facility]) [address] [facility], [place], [address], 05/05/2023 13:10:36 04/26/20 23 04/27/2023 RUBEL LA ANTIB ODIES , IGG rubella antibodies, IgG 4.77 index immune >0.99 Non-i mmune <0.90 Equiv ocal 0.90 - 0.99 Immun e >0.99 Not Available [facility] ([facility]) [address] [facility], [place], [address], 05/05/2023 13:10:37 04/26/20 23 04/27/2023 HBSAG SCREE N HBsAg screen Negati ve negati ve Not Available [facility] ([facility]) [address] [facility], [place], [address], 05/05/2023 13:10:37 04/26/20 23 04/28/2023 URINE CULTU RE, ROUTI NE urine culture, routine Final report Not Available [facility] ([facility]) [address] [facility], [place], [address], 05/05/2023 13:10:38 04/26/2004/28/2023 URINE CULTU RE, ROUTI NE result 1 Commen t Mixed uroge nital kenney 10,00 0-25, 000 colon y formi ng units per mL Not Available [facility] ([facility]) [address] [facility], [place], [address], 05/05/2023 13:10:38 04/26/20 23 04/27/2023 RPR, RFX QN RPR/C ONFIR M TP RPR Non Reacti ve nonrea ctive Not Available [facility] ([facility]) [address] [facility], [place], [address], 05/05/2023 13:10:39 04/26/2004/27/2023 HIV AB/P2 4 AG WITH REFLE X HIV Ab/P24 Ag screen Non Reacti ve nonrea ctive HIV Negat anthony HIV-1 /HIV- 2 antib odies and HIV-1 p24 antig en were NOT detec harris. There is no labor atory evide nce of HIV infec tion. Not Available [facility] ([facility]) [address] [facility], [place], [address], 05/05/2023 13:10:40 04/26/2004/27/2023 VARIC FAITH- ZOSTE R [...] stage of disea se. Not Available [facility] ([facility]) [address] [facility], [place], [address], 05/05/2023 13:10:40 04/26/20 23 04/26/2023 urina lysis , dipst ick Leukocytes Negati ve Not Available In-Office Order Internal Use Only DO Not Attach Compendium DO Not Attach Compendium, Do Not Delete/merge, [id number] 04/26/2023 12:23:09 04/26/20 23 04/26/2023 urina lysis , dipst ick Nitrite negati ve Not Available In-Office Order Internal Use Only DO Not Attach Compendium DO Not Attach Compendium, Do Not Delete/merge, [id number] 04/26/2023 12:23:09 04/26/20 23 04/26/2023 urina lysis , dipst ick Urobilinogen 2 Not Available In-Of fice Order Internal Use Only DO Not Attach Compendium DO Not Attach Compendium, Do Not Delete/merge, [id number] 04/26/2023 12:23:09 04/26/20 23 04/26/2023 urina lysis , dipst ick Protein Trace Not Available In-Office Order Internal Use Only DO Not Attach Compendium DO Not Attach Compendium, Do Not Delete/merge, [id number] 04/26/2023 12:23:09 04/26/20 23 04/26/2023 urina lysis , dipst ick pH 7.0 Not Available In-Office Order Internal Use Only DO Not Attach Compendium DO Not Attach Compendium, Do Not Delete/merge, [id number] 04/26/2023 12:23:09 04/26/20 23 04/26/2023 urina lysis , dipst ick Blood Negati ve Not Available In-Office Order Internal Use Only DO Not Attach Compendium DO Not Attach Compendium, Do Not Delete/merge, [id number] 04/26/2023 12:23:09 04/26/20 23 04/26/2023 urina lysis , dipst ick Specific Harrison 1.020 Not Available In-Off ice Order Internal Use Only DO Not Attach Compendium DO Not Attach Compendium, Do Not Delete/merge, [id number] 04/26/2023 12:23:09 04/26/20 23 04/26/2023 urina lysis , dipst ick Ketone Negati ve Not Available In-Office Order Internal Use Only DO Not Attach Compendium DO Not Attach Compendium, Do Not Delete/merge, [id number] 04/26/2023 12:23:09 04/26/20 23 04/26/2023 urina lysis , dipst ick Bilirubin Negati ve Not Available In-Office Order Internal Use Only DO Not Attach Compendium DO Not Attach Compendium, Do Not Delete/merge, [id number] 04/26/2023 12:23:09 04/26/20 23 04/26/2023 urina lysis , dipst ick Glucose Negati ve Not Available In-Office Order Internal Use Only DO Not Attach Compendium DO Not Attach Compendium, Do Not Delete/merge, [id number] 04/26/2023 12:23:09 04/26/20 23 04/26/2023 urina lysis , dipst ick Appearance Slight ly Cloudy Not Available In-Office Order Internal Use Only DO Not Attach Compendium DO Not Attach Compendium, Do Not Delete/merge, [id number] 04/26/2023 12:23:09 04/26/20 23 04/26/2023 urina lysis , dipst ick Color Dark Yellow Not Available In-Office Order Internal Use Only DO Not Attach Compendium DO Not Attach Compendium, Do Not Delete/merge, [id number] 04/26/2023 12:23:09 04/26/20 23 04/26/2023 pregn caleb test, urine HCG positi ve Not Available In-Office Order Internal Use Only DO Not Attach Compendium DO Not Attach Compendium, Do Not Delete/merge, [id number] 04/26/2023 12:22:23 01/03/20 24 01/04/2024 NUSWA B BV AND KATE DA, EVELYN atopobium vaginae LOW - 0 score Not Available [facility] ([facility]) [address] [place], [address], 01/04/2024 17:09:58 01/03/20 24 01/04/2024 NUSWA B BV AND KATE DA, EVELYN bvab 2 LOW - 0 score Not Available [facility] ([facility]) [address] [facility], [place], [address], 01/04/2024 17:09:58 01/03/20 24 01/04/2024 NUSWA B [...] prese nce of BV. Not Available [facility] ([facility]) [address] [place], [address], 01/04/2024 17:09:58 01/03/20 24 01/04/2024 NUSWA B BV AND KATE DA, EVELYN noe albicans, EVELYN NEGATI VE negati ve Not Available [facility] ([facility]) [address] [place], [address], 01/04/2024 17:09:58 01/03/20 24 01/04/2024 NUSWA B BV AND KATE DA, EVELYN noe glabrata, EVELYN NEGATI VE negati ve Not Available [facility] ([facility]) [address] [place], [address], 01/04/2024 17:09:58 01/06/20 24 01/06/2024 pregn caleb test, urine HCG negati ve Not Available In-Office Order Internal Use Only DO Not Attach Compendium DO Not Attach Compendium, Do Not Delete/merge, [id number] 01/06/2024 14:50:11 Result Notes None recorded. Problems Name Problem SNOMED Code Status Onset Date Resolution Date Notes Provider Name and Address Organization Details Recorded Time Pregnanc y 08690169 Completed 201712/14/2017 JAX PULIDO Attn: Ana agarwal,[address] [facility], [place], [address], [place] [facility] 3 12:30:23 Maternal tobacco abuse 932088395 Completed TOBACCO Graeme John DO Attn: Nathalierajeev agarwal,[address] [facility], [place], [address], [place] [facility] 8 12:14:49 Family history of Sickle cell trait 021253278 Completed FATHER OR PREGNANC Y SICKLE TRAIT Graeme John DO Attn: Nathalierajeev agarwal,[address] [facility], [place], [address] [facility] 8 12:14:49 Normal pregnanc y 56198336 Completed Graeme John DO Attn: Ana any,[address] [facility], [place], [address] [facility] 8 12:14:49 High risk pregnanc y care Completed HX SEVERE PRE ECLAMPSI A, HELLP SYNDROME , IUGR AT 33 WEEKS - 2014 Graeme John DO Attn: Ana any,[address] [facility], [place], [address], [place] [facility] 8 12:14:49 Insuffic ient care 62879847326 09 Completed MULTIPLE NO SHOW VISITS Graeme John DO Attn: Nathalierajeev agarwal,[address] [facility], [place], [address] [facility] 8 12:14:49 Pregnanc y 86085261 Completed 201702/13/2019 JAX PULIDO Attn: Ana any,[address] [facility], [place], [address] [facility] 3 12:30:23 Past pregnanc y history of pre-ecla mpsia 52640477247 9100 Completed SEVERE PRE ECLAMPSI A - IUGR - 33 WEEKS, 2014 Graeme John DO Attn: Ana agarwal,[address] [facility], [place], [address], [place] [facility] 9 12:57:50 Maternal tobacco use 674334768 Completed TOBACCO Graeme John DO Attn: Ana agarwal,[address] [place], [place], [address] [place] [address] 2, [place] [facility] 9 12:57:50 High risk pregnanc y due to history of labor 180000079 Completed HX DELIVERY AT 33 WEEKS Graeme John DO Attn: Ana agarwal,[address] [place], [place], [address] [place] [address] 2, [place] [facility] 9 12:57:50 Short cervical length in pregnanc y 969701589 Completed 20 WKS - cervix 2.7 CM, no funnel 28 WKS - cervix 1.0 cm, funnelrajeev agarwal+ Graeme John DO Attn: Ana agarwal,[address] [place], [address] [place] [address] 2, [place] [facility] 9 12:57:50 Administ ration of influenz a vaccine Completed FLU VACCINE GIVEN 04-06-18 Graeme John DO Attn: Ana agarwal,[address] [place], [address] [place] [address] 2, [place] [facility] 9 12:57:50 growth restrict ion 80124138 Completed 28 WKS - EFW 8%, AC1% - SSM ADMIT 31 WKS - EFW <3%ILE Graeme John DO Attn: Ana agarwal,[address] [place], [address] [place] [address] 2, [place] [facility] 9 12:57:50 Spontane ous onset of labor 65534072 Active Keke Nielsen [place] [facility] 0 16:11:31 Term pregnanc y 36869538 Active Keke Nielsen [place] [facility] 0 16:11:31 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 Graeme John DO Attn: Ana agarwal,[address] [place], [address], [place] [facility] 1 21:41:58 Maternal tobacco use 335094968 Completed tobacco Graeme John DO Attn: Ana agarwal,[address] [place], [address], [place] [facility] 1 21:41:58 High risk pregnanc y due to history of labor 680115196 Completed 2018 36 WEEKS , short cervix - vaginal progeste helio, IUGR Graeme John DO Attn: Ana agarwal,[address] [place], [address], [place] [facility] 1 21:41:58 Past pregnanc y history of prematur e delivery 428978451 Completed Karen Pearce MD Attn: Ana agarwal,[address] [place], [address], [place] [facility] 5 13:47:03 History of growth retardat ion 75073319295 108 Completed Karen Pearce MD Attn: Ana agarwal,[address] [place], [address], [place] [facility] 5 13:47:03 Past pregnanc y 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 143662704 Completed Karen Pearce MD Attn: Ana agarwal,[address] [place], [address], [place] [facility] 5 13:47:03 Obesity 103252285 Completed BMI 30.5 Karen Pearce MD Attn: Nathalierajeev agarwal,[address] [place], [address], [place] [facility] 5 13:47:03 Cervical incompet ence 91309811 Completed -Cerclag e with G5 Karen Pearce MD Attn: Ana agarwal,[address] [place], [address], [facility] - [facility] 5 13:47:03 Past pregnanc y history of pre-ecla mpsia 18686753887 9100 Completed Karen Pearce MD Attn: Ana agarwal,[address] [facility], [place], [address], [facility] - [facility] 5 13:47:03 Pregnanc y 80919519 Completed 202205/17/2023 JAX PULIDO Attn: Ana agarwal,[address] [place], [address], [facility] - [facility] 3 12:30:23 Maternal tobacco abuse 713135976 Completed TOBACCO Graeme John DO Attn: Ana agarwal,[address] [place], [address], [facility] - [facility] 5 18:02:33 Routine antenata l care Completed FREQUENT NO SHOW Graeme John DO Attn: Ana agarwal,[address] [facility], [place], [address], [facility] - [facility] 5 18:02:33 Problem Notes None recorded. Procedures Surgical History Date Name Laterality Status Provider Name and Address Organization Details Recorded Time 5 Depo Injection completed Sara Michaels [place] 12/23/2014 15:57:18 5 Date of Last Pap Smear completed Sy Welsh MA [place] [facility] 12/24/2016 11:25:28 termination of completed Raquel Bustamante MA [facility] 04/26/2023 12:26:00 termination of completed Raquel Bustamante MA [facility] 04/26/2023 12:26:01 cerclage of uterine cervix completed Raquel Bustamante MA [facility] 04/26/2023 12:26:54 cerclage of uterine cervix completed Raquel Bustamante [place] [facility] 04/26/2023 12:26:57 Dilation and Curettage completed Sara Michaels MA [facility] 12/23/2014 14:51:08 Imaging Results None recorded. Procedure Notes None recorded. Medical Equipment None Reported. Allergies Allergen ID Allergen Name Allergen Category Reaction Reaction Severity Criticality Documentation Date Start Date Code Code System Note Provider Name and Address Organization Details Recorded Time 276102 Penicilli n Not available Not available Not available Not available 06/28/2019 28263 RxNorm Other react ions and sever ities : 'Adve rse react ion to subst ance' . Not Available Not Available Not Available 7699 Product containin g penicilli n and antibioti c (product) medicatio n itching moderate Not available 05/15/2014 88754 05 SNOMED Not Available Not Available Not [...] Updated DateTime 12/05/2019 162.56 cm 27.5 kg/m2 32171.92 g 118 mm[Hg] 80 mm[Hg] Halie Lawrence MA [facility] 0 15:26:57 Date Recorded Body height Body mass index (BMI) Systolic blood pressure Diastolic blood pressure Provider Name and Address Organization Details Last Updated DateTime 02/08/2020 162.56 cm 27.5 kg/m2 110 mm[Hg] 72 mm[Hg] Halie Lawrence MA [facility] 02/08/2020 16:41:16 Date Recorded Body weight Provider Name an d Address Organization Details Last Updated DateTime 02/08/2020 08234.30374 any John DO Attn: Accounting,[address] [facility], [place], [address], [facility] 02/08/2020 17:40:24 Date Recorded Body height Body mass index (BMI) Heart rate Systolic blood pressure Diastolic blood pressure Provider Name and Address Organization Details Last Updated DateTime 04/26/2023 162.56 cm 30.1 kg/m2 89 /min 111 mm[Hg] 69 mm[Hg] Raquel Bustamante MA [facility] 3 12:22:38 Date Recorded Body weight Provider Name an d Address Organization Details Last Updated DateTime 04/26/2023 13974.340713 g JAX PULIDO Attn: Accounting,[address] [facility], [place], [address], [facility] 04/26/2023 15:31:06 Date Recorded Body height Body mass index (BMI) Body weight Heart rate Systolic blood pressure Diastolic blood pressure Provider Name and Address Organization Details Last Updated DateTime 4 162.56 cm 31.1 kg/m2 37918.5 7 g 86 /min 138 mm[Hg] 71 mm[Hg] Raquel Bustamante MA [facility] 4 15:07:18 Date Recorded Body height Body mass index (BMI) Body weight Heart rate Systolic blood pressure Diastolic blood pressure Provider Name and Address Organization Details Last Updated DateTime 4 162.56 cm 30.9 kg/m2 50252.6 3 g 96 /min 117 mm[Hg] 78 mm[Hg] Raquel Bustamante MA [facility] 4 15:04:37 Social History Question Answer Notes LastModified by Organizat ion Details LastModified Time Tobacco Smoking Status Current Every Day Smoker Raquel Bustamante MA null, [facility] 04/26/2023 12:23:51 What Is Your Level Of Alcohol Consumption? None Information not available 04/26/2023 Is Anesthesia Consult Planned? Yes [email or web address] Information not available 09/27/2014 Are You Blind Or Do You Have Difficulty Seeing? No Information not available 04/26/2023 Is Blood Transfusion Acceptable In An Emergency? Yes Information not available 02/18/2016 What Is Your Level Of Caffeine Consumption? Occasional Information not available 12/24/2016 Live With Cats/exposure To Cat Litter No [email or web address] Information not available 10/16/2014 How Much Tobacco Do You Chew? None [email or web address] Information not available 09/27/2014 Are You Currently Employed? Yes Self-empl oyed Information not available 04/26/2023 Are You Deaf Or Do You Have Serious Difficulty Hearing? No Information not available 04/26/2023 What Type Of Diet Are You Following? REGULAR [email or web address] Information not available 10/16/2014 Which Illicit Or Recreational Drugs Have You Used? None Information not available 06/19/2014 Do You Or Have You Ever Used E-cigarettes Or Vape? Current User Of Electronic Cigarettes Information not available 04/26/2023 Education 12 Information no t available 10/16/2014 What Is Your Occupation? Unemployed [email or web address] Information not available 11/01/2014 Have There Been Any Changes To Your Family Or Social Situation? No [email or web address] Information not available 11/01/2014 Frequent Air Travel No Information not available 09/27/2014 Marital Status Single [email or web address] Informatio n not available 09/27/2014 What Was [...] available 04/26/2023 Seat Belts Used Routinely Yes [email or web address] Information not available 09/27/2014 Are You Sexually [...] How Much Tobacco Do You Smoke? No [email or web address] Information not available 12/23/2014 Smoking Pre- .5 PPD Information not available 06/19/2014 General Stress Level Low [email or web address] Information not available 09/27/2014 Do You Use Any Illicit Or Recreational Drugs? No Information not available 04/26/2023 Do You Use Sunscreen Routinely? No [email or web address] Information not available 11/01/2014 Has Tobacco Cessation [...] 04/26/2023 What is your exercise level? None [email or web address] Information not available 09/27/2014 Mental Status None recorded. Family History Relationship Description Onset Age of this Age Resolved Age Notes LastModified by Organization Details LastModified Time Father Diabetes mellitus [email or web address] Not available 2014 14:51:08 Father Hypertensive disorder [email or web address] Not available 04/26 12:25:46 Medical History Condition Response Heart Problems N Other N Breast Cancer N Kidney or Bladder Problems N Thyroid Problems N GI Problems N Lung Disease N Depression N Acne N Eating Disorder N Breast Problem N Anemia N Anesthesia Complications N Headaches/Migraines N Anxiety Disorder N Ovarian Cancer N Diabetes N Blood Transfusions N Arthritis N Infertility N Polyps N Acid Reflux (GERD) N Cancer N [...] Age at Menarche 14 Current Control Method 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 a Age at First Child 24 If [...] virus, quadrivalent, preservative 8 completed Not Available [facility] 06/23/2019 02:36:29 Tdap 5 completed Not Available [facility] 06/23/2019 02:42:05 Past Encounters Encounter ID Performer Location Encounter Start Date Encounter Closed Date Diagnosis/Indication Diagnosis SNOMED-CT Code Diagnosis ICD10 Code Diagnosis Note [id number] Steff Cavazos RN [facility] (ONLINE MERCHANT) [address] [place] [address] 05/15/2014 15:20:39 05/16/2014 03:51:01 Normal [id number] [facility] (ONLINE MERCHANT) [address] [place] [address] 06/05/2014 14:33:11 06/07/2014 17:00:42 [id number] Kenia Velasco [facility] (ONLINE MERCHANT) [address] [place] [address] 06/19/2014 15:30:49 06/25/2014 15:45:01 Normal [id number] Joseph Velasco [facility] (ONLINE MERCHANT) [address] [place] [address] 07/08/2014 14:57:51 07/09/2014 22:16:20 Normal [id number] SULEMA Phelan [facility] (ONLINE MERCHANT) [address] [place] [address] 09/27/2014 14:24:21 09/30/2014 11:13:42 Normal [id number] Natasha Funk [facility] (ONLINE MERCHANT) [address] [place] [address] 10/16/2014 15:20:49 10/18/2014 17:55:44 Normal [id number] Natasha Velasco [facility] (ONLINE MERCHANT) [address] [place] [address] 11/01/2014 15:35:40 11/07/2014 12:46:49 Normal [id number] Natasha Velasco [facility] (ONLINE MERCHANT) [address] [place] [address] 11/28/2014 15:49:34 11/29/2014 00:26:06 care [id number] Ayesha Gómez RN [facility] (ONLINE MERCHANT) [address] [place] [address] 12/23/2014 13:54:08 12/24/2014 09:48:50 care [id number] [facility] [address] [place] [address] 02/18/2016 14:55:52 02/20/2016 13:00:57 Contraception care 675132196 Z30.40 [id number] [facility] ([facility] [address] [place] [address] 03/16/2016 16:34:45 03/19/2016 14:26:43 Contraception care 020342799 Z30.40 [id number] DO Krista Pisano [facility] (ONLINE MERCHANT) [address] [place] [address] 12/24/2016 11:16:12 12/28/2016 15:28:46 Gynecologic examination 67077981 Z01.365 [id number] Feliciano Mo MD [address] [place] [address] [address] 12/28/2016 17:56:26 01/03/2017 10:39:58 Shoulder pain 48832243 M25.512 MRI and follow up results [id number] Feliciano Mo MD [address] [place] [address] [address] 01/11/2017 17:54:54 01/13/2017 10:33:47 Shoulder pain 41651490 M25.512 MRI and follow up results... negative MRI 01-05-2017 .. return to work at full capacity tomorrow [id number] DO Krista Pisano [facility] (ONLINE MERCHANT) [address] [place] [id number] 07/15/2017 12:08:42 08/03/2017 09:26:49 Normal [id number] Z34.80 [id number] Didier Sanchez MD [address] [place] [address] [address] 10/17/2017 18:05:21 10/18/2017 15:59:49 Heel pain 0410175 M79.831 [id number] Graeme John DO [facility] (ONLINE MERCHANT) [address] [place], [place] [address] 12/14/2017 11:50:07 12/27/2017 15:20:00 Normal [id number] Z34.80 [id number] Graeme John [facility] (ONLINE MERCHANT) [address] [place], [place] [address] 01/25/2018 16:49:43 01/31/2018 15:30:29 Normal 64249948 Z34.80 Gestation period, 14 weeks 45665729 Z3A.14 [id number] Graeme John [facility] (ONLINE MERCHANT) [address] [place] [id number] 03/02/2018 14:06:47 03/03/2018 08:37:46 Normal 19348911 Z34.80 Gestation period, 19 weeks 80675965 Z3A.19 [id number] Graeme John [facility] (ONLINE MERCHANT) [address] [place] [id number] 04/06/2018 14:00:37 05/01/2018 16:18:04 Normal 57234634 Z34.80 Gestation period, 24 weeks 965783772 Z3A.24 Administra tion of influenza vaccine 81143317 Z23 [id number] Graeme John [facility] (ONLINE MERCHANT) [address] [place], [place] [address] 04/24/2018 15:42:21 05/02/2018 09:43:50 Short cervical length in 489124197 O26.879 Dysuria 50036309 R30.0 Gestation period, 27 weeks 75835146 Z3A.27 [id number] Graeme John [facility] (ONLINE MERCHANT) [address] [place] [address] 06/13/2018 17:31:14 06/14/2018 08:47:24 High risk 04012290 O09.796 [id number] Graeme John [facility] (ONLINE MERCHANT) [address] [place] [id number] 02/13/2019 12:32:50 02/14/2019 08:56:03 Venereal disease screening 625942790 Z11.3 [id number] Graeme John [facility] (ONLINE MERCHANT) [address] [place] [id number] 06/28/2019 15:34:56 06/29/2019 08:48:43 Venereal disease screening 806757311 Z11.3 Z72.9 [id number] KAILYN CAMARGO-Zoya simonia [address] [place] [address] 11/02/2019 12:10:03 11/05/2019 15:39:58 Suspected COVID-19 102107481 Z03.795 [id number] Graeme John DO [facility] (ONLINE MERCHANT) [address] [place] [id number] 12/05/2019 15:03:24 12/06/2019 10:42:50 Venereal disease screening 293487888 Z11.3 Z72.9 [id number] Graeme John [facility] (ONLINE MERCHANT) [address] [place] [id number] 02/08/2020 16:31:58 02/12/2020 11:44:25 Normal [id number] Z34.80 [id number] Raquel Bustamante MA [facility] (ONLINE MERCHANT) [address] [place] [address] 04/26/2023 12:01:16 05/04/2023 19:11:07 High risk 20559764 O09.90 -LMP unknown. Was on DMPA, uncertain [...] .-Referral placed for transfer or care to [facility] given hx. Screening for malignant neoplasm of cervix 926104637 Z12.4 -Last pap 07/08/24--NI LM-Updated today Past pregn caleb history of pre-eclampsia 0384678058 86829 Z87.59 -Hx pre-eclamp francesco with severe features and HELLP-Labs obtained.- Start ASA 162 mg qd given US >12w.-[facility] Cervical incompetence 17 687776 O34.32 -Had cerclage with G5. Past pregn caleb history of premature delivery 103168299 Z87.51 -G2 delivered via at 33w1d. Obesity 136955600 E66.9 BMI 30.1. Headache 64384480 R51.9 -Tylenol prn for pain. Rest in cool, dark room. Ensure proper fluid intake and regular meals/snac ks.-If develops vision changes, RUQ/epigas tric pain, LE edema, intractabl e BLOOM, weakness, syncope, etc, pt instructed to go to ER. [id number] [facility] (ONLINE [facility]) [address] [place] [address] 01/03/2024 14:39:32 01/06/2024 08:06:42 care 279725980 Z39.2 - 10/24/23. Labor augmented due to mild increase in SBP-Pregna ncy c/b prophylact ic cerclage placement at 16w-LMP 12/08/23. Sexually active with since delivery-F ollow up with PCP to monitor BP. Mild elevation today at 138/71 Contracept ion care management 183055028 Z30.9 -Desires to restart DMPA-Revie wed SEs and RFs including changes in bleeding pattern, weight gain, and increased risk of osteoporos is.-LMP 12/08/23-Rx sent. RTC 01/06/24 for injection. Vaginal discharge 321019 006 N89.8 -Scant discharge on exam-Nuswa b sent, will treat as indicated. [id number] [facility] (ONLINE MERCHANT) [address] [place] [address] 01/06/2024 14:45:51 01/09/2024 15:26:15 Contraception care management 580998871 Z30.9 -Desires to restart DMPA-UPT (-)-Advise d [...] Bahena Member ID Guarantor Name 12/05/2019 1 [facility] (MEDICAID HMO) [id number] 0003 Tisha Casey [id number] Tisha Casey 02/08/2020 1 [facility] (MEDICAID HMO) [id number] 0003 Tisha Casey [id number] Tisha Casey 04/26/2023 1 [facility] [place] (MEDICAID HMO) [id number] 0003 Tisha Casey [id number] Tisha Casey 01/03/2024 1 [facility] (MEDICAID HMO) [id number] 0003 Tisha Casey [id number] Tisha Casey 01/06/2024 1 [facility] [place] ([place] [id number] 0003 Tisha Casey [id number] Tisha Casey Notes Date Note Type Note [...] complications with deliveries. Raquel Bustamante [place] null, [place] [facility] 04/26/2023 17:40:53 01/03/2024 text/html 33 yo presents for care. 10/24/23 at [facility]. C/b prophylactic cerclage. Labor augmented due to [...] for contraception. JAX PULIDO Attn: Accounting,[address] [place], [address], [facility] 01/03/2024 17:51:40 01/06/2024 text/html 33 yo presents for DMPA. First injection today. LMP 12/08/23. No complaints. JAX PULIDO Attn: Accounting[address] [place], [address], [facility] 01/06/2024 16:01:14 OBGyn Episode Ob Episode Information Episode Created Date Number of Fetuses Patient Bloodtype Patient rh Status Prepregnancy Weight lbs Domestic Partner Domestic Partner Phone Father Name Excel Analyst Status 04/26/20 23 1 CLOSED Fetus Data First Name Last Name Admitted to NICU Weight (g) Sex Living Outcome Pediatric Complications Fetus ID Race Codes Race Delivery Type , Induced [id number] Chaim Calculation Initial Chaim Date Initial Exam [...] Domestic Partner Domestic Partner Phone Father Name Excel Analyst Status 04/26/20 1 A Positive 142 CLOSED Fetus Data First Name Last Name Admitted to NICU Weight (g) Sex Living Outcome Pediatric Complications Fetus ID Race Codes Race Delivery Type Paola [place] s 2718.73 [id number] M true Full Term 56175 4-5 Black or Afric an Ameri can Vaginal Problems Problem Notes Problem Name Start Date End Date Resolution Snomed Code Not e Past history of premature delivery 779940280 History of growth retardation 82890892056418 Past history of hemolysis-elevated liver enzymes-low platelet count syndrome 914118293 Obesity 887706739 BMI 30.5 Cervical incompetence 23410406 -Cerclage with G5 Past history of pre-eclampsia 978529043896733 Chaim Calculation Initial Chaim Date Initial Exam Date Initial Exam Provider Initial Ultrasound Date Last Menstrual Period Date Ultra Sound Weeks Gestation 10/31/2023 04/26/2023 04/26/2023 01/23/2023 13 Eighteen To Twenty Week [...] Weight in lbs Pre/Post Dialysis Refused Weight 175.234785554925 BP Diastolic BP Location Tested BP Systolic BP Type 69 111 sitting Fetus Heart Rate Present A 1519 Present Fetus Movement A Yes Comments 32 yo IPN. Unknown L MP, unable to estimate. C/b hx PTD @33w1d, IUGFR, pre-eclampsia, HELLP, cervical insufficiency requiring cerclage, and obesity. Previous deliveries at [facility]. Denies vb, ctx, d/c, LOF. (+) fluttering. US with estimated GA 13w1d +/-7d. NOB labs ordered with CMP, uric acid, P/C ration given hx pre-E. ASA 162 mg qd started. Declines flu or COVID vaccinations. Referral placed to [facility] for full transfer of care. Menstrual History Last Menstrual Date Menses Monthly On Bcp Conception Prior Menses Frequency Hcg Plus Date Menarche Onset Age 0801/23/2023 false Genetic Screening And Infection History Question Response Note Patient's Age Will Be 35 Yea rs Or Older At Estimated Date of Delivery false Thalassemia (Citizen Of [place], Czech, Mediterranean, Or Background): MCV < 80 false Neural Tube Defect (Meningom yelocele, Spina Bifida, Or Anencephaly) false Congenital Heart Defect false Down Syndrome false Jb-Sachs (eg, Restoration, Cajun , Cypriot-Callahan) false Gavin Disease false Sickle Cell Disease Or Trait () false Hemophilia Or Other Blood Disorders false Muscular Dystrophy false Cystic Fibrosis false Owyhee's Chorea false Mental Retardation/Autism false If Yes, [...] ed By 04/26/2023 Anticipated course of care 04/26/2023 Alcohol 04/26/2023 Intimate partner violence sc [id number] 04/26/2023 Environmental/work hazards s [id number] 04/26/2023 Screening for aneuploidy sco [email or web address] 04/26/2023 Nutrition counseling ; special diet; dietary precautions (mercury, listeriosis) [id number] 04/26/2023 Childbirth classes/hospital facilities 04/26/2023 HIV and other routine tests [email or web address] 04/26/2023 Risk factors identif ied by history [email or web address] 04/26/2023 Weight gain counseling scoop [email or web address] 04/26/2023 Exercise [email or web address] 04/26/2023 Teratogens [id number] 04/26/2023 Use of any medicatio ns (including supplements, vitamins, herbs, or OTC drugs) [email or web address] 04/26/2023 [email or web address] 04/26/2023 Sexual activity [id number] 04/26/2023 Tobacco/smoking cess ation counseling (ask, advise, assess, assist, and arrange) [id number] 04/26/2023 Illicit/recreational drugs s 04/26/2023 Dental care [email or web address] 04/26/2023 Travel [id number] 04/26/2023 Seat belt use [id number] 04/26/2023 Indications for ultrasonography [id number] 04/26/2023 Avoidance of saunas or hot tubs [id number] 04/26/2023 Toxoplasmosis precautions (cats/raw meat) [id number] Second Trimester Discussed Date Discussion Item Discussion Note Discuss ed By Third Trimester Discussed Date Discussion Item Discussion Note Discuss ed By Delivery Information Delivery Date Delivery Type Labor Anesthesia Weeks Gestation Incision Type Labor Labor Length Hrs Delivered By Post Complications Tubal Sterilization Discharge Date Comments 4 Augmen [facility] 38.4 false [place] None false 10/26/2023 pro phylac tic cerclage placed at 16wAugmen harris due to latent labor and SBP readings in 140s x 2 Discharge Information Feeding Method Contraceptive Method Maternal HG B and HCT Levels Bottle DMPA Ob Episode Information Episode Created Date Number of Fetuses Patient Bloodtype Patient rh Status Prepregnancy Weight lbs Domestic Partner Domestic Partner Phone Father Name Excel Analyst Status 02/08/20 20 1 A Positive CLOSED Fetus Data First Name Last Name Admitted to NICU Weight (g) Sex Living Outcome Pediatric Complications Fetus ID Race Codes Race Delivery Type 2579.80 46 F Full Term [id number] [id number] Afric an Ameri can Vaginal Problems Problem Notes 29 YO [id number] - elect [id number] - 33 wks - - severe pre eclampsia, [id number] - elect [id number] - 36 wks - - labor, short cervix - vag progesterone, IUGR Problem Name Start Date End Date Resolution Snomed Code Not e Past history of pre-eclampsia [id number] 2015 - 33 WEEKS, induction - severe pre eclampsia + IUGR at [facility]. Maternal tobacco use 260516075 tobacco High risk due to history of labor 425396035 2019 - 36 WEEKS , short cervix [...] in lbs Pre/Post Dialysis Refused With clothes 160.007403954951 BP Diastolic BP Location Tested BP Systolic BP Type 72 110 sitting Fetus Heart Rate Present Fetus Movement Comments INITIAL OB VISIT - unsure LM P in November 2019. no bleeding or cramping. report urinary frequency and breast tenderness. no pelvic pain. complicated history. 2015 SEVERE PRE ECLAMPSIA IUGR at 33 weeks. 2019 at 36 weeks, IUGR, short cervix. will transfer care to [facility] for care and monitoring. recommend start daily [...] Estim ated Date of Delivery false Thalassemia (Citizen Of [place], Czech, Mediterranean, Or Background): MCV < 80 false Neural Tube Defect (Meningomyelocele, Spina Bifi da, Or Anencephaly) false Congenital Heart Defect false Down Syndrome false Jb-Sachs (eg, Restoration, Cajun, Cypriot-Callahan) f alse Gavin Disease false Sickle Cell Disease Or Trait () false Hemophilia Or Other Blood Disorders false Muscular Dystrophy false Cystic Fibrosis false Owyhee's Chorea false Mental Retardation/Autism false If Yes, [...] Domestic Partner Domestic Partner Phone Father Name Excel Analyst Status 06/19/19 15 1 A Positive CLOSED [...] Snomed Code Not e Maternal tobacco abuse [id number] 06 TOBACCO Routine care 2329756 03 FREQUENT NO SHOW Chaim Calculation Initial [...] Date Ultra Sound Latest Days Gestation 0 [email or web address] 06/19/2014 12/27/19 15 0 Pre- Flowsheet Flowsheet Date 06/19/2014 Ochoa Score Blood Edema Fundus Height Fundus Units Glucose Ketones Leukocytes Nitrite Labor Signs Protein Cervic Dilation Cervic Effacement Cervic Station 12 none Type Weight in lbs Pre/Post Dialysis Refused 138.630288235388 BP Diastolic BP Location Tested BP Systolic BP Type 80 L arm 110 sitting Fetus Heart Rate Present A 160 Fetus Movement A No Comments Flowsheet Date 07/08/2014 Ochoa Score Blood Edema Fundus Height Fundus Units Glucose Ketones Leukocytes Nitrite Labor Signs Protein Cervic Dilation Cervic Effacement Cervic Station 15 none 0cm 0% -4 Type Weight in lbs Pre/Post Dialysis Refused 138.894727653291 BP Diastolic BP Location Tested BP Systolic BP Type 60 L arm 100 sitting Fetus Heart Rate Present A 160 Fetus Movement Comments Flowsheet Date 09/27/2014 Ochoa Score Blood Edema Fundus Height Fundus Units Glucose Ketones Leukocytes Nitrite Labor Signs Protein Cervic Dilation Cervic Effacement Cervic Station none 27 none Type Weight in lbs Pre/Post Dialysis Refused 154.045452298481 BP Diastolic BP Location Tested BP Systolic BP Type 70 R arm 110 sitting Fetus Heart Rate Present A 150 Fetus Movement A Yes Comments Flowsheet Date 10/16/2014 Ochoa Score Blood Edema Fundus Height Fundus Units Glucose Ketones Leukocytes Nitrite Labor Signs Protein Cervic Dilation Cervic Effacement Cervic Station none 28 none Type Weight in lbs Pre/Post Dialysis Refused 153.072806919029 BP Diastolic BP Location Tested BP Systolic BP Type 70 110 sitting Fetus Heart Rate Present A 150 Fetus Movement A Yes Comments NO COMPLAINTS Flowsheet Date 11/01/2014 Ochoa Score Blood Edema Fundus Height Fundus Units Glucose Ketones Leukocytes Nitrite Labor Signs Protein Cervic Dilation Cervic Effacement Cervic Station none 30 none Type Weight in lbs Pre/Post Dialysis Refused 161.292658386865 BP Diastolic BP Location Tested BP Systolic BP Type 90 110 sitting Fetus Heart Rate Present A 150 Fetus Movement A Yes Comments no complaints Flowsheet Date 11/28/2014 Ochoa Score Blood Edema Fundus Height Fundus Units Glucose Ketones Leukocytes Nitrite Labor Signs Protein Cervic Dilation Cervic Effacement Cervic Station Type Weight in lbs Pre/Post Dialysis Refused 148.195566494556 BP Diastolic BP Location Tested BP Systolic BP Type 72 R arm 110 sitting Fetus Heart Rate Present Fetus Movement Comments Flowsheet Date 12/23/2014 Ochoa Score Blood Edema Fundus Height Fundus Units Glucose Ketones Leukocytes Nitrite Labor Signs Protein Cervic Dilation Cervic Effacement Cervic Station Type Weight in lbs Pre/Post Dialysis Refused 148.644436000085 BP Diastolic BP Location Tested BP Systolic [...] Estim ated Date of Delivery false Thalassemia (Citizen Of [place], Czech, Mediterranean, Or Background): MCV < 80 false Neural Tube Defect (Meningomyelocele, Spina Bifi da, Or Anencephaly) false Congenital Heart Defect false Down Syndrome false Jb-Sachs (eg, Restoration, Cajun, Cypriot-Callahan) f alse Gavin Disease false Sickle Cell Disease Or Trait () false Hemophilia Or Other Blood Disorders false Muscular Dystrophy false Cystic Fibrosis false Owyhee's Chorea false Mental Retardation/Autism false If Yes, [...] Domestic Partner Domestic Partner Phone Father Name Excel Analyst Status 06/19/19 15 1 CLOSED Fetus Data [...] Domestic Partner Domestic Partner Phone Father Name Excel Analyst Status 07/15/19 18 1 A Positive CLOSED Fetus Data First Name Last Name Admitted to NICU Weight (g) Sex Living Outcome Pediatric Complications Fetus ID Race Codes Race Delivery Type [id number] Problems Problem Notes 26 YO [id number] Problem Name Start Date End Date Resolution Snomed Code Not e Maternal tobacco abuse 5083014 06 TOBACCO Family history of Sickle cell trait 188870762 FATHER OR SICKLE TRAIT Normal 38496467 High risk care 637963137 HX SEVERE PRE ECLAMPSIA, HELLP SYNDROME, IUGR AT 33 WEEKS - 2015 Insufficient care [id number] MULTIPLE NO SH OW VISITS Chaim Calculation [...] Days Gestation 0 07/20/2017 03/11/20 18 0 Pre- Flowsheet Flowsheet Date 07/15/2017 Ochoa Score Blood Edema Fundus Height Fundus Units Glucose Ketones Leukocytes Nitrite Labor Signs Protein Cervic Dilation Cervic Effacement Cervic Station none Type Weight in lbs Pre/Post Dialysis Refused 156.571119993542 BP Diastolic BP Location Tested BP Systolic [...] Type Weight in lbs Pre/Post Dialysis Refused 159.678504879821 BP Diastolic BP Location Tested BP Systolic [...] Movement Comments NO SHOW Flowsheet Date 09/16/2017 [place] Score Blood Edema Fundus Height Fundus Units [...] Type Weight in lbs Pre/Post Dialysis Refused 156.879476906006 BP Diastolic BP Location Tested BP Systolic [...] At Estimated Date of Delivery false Thalassemia (Citizen Of [place], Czech, Mediterranean, Or Background): MCV < 80 false Neural Tube Defect (Meningom yelocele, Spina Bifida, Or Anencephaly) false Congenital Heart Defect false Down Syndrome false Jb-Sachs (eg, Restoration, Cajun, Cypriot-Callahan) f alse Gavin Disease false Sickle Cell [...] Domestic Partner Domestic Partner Phone Father Name Excel Analyst Status 12/15/19 18 1 A Positive 156 CLOSED Fetus Data First Name Last Name Admitted to NICU Weight (g) Sex Living Outcome Pediatric Complications Fetus ID Race Codes Race Delivery Type Prematur e [id number] [id number] Afric an Ameri can Vaginal Problems Problem Notes 27 YO [id number] wk ultras ound - SSMBorderline short cervix - 2.7 cm - no funneling - start vaginal progesterone dailyLeft EIFmarginal cord insertionmild bilat renal pelvic dilationrecommend daily ASA 162mg DAILY28 WEEKS - admit to [facility] x2 days. received betamethasone steroids. cervix length1.0 cm dilation FT.continue vaginal progesterone, daily aspirin. Problem Name Start Date End Date Resolution Snomed Code Not e growth restriction 48921207 28 WKS - EFW 8% , AC1% - SSM ADMIT31 WKS - EFW <3%ILE Administration of influenza vaccine 56575712 FLU VACCIN E GIVEN 04-06-18 Past history of pre-eclampsia [id number] SEVERE P RE ECLAMPSIA - IUGR - 33 WEEKS, 2014 Maternal tobacco use 854585075 TOBACCO High risk due to history of labor 262918796 HX DELIVERY AT 33 WEEKS Short cervical length in 108916678 20 WKS - cervix 2.7 CM, no [id number] WKS - cervix 1.0 cm, funneling+ Chaim [...] Days Gestation 0 01/25/2018 07/22/19 19 0 Pre-emily Flowsheet Flowsheet Date 12/14/2017 Ochoa Score Blood Edema Fundus Height Fundus Units Glucose Ketones Leukocytes Nitrite Labor Signs Protein Cervic Dilation Cervic Effacement Cervic Station none Type Weight in lbs Pre/Post Dialysis Refused Weight 156.715345917542 BP Diastolic BP Location Tested BP Systolic BP Type 60 110 Fetus Heart Rate Present Fetus Movement Comments INITIAL OB VISIT. new pregna ncy diagnosis today. pt states seen at [facility] ER. she reports labs and ultrasound done. [...] Weight in lbs Pre/Post Dialysis Refused Weight 154.027575563054 BP Diastolic BP Location Tested BP Systolic BP Type 66 114 sitting Fetus Heart Rate Present A 160 Fetus Movement Comments no complaints. no bleeding o r cramping. declines pelvic and std swab today. advise vitamin or women's daily. advise aspirin 81mg daily - over the counter. [facility]. ROGELIO Flowsheet Date 03/02/2018 Ochoa Score Blood Edema Fundus Height Fundus Units Glucose Ketones Leukocytes Nitrite Labor Signs Protein Cervic Dilation Cervic Effacement Cervic Station none 19 none Type Weight in lbs Pre/Post Dialysis Refused Weight 159.117699893431 BP Diastolic BP Location Tested BP Systolic BP Type 62 108 sitting Fetus Heart Rate Present A 150 Fetus Movement A Yes Comments no complaints. no bleeding o r cramping. normal bp today. has not started daily aspirin. declines flu vaccine. [facility] mfm scheduled next week. ROGELIO Flowsheet Date [...] Weight in lbs Pre/Post Dialysis Refused Weight 165.423480241126 BP Diastolic BP Location Tested BP Systolic [...] Weight in lbs Pre/Post Dialysis Refused Weight 167.600305454427 BP Diastolic BP Location Tested BP Systolic [...] Movement Comments NO SHOW Flowsheet Date 06/13/2018 Cohoa Score Blood Edema Fundus Height Fundus Units Glucose Ketones Leukocytes Nitrite Labor Signs Protein Cervic Dilation Cervic Effacement Cervic Station Type Weight in lbs Pre/Post Dialysis Refused Weight 183.719486055226 BP Diastolic BP Location Tested BP Systolic [...] been admitted to [facility] in [facility] x3 for threatened labor and growth restriction. She continues vaginal progesterone and oral aspirin. ultrasound at [facility] yesterday shows elevated MCA doppler flow, previous ultrasound shows estimated weight lagging at 3%ile. Recommend transfer of care to [facility] for remainder of due to fractured/incomplete care. [...] Weight in lbs Pre/Post Dialysis Refused Weight 166.994429995863 BP Diastolic BP Location Tested BP Systolic BP Type 76 124 Fetus Heart Rate Present Fetus Movement Comments Menstrual History Last Menstrual Date Menses Monthly On Bcp Conception Prior Menses Frequency Hcg Plus Date Menarche Onset Age 0611/14/2017 Genetic Screening And Infection History Question Response Note Patient's Age Will Be 35 Years Or Older At Estim ated Date of Delivery false Thalassemia (Citizen Of [place], Czech, Mediterranean, Or Background): MCV < 80 false Neural Tube Defect (Meningomyelocele, Spina Bifi da, Or Anencephaly) false Congenital Heart Defect false Down Syndrome false Jb-Sachs (eg, Restoration, Cajun, Cypriot-Callahan) f alse Gavin Disease false Sickle Cell [...] Date Comments 9 Sponta neous 36.3 true [place] Discharge Information Feeding Method Contraceptive Method Maternal HG B and HCT Levels
--- OUTSIDE RECORDS SUMMARY | 2024-07-19 20:21 | XMS_ITS | Referral Summary ---
Author Organization [facility] Address [address] [place] [address] Care Team Providers Care Maintenance Representative Name Role Phone Unavailable Primary Care Provider Unavailabl e Source Comments [facility],non-owned Affiliates and Associated Physician Practices is amultiple site organization consisting of ambulatory clinics and hospital sitesin [place], [place], [place] and [place]. This disclosure is being madepursuant to the Care Everywhere program and may not contain all information available regarding this patient. Last updated 18.[facility] Allergies Active Allergy Reactions Criticality Noted Date [...] migh t be different from the original. [employer] form completed. Diapers given. 08/15/2023, 10/06/2023 Now [place] [id number] [employer] form completed. Diapers given. 08/07/2020, [...] Not hard at all 10/24/2023 [facility] [place] [facility] - Occupational Stress [...] place to sleep or slept in a long-term (including now)? No 10/24/2023 [place] Depression Scale Answer Date Recorded [place] Depression Scale Total 0 10/26/2023 The thought [...] IG LB+HPV APTIMA Routine 05/04/2023 3:44 PM PRIMARY CLINICIAN Cervical cerclage suture present, antepartum (HCC) HEPATITIS C ANTIBODY Routine 05/04/2023 3:43 PM PRIMARY CLINICIAN Short cervix affecting (HCC) from Last 3 Months or Most Recently Relevant to Health Maintenance Results * HIV-1 HIV-2 ANTIBODY + HIV P24 AG PANEL (08/29/2023 11:08 AM CDT) HIV1/2 Ab + P24 Ag Non Reactive Non Reactive 08/29/2023 12:17 PM CDT [facility] Blood BLOOD SPECIMEN / Unknown Venipuncture / Unknown 08/29/2023 11:08 AM CDT 08/29/2023 11:28 AM CDT Narrative [facility] - 08/29/2023 12:17 PM CDT No Laboratory evidence of HIV infection. Aicha Johnson MD LAB - C HEMISTRY ORDERABLES [facility] [address] [place] [address] * PAP IG LB+HPV APTIMA (05/04/2023 3:44 PM PRIMARY CLINICIAN) Diagnosis Comment 05/09/2023 3:08 PM PRIMARY CLINICIAN [facility] ([facility]) Comment:NEGATIVE FOR INTRAEP ITHELIAL LESION OR MALIGNANCY. Specimen Adequacy Comment 3:08 PM PRIMARY CLINICIAN [facility] ([facility]) Comment: Satisfactory for evaluation. Endocervical and/or squamous metaplastic cells (endocervical component) are present. Performed by Comment 05/09/2023 3:08 PM PRIMARY CLINICIAN [facility] ([facility]) Comment:Nadir Sadler totechnologist Comment . 05/09/2023 3:08 PM PRIMARY CLINICIAN [facility] ([facility]) Note Comment 05/09/2023 3:08 PM PRIMARY CLINICIAN [facility] ([facility]) Comment: The Pap smear is a screening test designed to aid in the detection of premalignant and malignant conditions of the uterine cervix. It is not a diagnostic procedure and should not be used as the sole means of detecting cervical cancer. Both false-positive and false-negative reports do occur. IGLBP CPT Code Automation Comment 05/09/2023 3:08 PM PRIMARY CLINICIAN [facility] ([facility]) Comment: This liquid based ThinPrep(R) pap test was screened with the use of an image guided system. Human papillomavirus Aptima Negative Negative 05/09/2023 3:08 PM PRIMARY CLINICIAN [facility] ([facility]) Comment: This nucleic acid amplification test detects fourteen high-risk HPV types (16,18,31,33,35,39,45,51,52,56,58,59,66,68) without differentiation. Pathology/Cytolo gy PART OF UTERINE CERVIX / Unknown Collection / Unknown 05/04/2023 3:44 PM PRIMARY CLINICIAN 05/04/2023 4:16 PM PRIMARY CLINICIAN Narrative [facility] ([facility]) - 05/09/2023 3:08 PM PRIMARY CLINICIAN Performed at: 01 - [facility] [id number] Eyeglass Frames Inspector: Kristyn Kramer MD, Phone: [phone] Performed at: 02 - [facility] [id number] Eyeglass Frames Inspector: Kristyn Kramer MD, Phone: [phone] Specimen Comment: No. of containers..01 ThinPrep Vial Evelin Joaquin MD LAB - PATHOLOGY/CYTO LOGY ORDERABLES [facility] ([facility]) [address] [place] [address] * HEPATITIS C ANTIBODY (05/04/2023 3:43 PM PRIMARY CLINICIAN) HCV Antibody Screen Non Reactive Non Reactive 05/04/2023 5:03 PM PRIMARY CLINICIAN [facility] Blood BLOOD SPECIMEN / Unknown Venipuncture / Unknown 05/04/2023 3:43 PM PRIMARY CLINICIAN 05/04/2023 4:13 PM PRIMARY CLINICIAN Narrative [facility] - 05/04/2023 5:03 PM PRIMARY CLINICIAN Non Reactive - Antibodies to Hepatitis C virus (HCV) were not detected, result does not exclude early acute HCV infection. Evelin Joaquin MD LAB - CHEMISTRY ELEN MADERA [facility] [address] [place] [address] from Last 3 Months or Most Recently [...]
--- OUTSIDE RECORDS SUMMARY | 2024-07-19 20:21 | XMS_ITS | Patient Health Summary ---
Author Organization [facility] [employer] Address [address] [place] [address] Care Team Providers Care Railcar Foreman Name Role Phone Unavailable Primary Care Provider Unavailabl e Note from [facility],non-owned Affiliates and Associated Physician Practices is amultiple site organization consisting of ambulatory clinics and hospital sitesin [place], [place], [place] and [place]. This disclosure is being madepursuant to the Care Everywhere program and may not contain all information available regarding this patient. Last updated 18.[facility] Allergies * Penicillins(Swelling) * Tetanus Toxoid,Inactive Medications * Be aware that medications may not be up to date on this document. Alwaysverify current medications with the patient. * Aspirin Low Dose 81 MG tablet(Started 04/26/2023) * Vit-DSS-Fe Fum-FA (Se-Kofi 19) 29-1 MG TABS(Started 04/26/2023) * ferrous [...] and heating? Not hard at all 10/24/2023 [facility] Occupat ional Health - Occupational Stress [...] in a correction (including now)? No 10/24/2023 [place] Depression Scale Answer Date Recorded [place] Depression Scale Total 0 10/26/2023 The thought [...] 07/25/2023) Performed for Encounter for anatomic survey ([facility]) * CARDIAC RHYTHM STRIP ORDER(Performed 05/23/2023) * SONOGRAM - TRANSVAGINAL(Performed 05/23/2023) Performed for Hx of delivery at 36 weeks, Hx of cerclage in G5, Supervision of high-risk * NEURAXIAL BLOCK(Performed 05/19/2023) * TYPE + SCREEN PANEL(Performed 05/19/2023) Performed for Pre-operative clearance * MT REVISION CERVIX W PREG,VAG APPRCH(Performed 05/19/2023) Performed for Diagnosis unknown * PAP IG LB+HPV APTIMA(Performed 05/04/2023) Performed for Cervical cerclage suture present, antepartum (HCC) * TYPE + SCREEN PANEL(Performed 05/04/2023) Performed for Short cervix affecting (HCC) * HEMOGLOBINOPATHY FRACTIONATION CASCADE(Performed 05/04/2023) Performed for Short cervix affecting (HCC) * HEPATITIS C ANTIBODY(Performed 05/04/2023) Performed for Short cervix affecting ([facility]) * RUBELLA ANTIBODY IGG(Performed 05/04/2023) Performed for Short cervix affecting ([facility]) * HEPATITIS B SURFACE ANTIGEN W RFLX CONFIRMATION(Performed 05/04/2023) Performed for Short cervix affecting ([facility]) * TREPONEMA PALLIDUM AB(Performed 05/04/2023) Performed for Short cervix affecting ([facility]) * HIV-1 HIV-2 ANTIBODY + HIV P24 AG PANEL(Performed 05/04/2023) Performed for Short cervix affecting ([facility]) * PROTEIN CREATININE RATIO URINE RANDOM PNL(Performed 05/04/2023) Performed for History of delivery, currently in second trimester ([facility]) * IRON + TRANSFERRIN PANEL(Performed 05/04/2023) Performed for History of delivery, currently in second trimester ([facility]) * FERRITIN(Performed 05/04/2023) Performed for History of delivery, currently in second trimester ([facility]) * CBC W/O DIFFERENTIAL(Performed 05/04/2023) Performed for History of delivery, currently in second trimester ([facility]) * CHLAMYDIA + GC AMPLIFIED PROBE(Performed 05/04/2023) Performed for headache in third trimester ([facility]) * TRICHOMONAS VAGINALIS AMPLIFIED PROBE(Performed 05/04/2023) Performed for headache in third trimester ([facility]) * CULTURE URINE(Performed 05/04/2023) Performed for History of delivery, currently in second trimester ([facility]) * ANEUPLOIDY SCREENING(Performed 05/04/2023) * SONOGRAM - COMPLETE(Performed 05/03/2023) Performed for Hx of preeclampsia, prior , currently ([facility]), History of delivery, currently in second trimester ([facility]), History of IUGR (intrauterine growth retardation) and stillbirth, currently , Encounter for routine ultrasound ([facility]) * IMAGING/RADIOLOGY/XRAY RESULTS ORDER(Performed 09/02/2020) * CBC W AUTO DIFFERENTIAL(Performed 09/01/2020) Performed for state ([facility]) * TYPE + SCREEN PANEL(Performed 08/31/2020) * [...] for Supervision of high-risk of young multigravida ([facility]) * URINALYSIS - POCT (IP) BEAKER INTERFACE(Performed 08/14/2020) * SONOGRAM - COMPLETE(Performed 08/07/2020) Performed for History of prior with IUGR * GLUCOSE PROTEIN KETONE URINE - POINT OF CAR(Performed 08/07/2020) Performed for , unspecified gestational age ([facility]) * NONSTRESS TEST(Performed 07/17/2020) Performed for Blurry vision * COMPREHENSIVE METABOLIC PANEL(Performed 07/17/2020) Performed for Blurry vision * CBC W/O DIFFERENTIAL(Performed 07/17/2020) Performed for Blurry vision * PROTEIN CREATININE RATIO URINE RANDOM PNL(Performed 07/17/2020) Performed for Blurry vision * GLUCOSE CHALLENGE(Performed 06/04/2020) Performed for Current with history of pre-term labor in second trimester ([facility]) * CBC W AUTO DIFFERENTIAL(Performed 06/04/2020) Performed for Current with history of pre-term labor in second trimester ([facility]) * SYPHILIS ANTIBODY CASCADING REFLEX(Performed 06/04/2020) Performed for Current with history of pre-term labor in second trimester ([facility]) * HIV-1 HIV-2 ANTIBODY + HIV P24 AG PANEL(Performed 06/04/2020) Performed for Current with history of pre-term labor in second trimester ([facility]) * SONOGRAM - COMPLETE(Performed 06/04/2020) * CARDIAC RHYTHM STRIP ORDER(Performed 05/21/2020) * ENDOTRACHEAL TUBE NOTE(Performed 05/19/2020) * CERCLAGE CERVIX(Performed 05/19/2020) Performed for Diagnosis unknown * SARS-COV-2 (COVID-19) IN HOUSE(Performed 05/16/2020) Performed for , unspecified gestational age ([facility]) * SARS-COV2 (COVID-19) PANEL (STL)(Performed 05/16/2020) Performed for , unspecified gestational age ([facility]) * SONOGRAM - TRANSVAGINAL(Performed 05/12/2020) Performed for History of delivery, currently in second trimester ([facility]) * GLUCOSE PROTEIN KETONE URINE - POINT OF CAR(Performed 05/12/2020) Performed for , unspecified gestational age ([facility]) * SONOGRAM - TRANSVAGINAL(Performed 04/07/2020) * GLUCOSE PROTEIN KETONE URINE - POINT OF CAR(Performed 04/07/2020) Performed for , unspecified gestational age ([facility]) * ANEUPLOIDY SCREENING(Performed 04/07/2020) * TRICHOMONAS RAPID TEST(Performed 02/25/2020) Performed for , unspecified gestational age ([facility]) * CHLAMYDIA + GC AMPLIFIED PROBE(Performed 02/25/2020) Performed for , unspecified gestational age ([facility]) * GLUCOSE PROTEIN KETONE URINE - POINT OF CAR(Performed 02/25/2020) Performed for , unspecified gestational age ([facility]) * SONOGRAM - COMPLETE(Performed 02/25/2020) Performed for Encounter to establish gestational age using ultrasound ([facility]) * HCG URINE QUALITATIVE - POINT OF CARE(Performed 08/02/2018) Performed for History of pre-eclampsia in prior , currently ([facility]) * IMAGING/RADIOLOGY/XRAY RESULTS ORDER(Performed 07/06/2018) * NON-STRESS TEST(Performed 06/26/2018) * COMPREHENSIVE METABOLIC PANEL(Performed 06/26/2018) Performed for History of pre-eclampsia in prior , currently ([facility]) * CBC W AUTO DIFFERENTIAL(Performed 06/26/2018) Performed for History of pre-eclampsia in prior , currently ([facility]) * PROTEIN CREATININE RATIO URINE RANDOM PNL(Performed 06/26/2018) Performed for History of pre-eclampsia in prior , currently ([facility]) * BIOPHYSICAL PROFILE W NST(Performed 06/26/2018) Performed for History of pre-eclampsia in prior , currently ([facility]), Threatened premature labor in third trimester ([facility]), Short cervix * CYTOMEGALOVIRUS ANTIBODY IGG/IGM BLOOD(Performed 06/22/2018) Performed for Poor growth affecting management of mother in third trimester, fetus 1 of multiple gestation ([facility]) * TOXOPLASMA ANTIBODY IGG/IGM PANEL(Performed 06/22/2018) Performed for Poor growth affecting management of mother in third trimester, fetus 1 of multiple gestation ([facility]) * HEPATITIS B SURFACE ANTIGEN W RFLX CONFIRMATION(Performed 06/22/2018) Performed for , unspecified gestational age ([facility]) * RPR(Performed 06/22/2018) Performed for , unspecified gestational age ([facility]) * HIV-1 HIV-2 ANTIBODY + HIV P24 AG PANEL(Performed 06/22/2018) Performed for , unspecified gestational age ([facility]) * CULTURE STREP B(Performed 06/22/2018) Performed for , unspecified gestational age ([facility]) * GLUCOSE PROTEIN KETONE URINE - POINT OF CAR(Performed 06/22/2018) Performed for , unspecified gestational age ([facility]) * BIOPHYSICAL PROFILE W NST(Performed 06/19/2018) Performed for History of pre-eclampsia in prior , currently ([facility]), Threatened premature labor in third trimester ([facility]), Short cervix * BIOPHYSICAL PROFILE W NST(Performed 06/12/2018) Performed for History of pre-eclampsia in prior , currently ([facility]), Threatened premature labor in third trimester ([facility]), Short cervix * BIOPHYSICAL PROFILE W NST(Performed 05/25/2018) Performed for History of pre-eclampsia in prior , currently ([facility]), Threatened premature labor in third trimester ([facility]), Short cervix * NONSTRESS TEST(Performed 05/19/2018) Performed for Threatened premature labor in third trimester ([facility]) * NONSTRESS TEST(Performed 05/18/2018) * BIOPHYSICAL PROFILE W NST(Performed 05/18/2018) Performed for History of pre-eclampsia in prior , currently ([facility]), Supervision ofhigh risk , antepartum ([facility]), Threatened premature labor in third trimester ([facility]), Short cervix * GLUCOSE - POINT OF [...] for Supervision of high risk , antepartum ([facility]) * SONOGRAM - COMPLETE(Performed 03/30/2018) Performed for History of pre-eclampsia in prior , currently ([facility]), Supervision ofhigh risk , antepartum ([facility]), Threatened premature labor, antepartum ([facility]) * SONOGRAM - TRANSVAGINAL(Performed 03/16/2018) Performed for Supervision of high-risk of young multigravida ([facility]), Supervision of high risk , antepartum ([facility]) * SONOGRAM - COMPLETE(Performed 03/07/2018) Performed for Supervision of high risk , antepartum ([facility]) * COMPREHENSIVE METABOLIC PANEL(Performed 11/10/2014) * CBC [...] 4.0 - 10.7 x10E9/L 10/25/2023 4:06 AM [facility] RBC Count 3.30(L) 3.90 - 5.20 x10E12/L 10/25/2023 4:06 AM [facility] Hemoglobin 8.6(L) 11.9 - 15.8 g/dL 10/25/2023 4:06 AM [facility] Hematocrit 27.7(L) 34.8 - 46.1 % 10/25/2023 4:06 AM [facility] MCV 83.9 80.0 - 98.0 fL 10/25/2023 4:06 AM [facility] MCH 26.1(L) 26.7 - 33.6 pg 10/25/2023 4:06 AM [facility] MCHC 31.0(L) 31.7 - 36.3 g/dL 10/25/2023 4:06 AM [facility] RDW-CV 14.8 11.3 - 14.8 % 10/25/2023 4:06 AM [facility] Platelet Count 230 150 - 420 x10E9/L 10/25/2023 4:06 AM [facility] MPV 10.4 7.8 - 11.4 fL 10/25/2023 4:06 AM [facility] Neutrophil % 64.1 41.0 - 74.0 % 10/25/2023 4:06 AM [facility] Lymphocyte % 24.5 17.0 - 47.0 % 10/25/2023 4:06 AM [facility] Monocyte % 8.1 3.0 - 11.0 % 10/25/2023 4:06 AM [facility] Eosinophil % 2.3 0.0 - 7.0 % 10/25/2023 4:06 AM [facility] Basophil % 0.2 0.0 - 1.6 % 10/25/2023 4:06 AM [facility] Immature Granulocytes % 0.8 0.0 - 1.0 % 10/25/2023 4:06 AM [facility] Neutrophil Absolute 8.10(H) 1.60 - 7.50 x10E9/L 10/25/2023 4:06 AM [facility] Lymphocyte Absolute 3.10 1.00 - 4.40 x10E9/L 10/25/2023 4:06 AM [facility] Monocyte Absolute 1.02(H) 0.15 - 1.00 x10E9/L 10/25/2023 4:06 AM CDT [facility] Eosinophil Absolute 0.29 0.00 - 0.60 x10E9/L 10/25/2023 4:06 AM CDT [facility] Basophil Absolute 0.03 0.00 - 0.13 x10E9/L 10/25/2023 4:06 AM CDT [facility] Blood BLOOD SPECIMEN / Unknown Lab Venipuncture / Unknown 10/25/2023 3:16 AM CDT 10/25/2023 4:00 AM CDT Stephany Otero MD LAB - HEMATOLOGY OR DERABLES [facility] [address] [place], [place] [id number] * (ABNORMAL) BLOOD GASES CORD GHADA (ISTAT) (10/24/2023 5:42 PM CDT) Only the most recent of2 resultswithin the time period is included. pH Cord Venous POCT 7.28 7.28 - 7.40 pH 10/24/2023 5:51 PM CDT [facility] pCO2 Cord Venous POCT 40.0 35 - 45 mm hg 10/24/2023 5:51 PM CDT [facility] pO2 Cord Venous POCT 30 22 - 33 mm hg 10/24/2023 5:51 PM CDT [facility] HCO3 Cord Arterial POCT 18.8(L) 22 - 24 mmol/L 10/24/2023 5:51 PM CDT [facility] BE Cord Venous POCT Calc -7(L) -6.4 - 1.6 mmol/L 10/24/2023 5:51 PM CDT [facility] TCO2 Cord Venous POCT 20(L) 22 - 30 mmol/L 10/24/2023 5:51 PM CDT [facility] O2 Saturation % Cord Venous Calc POCT 49 % 10/24/2023 5:51 PM CDT [facility] Site CORD GHADA 10/24/2023 5:51 PM CDT [facility] Sample iSTAT CORD GHADA 10/24/2023 5:51 PM CDT [facility] Blood CORD BLOOD SPECIMEN / Unknown 10/24/2023 5:42 PM CDT 10/24/2023 5:51 PM CDT Stephany Otero MD LAB - POINT OF CARE ORDERABLES [facility] [address] [place] [address] * (ABNORMAL) BLOOD GASES CORD ART (ISTAT) (10/24/2023 5:38 PM CDT) Only the most recent of2 resultswithin the time period is included. pH Cord Arterial POCT 7.16(L) 7.20 - 7.34 pH 10/24/2023 5:51 PM CDT [facility] pCO2 Cord Arterial POCT 64.4(H) 45 - 55 mm hg 10/24/2023 5:51 PM CDT [facility] pO2 Cord Arterial POCT <15 12 - 25 mm hg 10/24/2023 5:51 PM CDT [facility] HCO3 Cord Arterial POCT 22.8 22 - 24 mmol/L 10/24/2023 5:51 PM CDT [facility] BE Cord Arterial POCT -8(L) -2.9 - 8.3 mmol/L 10/24/2023 5:51 PM CDT [facility] TCO2 Cord Arterial POCT 25 mmol/L 10/24/2023 5:51 PM CDT [facility] O2 Saturation Cord Art % Calc POCT 5 % 10/24/2023 5:51 PM CDT [facility] Site CORD ART 10/24/2023 5:51 PM CDT [facility] Sample iSTAT CORD ART 10/24/2023 5:51 PM CDT [facility] Blood CORD BLOOD SPECIMEN / Unknown 10/24/2023 5:38 PM CDT 10/24/2023 5:51 PM CDT Stephany Otero MD LAB - POINT OF CARE ORDERABLES [facility] [address] [place] [address] * EPIDURAL BLOCK PERF (10/24/2023 1:23 PM [...] Reactive Non Reactive 10/24/2023 10:10 AM CDT [facility] Comment: No Laboratory evidence of syphilis infection. Note: Circulating antibodies may be low or undetectable in early infection. If recent exposure is suspected, re-draw sample in 2-4 weeks and repeat testing. Blood BLOOD SPECIMEN / Unknown Venipuncture / Unknown 10/24/2023 9:16 AM CDT 10/24/2023 9:19 AM CDT Stephany Otero MD LAB - SEROLOGY ORDE RABLES Performing Organization Address [facility] Co de Phone Number [facility] [address] [place] [address] * TYPE + SCREEN PANEL (10/24/2023 9:16 AM CDT) Only the most recent of8 resultswithin the time period is included. ABO Rh A POS 10/24/2023 9:57 AM CDT [facility] Comment:History checked. Antibody Screen NEG 9:57 AM CDT [facility] Blood Bank BLOOD SPECIMEN / Unknown Venipuncture / Unknown 10/24/2023 9:16 AM CDT 10/24/2023 9:19 AM CDT Stephany Otero MD LAB - BLOOD BANK OR DERABLES Performing Organization Address [facility] Co de Phone Number [facility] [address] [place] [address] * (ABNORMAL) COMPREHENSIVE METABOLIC PANEL (10/24/2023 8:29 AM CDT) Only the most recent of13 resultswithin the time period is included. Glucose 138(H) 70 - 105 mg/dL 10/24/2023 9:10 AM CDT [facility] Sodium 137 136 - 145 mmol/L 10/24/2023 9:10 AM CDT [facility] Potassium 3.8 3.5 - 5.1 mmol/L 10/24/2023 9:10 AM CDT [facility] Chloride 111(H) 98 - 107 mmol/L 10/24/2023 9:10 AM CDT [facility] CO2 18(L) 22 - 29 mmol/L 10/24/2023 9:10 AM CDT [facility] Calcium 8.9 8.4 - 10.4 mg/dL 10/24/2023 9:10 AM T [facility] Anion Gap 8 6 - 16 mmol/L 10/24/2023 9:10 AM CDT [facility] BUN 6 5.3 - 18.7 mg/dL 10/24/2023 9:10 AM CDT [facility] Creatinine 0.72 0.57 - 1.11 mg/dL 10/24/2023 9:10 AM [facility] Alkaline Phosphatase 169(H) 40 - 150 U/L 10/24/2023 9:10 AM CDT [facility] ALT 9 0 - 55 U/L 10/24/2023 9:10 AM CDT [facility] AST 14 5 - 34 U/L 10/24/2023 9:10 AM T [facility] Protein Total 6.6 6.4 - 8.3 gm/dL 10/24/2023 9:10 AM [facility] Albumin 2.5(L) 3.4 - 5.0 gm/dL 10/24/2023 9:10 AM [facility] Bilirubin Total 0.2 0.2 - 1.2 mg/dL 10/24/2023 9:10 AM [facility] eGFR by CKD-EPI >90 >=90 mL/min/1.7 3 m2 10/24/2023 9:10 AM [facility] Blood BLOOD SPECIMEN / Unknown Venipuncture / Unknown 10/24/2023 8:29 AM CDT 10/24/2023 8:38 AM CDT Stephany Otero MD LAB - CHEMISTRY ORD ERABLES [facility] [address] [place] [address] * PROTEIN CREATININE RATIO URINE RANDOM PNL (10/24/2023 8:29 AM CDT) Only the most recent of6 resultswithin the time period is included. Protein Urine 9.5 <11.9 mg/dL 10/24/2023 9:12 AM CDT [facility] Creatinine Urine 144.77 mg/dL 10/24/2023 9:12 AM [facility] Protein/Creatin ine Ratio Urine 0.07 10/24/2023 9:12 AM CDT [facility] Urine URINE SPECIMEN OBTAINED BY CLEAN CATCH PROCEDURE / Unknown Collection / Unknown 10/24/2023 8:29 AM CDT 10/24/2023 8:38 AM CDT Stephany Otero MD LAB - URINE RIVETER RY ORDERABLES [facility] [address] [place] [address] * (ABNORMAL) URINALYSIS - POCT (IP) BEAKER INTERFACE (10/13/2023 11:06 AM CDT) Only the most recent of4 resultswithin the time period is included. Color UA POCT Yellow Straw, Yellow, Dark Yellow, Light Yellow 10/13/2023 11:08 AM CDT [facility] Clarity UA POCT Clear Clear 11:08 AM CDT [facility] Specific [place] UA POCT 1.020 1.005 - 1.030 10/13/2023 11:08 AM CDT [facility] pH UA POCT 6.5 5.0 - 8.0 pH 10/13/2023 11:08 AM T [facility] Protein UA POCT 1+(A) Negative 11:08 AM CDT [facility] Blood UA POCT Negative Negative 10/13/2023 11:08 AM CDT [facility] Leukocyte UA POCT 1+(A) Negative 10/13/2023 11:08 AM CDT [facility] Nitrite UA POCT Negative Negative 11:08 AM CDT [facility] Glucose UA POCT Negative Negative 11:08 AM T [facility] Ketone UA POCT Negative Negative 10/13/2023 11:08 AM T [facility] Bilirubin UA POCT Negative Negative 10/13/2023 11:08 AM CDT [facility] Urobilinogen UA POCT 1.0 0.1 - 1.0 EU/dL 10/13/2023 11:08 AM T [facility] Urine URINE / Unknown 10/13/2023 1 1:06 AM CDT 10/13/2023 11:08 AM CDT Aicha Johnson MD LAB - [facility] CARE ORDERABLES [facility] [address] [place] [address] * IMAGING RADIOLOGY XRAY RESULTS ORDER (10/11/2023 [...] OTHER INFORMATION Fiorella Ortega, JLUIS Non-Stress Test [facility] Patient Name: Tisha Patrick LMP: No LMP [...] the procedure. Audra Rice MD, FACOG Professor, [facility] [employer] Division of Maternal- Medicine Department of Obstetrics, Gynecology, and Women's Health Adolfo Childs MD PROCEDURE/MINOR SURGICAL ORDERABLES * CULTURE STREP B (10/06/2023 12:16 PM CDT) Only the most recent of5 resultswithin the time period is included. Culture Strep B Negative for beta-hemolytic Streptococcus Group B ABEL 10/09/2023 12:15 PM CDT [facility] MICRO[facility] Microbiology MISCELLANEOUS SAMPLES / Unknown Collection / Unknown 10/06/2023 12:16 PM CDT 10/06/2023 12:24 PM CDT Siddharth Monahan MD LAB - MICROBIOLOGY O RDERABLES [facility]CRO[facility] [address] [place] [address], [facility] [phone] * SONOGRAM - COMPLETE (09/29/2023 12:10 PM CDT) Only the most recent of11 resultswithin the time period is included. Anatomical Region Laterality Modality Other 09/29/2023 12:1 0 PM CDT Narrative 09/29/2023 1:34 PM CDT [facility] PHONE: FAX: Pat. Name: TISHA PATRICK Dandre Pat. No: [id number] Study Date: 09/29/2023 12:10pm , Age: 04 1990, 33 Pregnancies: 7, Para 1233 Height: 64 in Weight: 183 lb LMP: Unknown GA by Base: 35w0d LI: 11/03/2023 GA by US: 33w4d LI: 11/13/2023 GA Selected: 35w0d (From [facility]) LI: 11/03/2023 Referring MD: MD Amanda, [facility] Battery Charger Tester: Kelly West RDMS CPT4: 34020 BMI: 31.41 Hist/Ind: Obesity class I, Asthma Prior preeclampsia x 3, Prior PTB x2 Low-risk cf-DNA Cerclage placed @ 16 weeks SGA with AC <10th% @ 30 weeks MEASUREMENTS & AGE GROWTH EVALUATION Measurement GA Range Srce %for GA Ratios ----- ---- ------- BPD 8.2 cm 32w6d ([id number]) Hadl BPD 5% FL/BPD 0.83 (0.71 - 0.87) HC 30.1 cm 33w2d ([id number]) Hadl HC 1% FL/AC 0.23 (0.20 - 0.24) AC 30.0 cm 34w0d (29p3x-23q2a) Hadl AC 27% HC/AC 1.00 (0.94 - 1.13) FL 6.8 cm 34w5d ([id number]) Hadl FL 35% CI 0.77 (0.70 - 0.86) HL 5.7 cm 33w2d ([id number]) Juan M HL 23% GA for sonogram 33w4d ([id number]) Weight Estimate: based on (BPD,HC,AC,FL) [place] Weight: [...] <Electronic Signature> 09/29/2023 01:34pm Siddharth Monahan MD [facility] ORDERABLES * HIV-1 HIV-2 ANTIBODY + HIV P24 AG PANEL (08/29/2023 11:08 AM CDT) Only the most recent of4 resultswithin the time period is included. HIV1/2 Ab + P24 Ag Non Reactive Non Reactive 08/29/2023 12:17 PM [facility] Blood BLOOD SPECIMEN / Unknown Venipuncture / Unknown 08/29/2023 11:08 AM CDT 08/29/2023 11:28 AM CDT Narrative [facility] - 08/29/2023 12:17 PM CDT No Laboratory evidence of HIV infection. Aicha Johnson MD LAB - C HEMISTRY ORDERABLES Performing Organization Address City/[facility] Co de Phone Number [facility] [address] [place] [phone] * GLUCOSE CHALLENGE (08/29/2023 11:08 AM CDT) Only the most recent of2 resultswithin the time period is included. Glucose Challenge 117 64 - 140 mg/dL 08/29/2023 11:59 AM CDT [facility] Glucose Challenge Time 08/29/2023 11:59 AM CDT [facility] Blood BLOOD SPECIMEN / Unknown Venipuncture / Unknown 08/29/2023 11:08 AM CDT 08/29/2023 11:28 AM CDT Aicha Johnson MD LAB - C HEMISTRY ORDERABLES Performing Organization Address [facility] Co de Phone Number [facility] [address] [place] [phone] * (ABNORMAL) IRON + TRANSFERRIN PANEL (08/29/2023 11:08 AM CDT) Only the most recent of2 resultswithin the time period is included. Iron 36(L) 40 - 150 ug/dL 08/29/2023 11:53 AM CDT [facility] Transferrin 375 174 - 382 mg/dL 08/29/2023 11:53 AM CDT [facility] TIBC Calculated 469(H) 240 - 450 ug/dL 08/29/2023 11:53 AM CDT [facility] Iron Saturation % 8(L) 20 - 50 % 08/29/2023 11:53 AM CDT [facility] Blood BLOOD SPECIMEN / Unknown Venipuncture / Unknown 08/29/2023 11:08 AM CDT 08/29/2023 11:28 AM CDT Aicha Johnson MD LAB - C HEMISTRY ORDERABLES Performing Organization Address City/[facility] Co de Phone Number [facility] [address] [place] [phone] * FERRITIN (08/29/2023 11:08 AM CDT) Only the most recent of2 resultswithin the time period is included. Ferritin 8 5 - 204 ng/mL 08/29/2023 12:12 PM CDT [facility] Blood BLOOD SPECIMEN / Unknown Venipuncture / Unknown 08/29/2023 11:08 AM CDT 08/29/2023 11:28 AM CDT Aicha Johnson MD LAB - C HEMISTRY ORDERABLES Performing Organization Address [facility] de Phone Number [facility] [address] [place] [phone] * CARDIAC RHYTHM STRIP ORDER (05/23/2023 4:39 PM FIELD CASHIER) Only the most recent of2 resultswithin the time period is included. Narrative 05/23/2023 4:39 PM FIELD CASHIER Ordered by an unspecified provider. Scanned Document CARDIAC SERVICES ORD ERABLES * SONOGRAM - TRANSVAGINAL (05/23/2023 11:08 AM FIELD CASHIER) Only the most recent of4 resultswithin the time period is included. Anatomical Region Laterality Modality Other 05/23/2023 11:0 8 AM FIELD CASHIER Narrative 05/23/2023 12:04 PM FIELD CASHIER [facility] PHONE: FAX: Pat. Name: TISHA PATRICK. No: [id number] Study Date: 05/23/2023 11:08am , Age: 04 1990, 32 Pregnancies: 6, Para 3223 Height: 64 in Weight: 150 lb LMP: Unknown GA by Base: 16w4d LI: 11/03/2023 GA Selected: 16w4d (From [facility]) LI: 11/03/2023 Referring MD: MD Amanda, [facility] Battery Charger Tester: Roxanna Lockwood [facility] CPT4: 16157,03780 BMI: 25.74 Hist/Ind: Cerclage placed 05/19/23 Unknown LMP Asthma Hx Pre E x 3 Hx PTD- 33wks and 36wks Hx TAB Hx cerclage x 1 Hx HELLP MEASUREMENTS & AGE GROWTH EVALUATION Measurement GA Range Srce %for GA Ratios ----- ---- ------- Cere 1.6 cm 16w5d ([id number]) Nicola Dobson63% Cervix: Length: 3.5 cm Approach: [...] ORDERABLES * Neuraxial Block (05/19/2023 1:49 PM FIELD CASHIER) Narrative Dannielle Solitario APRN-[employer] BLIND WORKER - 05/19/2023 1:49 PM Dannielle Doherty APRN-CRNA [...] PAP IG LB+HPV APTIMA (05/04/2023 3:44 PM FIELD CASHIER) Diagnosis Comment 05/09/2023 3:08 PM FIELD CASHIER [facility] ([facility]) Comment:NEGATIVE FOR INTRAEP ITHELIAL LESION OR MALIGNANCY. Specimen Adequacy Comment 023 3:08 PM FIELD CASHIER [facility] ([facility]) Comment: Satisfactory for evaluation. Endocervical and/or squamous metaplastic cells (endocervical component) are present. Performed by Comment 05/09/2023 3:08 PM FIELD CASHIER [facility] ([facility]) Comment:Nadir Sadler totechnologist Comment . 05/09/2023 3:08 PM FIELD CASHIER [facility] ([facility]) Note Comment 05/09/2023 3:08 PM FIELD CASHIER [facility] ([facility]) Comment: The Pap smear is a screening test designed to aid in the detection of premalignant and malignant conditions of the uterine cervix. It is not a diagnostic procedure and should not be used as the sole means of detecting cervical cancer. Both false-positive and false-negative reports do occur. IGLBP CPT Code Automation Comment 05/09/2023 3:08 PM FIELD CASHIER [facility] ([facility]) Comment: This liquid based ThinPrep(R) pap test was screened with the use of an image guided system. Human papillomavirus Aptima Negative Negative 05/09/2023 3:08 PM FIELD CASHIER [facility] ([facility]) Comment: This nucleic acid amplification test detects fourteen high-risk HPV types (16,18,31,33,35,39,45,51,52,56,58,59,66,68) without differentiation. Pathology/Cytolo gy PART OF UTERINE CERVIX / Unknown Collection / Unknown 05/04/2023 3:44 PM FIELD CASHIER 05/04/2023 4:16 PM FIELD CASHIER Narrative [facility] ([facility]) - 05/09/2023 3:08 PM FIELD CASHIER Performed at: [address] [id number] Corporate Analyst: Kristyn Karmer MD, Phone: [phone] Performed at: [address] [id number] Corporate Analyst: Kristyn Kramer MD, Phone: [phone] Specimen Comment: No. of containers..01 ThinPrep Vial Evelin Joaquin MD LAB - PATHOLOGY/CYTO LOGY ORDERABLES [facility] ([facility]) [address] [place] [address] * HEMOGLOBINOPATHY FRACTIONATION CASCADE (05/04/2023 3:43 PM FIELD CASHIER) Hemoglobin F 0.0 0.0 - 2.0 % 05/06/2023 4:11 PM FIELD CASHIER [facility] ([facility]) Hemoglobin A 97.4 96.4 - 98.8 % 05/06/2023 4:11 PM FIELD CASHIER [facility] ([facility]) Hemoglobin A2 2.6 1.8 - 3.2 % 05/06/2023 4:11 PM FIELD CASHIER [facility] ([facility]) Hemoglobin S 0.0 0.0 % 05/06/2023 4:11 PM FIELD CASHIER [facility] ([facility]) Interpretation Comment 05/06/2023 4:11 PM FIELD CASHIER [facility] ([facility]) Comment: Normal hemoglobin present; no hemoglobin variant or beta thalassemia identified. Note: Alpha thalassemia may not be detected by the Hgb Fractionation [place] panel. If alpha thalassemia is suspected, [facility] offers Alpha-Thalassemia DNA Analysis (#[id number]). Blood BLOOD SPECIMEN / Unknown Venipuncture / Unknown 05/04/2023 3:43 PM FIELD CASHIER 05/04/2023 4:13 PM FIELD CASHIER Narrative [facility] ([facility]) - 05/06/2023 4:11 PM FIELD CASHIER Performed at: [address] [id number] Corporate Analyst: Terrell Henderson PhD, Phone: [phone] Evelin Joaquin MD LAB - CHEMISTRY ORDDandre [facility] Performing Organization Address City/[facility]/ZIP Co de Phone Number [facility] ([facility]) [address] [place] [address] * TREPONEMA PALLIDUM AB (05/04/2023 3:43 PM FIELD CASHIER) Treponema pallidum Antibody (TP-PA) Non Reactive Non Reactive 05/06/2023 4:11 PM FIELD CASHIER [facility] ([facility]) Blood BLOOD SPECIMEN / Unknown Venipuncture / Unknown 05/04/2023 3:43 PM FIELD CASHIER 05/04/2023 4:15 PM FIELD CASHIER Narrative [facility] ([facility]) - 05/06/2023 4:11 PM FIELD CASHIER Performed at: [address] [place] [id number] Corporate Analyst: Terrell Henderson PhD, Phone: [phone] Evelin Joaquin MD LAB - SEROLOGY ORDER ANNA Performing Organization Address City/[facility]/ZIP Co de Phone Number [facility] ([facility]) [address] [place] [address] * RUBELLA ANTIBODY IGG (05/04/2023 3:43 PM FIELD CASHIER) [facility] [address] [facility] Rubella Antibody 4.70 Immune >0.99 index 05/06/2023 6:11 AM FIELD CASHIER [facility] ([facility]) Comment: Non-immune <0.90 Equivocal 0.90 - 0.99 Immune >0.99 Blood BLOOD SPECIMEN / Unknown Venipuncture / Unknown 05/04/2023 3:43 PM FIELD CASHIER 05/04/2023 4:13 PM FIELD CASHIER Narrative [facility] ([facility]) - 05/06/2023 6:11 AM FIELD CASHIER Performed at: [address] [place] [id number] Corporate Analyst: Trerell Henderson PhD, Phone: [phone] Evelin Joaquin MD LAB - SEROLOGY ORDER ANNA Performing Organization Address City/[facility]/ZIP Co de Phone Number [facility] ([facility]) [address] [place] [address] * HEPATITIS B SURFACE ANTIGEN W RFLX CONFIRMATION (05/04/2023 3:43 PM FIELD CASHIER) Only the most recent of2 resultswithin the time period is included. [facility] [address] HBsAg Non Reactive Non Reactive 05/04/2023 5:02 PM FIELD CASHIER [facility] Blood BLOOD SPECIMEN / Unknown Venipuncture / Unknown 05/04/2023 3:43 PM FIELD CASHIER 05/04/2023 4:13 PM FIELD CASHIER Evelin Joaquin MD LAB - CHEMISTRY ORDE CASSY [facility] [address] [place] [address] * HEPATITIS C ANTIBODY (05/04/2023 3:43 PM FIELD CASHIER) [facility] [address] HCV Antibody Screen Non Reactive Non Reactive 05/04/2023 5:03 PM FIELD CASHIER [facility] Blood BLOOD SPECIMEN / Unknown Venipuncture / Unknown 05/04/2023 3:43 PM FIELD CASHIER 05/04/2023 4:13 PM FIELD CASHIER Narrative [facility] - 05/04/2023 5:03 PM FIELD CASHIER Non Reactive - Antibodies to Hepatitis C virus (HCV) were not detected, result does not exclude early acute HCV infection. Evelin Joaquin MD LAB - CHEMISTRY SUELLENDandre MADERA [facility] [address] [place] [address] * TRICHOMONAS VAGINALIS AMPLIFIED PROBE (05/04/2023 3:34 PM FIELD CASHIER) Trichomonas vaginalis Amplified Probe Negative Negative 05/04/2023 11:44 PM FIELD CASHIER [facility] Microbiology ENTIRE ENDOCERVIX / Unknown Collection / Unknown 05/04/2023 3:34 PM FIELD CASHIER 05/04/2023 4:16 PM FIELD CASHIER Narrative [facility] - 05/04/2023 11:44 PM FIELD CASHIER Results based on detection/no detection of ribosomal RNA by amplified method. Evelin Joaquin MD LAB - MICROBIOLOGY O ABBI Performing Organization Address City/[facility]/ZIP Co de Phone Number [facility] [address] [place] [address], [facility] [phone] * CHLAMYDIA + GC AMPLIFIED PROBE (05/04/2023 3:34 PM FIELD CASHIER) Only the most recent of2 resultswithin the time period is included. Chlamydia Amplified Probe Negative Negative 05/05/2023 12:42 AM FIELD CASHIER [facility] GC Amplified Probe Negative Negative 05/05/2023 12:42 AM FIELD CASHIER [facility] Microbiology ENTIRE ENDOCERVIX / Unknown Collection / Unknown 05/04/2023 3:34 PM FIELD CASHIER 05/04/2023 4:16 PM FIELD CASHIER Narrative [facility] - 05/05/2023 12:42 AM FIELD CASHIER Results based on detection/no detection of ribosomal RNA by amplified method. Evelin Joaquin MD LAB - MICROBIOLOGY O ABBI [facility] [address] [address], [facility] [phone] * CULTURE URINE (05/04/2023 3:34 PM FIELD CASHIER) Only the most recent of2 resultswithin the time period is included. Pathologist [facility] Culture Urine 10,000-50,000 CFU/mL urogenital kenney ABEL 05/05/2023 9:12 PM FIELD CASHIER [facility] Urine URINE SPECIMEN OBTAINED BY CLEAN CATCH PROCEDURE / Unknown Collection / Unknown 05/04/2023 3:34 PM FIELD CASHIER 05/04/2023 4:16 PM FIELD CASHIER Evelin Joaquin MD LAB - MICROBIOLOGY O RDERABLES [facility] [address] [place] [address], [facility] [phone] * (ABNORMAL) CBC W/O DIFFERENTIAL (05/04/2023 3:34 PM FIELD CASHIER) Only the most recent of2 resultswithin the time period is included. WBC 7.2 4.4 - 10.7 x10E9/L 05/04/2023 4:25 PM FIELD CASHIER [facility] RBC 4.10 3.80 - 5.20 x10E12/L 05/04/2023 4:25 PM FIELD CASHIER [facility] Hemoglobin 11.6(L) 12.0 - 15.6 gm/dL 05/04/2023 4:25 PM FIELD CASHIER [facility] Hematocrit 35.8(L) 35.9 - 45.5 % 05/04/2023 4:25 PM FIELD CASHIER [facility] MCV 87.3 80.7 - 98.3 fl 05/04/2023 4:25 PM FIELD CASHIER [facility] MCH 28.3 26.7 - 34.0 pg 05/04/2023 4:25 PM FIELD CASHIER [facility] MCHC 32.4 30.8 - 35.9 gm/dL 05/04/2023 4:25 PM FIELD CASHIER [facility] Platelet Count 259 153 - 416 x10E9/L 05/04/2023 4:25 PM FIELD CASHIER [facility] RDW-CV 12.6 12.1 - 14.9 % 05/04/2023 4:25 PM FIELD CASHIER [facility] MPV 9.8 9.4 - 12.9 fl 05/04/2023 4:25 PM FIELD CASHIER [facility] Blood BLOOD SPECIMEN / Unknown Venipuncture / Unknown 05/04/2023 3:34 PM FIELD CASHIER 05/04/2023 4:14 PM FIELD CASHIER Evelin Joaquin MD LAB - HEMATOLOGY ORD ERABLES [facility] [address] [place] [address] * ANEUPLOIDY SCREENING (05/04/2023) Only the most [...] (08/31/2020 1:28 PM CDT) Narrative Dannielle Solitario APRN-[employer] BLIND WORKER - 08/31/2020 1:28 PM CDT Dannielle Solitario [...] Monahan MD LAB - URINALYSIS ORD ERABLES [facility] [address] [place] [address] * (ABNORMAL) URINALYSIS REFLEX MICROSCOPIC REFLEX CULTURE (08/31/2020 8:18 AM CDT) Only the most recent of2 resultswithin the time period is included. Color UA Yellow Straw, Yellow 08/31/2020 8:38 AM CDT [facility] Clarity UA Slt Cloudy(A) Clear 08/31/2020 8:38 AM CDT [facility] Glucose UA Negative Negative 08/31/2020 8:38 AM CDT [facility] Bilirubin UA Negative Negative 08/31/2020 8:38 AM CDT [facility] Ketone UA Negative Negative 08/31/2020 8:38 AM CDT [facility] Specific [place] UA 1.024 1.005 - 1.030 08/31/2020 8:38 AM CDT [facility] Blood UA 1+(A) Negative 08/31/2020 8:38 AM CDT [facility] pH UA 6.0 5.0 - 8.0 pH 08/31/2020 8:38 AM CDT [facility] Protein UA 1+(A) Negative 08/31/2020 8:38 AM CDT [facility] Urobilinogen UA 4.0(A) Negative mg/dL 08/31/2020 8:38 AM CDT [facility] Nitrite UA Negative Negative 08/31/2020 8:38 AM CDT [facility] Leukocyte UA 1+(A) Negative 08/31/2020 8:38 AM CDT [facility] Urine Microscopy Urine microscopy to follow 08/31/2020 8:38 AM CDT [facility] Reflex Status Culture to follow 08/31/2020 8:38 AM T [facility] Urine URINE SPECIMEN OBTAINED BY CLEAN CATCH PROCEDURE / Unknown Collection / Unknown 08/31/2020 8:18 AM CDT 08/31/2020 8:28 AM CDT Narrative [facility] - 08/31/2020 8:38 AM CDT Siddharth Monahan MD LAB - URINALYSIS ORD ERABLES [facility] [address] [place], [place] [id number] * NONSTRESS TEST (08/31/2020 7:35 AM CDT) [...] OTHER INFORMATION Germaine Burrows RN Non-Stress Test [facility] Patient Name: Tisha Patrick LMP: Patient's last [...] - POINT OF CARE (08/07/2020 10:47 AM FIELD CASHIER) Only the most recent of5 resultswithin the time period is included. Glucose UA neg Negative [facility] Protein UA trace Negative [facility] Ketone UA neg Negative [facility] QC Verified Yes Yes [facility] POC T TESTING Urine URINE / Unknown 08/07/2020 1 0:47 AM FIELD CASHIER Aicha Mccauley MD LAB - POINT OF UT RE ORDERABLES [facility] [address] [phone] * NONSTRESS TEST (07/17/2020 2:19 AM FIELD CASHIER) Narrative Stephany Otero MD - 07/17/2020 2:19 AM FIELD CASHIER Heavenly Ordoñez MD 07/17/2020 7:05 AM Name: [...] 1 variable deceleration to 50s, overall reassuring Pearl: no contractions A/P: well-being reassuring Heavenly Ordoñez MD 07/17/2020 7:04 AM Stephany Oetro MD OB GYNE ORDERABLES * ETT LINE PERFORMABLE (05/19/2020 11:48 AM FIELD CASHIER) Narrative Tennille Ivey APRN-CRNA - 05/19/2020 11:48 AM FIELD CASHIER Tennille Ivey APRN-CRNA 05/19/2020 11:48 AM Endotracheal Tube Placement: Patient Location: OR. Intubation Event Date/Time: 05/19/2020 11:33 AM Procedure: intubation ([id number]). Procedure Section: Sedation: under general anesthesia. Indications [...] SARS-COV-2 (COVID-19) IN HOUSE (05/16/2020 3:00 PM FIELD CASHIER) COVID-19 PCR Not detected Not detected 05/17/2020 2:44 AM [facility] Microbiology SPECIMEN FROM NASOPHARYNGEAL STRUCTURE / Unknown Collection / Unknown 05/16/2020 3:00 PM FIELD CASHIER 05/16/2020 3:07 PM FIELD CASHIER Narrative [facility] - 05/17/2020 2:44 AM FIELD CASHIER This nucleic acid amplification assay performance was validated by [facility]. This test has been authorized [...] Parker MD LAB - MICROBIOLOGY O ABBI [facility] [address] [place], [place] [address] [place] [address] * TRICHOMONAS RAPID TEST (02/25/2020 11:11 AM CDT) Only the most recent of2 resultswithin the time period is included. Trichomonas Rapid Test Negative Negative 02/25/2020 1:24 PM CDT [facility] Microbiology VAGINAL SWAB / Unknown Collection / Unknown 02/25/2020 11:11 AM CDT 02/25/2020 11:25 AM CDT Laila Cruz MD LAB - MICROBIOLOGY O ABBI [facility] [address] [place] [address] * HCG URINE QUALITATIVE - POINT OF CARE (08/02/2018 2:24 PM FIELD CASHIER) Pathologist [facility] HCG Qual Urine Negative Negative [facility] POCT TESTING QC Verified Yes Yes [facility] POC T TESTING Urine URINE / Unknown 08/02/2018 2 :24 PM FIELD CASHIER Joel Cabrera MD LAB - POINT OF CARE ORDERABLES [facility] [address] [place] [address], [facility] [phone] * BIOPHYSICAL PROFILE W NST (06/26/2018 10:25 AM FIELD CASHIER) Only the most recent of6 resultswithin the time period is included. Anatomical Region Laterality Modality Other 06/26/2018 10:2 5 AM FIELD CASHIER Narrative 06/26/2018 12:19 PM FIELD CASHIER Cassie OLIVAREZ [facility] PHONE: FAX: Pat. Name: TISHA PATRICK Mi. No: [id number] Study Date: 06/26/2018 10:25am , Age: 04 1990, 27 Pregnancies: 4, Para 1, Ab 2 Height: 64 in Weight: 156 lb LMP: Unknown GA by Base: 36w2d LI: 07/22/2018 GA Selected: 36w2d (From [facility]) LI: 07/22/2018 Referring MD: Graeme John MD Battery Charger Tester: Kaela Duncan RDMS CPT4: 16572,[id number] BMI: 26.77 Hist/Ind: History of preeclampsia, FGR, [...] <Electronic Signature> 06/26/2018 12:19pm Rama Conrad MD [facility] ORDERABLES * RPR (06/22/2018 11:26 AM FIELD CASHIER) Only the most recent of2 resultswithin the time period is included. Pathologist [facility] RPR Non Reactive Non Reactive 06/23/2018 7:28 AM FIELD CASHIER [facility] Blood BLOOD SPECIMEN / Unknown Venipuncture / Unknown 06/22/2018 11:26 AM FIELD CASHIER 06/22/2018 11:45 AM FIELD CASHIER Ela Hurt MD LAB - CHEMISTRY ORD ERABLES [facility] [address] [place] [address] * (ABNORMAL) CYTOMEGALOVIRUS ANTIBODY IGG/IGM BLOOD PANEL (06/22/2018 11:26 AM FIELD CASHIER) Only the most recent of2 resultswithin the time period is included. [facility] [address] Cytomegalovirus Antibody IgG 4.40(H) 0.00 - 0.59 U/mL 06/23/2018 6:19 AM [facility] ([facility]) Comment: Negative <0.60 Equivocal 0.60 - 0.69 Positive >0.69 Cytomegalovirus Antibody IgM <30.0 0.0 - 29.9 AU/mL 06/23/2018 6:19 AM [facility] ([facility]) Comment: Negative <30.0 Equivocal 30.0 - 34.9 Positive >34.9 A positive result is generally indicative of acute infection, reactivation or persistent IgM production. Blood BLOOD SPECIMEN / Unknown Venipuncture / Unknown 06/22/2018 11:26 AM FIELD CASHIER 06/22/2018 11:45 AM FIELD CASHIER Narrative [facility] ([facility]) - 06/23/2018 6:19 AM FIELD CASHIER Performed at: [facility] [address] [place], [place] [id number] Corporate Analyst: Terrell Henderson PhD, Phone: [phone] Ela Hurt MD LAB - CHEMISTRY ORD ERABLES Performing Organization Address City/[facility]/ZIP Co de Phone Number [facility] ([facility]) [address] [place] [address] * TOXOPLASMA ANTIBODY IGG/IGM PANEL (06/22/2018 11:26 AM FIELD CASHIER) Only the most recent of2 resultswithin the time period is included. Pathologist [facility] Toxoplasma gondii Antibody IgG Quantitative <3.0 0.0 - 7.1 IU/mL 06/23/2018 6:19 AM [facility] ([facility]) Comment: Negative <7.2 Equivocal 7.2 - 8.7 Positive >8.7 Toxoplasma Antibody IgM <3.0 0.0 - 7.9 AU/mL 06/23/2018 6:19 AM [facility] ([facility]) Comment: Negative <8.0 Equivocal 8.0 - 9.9 Positive >9.9 Comments Comment 06/23/2018 6:19 AM [facility] ([facility]) Comment: No serological evidence of infection with Toxoplasma. If symptoms persist, submit a new specimen after three weeks. Blood BLOOD SPECIMEN / Unknown Venipuncture / Unknown 06/22/2018 11:26 AM FIELD CASHIER 06/22/2018 11:45 AM FIELD CASHIER Narrative [facility] ([facility]) - 06/23/2018 6:19 AM FIELD CASHIER Performed at: [address] [place] [id number] Corporate Analyst: Terrell Henderson PhD, Phone: [phone] Ela Hurt MD LAB - CHEMISTRY ORD ERABLES Performing Organization Address City/[facility]/ZIP Co de Phone Number [facility] ([facility]) [address] [place] [address] * (ABNORMAL) GLUCOSE - POINT OF CARE (05/04/2018 3:22 PM FIELD CASHIER) Only the most recent of5 resultswithin the time period is included. Pathologist [facility] Glucose WB/POC 137(H) 70 - 106 mg/dL 05/04/2018 4:02 PM [facility] Blood BLOOD SPECIMEN / Unknown 05/04/2018 3:22 PM FIELD CASHIER 05/04/2018 4:01 PM FIELD CASHIER Miranda Gar MD LAB - POINT OF CARE ORDERABLES [facility] [address] [place] [address] * CHLAMYDIA + GC AMPLIFIED PROBE (05/03/2018 12:23 PM FIELD CASHIER) Only the most recent of2 resultswithin the time period is included. Chlamydia Amplified Probe Negative Negative 05/04/2018 10:35 AM FIELD CASHIER [facility] GC Amplified Probe Negative Negative 05/04/2018 10:35 AM [facility] Microbiology URINE / Unknown Collection / Unknown 05/03/2018 12:23 PM FIELD CASHIER 05/03/2018 12:32 PM FIELD CASHIER Narrative [facility] - 05/04/2018 10:35 AM FIELD CASHIER Results based on detection/no detection of ribosomal RNA by amplified method. Aicha Wood MD LAB - MICROBIOLOGY ORDERABLES Performing Organization Address [facility] de Phone Number [facility] [address] [phone] * (ABNORMAL) PT PTT PANEL (11/09/2014 9:00 AM CDT) Only the most recent of4 resultswithin the time period is included. Pathologist [facility] PT <9.5(L) 9.5 - 11.6 sec 11/09/2014 9:38 AM CDT [facility] INR 0.9 0.9 - 1.1 11/09/2014 9:38 AM CDT [facility] PTT 27.2 21.0 - 32.0 sec 11/09/2014 9:38 AM CDT [facility] Blood BLOOD SPECIMEN / Unknown Venipuncture / Unknown 11/09/2014 9:00 AM CDT 11/09/2014 9:11 AM CDT Narrative [facility] - 11/09/2014 9:38 AM CDT Conventional Warfarin Anticoagulant Therapy INR Reference Range: 2.0-3.0 Intensive Warfarin Anticoagulant Therapy INR Reference Range: 2.5-3.5 Heparin Therapeutic Range for PTT: 44.4 - 78.3 seconds. Karin Lee MD LAB - COAGULATION OR DERABLES [facility] [address] [place] [address] * (ABNORMAL) FIBRINOGEN ACTIVITY (11/08/2014 3:12 PM CDT) Only the most recent of2 resultswithin the time period is included. Fibrinogen 455(H) 200 - 400 mg/dL 11/08/2014 4:11 PM CDT [facility] Blood BLOOD SPECIMEN / Unknown Venipuncture / Unknown 11/08/2014 3:12 PM CDT 11/08/2014 3:19 PM CDT Karin Lee MD LAB - COAGULATION OR DERABLES [facility] [address] [place] [address] * GROSS + MICRO EXAM (STL) (11/08/2014 12:57 PM CDT) Case Report Surgical Pathology Report Case: [id number] Authorizing Provider: Edouard Gonzalez MD Collected: 11/08/2014 12:57 PM Ordering Location: [facility] Received: 11/09/2014 05:42 AM Pathologist: Venus Farr MD Specimen: Placenta 3rd Trimester 11/11/2014 4:10 PM CDT [facility] Final Diagnosis 1. Placenta, delivery: -- Third trimester placenta -- Three vessel umbilical cord -- Unremarkable membranes -- Scattered calcifications /scs 11/11/2014 4:10 PM CDT [facility] Gross Description Received in formalin in [...] disc reveal beefy red, unremarkable cut surface. Dispensing Lead sections are submitted as follows: A1 - union representative section of the umbilical cord and placental membranes; A2 and A3 - union representative sections of the placental disc. /arm 11/11/2014 4:10 PM CDT [facility] Microscopic Description Sections of the umbilical cord show three vessels with no evidence of vasculitis or funisitis. Sections of the membranes show unremarkable histology and are free of inflammation. Meconium is not seen. Sections of the placental disc show maturing chorionic villi with no evidence of hemorrhage or infarction. MC/scs 11/11/2014 4:10 PM CDT [facility] Pathology/Cytolo gy ENTIRE PLACENTA / Unknown 11/08/2014 12:57 PM CDT 11/09/2014 5:42 AM CDT Edouard Gonzalez MD LAB - PATHOLOGY/CYTO LOGY ORDERABLES Performing Organization Address City/State/[facility] Co de Phone Number [facility] [address] [place] [address] * NEURAXIAL BLOCK (11/08/2014 7:58 AM CDT) [...] - 6.2 mg/dL 11/07/2014 4:39 PM CDT [facility] Blood BLOOD SPECIMEN / Unknown Venipuncture / Unknown 11/07/2014 4:04 PM CDT 11/07/2014 4:15 PM CDT Rene Burger MD LAB - CHEMISTRY ORDERABLES Performing Organization Address City/State/[facility] Co de Phone Number [facility] [address] [place] [address] * DRUG SCREEN TOX URINE PANEL (11/07/2014 4:04 PM CDT) Pathologist [facility] Amphetamines Screen Urine Not Detected Not Detected 11/07/2014 4:29 PM CDT [facility] Barbiturates Screen Urine Not Detected Not Detected 11/07/2014 4:29 PM CDT [facility] Benzodiazepines Screen Urine Not Detected Not Detected 11/07/2014 4:29 PM CDT [facility] Cannabinoids Screen Urine Not Detected Not Detected 11/07/2014 4:29 PM CDT [facility] Cocaine Screen Urine Not Detected Not Detected 11/07/2014 4:29 PM CDT [facility] Methadone Screen Urine Not Detected Not Detected 11/07/2014 4:29 PM CDT [facility] Opiate Screen Urine Not Detected Not Detected 11/07/2014 4:29 PM CDT [facility] Phencyclidine Screen Urine Not Detected Not Detected 11/07/2014 4:29 PM CDT [facility] Urine URINE / Unknown Collection / Unknown 11/07/2014 4:04 PM CDT 11/07/2014 4:15 PM CDT Narrative [facility] - 11/07/2014 4:29 PM CDT This [...] URINE CHEM ISTRY ORDERABLES Performing Organization Address [facility] Co de Phone Number [facility] [address] [place] [phone] * (ABNORMAL) LDH BLOOD (11/07/2014 4:04 PM CDT) LDH 225(H) 100 - 200 U/L 11/07/2014 4:39 PM CDT [facility] Blood BLOOD SPECIMEN / Unknown Venipuncture / Unknown 11/07/2014 4:04 PM CDT 11/07/2014 4:15 PM CDT Rene Burger MD LAB - CHEMISTRY ORDERABLES Performing Organization Address [facility] de Phone Number [facility] [address] [place], [place] [id number] * LIPASE BLOOD (11/05/2014 4:52 PM CDT) Lipase 78 73 - 393 U/L 11/05/2014 5:39 PM CDT [facility] Blood BLOOD SPECIMEN / Unknown Venipuncture / Unknown 11/05/2014 4:52 PM CDT 11/05/2014 5:00 PM CDT Brit Glover MD LAB - CHEMISTRY ELEN MADERA Performing Organization Address [facility] Co de Phone Number [facility] [address] [place] [phone] * AMYLASE BLOOD (11/05/2014 4:52 PM CDT) Amylase 45 15 - 115 U/L 11/05/2014 5:39 PM CDT [facility] Blood BLOOD SPECIMEN / Unknown Venipuncture / Unknown 11/05/2014 4:52 PM CDT 11/05/2014 5:00 PM CDT Brit Glover MD LAB - CHEMISTRY ORDE RABLES Performing Organization Address [facility] Co de Phone Number [facility] [address] [place], [place] [phone] * (ABNORMAL) PROTEIN URINE TIMED QUANTITATIVE (11/05/2014 12:46 PM CDT) Volume 24 Hour Urine 2,700 mL 11/05/2014 1:20 PM CDT [facility] Collection Time Hours 24 hrs 11/05/2014 1:20 PM CDT [facility] Protein 24 Hour Urine 246(H) 42 - 225 mg/24hr 11/05/2014 1:20 PM CDT [facility] Protein Urine 9.1 mg/dL 11/05/2014 1:20 PM CDT [facility] Urine TIMED URINE SPECIMEN / Unknown Collection / Unknown 11/05/2014 12:46 PM CDT 11/05/2014 1:02 PM CDT Brit Glover MD LAB - URINE CHEMISTR Y ORDERABLES Performing Organization Address [facility]/ZIP Co de Phone Number [facility] [address] [place] [address] * (ABNORMAL) CREATININE CLEARANCE URINE TIMED (11/05/2014 12:46 PM CDT) Volume 24 Hour Urine 2,700 mL 11/05/2014 1:20 PM CDT [facility] Collection Time Hours 24 hrs 11/05/2014 1:20 PM CDT [facility] Height Inches 64 inches 11/05/2014 1:20 PM CDT [facility] Weight in Pounds 161 pounds 11/05/2014 1:20 PM CDT [facility] Surface Area 1.79 11/05/2014 1:20 PM CDT [facility] Creatinine 0.59 0.50 - 1.30 mg/dL 11/05/2014 1:20 PM CDT [facility] Creatinine Urine 23 mg/dL 11/05/2014 1:20 PM CDT [facility] Creatinine 24 Hour Urine 621(L) 800 - 1,800 mg/24hr 11/05/2014 1:20 PM CDT [facility] Creatinine Clearance 71(L) 87 - 107 mL/min/1.73 m2 11/05/2014 1:20 PM CDT [facility] Urine TIMED URINE SPECIMEN / Unknown Collection / Unknown 11/05/2014 12:46 PM CDT 11/05/2014 1:02 PM CDT Brit Glover MD LAB - URINE CHEMISTR Y ORDERABLES Performing Organization Address [facility] Co de Phone Number [facility] [address] [place] [address] * BLOOD TYPE VERIFICATION (11/05/2014 3:37 AM CDT) ABO A 11/05/2014 4:24 AM CDT [facility] Rh Type Positive 11/05/2014 4:24 AM CDT [facility] Miscellaneous samples (specimen) BLOOD SPECIMEN / Unknown Venipuncture / Unknown 11/05/2014 3:37 AM CDT 11/05/2014 3:53 AM CDT Tali Benson MD LAB - BLOOD BANK ORDERABLES Performing Organization Address [facility] Co de Phone Number [facility] [address]
[2024-07-19 20:42] VITALS: BP 118/67; PULSE 79; RESP 17; TEMP 36.8; O2SAT 100
--- NOTE | 2024-07-19 21:06 | PC.NURSE ---
pt and parent come to [employer] [place] and states that they would like to go home and follow up with PCP. pt ambulates with steady gait and in no reps. distress.
--- OUTSIDE RECORDS SUMMARY | 2024-07-19 21:41 | XMS_ITS | Encounter Summary ---
Author Organization [facility] Address [address] [place] [address] [place] [address] Care Team Providers Care Forestry Foreman Name Role Phone Unavailable Primary Care Provider Unavailabl e Reason for Visit * Reason Onset Date Comments Smoking Cessation 05/20/2020 Encounter Details Date Type Department Care Team (Late st Contact Info) Description 05/20/2020 Telephone [facility] [address] [facility] [place] [address] Maribel Yap, Welding Equipment Repairer Smoking Cessation Social History Tobacco Use Types [...] COVID-19? No / Unsure 05/16/2020 2:43 PM STUDENT SERVICES DIRECTOR documented as of this encounter Functional Status [...] at next visit. Maribel Yap, PharmD Candidate ENT SERVICES DIRECTOR documented in this encounter Plan of Treatment Not on file documented as of this encounter Visit Diagnoses Not on filedocumented in this encounter
--- OUTSIDE RECORDS SUMMARY | 2024-07-19 21:41 | XMS_ITS | Clinical Summary ---
Author Organization [facility] [employer] Address [address] [place] [address] Care Team Providers Care Ore Crusher Name Role Phone Unavailable Primary Care Provider Unavailabl e Source Comments [facility],non-owned Affiliates and Associated Physician Practices is amultiple site organization consisting of ambulatory clinics and hospital sitesin [place], [place], [place] and [place]. This disclosure is being madepursuant to the Care Everywhere program and may not contain all information available regarding this patient. Last updated 18.[facility] [employer] Allergies Active Allergy Reactions Criticality Noted Date [...] migh t be different from the original. [employer] form completed. Diapers given. 08/15/2023, 10/06/2023 Now [place] [id number] [employer] form completed. Diapers given. 08/07/2020, [...] and heating? Not hard at all 10/24/2023 [facility] [place] of Occupat ional Health - Occupational Stress [...] place to sleep or slept in a usp (including now)? No 10/24/2023 [place] Depression Scale Answer Date Recorded [place] Depression Scale Total 0 10/26/2023 The thought [...] IG LB+HPV APTIMA Routine 05/04/2023 3:44 PM CHIN STRAP SEWER Cervical cerclage suture present, antepartum (HCC) HEPATITIS C ANTIBODY Routine 05/04/2023 3:43 PM CHIN STRAP SEWER Short cervix affecting (HCC) from Last 3 [...] HEMISTRY ORDERABLES [facility] [address] [place] [address] * PAP IG LB+HPV APTIMA (05/04/2023 3:44 PM CHIN STRAP SEWER) Diagnosis Comment 05/09/2023 3:08 PM CHIN STRAP SEWER [facility] ([facility]) Comment:NEGATIVE FOR INTRAEP ITHELIAL LESION OR MALIGNANCY. Specimen Adequacy Comment 023 3:08 PM CHIN STRAP SEWER [facility] ([facility]) Comment: Satisfactory for evaluation. Endocervical and/or squamous metaplastic cells (endocervical component) are present. Performed by Comment 05/09/2023 3:08 PM CHIN STRAP SEWER [facility] ([facility]) Comment:Nadir Sadler totechnologist Comment . 05/09/2023 3:08 PM CHIN STRAP SEWER [facility] ([facility]) Note Comment 05/09/2023 3:08 PM CHIN STRAP SEWER [facility] ([facility]) Comment: The Pap smear is a screening test designed to aid in the detection of premalignant and malignant conditions of the uterine cervix. It is not a diagnostic procedure and should not be used as the sole means of detecting cervical cancer. Both false-positive and false-negative reports do occur. IGLBP CPT Code Automation Comment 05/09/2023 3:08 PM CHIN STRAP SEWER [facility] ([facility]) Comment: This liquid based ThinPrep(R) pap test was screened with the use of an image guided system. Human papillomavirus Aptima Negative Negative 05/09/2023 3:08 PM CHIN STRAP SEWER [facility] ([facility]) Comment: This nucleic acid amplification test detects fourteen high-risk HPV types (16,18,31,33,35,39,45,51,52,56,58,59,66,68) without differentiation. Pathology/Cytolo gy PART OF UTERINE CERVIX / Unknown Collection / Unknown 05/04/2023 3:44 PM CHIN STRAP SEWER 05/04/2023 4:16 PM CHIN STRAP SEWER Narrative [facility] ([facility]) - 05/09/2023 3:08 PM CHIN STRAP SEWER Performed at: 01 - [facility] [address] [place] [id number] Custodial Supervisor: Kristyn Kramer MD, Phone: [phone] Performed at: 02 - [facility] [address] [facility] [place], [place] [id number] Custodial Supervisor: Kristyn Kramer MD, Phone: [phone] Specimen Comment: No. of containers..01 ThinPrep Vial Evelin Joaquin MD LAB - PATHOLOGY/CYTO LOGY ORDERABLES [facility] ([facility]) [address] [place] [address] * HEPATITIS C ANTIBODY (05/04/2023 3:43 PM CHIN STRAP SEWER) HCV Antibody Screen Non Reactive Non Reactive 05/04/2023 5:03 PM CHIN STRAP SEWER [facility] Blood BLOOD SPECIMEN / Unknown Venipuncture / Unknown 05/04/2023 3:43 PM CHIN STRAP SEWER 05/04/2023 4:13 PM CHIN STRAP SEWER Narrative [facility] - 05/04/2023 5:03 PM CHIN STRAP SEWER Non Reactive - Antibodies to Hepatitis C virus (HCV) were not detected, result does not exclude early acute HCV infection. Evelin Joaquin MD LAB - CHEMISTRY ORDE CASSY [facility] [address] [place] [address] from Last 3 Months or Most Recently [...]
--- OUTSIDE RECORDS SUMMARY | 2024-07-19 21:41 | XMS_ITS | Referral Summary ---
Author Organization [facility] [employer] Address [address] [place] [address] Care Team Providers Care Hand Hose Cutter Name Role Phone Unavailable Primary Care Provider Unavailabl e Source Comments [facility],non-owned Affiliates and Associated Physician Practices is amultiple site organization consisting of ambulatory clinics and hospital sitesin [place], [place], [place] and [place]. This disclosure is being madepursuant to the Care Everywhere program and may not contain all information available regarding this patient. Last updated 18.[facility] [employer] Allergies Active Allergy Reactions Criticality Noted Date [...] migh t be different from the original. [employer] form completed. Diapers given. 08/15/2023, 10/06/2023 Now [place] [id number] [employer] form completed. Diapers given. 08/07/2020, [...] and heating? Not hard at all 10/24/2023 [facility] [place] of Occupat ional Health - Occupational Stress [...] place to sleep or slept in a residential (including now)? No 10/24/2023 [place] Depression Scale Answer Date Recorded [place] Depression Scale Total 0 10/26/2023 The thought [...] IG LB+HPV APTIMA Routine 05/04/2023 3:44 PM METEOROLOGY TEACHER Cervical cerclage suture present, antepartum (HCC) HEPATITIS C ANTIBODY Routine 05/04/2023 3:43 PM METEOROLOGY TEACHER Short cervix affecting (HCC) from Last 3 Months or Most Recently Relevant to Health Maintenance Results * HIV-1 HIV-2 ANTIBODY + HIV P24 AG PANEL (08/29/2023 11:08 AM CDT) HIV1/2 Ab + P24 Ag Non Reactive Non Reactive 08/29/2023 12:17 PM CDT [facility] Blood BLOOD SPECIMEN / Unknown Venipuncture / Unknown 08/29/2023 11:08 AM CDT 08/29/2023 11:28 AM CDT Narrative [facility] - 08/29/2023 12:17 PM CDT No Laboratory evidence of HIV infection. Aicha Johnson MD LAB - C HEMISTRY ORDERABLES [facility] [address] [place] [address] * PAP IG LB+HPV APTIMA (05/04/2023 3:44 PM METEOROLOGY TEACHER) Diagnosis Comment 05/09/2023 3:08 PM METEOROLOGY TEACHER [facility] ([facility]) Comment:NEGATIVE FOR INTRAEP ITHELIAL LESION OR MALIGNANCY. Specimen Adequacy Comment 3:08 PM METEOROLOGY TEACHER [facility] ([facility]) Comment: Satisfactory for evaluation. Endocervical and/or squamous metaplastic cells (endocervical component) are present. Performed by Comment 05/09/2023 3:08 PM METEOROLOGY TEACHER [facility] ([facility]) Comment:Nadir Sadler totechnologist Comment . 05/09/2023 3:08 PM METEOROLOGY TEACHER [facility] ([facility]) Note Comment 05/09/2023 3:08 PM METEOROLOGY TEACHER [facility] ([facility]) Comment: The Pap smear is a screening test designed to aid in the detection of premalignant and malignant conditions of the uterine cervix. It is not a diagnostic procedure and should not be used as the sole means of detecting cervical cancer. Both false-positive and false-negative reports do occur. IGLBP CPT Code Automation Comment 05/09/2023 3:08 PM METEOROLOGY TEACHER [facility] ([facility]) Comment: This liquid based ThinPrep(R) pap test was screened with the use of an image guided system. Human papillomavirus Aptima Negative Negative 05/09/2023 3:08 PM METEOROLOGY TEACHER [facility] ([facility]) Comment: This nucleic acid amplification test detects fourteen high-risk HPV types (16,18,31,33,35,39,45,51,52,56,58,59,66,68) without differentiation. Pathology/Cytolo gy PART OF UTERINE CERVIX / Unknown Collection / Unknown 05/04/2023 3:44 PM METEOROLOGY TEACHER 05/04/2023 4:16 PM METEOROLOGY TEACHER Narrative [facility] ([facility]) - 05/09/2023 3:08 PM METEOROLOGY TEACHER Performed at: 01 - [address] [id number] Legal Financial Specialist: Kristyn Kramer MD, Phone: [phone] Performed at: 02 - [facility] [id number] Legal Financial Specialist: Kristyn Kramer MD, Phone: [phone] Specimen Comment: No. of containers..01 ThinPrep Vial Evelin Joaquin MD LAB - PATHOLOGY/CYTO LOGY ORDERABLES [facility] ([facility]) [address] [place] [address] * HEPATITIS C ANTIBODY (05/04/2023 3:43 PM METEOROLOGY TEACHER) HCV Antibody Screen Non Reactive Non Reactive 05/04/2023 5:03 PM METEOROLOGY TEACHER [facility] Blood BLOOD SPECIMEN / Unknown Venipuncture / Unknown 05/04/2023 3:43 PM METEOROLOGY TEACHER 05/04/2023 4:13 PM METEOROLOGY TEACHER Narrative [facility] - 05/04/2023 5:03 PM METEOROLOGY TEACHER Non Reactive - Antibodies to Hepatitis C virus (HCV) were not detected, result does not exclude early acute HCV infection. Evelin Joaquin MD LAB - CHEMISTRY ELEN MADERA [facility] [address] [place] [address] from Last 3 Months or Most Recently [...]
--- OUTSIDE RECORDS SUMMARY | 2024-07-19 21:41 | XMS_ITS | Patient Health Summary ---
Author Organization [facility] [employer] Address [address] [place] [address] Care Team Providers Care American Board Certified Orthotist Name Role Phone Unavailable Primary Care Provider Unavailabl e Note from [facility],non-owned Affiliates and Associated Physician Practices is amultiple site organization consisting of ambulatory clinics and hospital sitesin [place], [place], [place] and [place]. This disclosure is being madepursuant to the Care Everywhere program and may not contain all information available regarding this patient. Last updated 18.[facility] Allergies * Penicillins(Swelling) * Tetanus Toxoid,Inactive [...] and heating? Not hard at all 10/24/2023 [facility] - Occupational Stress [...] place to sleep or slept in a group home (including now)? No 10/24/2023 Captiva Depression Scale Answer Date Recorded Captiva Depression Scale Total 0 10/26/2023 The thought [...] 07/25/2023) Performed for Encounter for anatomic survey ([facility]) * CARDIAC RHYTHM STRIP ORDER(Performed 05/23/2023) * SONOGRAM - TRANSVAGINAL(Performed 05/23/2023) Performed for Hx of delivery at 36 weeks, Hx of cerclage in G5, Supervision of high-risk * NEURAXIAL BLOCK(Performed 05/19/2023) * TYPE + SCREEN PANEL(Performed 05/19/2023) Performed for Pre-operative clearance * WI REVISION CERVIX W PREG,VAG APPRCH(Performed 05/19/2023) Performed for Diagnosis unknown * PAP IG LB+HPV APTIMA(Performed 05/04/2023) Performed for Cervical cerclage suture present, antepartum (HCC) * TYPE + SCREEN PANEL(Performed 05/04/2023) Performed for Short cervix affecting (HCC) * HEMOGLOBINOPATHY FRACTIONATION CASCADE(Performed 05/04/2023) Performed for Short cervix affecting (HCC) * HEPATITIS C ANTIBODY(Performed 05/04/2023) Performed for Short cervix affecting ([facility]) * RUBELLA ANTIBODY IGG(Performed 05/04/2023) Performed for Short cervix affecting ([facility]) * HEPATITIS B SURFACE ANTIGEN W RFLX CONFIRMATION(Performed 05/04/2023) Performed for Short cervix affecting ([facility]) * TREPONEMA PALLIDUM AB(Performed 05/04/2023) Performed for Short cervix affecting ([facility]) * HIV-1 HIV-2 ANTIBODY + HIV P24 AG PANEL(Performed 05/04/2023) Performed for Short cervix affecting ([facility]) * PROTEIN CREATININE RATIO URINE RANDOM PNL(Performed 05/04/2023) Performed for History of delivery, currently in second trimester ([facility]) * IRON + TRANSFERRIN PANEL(Performed 05/04/2023) Performed for History of delivery, currently in second trimester ([facility]) * FERRITIN(Performed 05/04/2023) Performed for History of delivery, currently in second trimester ([facility]) * CBC W/O DIFFERENTIAL(Performed 05/04/2023) Performed for History of delivery, currently in second trimester ([facility]) * CHLAMYDIA + GC AMPLIFIED PROBE(Performed 05/04/2023) Performed for headache in third trimester ([facility]) * TRICHOMONAS VAGINALIS AMPLIFIED PROBE(Performed 05/04/2023) Performed for headache in third trimester ([facility]) * CULTURE URINE(Performed 05/04/2023) Performed for History of delivery, currently in second trimester ([facility]) * ANEUPLOIDY SCREENING(Performed 05/04/2023) * SONOGRAM - COMPLETE(Performed 05/03/2023) Performed for Hx of preeclampsia, prior , currently ([facility]), History of delivery, currently in second trimester ([facility]), History of IUGR (intrauterine growth retardation) and stillbirth, currently , Encounter for routine ultrasound ([facility]) * IMAGING/RADIOLOGY/XRAY RESULTS ORDER(Performed 09/02/2020) * CBC W AUTO DIFFERENTIAL(Performed 09/01/2020) Performed for state ([facility]) * TYPE + SCREEN PANEL(Performed [...] for Supervision of high-risk of young multigravida ([facility]) * URINALYSIS - POCT (IP) BEAKER INTERFACE(Performed 08/14/2020) * SONOGRAM - COMPLETE(Performed 08/07/2020) Performed for History of prior with IUGR * GLUCOSE PROTEIN KETONE URINE - POINT OF CAR(Performed 08/07/2020) Performed for , unspecified gestational age ([facility]) * NONSTRESS TEST(Performed 07/17/2020) Performed for Blurry vision * COMPREHENSIVE METABOLIC PANEL(Performed 07/17/2020) Performed for Blurry vision * CBC W/O DIFFERENTIAL(Performed 07/17/2020) Performed for Blurry vision * PROTEIN CREATININE RATIO URINE RANDOM PNL(Performed 07/17/2020) Performed for Blurry vision * GLUCOSE CHALLENGE(Performed 06/04/2020) Performed for Current with history of pre-term labor in second trimester ([facility]) * CBC W AUTO DIFFERENTIAL(Performed 06/04/2020) Performed for Current with history of pre-term labor in second trimester ([facility]) * SYPHILIS ANTIBODY CASCADING REFLEX(Performed 06/04/2020) Performed for Current with history of pre-term labor in second trimester ([facility]) * HIV-1 HIV-2 ANTIBODY + HIV P24 AG PANEL(Performed 06/04/2020) Performed for Current with history of pre-term labor in second trimester ([facility]) * SONOGRAM - COMPLETE(Performed 06/04/2020) * CARDIAC RHYTHM STRIP ORDER(Performed 05/21/2020) * ENDOTRACHEAL TUBE NOTE(Performed 05/19/2020) * CERCLAGE CERVIX(Performed 05/19/2020) Performed for Diagnosis unknown * SARS-COV-2 (COVID-19) IN HOUSE(Performed 05/16/2020) Performed for , unspecified gestational age ([facility]) * SARS-COV2 (COVID-19) PANEL (STL)(Performed 05/16/2020) Performed for , unspecified gestational age ([facility]) * SONOGRAM - TRANSVAGINAL(Performed 05/12/2020) Performed for History of delivery, currently in second trimester ([facility]) * GLUCOSE PROTEIN KETONE URINE - POINT OF CAR(Performed 05/12/2020) Performed for , unspecified gestational age ([facility]) * SONOGRAM - TRANSVAGINAL(Performed 04/07/2020) * GLUCOSE PROTEIN KETONE URINE - POINT OF CAR(Performed 04/07/2020) Performed for , unspecified gestational age ([facility]) * ANEUPLOIDY SCREENING(Performed 04/07/2020) * TRICHOMONAS RAPID TEST(Performed 02/25/2020) Performed for , unspecified gestational age ([facility]) * CHLAMYDIA + GC AMPLIFIED PROBE(Performed 02/25/2020) Performed for , unspecified gestational age ([facility]) * GLUCOSE PROTEIN KETONE URINE - POINT OF CAR(Performed 02/25/2020) Performed for , unspecified gestational age ([facility]) * SONOGRAM - COMPLETE(Performed 02/25/2020) Performed for Encounter to establish gestational age using ultrasound ([facility]) * HCG URINE QUALITATIVE - POINT OF CARE(Performed 08/02/2018) Performed for History of pre-eclampsia in prior , currently ([facility]) * IMAGING/RADIOLOGY/XRAY RESULTS ORDER(Performed 07/06/2018) * NON-STRESS TEST(Performed 06/26/2018) * COMPREHENSIVE METABOLIC PANEL(Performed 06/26/2018) Performed for History of pre-eclampsia in prior , currently ([facility]) * CBC W AUTO DIFFERENTIAL(Performed 06/26/2018) Performed for History of pre-eclampsia in prior , currently ([facility]) * PROTEIN CREATININE RATIO URINE RANDOM PNL(Performed 06/26/2018) Performed for History of pre-eclampsia in prior , currently ([facility]) * BIOPHYSICAL PROFILE W NST(Performed 06/26/2018) Performed for History of pre-eclampsia in prior , currently ([facility]), Threatened premature labor in third trimester ([facility]), Short cervix * CYTOMEGALOVIRUS ANTIBODY IGG/IGM BLOOD(Performed 06/22/2018) Performed for Poor growth affecting management of mother in third trimester, fetus 1 of multiple gestation ([facility]) * TOXOPLASMA ANTIBODY IGG/IGM PANEL(Performed 06/22/2018) Performed for Poor growth affecting management of mother in third trimester, fetus 1 of multiple gestation ([facility]) * HEPATITIS B SURFACE ANTIGEN W RFLX CONFIRMATION(Performed 06/22/2018) Performed for , unspecified gestational age ([facility]) * RPR(Performed 06/22/2018) Performed for , unspecified gestational age ([facility]) * HIV-1 HIV-2 ANTIBODY + HIV P24 AG PANEL(Performed 06/22/2018) Performed for , unspecified gestational age ([facility]) * CULTURE STREP B(Performed 06/22/2018) Performed for , unspecified gestational age ([facility]) * GLUCOSE PROTEIN KETONE URINE - POINT OF CAR(Performed 06/22/2018) Performed for , unspecified gestational age ([facility]) * BIOPHYSICAL PROFILE W NST(Performed 06/19/2018) Performed for History of pre-eclampsia in prior , currently ([facility]), Threatened premature labor in third trimester ([facility]), Short cervix * BIOPHYSICAL PROFILE W NST(Performed 06/12/2018) Performed for History of pre-eclampsia in prior , currently ([facility]), Threatened premature labor in third trimester ([facility]), Short cervix * BIOPHYSICAL PROFILE W NST(Performed 05/25/2018) Performed for History of pre-eclampsia in prior , currently ([facility]), Threatened premature labor in third trimester ([facility]), Short cervix * NONSTRESS TEST(Performed 05/19/2018) Performed for Threatened premature labor in third trimester ([facility]) * NONSTRESS TEST(Performed 05/18/2018) * BIOPHYSICAL PROFILE W NST(Performed 05/18/2018) Performed for History of pre-eclampsia in prior , currently ([facility]), Supervision ofhigh risk , antepartum ([facility]), Threatened premature labor in third trimester ([facility]), Short cervix * GLUCOSE - [...] for Supervision of high risk , antepartum ([facility]) * SONOGRAM - COMPLETE(Performed 03/30/2018) Performed for History of pre-eclampsia in prior , currently ([facility]), Supervision ofhigh risk , antepartum ([facility]), Threatened premature labor, antepartum ([facility]) * SONOGRAM - TRANSVAGINAL(Performed 03/16/2018) Performed for Supervision of high-risk of young multigravida ([facility]), Supervision of high risk , antepartum ([facility]) * SONOGRAM - COMPLETE(Performed 03/07/2018) Performed for Supervision of high risk , antepartum ([facility]) * COMPREHENSIVE METABOLIC PANEL(Performed 11/10/2014) [...] 4.0 - 10.7 x10E9/L 10/25/2023 4:[address] [facility] RBC Count 3.30(L) 3.90 - 5.20 x10E12/L 10/25/2023 4:[address] [facility] Hemoglobin 8.6(L) 11.9 - 15.8 g/dL 10/25/2023 4:[address] [facility] Hematocrit 27.7(L) 34.8 - 46.1 % 10/25/2023 4:[address] [facility] MCV 83.9 80.0 - 98.0 fL 10/25/2023 4:[address] [facility] MCH 26.1(L) 26.7 - 33.6 pg 10/25/2023 4:[address] [facility] MCHC 31.0(L) 31.7 - 36.3 g/dL 10/25/2023 4:[address] [facility] RDW-CV 14.8 11.3 - 14.8 % 10/25/2023 4:[address] [facility] Platelet Count 230 150 - 420 x10E9/L 10/25/2023 4:[address] [facility] MPV 10.4 7.8 - 11.4 fL 10/25/2023 4:[address] [facility] Neutrophil % 64.1 41.0 - 74.0 % 10/25/2023 4:[address] [facility] Lymphocyte % 24.5 17.0 - 47.0 % 10/25/2023 4:[address] [facility] Monocyte % 8.1 3.0 - 11.0 % 10/25/2023 4:[address] [facility] Eosinophil % 2.3 0.0 - 7.0 % 10/25/2023 4:[address] [facility] Basophil % 0.2 0.0 - 1.6 % 10/25/2023 4:[address] [facility] Immature Granulocytes % 0.8 0.0 - 1.0 % 10/25/2023 4:[address] [facility] Neutrophil Absolute 8.10(H) 1.60 - 7.50 x10E9/L 10/25/2023 4:[address] [facility] Lymphocyte Absolute 3.10 1.00 - 4.40 x10E9/L 10/25/2023 4:[address] [facility] Monocyte Absolute 1.02(H) 0.15 - 1.00 x10E9/L 10/25/2023 4:06 AM CDT [facility] Eosinophil Absolute 0.29 0.00 - 0.60 x10E9/L 10/25/2023 4:06 AM CDT [facility] Basophil Absolute 0.03 0.00 - 0.13 x10E9/L 10/25/2023 4:06 AM CDT [facility] Blood BLOOD SPECIMEN / Unknown Lab Venipuncture / Unknown 10/25/2023 3:16 AM CDT 10/25/2023 4:00 AM CDT Stephany Otero MD LAB - HEMATOLOGY OR DERABLES [facility] [address], [place] [id number] * (ABNORMAL) BLOOD GASES CORD GHADA (ISTAT) (10/24/2023 5:42 PM CDT) Only the most recent of2 resultswithin the time period is included. pH Cord Venous POCT 7.28 7.28 - 7.40 pH 10/24/2023 5:51 PM CDT [facility] pCO2 Cord Venous POCT 40.0 35 - 45 mm hg 10/24/2023 5:51 PM CDT [facility] pO2 Cord Venous POCT 30 22 - 33 mm hg 10/24/2023 5:51 PM CDT [facility] HCO3 Cord Arterial POCT 18.8(L) 22 - 24 mmol/L 10/24/2023 5:51 PM CDT [facility] BE Cord Venous POCT Calc -7(L) -6.4 - 1.6 mmol/L 10/24/2023 5:51 PM CDT [facility] TCO2 Cord Venous POCT 20(L) 22 - 30 mmol/L 10/24/2023 5:51 PM CDT [facility] O2 Saturation % Cord Venous Calc POCT 49 % 10/24/2023 5:51 PM CDT [facility] Site CORD GHADA 10/24/2023 5:51 PM CDT [facility] Sample iSTAT CORD GHADA 10/24/2023 5:51 PM CDT [facility] Blood CORD BLOOD SPECIMEN / Unknown 10/24/2023 5:42 PM CDT 10/24/2023 5:51 PM CDT Stephany Otero MD LAB - POINT OF CARE ORDERABLES [facility] [address] [place] [address] * (ABNORMAL) BLOOD GASES CORD ART (ISTAT) (10/24/2023 5:38 PM CDT) Only the most recent of2 resultswithin the time period is included. pH Cord Arterial POCT 7.16(L) 7.20 - 7.34 pH 10/24/2023 5:51 PM CDT [facility] pCO2 Cord Arterial POCT 64.4(H) 45 - 55 mm hg 10/24/2023 5:51 PM CDT [facility] pO2 Cord Arterial POCT <15 12 - 25 mm hg 10/24/2023 5:51 PM CDT [facility] HCO3 Cord Arterial POCT 22.8 22 - 24 mmol/L 10/24/2023 5:51 PM CDT [facility] BE Cord Arterial POCT -8(L) -2.9 - 8.3 mmol/L 10/24/2023 5:51 PM CDT [facility] TCO2 Cord Arterial POCT 25 mmol/L 10/24/2023 5:51 PM CDT [facility] O2 Saturation Cord Art % Calc POCT 5 % 10/24/2023 5:51 PM CDT [facility] Site CORD ART 10/24/2023 5:51 PM CDT [facility] Sample iSTAT CORD ART 10/24/2023 5:51 PM CDT [facility] Blood CORD BLOOD SPECIMEN / Unknown 10/24/2023 5:38 PM CDT 10/24/2023 5:51 PM CDT Stephany Otero MD LAB - POINT OF CARE ORDERABLES [facility] [address] [place] [address] * EPIDURAL BLOCK PERF (10/24/2023 1:23 PM [...] Reactive Non Reactive 10/24/2023 10:10 AM CDT [facility] Comment: No Laboratory evidence of syphilis infection. Note: Circulating antibodies may be low or undetectable in early infection. If recent exposure is suspected, re-draw sample in 2-4 weeks and repeat testing. Blood BLOOD SPECIMEN / Unknown Venipuncture / Unknown 10/24/2023 9:16 AM CDT 10/24/2023 9:19 AM CDT Stephany Otero MD LAB - SEROLOGY ORDE RABLES Performing Organization Address [facility] Co de Phone Number [facility] [address] [place] [address] * TYPE + SCREEN PANEL (10/24/2023 9:16 AM CDT) Only the most recent of8 resultswithin the time period is included. ABO Rh A POS 10/24/2023 9:57 AM CDT [facility] Comment:History checked. Antibody Screen NEG 9:57 AM CDT [facility] Blood Bank BLOOD SPECIMEN / Unknown Venipuncture / Unknown 10/24/2023 9:16 AM CDT 10/24/2023 9:19 AM CDT Stephany Otero MD LAB - BLOOD BANK OR DERABLES Performing Organization Address [facility] Co de Phone Number [facility] [address] [place] [address] * (ABNORMAL) COMPREHENSIVE METABOLIC PANEL (10/24/2023 8:29 AM CDT) Only the most recent of13 resultswithin the time period is included. Glucose 138(H) 70 - 105 mg/dL 10/24/2023 9:10 AM CDT [facility] Sodium 137 136 - 145 mmol/L 10/24/2023 9:10 AM CDT [facility] Potassium 3.8 3.5 - 5.1 mmol/L 10/24/2023 9:10 AM CDT [facility] Chloride 111(H) 98 - 107 mmol/L 10/24/2023 9:10 AM CDT [facility] CO2 18(L) 22 - 29 mmol/L 10/24/2023 9:10 AM CDT [facility] Calcium 8.9 8.4 - 10.4 mg/dL 10/24/2023 9:10 AM T [facility] Anion Gap 8 6 - 16 mmol/L 10/24/2023 9:10 AM CDT [facility] BUN 6 5.3 - 18.7 mg/dL 10/24/2023 9:10 AM CDT [facility] Creatinine 0.72 0.57 - 1.11 mg/dL 10/24/2023 9:[address] [facility] Alkaline Phosphatase 169(H) 40 - 150 U/L 10/24/2023 9:10 AM CDT [facility] ALT 9 0 - 55 U/L 10/24/2023 9:10 AM CDT [facility] AST 14 5 - 34 U/L 10/24/2023 9:10 AM T [facility] Protein Total 6.6 6.4 - 8.3 gm/dL 10/24/2023 9:[address] [facility] Albumin 2.5(L) 3.4 - 5.0 gm/dL 10/24/2023 9:[address] [facility] Bilirubin Total 0.2 0.2 - 1.2 mg/dL 10/24/2023 9:[address] [facility] eGFR by CKD-EPI >90 >=90 mL/min/1.7 3 m2 10/24/2023 9:[address] [facility] Blood BLOOD SPECIMEN / Unknown Venipuncture / Unknown 10/24/2023 8:29 AM CDT 10/24/2023 8:38 AM CDT Stephany Otero MD LAB - CHEMISTRY ORD ERABLES [facility] [address] [place] [address] * PROTEIN CREATININE RATIO URINE RANDOM PNL (10/24/2023 8:29 AM CDT) Only the most recent of6 resultswithin the time period is included. Protein Urine 9.5 <11.9 mg/dL 10/24/2023 9:12 AM CDT [facility] Creatinine Urine 144.77 mg/dL 10/24/2023 9:[address] [facility] Protein/Creatin ine Ratio Urine 0.07 10/24/2023 9:12 AM CDT [facility] Urine URINE SPECIMEN OBTAINED BY CLEAN CATCH PROCEDURE / Unknown Collection / Unknown 10/24/2023 8:29 AM CDT 10/24/2023 8:38 AM CDT Stephany Otero MD LAB - URINE LUMBER SORTER RY ORDERABLES [facility] [address] [place] [address] * (ABNORMAL) URINALYSIS - POCT (IP) BEAKER INTERFACE (10/13/2023 11:06 AM CDT) Only the most recent of4 resultswithin the time period is included. Color UA POCT Yellow Straw, Yellow, Dark Yellow, Light Yellow 10/13/2023 11:08 AM CDT [facility] Clarity UA POCT Clear Clear 11:08 AM CDT [facility] Specific [place] UA POCT 1.020 1.005 - 1.030 10/13/2023 11:08 AM CDT [facility] pH UA POCT 6.5 5.0 - 8.0 pH 10/13/2023 11:08 AM T [facility] Protein UA POCT 1+(A) Negative 11:08 AM CDT [facility] Blood UA POCT Negative Negative 10/13/2023 11:08 AM CDT [facility] Leukocyte UA POCT 1+(A) Negative 10/13/2023 11:08 AM CDT [facility] Nitrite UA POCT Negative Negative 11:08 AM CDT [facility] Glucose UA POCT Negative Negative 11:08 AM T [facility] Ketone UA POCT Negative Negative 10/13/2023 11:08 AM T [facility] Bilirubin UA POCT Negative Negative 10/13/2023 11:08 AM CDT [facility] Urobilinogen UA POCT 1.0 0.1 - 1.0 EU/dL 10/13/2023 11:08 AM T [facility] Urine URINE / Unknown 10/13/2023 1 1:06 AM CDT 10/13/2023 11:08 AM CDT Aicha Johnson MD LAB - [facility] C[facility] ORDERABLES [facility] [address] [place] [address] * IMAGING RADIOLOGY XRAY RESULTS ORDER (10/11/2023 [...] OTHER INFORMATION Fiorella Ortega, JLUIS Non-Stress Test [facility] Patient Name: Tisha Patrick LMP: No [...] the procedure. Audra Rice MD, FACOG Professor, [employer] Division of Maternal- Medicine Department of Obstetrics, Gynecology, and Women's Health Adolfo Childs MD PROCEDURE/MINOR SURGICAL ORDERABLES * CULTURE STREP B (10/06/2023 12:16 PM CDT) Only the most recent of5 resultswithin the time period is included. Culture Strep B Negative for beta-hemolytic Streptococcus Group B ABEL 10/09/2023 12:15 PM CDT [facility] MICROBIOLOGY Microbiology MISCELLANEOUS SAMPLES / Unknown Collection / Unknown 10/06/2023 12:16 PM CDT 10/06/2023 12:24 PM CDT Siddharth Monahan MD LAB - MICROBIOLOGY O RDERABLES [facility] MICROBIOLOGY [address] [place] [address], [facility] [phone] * SONOGRAM - COMPLETE (09/29/2023 12:10 PM CDT) Only the most recent of11 resultswithin the time period is included. Anatomical Region Laterality Modality Other 09/29/2023 12:1 0 PM CDT Narrative 09/29/2023 1:34 PM CDT [facility] PHONE: FAX: Pat. Name: TISHA PATRICK Dandre Pat. No: [id number] Study Date: 09/29/2023 12:10pm , Age: 04 1990, 33 Pregnancies: 7, Para 1233 Height: 64 in Weight: 183 lb LMP: Unknown GA by Base: 35w0d LI: 11/03/2023 GA by US: 33w4d LI: 11/13/2023 GA Selected: 35w0d (From [facility]) LI: 11/03/2023 Referring MD: MD Amanda, [facility] Belt Builder: Kelly [place] RDMS CPT4: 98770 BMI: 31.41 Hist/Ind: Obesity class I, Asthma Prior preeclampsia x 3, Prior PTB x2 Low-risk cf-DNA Cerclage placed @ 16 weeks SGA with AC <10th% @ 30 weeks MEASUREMENTS & AGE GROWTH EVALUATION Measurement GA Range Srce %for GA Ratios ----- ---- ------- BPD 8.2 cm 32w6d ([id number]) Hadl BPD 5% FL/BPD 0.83 (0.71 - 0.87) HC 30.1 cm 33w2d (13y0d-43b7t) Hadl HC 1% FL/AC 0.23 (0.20 - 0.24) AC 30.0 cm 34w0d (05f4s-03h3m) Hadl AC 27% HC/AC 1.00 (0.94 - 1.13) FL 6.8 cm 34w5d (84h5i-63u7q) Hadl FL 35% CI 0.77 (0.70 - 0.86) HL 5.7 cm 33w2d (53k4u-69p3p) Juan M HL 23% GA for sonogram 33w4d (90m2a-02e9b) Weight Estimate: based on (BPD,HC,AC,FL) [place] Weight: [...] <Electronic Signature> 09/29/2023 01:34pm Siddharth Monahan MD [facility] ORDERABLES * HIV-1 HIV-2 ANTIBODY + HIV P24 AG PANEL (08/29/2023 11:08 AM CDT) Only the most recent of4 resultswithin the time period is included. HIV1/2 Ab + P24 Ag Non Reactive Non Reactive 08/29/2023 12:[address] [facility] Blood BLOOD SPECIMEN / Unknown Venipuncture / Unknown 08/29/2023 11:08 AM CDT 08/29/2023 11:28 AM CDT Narrative [facility] - 08/29/2023 12:17 PM CDT No Laboratory evidence of HIV infection. Aicha Johnson MD LAB - C HEMISTRY ORDERABLES Performing Organization Address City/[facility] Co de Phone Number [facility] [address] [place] [phone] * GLUCOSE CHALLENGE (08/29/2023 11:08 AM CDT) Only the most recent of2 resultswithin the time period is included. Glucose Challenge 117 64 - 140 mg/dL 08/29/2023 11:59 AM CDT [facility] Glucose Challenge Time 08/29/2023 11:59 AM CDT [facility] Blood BLOOD SPECIMEN / Unknown Venipuncture / Unknown 08/29/2023 11:08 AM CDT 08/29/2023 11:28 AM CDT Aicha Johnson MD LAB - C HEMISTRY ORDERABLES Performing Organization Address [facility] Co de Phone Number [facility] [address] [place] [phone] * (ABNORMAL) IRON + TRANSFERRIN PANEL (08/29/2023 11:08 AM CDT) Only the most recent of2 resultswithin the time period is included. Iron 36(L) 40 - 150 ug/dL 08/29/2023 11:53 AM CDT [facility] Transferrin 375 174 - 382 mg/dL 08/29/2023 11:53 AM CDT [facility] TIBC Calculated 469(H) 240 - 450 ug/dL 08/29/2023 11:53 AM CDT [facility] Iron Saturation % 8(L) 20 - 50 % 08/29/2023 11:53 AM CDT [facility] Blood BLOOD SPECIMEN / Unknown Venipuncture / Unknown 08/29/2023 11:08 AM CDT 08/29/2023 11:28 AM CDT Aicha Johnson MD LAB - C HEMISTRY ORDERABLES Performing Organization Address City/[facility] Co de Phone Number [facility] [address] [place] [phone] * FERRITIN (08/29/2023 11:08 AM CDT) Only the most recent of2 resultswithin the time period is included. Ferritin 8 5 - 204 ng/mL 08/29/2023 12:12 PM CDT [facility] Blood BLOOD SPECIMEN / Unknown Venipuncture / Unknown 08/29/2023 11:08 AM CDT 08/29/2023 11:28 AM CDT Aicha Johnson MD LAB - C HEMISTRY ORDERABLES Performing Organization Address [facility] de Phone Number [facility] [address] [place] [phone] * CARDIAC RHYTHM STRIP ORDER (05/23/2023 4:39 PM AX SURVEY WORKER) Only the most recent of2 resultswithin the time period is included. Narrative 05/23/2023 4:39 PM AX SURVEY WORKER Ordered by an unspecified provider. Scanned Document CARDIAC SERVICES ORD ERABLES * SONOGRAM - TRANSVAGINAL (05/23/2023 11:08 AM AX SURVEY WORKER) Only the most recent of4 resultswithin the time period is included. Anatomical Region Laterality Modality Other 05/23/2023 11:0 8 AM AX SURVEY WORKER Narrative 05/23/2023 12:04 PM AX SURVEY WORKER [facility] PHONE: FAX: Pat. Name: TISHA PATRICK. No: [id number] Study Date: 05/23/2023 11:08am , Age: 04 1990, 32 Pregnancies: 6, Para 3223 Height: 64 in Weight: 150 lb LMP: Unknown GA by Base: 16w4d LI: 11/03/2023 GA Selected: 16w4d (From [facility]) LI: 11/03/2023 Referring MD: MD Amanda, [facility] Belt Builder: Roxanna Lockwood [facility] CPT4: 62123,16647 BMI: 25.74 Hist/Ind: Cerclage placed 05/19/23 Unknown LMP Asthma Hx Pre E x 3 Hx PTD- 33wks and 36wks Hx TAB Hx cerclage x 1 Hx HELLP MEASUREMENTS & AGE GROWTH EVALUATION Measurement GA Range Srce %for GA Ratios ----- ---- ------- Cere 1.6 cm 16w5d (70k0g-81d1i) Nicola Dobson63% Cervix: Length: 3.5 cm Approach: [...] ORDERABLES * Neuraxial Block (05/19/2023 1:49 PM AX SURVEY WORKER) Narrative Dannielle Solitario APRN-BALLET DANCER - 05/19/2023 1:49 PM Dannielle Doherty APRN-CRNA [...] PAP IG LB+HPV APTIMA (05/04/2023 3:44 PM AX SURVEY WORKER) Diagnosis Comment 05/09/2023 3:08 PM AX SURVEY WORKER [facility] ([facility]) Comment:NEGATIVE FOR INTRAEP ITHELIAL LESION OR MALIGNANCY. Specimen Adequacy Comment 023 3:08 PM AX SURVEY WORKER [facility] ([facility]) Comment: Satisfactory for evaluation. Endocervical and/or squamous metaplastic cells (endocervical component) are present. Performed by Comment 05/09/2023 3:08 PM AX SURVEY WORKER [facility] ([facility]) Comment:Nadir Sadler totechnologist Comment . 05/09/2023 3:08 PM AX SURVEY WORKER [facility] ([facility]) Note Comment 05/09/2023 3:08 PM AX SURVEY WORKER [facility] ([facility]) Comment: The Pap smear is a screening test designed to aid in the detection of premalignant and malignant conditions of the uterine cervix. It is not a diagnostic procedure and should not be used as the sole means of detecting cervical cancer. Both false-positive and false-negative reports do occur. IGLBP CPT Code Automation Comment 05/09/2023 3:08 PM AX SURVEY WORKER [facility] ([facility]) Comment: This liquid based ThinPrep(R) pap test was screened with the use of an image guided system. Human papillomavirus Aptima Negative Negative 05/09/2023 3:08 PM AX SURVEY WORKER [facility] ([facility]) Comment: This nucleic acid amplification test detects fourteen high-risk HPV types (16,18,31,33,35,39,45,51,52,56,58,59,66,68) without differentiation. Pathology/Cytolo gy PART OF UTERINE CERVIX / Unknown Collection / Unknown 05/04/2023 3:44 PM AX SURVEY WORKER 05/04/2023 4:16 PM AX SURVEY WORKER Narrative [facility] ([facility]) - 05/09/2023 3:08 PM AX SURVEY WORKER Performed at: [address] [id number] [employer] Sales Representative: Kristyn Kramer MD, Phone: [phone] Performed at: [address] [id number] [employer] Sales Representative: Kristyn Kramer MD, Phone: [phone] Specimen Comment: No. of containers..01 ThinPrep Vial Evelin Joaquin MD LAB - PATHOLOGY/CYTO LOGY ORDERABLES [facility] ([facility]) [address] [place] [address] * HEMOGLOBINOPATHY FRACTIONATION CASCADE (05/04/2023 3:43 PM AX SURVEY WORKER) Hemoglobin F 0.0 0.0 - 2.0 % 05/06/2023 4:11 PM AX SURVEY WORKER [facility] ([facility]) Hemoglobin A 97.4 96.4 - 98.8 % 05/06/2023 4:11 PM AX SURVEY WORKER [facility] ([facility]) Hemoglobin A2 2.6 1.8 - 3.2 % 05/06/2023 4:11 PM AX SURVEY WORKER [facility] ([facility]) Hemoglobin S 0.0 0.0 % 05/06/2023 4:11 PM AX SURVEY WORKER [facility] ([facility]) Interpretation Comment 05/06/2023 4:11 PM AX SURVEY WORKER [facility] ([facility]) Comment: Normal hemoglobin present; no hemoglobin variant or beta thalassemia identified. Note: Alpha thalassemia may not be detected by the Hgb Fractionation [place] panel. If alpha thalassemia is suspected, [facility] offers Alpha-Thalassemia DNA Analysis (#[id number]). Blood BLOOD SPECIMEN / Unknown Venipuncture / Unknown 05/04/2023 3:43 PM AX SURVEY WORKER 05/04/2023 4:13 PM AX SURVEY WORKER Narrative [facility] ([facility]) - 05/06/2023 4:11 PM AX SURVEY WORKER Performed at: [address] [id number] [employer] Sales Representative: Terrell Henderson PhD, Phone: [phone] Evelin Joaquin MD LAB - CHEMISTRY ORDDandre [facility] Performing Organization Address City/[facility]/ZIP Co de Phone Number [facility] ([facility]) [address] [place] [address] * TREPONEMA PALLIDUM AB (05/04/2023 3:43 PM AX SURVEY WORKER) Treponema pallidum Antibody (TP-PA) Non Reactive Non Reactive 05/06/2023 4:11 PM AX SURVEY WORKER [facility] ([facility]) Blood BLOOD SPECIMEN / Unknown Venipuncture / Unknown 05/04/2023 3:43 PM AX SURVEY WORKER 05/04/2023 4:15 PM AX SURVEY WORKER Narrative [facility] ([facility]) - 05/06/2023 4:11 PM AX SURVEY WORKER Performed at: [address] [place] [id number] [employer] Sales Representative: Terrell Henderson PhD, Phone: [phone] Evelin Joaquin MD LAB - SEROLOGY ORDER ANNA Performing Organization Address City/[facility]/ZIP Co de Phone Number [facility] ([facility]) [address] [place] [address] * RUBELLA ANTIBODY IGG (05/04/2023 3:43 PM AX SURVEY WORKER) [facility] Rubella Antibody 4.70 Immune >0.99 index 05/06/2023 6:11 AM AX SURVEY WORKER [facility] ([facility]) Comment: Non-immune <0.90 Equivocal 0.90 - 0.99 Immune >0.99 Blood BLOOD SPECIMEN / Unknown Venipuncture / Unknown 05/04/2023 3:43 PM AX SURVEY WORKER 05/04/2023 4:13 PM AX SURVEY WORKER Narrative [facility] ([facility]) - 05/06/2023 6:11 AM AX SURVEY WORKER Performed at: [address] [place] [id number] [employer] Sales Representative: Terrell Henderson PhD, Phone: [phone] Evelin Joaquin MD LAB - SEROLOGY ORDER ANNA Performing Organization Address City/[facility]/ZIP Co de Phone Number [facility] ([facility]) [address] [place] [address] * HEPATITIS B SURFACE ANTIGEN W RFLX CONFIRMATION (05/04/2023 3:43 PM AX SURVEY WORKER) Only the most recent of2 resultswithin the time period is included. [facility] HBsAg Non Reactive Non Reactive 05/04/2023 5:02 PM AX SURVEY WORKER [facility] Blood BLOOD SPECIMEN / Unknown Venipuncture / Unknown 05/04/2023 3:43 PM AX SURVEY WORKER 05/04/2023 4:13 PM AX SURVEY WORKER Evelin Joaquin MD LAB - CHEMISTRY ORDE CASSY [facility] [address] [place] [address] * HEPATITIS C ANTIBODY (05/04/2023 3:43 PM AX SURVEY WORKER) [facility] HCV Antibody Screen Non Reactive Non Reactive 05/04/2023 5:03 PM AX SURVEY WORKER [facility] Blood BLOOD SPECIMEN / Unknown Venipuncture / Unknown 05/04/2023 3:43 PM AX SURVEY WORKER 05/04/2023 4:13 PM AX SURVEY WORKER Narrative [facility] - 05/04/2023 5:03 PM AX SURVEY WORKER Non Reactive - Antibodies to Hepatitis C virus (HCV) were not detected, result does not exclude early acute HCV infection. Evelin Joaquin MD LAB - CHEMISTRY SUELLENDandre MADERA [facility] [address] [place] [address] * TRICHOMONAS VAGINALIS AMPLIFIED PROBE (05/04/2023 3:34 PM AX SURVEY WORKER) Trichomonas vaginalis Amplified Probe Negative Negative 05/04/2023 11:44 PM AX SURVEY WORKER [facility] Microbiology ENTIRE ENDOCERVIX / Unknown Collection / Unknown 05/04/2023 3:34 PM AX SURVEY WORKER 05/04/2023 4:16 PM AX SURVEY WORKER Narrative [facility]CRO[facility] - 05/04/2023 11:44 PM AX SURVEY WORKER Results based on detection/no detection of ribosomal RNA by amplified method. Evelin Joaquin MD LAB - MICROBIOLOGY O ABBI Performing Organization Address City/[facility]/ZIP Co de Phone Number [facility]CRO[facility] [address] [place] [address], [facility] [phone] * CHLAMYDIA + GC AMPLIFIED PROBE (05/04/2023 3:34 PM AX SURVEY WORKER) Only the most recent of2 resultswithin the time period is included. Chlamydia Amplified Probe Negative Negative 05/05/2023 12:42 AM AX SURVEY WORKER [facility] GC Amplified Probe Negative Negative 05/05/2023 12:42 AM AX SURVEY WORKER [facility]CRO[facility] Microbiology ENTIRE ENDOCERVIX / Unknown Collection / Unknown 05/04/2023 3:34 PM AX SURVEY WORKER 05/04/2023 4:16 PM AX SURVEY WORKER Narrative [facility]CRO[facility] - 05/05/2023 12:42 AM AX SURVEY WORKER Results based on detection/no detection of ribosomal RNA by amplified method. Evelin Joaquin MD LAB - MICROBIOLOGY O ABBI [facility] [address] [place] [address], [facility] [phone] * CULTURE URINE (05/04/2023 3:34 PM AX SURVEY WORKER) Only the most recent of2 resultswithin the time period is included. Pathologist [facility] Culture Urine 10,000-50,000 CFU/mL urogenital kenney ABEL 05/05/2023 9:12 PM AX SURVEY WORKER [facility] Urine URINE SPECIMEN OBTAINED BY CLEAN CATCH PROCEDURE / Unknown Collection / Unknown 05/04/2023 3:34 PM AX SURVEY WORKER 05/04/2023 4:16 PM AX SURVEY WORKER Evelin Joaquin MD LAB - MICROBIOLOGY O RDERABLES [facility] [address] [place] [address], [facility] [phone] * (ABNORMAL) CBC W/O DIFFERENTIAL (05/04/2023 3:34 PM AX SURVEY WORKER) Only the most recent of2 resultswithin the time period is included. WBC 7.2 4.4 - 10.7 x10E9/L 05/04/2023 4:25 PM AX SURVEY WORKER [facility] RBC 4.10 3.80 - 5.20 x10E12/L 05/04/2023 4:25 PM AX SURVEY WORKER [facility] Hemoglobin 11.6(L) 12.0 - 15.6 gm/dL 05/04/2023 4:25 PM AX SURVEY WORKER [facility] Hematocrit 35.8(L) 35.9 - 45.5 % 05/04/2023 4:25 PM AX SURVEY WORKER [facility] MCV 87.3 80.7 - 98.3 fl 05/04/2023 4:25 PM AX SURVEY WORKER [facility] MCH 28.3 26.7 - 34.0 pg 05/04/2023 4:25 PM AX SURVEY WORKER [facility] MCHC 32.4 30.8 - 35.9 gm/dL 05/04/2023 4:25 PM AX SURVEY WORKER [facility] Platelet Count 259 153 - 416 x10E9/L 05/04/2023 4:25 PM AX SURVEY WORKER [facility] RDW-CV 12.6 12.1 - 14.9 % 05/04/2023 4:25 PM AX SURVEY WORKER [facility] MPV 9.8 9.4 - 12.9 fl 05/04/2023 4:25 PM AX SURVEY WORKER [facility] Blood BLOOD SPECIMEN / Unknown Venipuncture / Unknown 05/04/2023 3:34 PM AX SURVEY WORKER 05/04/2023 4:14 PM AX SURVEY WORKER Evelin Joaquin MD LAB - HEMATOLOGY ORD ERABLES [facility] [address] [place] [address] * ANEUPLOIDY SCREENING (05/04/2023) Only the most [...] (08/31/2020 1:28 PM CDT) Narrative Dannielle Solitario APRN-BALLET DANCER - 08/31/2020 1:28 PM CDT Dannielle Solitario [...] PM Total Time: 3 Staff: Anesthesia Provider: Daninelle Solitario APRN-MARTIN - performed the procedure Antonio [...] Monahan MD LAB - URINALYSIS ORD ERABLES [facility] [address] [place] [address] * (ABNORMAL) URINALYSIS REFLEX MICROSCOPIC REFLEX CULTURE (08/31/2020 8:18 AM CDT) Only the most recent of2 resultswithin the time period is included. Color UA Yellow Straw, Yellow 08/31/2020 8:38 AM CDT [facility] Clarity UA Slt Cloudy(A) Clear 08/31/2020 8:38 AM CDT [facility] Glucose UA Negative Negative 08/31/2020 8:38 AM CDT [facility] Bilirubin UA Negative Negative 08/31/2020 8:38 AM CDT [facility] Ketone UA Negative Negative 08/31/2020 8:38 AM CDT [facility] Specific [place] UA 1.024 1.005 - 1.030 08/31/2020 8:38 AM CDT [facility] Blood UA 1+(A) Negative 08/31/2020 8:38 AM CDT [facility] pH UA 6.0 5.0 - 8.0 pH 08/31/2020 8:38 AM CDT [facility] Protein UA 1+(A) Negative 08/31/2020 8:38 AM CDT [facility] Urobilinogen UA 4.0(A) Negative mg/dL 08/31/2020 8:38 AM CDT [facility] Nitrite UA Negative Negative 08/31/2020 8:38 AM CDT [facility] Leukocyte UA 1+(A) Negative 08/31/2020 8:38 AM CDT [facility] Urine Microscopy Urine microscopy to follow 08/31/2020 8:38 AM CDT [facility] Reflex Status Culture to follow 08/31/2020 8:38 AM T [facility] Urine URINE SPECIMEN OBTAINED BY CLEAN CATCH PROCEDURE / Unknown Collection / Unknown 08/31/2020 8:18 AM CDT 08/31/2020 8:28 AM CDT Narrative [facility] - 08/31/2020 8:38 AM CDT Siddharth Monahan MD LAB - URINALYSIS ORD ERABLES [facility] [address] [place], [place] [phone] * NONSTRESS TEST (08/31/2020 7:35 AM CDT) [...] OTHER INFORMATION Germaine Burrows RN Non-Stress Test [facility] Patient Name: Tisha Patrick LMP: Patient's [...] - POINT OF CARE (08/07/2020 10:47 AM AX SURVEY WORKER) Only the most recent of5 resultswithin the time period is included. Glucose UA neg Negative [facility] Protein UA trace Negative [facility] Ketone UA neg Negative [facility] QC Verified Yes Yes [facility] POC T TESTING Urine URINE / Unknown 08/07/2020 1 0:47 AM AX SURVEY WORKER Aicha Mccauley MD LAB - POINT OF [place] RE ORDERABLES [facility] [address] [phone] * NONSTRESS TEST (07/17/2020 2:19 AM AX SURVEY WORKER) Narrative Stephany Otero MD - 07/17/2020 2:19 AM AX SURVEY WORKER Heavenly Ordoñez MD 07/17/2020 7:05 AM Name: [...] 1 variable deceleration to 50s, overall reassuring Convoy: no contractions A/P: well-being reassuring Heavenly Ordoñez MD 07/17/2020 7:04 AM Stephany Otero MD OB [facility] ORDERABLES * ETT LINE PERFORMABLE (05/19/2020 11:48 AM AX SURVEY WORKER) Narrative Tennille Ivey APRN-CRNA - 05/19/2020 11:48 AM AX SURVEY WORKER Tennille Ivey APRN-CRNA 05/19/2020 11:48 AM Endotracheal Tube Placement: Patient Location: OR. Intubation Event Date/Time: 05/19/2020 11:33 AM Procedure: intubation (28422). Procedure Section: Sedation: under general anesthesia. Indications [...] SARS-COV-2 (COVID-19) IN HOUSE (05/16/2020 3:00 PM AX SURVEY WORKER) COVID-19 PCR Not detected Not detected 05/17/2020 2:44 AM [facility] MICROBIOLOGY Microbiology SPECIMEN FROM NASOPHARYNGEAL STRUCTURE / Unknown Collection / Unknown 05/16/2020 3:00 PM AX SURVEY WORKER 05/16/2020 3:07 PM AX SURVEY WORKER Narrative [facility]CRO[facility] - 05/17/2020 2:44 AM AX SURVEY WORKER This nucleic acid amplification assay performance was validated by [facility]. This test has been [...] Parker MD LAB - MICROBIOLOGY O ABBI [facility] [address] [place], [place] [phone] [place] [address] * TRICHOMONAS RAPID TEST (02/25/2020 11:11 AM CDT) Only the most recent of2 resultswithin the time period is included. Trichomonas Rapid Test Negative Negative 02/25/2020 1:24 PM CDT [facility] Microbiology VAGINAL SWAB / Unknown Collection / Unknown 02/25/2020 11:11 AM CDT 02/25/2020 11:25 AM CDT Laila Cruz MD LAB - MICROBIOLOGY O ABBI [facility] [address] [place] [address] * HCG URINE QUALITATIVE - POINT OF CARE (08/02/2018 2:24 PM AX SURVEY WORKER) Pathologist [facility] HCG Qual Urine Negative Negative [facility] POCT TESTING QC Verified Yes Yes [facility] POC T TESTING Urine URINE / Unknown 08/02/2018 2 :24 PM AX SURVEY WORKER Joel Cabrera MD LAB - POINT OF CARE ORDERABLES [facility] POCT TESTING [address] [place] [address], [facility] [phone] * BIOPHYSICAL PROFILE W NST (06/26/2018 10:25 AM AX SURVEY WORKER) Only the most recent of6 resultswithin the time period is included. Anatomical Region Laterality Modality Other 06/26/2018 10:2 5 AM AX SURVEY WORKER Narrative 06/26/2018 12:19 PM AX SURVEY WORKER Cassie OLIVAREZ [facility] PHONE: FAX: Pat. Name: TISHA PATRICK Mi. No: [id number] Study Date: 06/26/2018 10:25am , Age: 04 1990, 27 Pregnancies: 4, Para 1, Ab 2 Height: 64 in Weight: 156 lb LMP: Unknown GA by Base: 36w2d LI: 07/22/2018 GA Selected: 36w2d (From [facility]) LI: 07/22/2018 Referring MD: Graeme John MD Belt Builder: Kaela Duncan RDMS CPT4: [id number] BMI: 26.77 Hist/Ind: History of preeclampsia, FGR, [...] <Electronic Signature> 06/26/2018 12:19pm Rama Conrad MD [facility] ORDERABLES * RPR (06/22/2018 11:26 AM AX SURVEY WORKER) Only the most recent of2 resultswithin the time period is included. Pathologist [facility] RPR Non Reactive Non Reactive 06/23/2018 7:28 AM AX SURVEY WORKER [facility] Blood BLOOD SPECIMEN / Unknown Venipuncture / Unknown 06/22/2018 11:26 AM AX SURVEY WORKER 06/22/2018 11:45 AM AX SURVEY WORKER Ela Hurt MD LAB - CHEMISTRY ORD ERABLES [facility] [address] [place] [address] * (ABNORMAL) CYTOMEGALOVIRUS ANTIBODY IGG/IGM BLOOD PANEL (06/22/2018 11:26 AM AX SURVEY WORKER) Only the most recent of2 resultswithin the time period is included. [facility] Cytomegalovirus Antibody IgG 4.40(H) 0.00 - 0.59 U/mL 06/23/2018 6:19 AM [facility] ([facility]) Comment: Negative <0.60 Equivocal 0.60 - 0.69 Positive >0.69 Cytomegalovirus Antibody IgM <30.0 0.0 - 29.9 AU/mL 06/23/2018 6:19 AM [facility] ([facility]) Comment: Negative <30.0 Equivocal 30.0 - 34.9 Positive >34.9 A positive result is generally indicative of acute infection, reactivation or persistent IgM production. Blood BLOOD SPECIMEN / Unknown Venipuncture / Unknown 06/22/2018 11:26 AM AX SURVEY WORKER 06/22/2018 11:45 AM AX SURVEY WORKER Narrative [facility] ([facility]) - 06/23/2018 6:19 AM AX SURVEY WORKER Performed at: [facility] [address] [place], [place] [id number] [employer] Sales Representative: Terrell Henderson PhD, Phone: [phone] Ela Hurt MD LAB - CHEMISTRY ORD ERABLES Performing Organization Address City/[facility]/ZIP Co de Phone Number [facility] ([facility]) [address] [place] [address] * TOXOPLASMA ANTIBODY IGG/IGM PANEL (06/22/2018 11:26 AM AX SURVEY WORKER) Only the most recent of2 resultswithin the time period is included. Pathologist [facility] Toxoplasma gondii Antibody IgG Quantitative <3.0 0.0 - 7.1 IU/mL 06/23/2018 6:19 AM [facility] ([facility]) Comment: Negative <7.2 Equivocal 7.2 - 8.7 Positive >8.7 Toxoplasma Antibody IgM <3.0 0.0 - 7.9 AU/mL 06/23/2018 6:19 AM [facility] ([facility]) Comment: Negative <8.0 Equivocal 8.0 - 9.9 Positive >9.9 Comments Comment 06/23/2018 6:19 AM [facility]) Comment: No serological evidence of infection with Toxoplasma. If symptoms persist, submit a new specimen after three weeks. Blood BLOOD SPECIMEN / Unknown Venipuncture / Unknown 06/22/2018 11:26 AM AX SURVEY WORKER 06/22/2018 11:45 AM AX SURVEY WORKER Narrative [facility] ([facility]) - 06/23/2018 6:19 AM AX SURVEY WORKER Performed at: [address] [place] [id number] [employer] Sales Representative: Terrell Henderson PhD, Phone: [phone] Ela Hurt MD LAB - CHEMISTRY ORD ERABLES Performing Organization Address City/[facility]/ZIP Co de Phone Number [facility] ([facility]) [address] [place] [address] * (ABNORMAL) GLUCOSE - POINT OF CARE (05/04/2018 3:22 PM AX SURVEY WORKER) Only the most recent of5 resultswithin the time period is included. Pathologist [facility] Glucose WB/POC 137(H) 70 - 106 mg/dL 05/04/2018 4:02 PM [facility] Blood BLOOD SPECIMEN / Unknown 05/04/2018 3:22 PM AX SURVEY WORKER 05/04/2018 4:01 PM AX SURVEY WORKER Miranda Gar MD LAB - POINT OF CARE ORDERABLES [facility] [address] [place] [address] * CHLAMYDIA + GC AMPLIFIED PROBE (05/03/2018 12:23 PM AX SURVEY WORKER) Only the most recent of2 resultswithin the time period is included. Chlamydia Amplified Probe Negative Negative 05/04/2018 10:35 AM AX SURVEY WORKER [facility] MICROBIOLOGY GC Amplified Probe Negative Negative 05/04/2018 10:35 AM [facility] MICROBIOLOGY Microbiology URINE / Unknown Collection / Unknown 05/03/2018 12:23 PM AX SURVEY WORKER 05/03/2018 12:32 PM AX SURVEY WORKER Narrative [facility] MICROBIOLOGY - 05/04/2018 10:35 AM AX SURVEY WORKER Results based on detection/no detection of ribosomal RNA by amplified method. Aicha Wood MD LAB - MICROBIOLOGY ORDERABLES Performing Organization Address [facility] de Phone Number [facility] [facility] [address] [phone] * (ABNORMAL) PT PTT PANEL (11/09/2014 9:00 AM CDT) Only the most recent of4 resultswithin the time period is included. Pathologist [facility] PT <9.5(L) 9.5 - 11.6 sec 11/09/2014 9:38 AM CDT [facility] INR 0.9 0.9 - 1.1 11/09/2014 9:38 AM CDT [facility] PTT 27.2 21.0 - 32.0 sec 11/09/2014 9:38 AM CDT [facility] Blood BLOOD SPECIMEN / Unknown Venipuncture / Unknown 11/09/2014 9:00 AM CDT 11/09/2014 9:11 AM CDT Narrative [facility] - 11/09/2014 9:38 AM CDT Conventional Warfarin Anticoagulant Therapy INR Reference Range: 2.0-3.0 Intensive Warfarin Anticoagulant Therapy INR Reference Range: 2.5-3.5 Heparin Therapeutic Range for PTT: 44.4 - 78.3 seconds. Karin Lee MD LAB - COAGULATION OR DERABLES [facility] [address] [place] [address] * (ABNORMAL) FIBRINOGEN ACTIVITY (11/08/2014 3:12 PM CDT) Only the most recent of2 resultswithin the time period is included. Fibrinogen 455(H) 200 - 400 mg/dL 11/08/2014 4:11 PM CDT [facility] Blood BLOOD SPECIMEN / Unknown Venipuncture / Unknown 11/08/2014 3:12 PM CDT 11/08/2014 3:19 PM CDT Karin Lee MD LAB - COAGULATION OR DERABLES [facility] [address] [place] [address] * GROSS + MICRO EXAM (STL) (11/08/2014 12:57 PM CDT) Case Report Surgical Pathology Report Case: [id number] Authorizing Provider: Edouard Gonzalez MD Collected: 11/08/2014 12:57 PM Ordering Location: [facility] Received: 11/09/2014 05:42 AM Pathologist: Venus Farr MD Specimen: Placenta 3rd Trimester 11/11/2014 4:10 PM CDT [facility] Final Diagnosis 1. Placenta, delivery: -- Third trimester placenta -- Three vessel umbilical cord -- Unremarkable membranes -- Scattered calcifications /scs 11/11/2014 4:10 PM CDT [facility] Gross Description Received in formalin [...] disc reveal beefy red, unremarkable cut surface. [employer] sections are submitted as follows: A1 - labor service representative section of the umbilical cord and placental membranes; A2 and A3 - labor service representative sections of the placental disc. /arm 11/11/2014 4:10 PM CDT [facility] Microscopic Description Sections of the umbilical cord show three vessels with no evidence of vasculitis or funisitis. Sections of the membranes show unremarkable histology and are free of inflammation. Meconium is not seen. Sections of the placental disc show maturing chorionic villi with no evidence of hemorrhage or infarction. MC/scs 11/11/2014 4:10 PM CDT [facility] Pathology/Cytolo gy ENTIRE PLACENTA / Unknown 11/08/2014 12:57 PM CDT 11/09/2014 5:42 AM CDT Edouard Gonzalez MD LAB - PATHOLOGY/CYTO LOGY ORDERABLES Performing Organization Address City/State/[facility] Co de Phone Number [facility] [address] [place] [address] * NEURAXIAL BLOCK (11/08/2014 7:58 AM CDT) [...] - 6.2 mg/dL 11/07/2014 4:39 PM CDT [facility] Blood BLOOD SPECIMEN / Unknown Venipuncture / Unknown 11/07/2014 4:04 PM CDT 11/07/2014 4:15 PM CDT Rene Burger MD LAB - CHEMISTRY ORDERABLES Performing Organization Address City/State/[facility] Co de Phone Number [facility] [address] [place] [address] * DRUG SCREEN TOX URINE PANEL (11/07/2014 4:04 PM CDT) Pathologist [facility] Amphetamines Screen Urine Not Detected Not Detected 11/07/2014 4:29 PM CDT [facility] Barbiturates Screen Urine Not Detected Not Detected 11/07/2014 4:29 PM CDT [facility] Benzodiazepines Screen Urine Not Detected Not Detected 11/07/2014 4:29 PM CDT [facility] Cannabinoids Screen Urine Not Detected Not Detected 11/07/2014 4:29 PM CDT [facility] Cocaine Screen Urine Not Detected Not Detected 11/07/2014 4:29 PM CDT [facility] Methadone Screen Urine Not Detected Not Detected 11/07/2014 4:29 PM CDT [facility] Opiate Screen Urine Not Detected Not Detected 11/07/2014 4:29 PM CDT [facility] Phencyclidine Screen Urine Not Detected Not Detected 11/07/2014 4:29 PM CDT [facility] Urine URINE / Unknown Collection / Unknown 11/07/2014 4:04 PM CDT 11/07/2014 4:15 PM CDT Narrative [facility] - 11/07/2014 4:29 PM CDT [...] URINE CHEM ISTRY ORDERABLES Performing Organization Address [facility] Co de Phone Number [facility] [address] [place] [phone] * (ABNORMAL) LDH BLOOD (11/07/2014 4:04 PM CDT) LDH 225(H) 100 - 200 U/L 11/07/2014 4:39 PM CDT [facility] Blood BLOOD SPECIMEN / Unknown Venipuncture / Unknown 11/07/2014 4:04 PM CDT 11/07/2014 4:15 PM CDT Rene Burger MD LAB - CHEMISTRY ORDERABLES Performing Organization Address [facility] de Phone Number [facility] [address] [place], [place] [phone] * LIPASE BLOOD (11/05/2014 4:52 PM CDT) Lipase 78 73 - 393 U/L 11/05/2014 5:39 PM CDT [facility] Blood BLOOD SPECIMEN / Unknown Venipuncture / Unknown 11/05/2014 4:52 PM CDT 11/05/2014 5:00 PM CDT Brit Glover MD LAB - CHEMISTRY ELEN MADERA Performing Organization Address [facility] Co de Phone Number [facility] [address] [place] [phone] * AMYLASE BLOOD (11/05/2014 4:52 PM CDT) Amylase 45 15 - 115 U/L 11/05/2014 5:39 PM CDT [facility] Blood BLOOD SPECIMEN / Unknown Venipuncture / Unknown 11/05/2014 4:52 PM CDT 11/05/2014 5:00 PM CDT Brit Glover MD LAB - CHEMISTRY ORDE RABLES Performing Organization Address [facility] Co de Phone Number [facility] [address] [place], [place] [phone] * (ABNORMAL) PROTEIN URINE TIMED QUANTITATIVE (11/05/2014 12:46 PM CDT) Volume 24 Hour Urine 2,700 mL 11/05/2014 1:20 PM CDT [facility] Collection Time Hours 24 hrs 11/05/2014 1:20 PM CDT [facility] Protein 24 Hour Urine 246(H) 42 - 225 mg/24hr 11/05/2014 1:20 PM CDT [facility] Protein Urine 9.1 mg/dL 11/05/2014 1:20 PM CDT [facility] Urine TIMED URINE SPECIMEN / Unknown Collection / Unknown 11/05/2014 12:46 PM CDT 11/05/2014 1:02 PM CDT Brit Glover MD LAB - URINE CHEMISTR Y ORDERABLES Performing Organization Address [facility]/ZIP Co de Phone Number [facility] [address] [place] [address] * (ABNORMAL) CREATININE CLEARANCE URINE TIMED (11/05/2014 12:46 PM CDT) Volume 24 Hour Urine 2,700 mL 11/05/2014 1:20 PM CDT [facility] Collection Time Hours 24 hrs 11/05/2014 1:20 PM CDT [facility] Height Inches 64 inches 11/05/2014 1:20 PM CDT [facility] Weight in Pounds 161 pounds 11/05/2014 1:20 PM CDT [facility] Surface Area 1.79 11/05/2014 1:20 PM CDT [facility] Creatinine 0.59 0.50 - 1.30 mg/dL 11/05/2014 1:20 PM CDT [facility] Creatinine Urine 23 mg/dL 11/05/2014 1:20 PM CDT [facility] Creatinine 24 Hour Urine 621(L) 800 - 1,800 mg/24hr 11/05/2014 1:20 PM CDT [facility] Creatinine Clearance 71(L) 87 - 107 mL/min/1.73 m2 11/05/2014 1:20 PM CDT [facility] Urine TIMED URINE SPECIMEN / Unknown Collection / Unknown 11/05/2014 12:46 PM CDT 11/05/2014 1:02 PM CDT Brit Glover MD LAB - URINE CHEMISTR Y ORDERABLES Performing Organization Address [facility] Co de Phone Number [facility] [address] [place] [address] * BLOOD TYPE VERIFICATION (11/05/2014 3:37 AM CDT) ABO A 11/05/2014 4:24 AM CDT [facility] Rh Type Positive 11/05/2014 4:24 AM CDT [facility] Miscellaneous samples (specimen) BLOOD SPECIMEN / Unknown Venipuncture / Unknown 11/05/2014 3:37 AM CDT 11/05/2014 3:53 AM CDT Tali Benson MD LAB - BLOOD BANK ORDERABLES Performing Organization Address [facility] Co de Phone Number [facility] [address]
--- OUTSIDE RECORDS SUMMARY | 2024-07-19 21:41 | XMS_ITS | Encounter Summary ---
Author Organization [facility] Address [address] [place] [address] [place] [address] Care Team Providers Care Clinical Nursing Director Name Role Phone Unavailable Primary Care Provider Unavailabl e Reason for Visit * Reason Onset Date Comments Patient Requested Call 08/10/2018 Encounter Details Date Type Department Care Team (Late st Contact Info) Description 08/10/2018 Telephone [facility]/ EVALUATION UNIT [facility]. [address] [place] [address] Jodee Flores, RN Patient Requested Call Social [...] John) until she had been seen in [facility] clinic per pt 07/03. New OB in [facility] clinic was established 06/22. Pt stated [...] in regards to housing. Pt verbalized understanding. 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
== END 2024-07-19 21:06 | disposition left against medical advice (07) ==
DX: R51.9 Headache, unspecified (principal)
CPT/HCPCS: 99199